=== PATIENT | male | born 1970 | race Caucasian/White ===

== ENCOUNTER 2020-01-07 10:29 | Inpatient (IN) ==
--- NOTE | 2020-01-07 10:40 | Emergency Department Note ---
Impression & Plan Non-ST elevation myocardial infarction (NSTEMI), Chest pain, Unstable angina pectoris ED Provider Note NAME: CHAKA MOORE AGE: 49 SEX: M : 1970 ARRIVES VIA: Ambulance INFORMANT: Patient ED PROVIDER(S): Noah Maza DO CHIEF COMPLAINT: Chest pain HPI: Patient is a 49-year-old male who presents the ER for midsternal chest pressure/heaviness. He notes this comes and goes throughout the day with exertion mainly when he is working in the [employer]. He does admit some mild shortness of breath with it and right jaw pain. He is also had some left lower quadrant abdominal pain in combination with this for the past week and a half. He denies any dizziness, lightheadedness. No nausea vomiting or diarrhea. Nothing changes with eating or drinking. He does admit to a history of smoking. He notes his father in his mid 40s of an MA. Symptoms do go away with rest. He currently has no pain at this time. ROS: See above HPI for pertinent positives & negatives. A total of 10 systems reviewed and were otherwise negative. PAST MEDICAL HISTORY:See Below PAST SURGICAL HISTORY:See Below FAMILY HISTORY:See Below SOCIAL HISTORY:See Below HOME MEDICATIONS:See Below ALLERGIES:See Below VITALS:See Below PHYSICAL EXAMINATION: GENERAL: Sitting up in bed, alert, well appearing, well nourished, no distress, non-toxic EYE EXAM: normal conjunctiva. OROPHARYNX: no exudate, no erythema, lips, buccal mucosa, and tongue normal and mucous membranes are moist NECK: supple, no nuchal rigidity, no adenopathy, non-tender LUNGS: Clear to auscultation. Normal chest wall mechanics HEART: no murmurs, S1 normal and S2 normal ABDOMEN: abdomen soft, non-tender, normo-active bowel sounds, no masses, no rebound or guarding. BACK: Back is symmetrical on inspection and there is no deformity, no midline tenderness, no CVA tenderness. SKIN: no rashes and no bruising UPPER EXTREMITIES: upper extremities are grossly normal. LOWER EXTREMITIES: No pitting edema. Calves are equal bilateral NEURO EXAM: Normal sensorium, cranial nerves II-XII grossly intact, normal speech, no gross weakness of arms, no gross weakness of legs. MEDICAL DECISION MAKING: Patient is a 49-year-old male who presents the ER for chest pain which has been off and on for the past 2 weeks while working. He describes as midsternal goes up to the right neck. He does have some pain in his left belly for the past 1.5 weeks. Does have a seizure disorder. He takes Dilantin and Tegretol for seizures. IV was established blood work was obtained shows mild leukopenia. INR was unremarkable. BMP with LFTs bilirubin magnesium was negative. Troponin was detectable at 0.065. Lipase was normal. COVID negative. Chest x-ray was unremarkable. CT abdomen pelvis was unremarkable. Patient had received aspirin prior to arrival. He was pain-free. Chest pain started back up and resolved after 5 minutes. I had ordered heparin for him and nitro at this time. Patient d/w for possible admission. Patient denies any coughing up blood, vomiting blood, pooping blood, urinating blood or previous brain bleeds. Tres stable throughout the main of the time in the ER. There is no change on the repeat EKG. Triage Nursing notes reviewed. Prior medical records reviewed Vital Signs: reviewed and remarkable for no significant abnormalities Differential diagnosis: Differential diagnoses includes but is not limited to acute coronary syndrome, myocardial infarction, pericarditis, pulmonary embolus, aortic dissection, pneumonia, pneumothorax, musculoskeletal, shingles, esophageal. ER treatment provided: See below Diagnostics interpreted by me: ECG: Sinus rhythm rate 67 Normal axis No PVCs Probable slightly prolonged QTC at 480 T wave inversion in the high lateral leads No significant change from 10/31/2017 EKG:#2 Sinus rhythm rate of 58 Normal axis No PVCs DWI in the high lateral leads Normal QTC Cardiac Monitoring: An order was placed for continuous cardiac monitoring. The monitor shows a rate of sinus with 71 rhythm. Laboratory studies: As stated above and show below. Imaging studies: CT abdomen pelvis shows no acute pathology Portable AP upright 1 view of the chest was unremarkable. Consultation(s): Discussed with hospitalist for admission ED COURSE: Procedures: none Critical Care: I have personally spent 32 minutes of critical care time in the direct management of this patient. This includes bedside care, interpretation of diagnostic studies, and testing, discussion with consultants, patient, and family members, and other required patient management activities. This 32 minutes is in excess of all separately billable procedures. 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 Beliefs That Will Affect Care: None Current Living Situation: Other Other Information That Helps Us Care for You: No Feels Safe at Home: Yes Smoking Status: Former smoker Hx Alcohol Use: No Hx Substance Use: Yes substance use type: former substance user and marijuana Allergies Allergies Allergy/AdvReac Type Severity Reaction Status Date / Time No Known Allergies Allergy Unverified 01/07/20 12:24 Home Meds Home Medications Medication Instructions Recorded Confirmed atorvastatin 40 mg PO PM 01/07/20 01/07/20 carbamazepine [Tegretol] 600 mg PO BID 01/07/20 01/07/20 phenytoin sodium extended 300 mg PO BID 01/07/20 01/07/20 Results & Data (ED) Vital Signs Vital Signs - 24 hr 01/07/20 10:33 01/07/20 10:38 01/07/20 11:00 Temperature 36.7 C Temperature Source Oral Pulse Rate 66 68 65 Pulse Rhythm Regular Pulse Strength Normal Respiratory Rate 16 18 16 Respiratory Effort / Characteristics Non-Labored Respiratory Depth Normal Respiratory Pattern Regular Blood Pressure 166/87 H 166/87 H 145/90 H Blood Pressure Mean 114 113 105 Blood Pressure Position Lying Pulse Oximetry 98 Oxygen Delivery Method Room Air Sepsis Recent Fever Within 48 Hours No Sepsis Action Taken by Nursing No Action Required 01/07/20 11:31 01/07/20 11:43 01/07/20 12:25 Temperature Temperature Source Pulse Rate 64 61 63 Pulse Rhythm Pulse Strength Respiratory Rate 16 13 14 Respiratory Effort / Characteristics Respiratory Depth Respiratory Pattern Blood Pressure 138/78 130/73 Blood Pressure Mean 81 79 Blood Pressure Position Pulse Oximetry Oxygen Delivery Method Sepsis Recent Fever Within 48 Hours Sepsis Action Taken by Nursing 01/07/20 12:26 01/07/20 12:30 01/07/20 12:31 Temperature Temperature Source Pulse Rate 59 L 61 62 Pulse Rhythm Pulse Strength Respiratory Rate 16 12 12 Respiratory Effort / Characteristics Respiratory Depth Respiratory Pattern Blood Pressure 139/77 Blood Pressure Mean 93 Blood Pressure Position Pulse Oximetry Oxygen Delivery Method Sepsis Recent Fever Within 48 Hours Sepsis Action Taken by Nursing 01/07/20 13:00 01/07/20 13:08 Temperature Temperature Source Pulse Rate 61 59 L Pulse Rhythm Pulse Strength Respiratory Rate 16 13 Respiratory Effort / Characteristics Respiratory Depth Respiratory Pattern Blood Pressure 130/83 166/112 H Blood Pressure Mean 96 155 Blood Pressure Position Pulse Oximetry Oxygen Delivery Method Sepsis Recent Fever Within 48 Hours Sepsis Action Taken by Nursing Laboratory Data Result diagrams: 01/07/20 11:00 01/07/20 11:00 Lab Results 01/07/20 01/07/20 01/07/20 Range/Units 11:00 11:00 11:00 WBC 4.79 L (4.8-10.8) K/uL RBC 4.31 L (4.7-6.1) M/uL Hgb 13.5 L (14.0-18.0) g/dL Hct 39.2 L (42-52) % MCV 91.0 (80-100) fL MCH 31.3 (25-34) pg MCHC 34.4 (32-36) g/dL RDW Std Deviation 44.3 (36.4-46.3) fL RDW Coeff of Telly 13.3 (11.5-14.5) % Plt Count 145 (130-400) K/uL MPV 9.9 (7.4-10.4) fL Immature Gran % (Auto) 0.2 % Neut % (Auto) 55.3 % Lymph % (Auto) 31.3 % [place] % (Auto) 10.9 % Eos % (Auto) 1.9 % Baso % (Auto) 0.4 % Immature Gran # (Auto) 0.01 (0.00-0.02) K/uL Neut # (Auto) 2.65 (1.4-6.5) K/uL Lymph # (Auto) 1.50 (1.2-3.4) K/uL [place] # (Auto) 0.52 (0.11-0.59) K/uL Eos # (Auto) 0.09 (0-0.5) K/uL Baso # (Auto) 0.02 (0-0.2) K/uL PT Cancelled INR Cancelled APTT Cancelled PTT Ratio Cancelled Sodium 142 (136-145) mmol/L Potassium 4.5 (3.5-5.1) mmol/L Chloride 109 H (98-107) mmol/L Carbon Dioxide 30 (21-32) mmol/L Anion Gap 3.0 (3-11) BUN 12 (7-18) mg/dl Creatinine 0.73 (0.6-1.4) mg/dl Est Cr Clr Drug Dosing 142.3 ml/min Est GFR ( Amer) 125.4 Est GFR (Non-Af Amer) 108.2 BUN/Creatinine Ratio 16.8 (10-20) Glucose 85 (70-99) mg/dl Calcium 8.3 L (8.5-10.1) mg/dl Magnesium (1.8-2.4) mg/dl Total Bilirubin 0.3 (0.2-1) mg/dl AST 27 (15-37) U/L ALT 45 (12-78) U/L Alkaline Phosphatase 75 (45-117) U/L Troponin I 0.065 H* (0-0.045) ng/ml Total Protein 7.3 (6.4-8.2) gm/dl Albumin 3.5 (3.4-5.0) gm/dl Globulin 3.8 (2.5-4.0) gm/dl Albumin/Globulin Ratio 0.9 (0.9-2) Lipase 61 L (73-393) U/L 01/07/20 01/07/20 Range/Units 11:00 11:30 WBC (4.8-10.8) K/uL RBC (4.7-6.1) M/uL Hgb (14.0-18.0) g/dL Hct (42-52) % MCV (80-100) fL MCH (25-34) pg MCHC (32-36) g/dL RDW Std Deviation (36.4-46.3) fL RDW Coeff of Telly (11.5-14.5) % Plt Count (130-400) K/uL MPV (7.4-10.4) fL Immature Gran % (Auto) % Neut % (Auto) % Lymph % (Auto) % [place] % (Auto) % Eos % (Auto) % Baso % (Auto) % Immature Gran # (Auto) (0.00-0.02) K/uL Neut # (Auto) (1.4-6.5) K/uL Lymph # (Auto) (1.2-3.4) K/uL [place] # (Auto) (0.11-0.59) K/uL Eos # (Auto) (0-0.5) K/uL Baso # (Auto) (0-0.2) K/uL PT 10.6 INR 1.0 APTT 26.2 PTT Ratio 0.9 Sodium (136-145) mmol/L Potassium (3.5-5.1) mmol/L Chloride (98-107) mmol/L Carbon Dioxide (21-32) mmol/L Anion Gap (3-11) BUN (7-18) mg/dl Creatinine (0.6-1.4) mg/dl Est Cr Clr Drug Dosing ml/min Est GFR ( Amer) Est GFR (Non-Af Amer) BUN/Creatinine Ratio (10-20) Glucose (70-99) mg/dl Calcium (8.5-10.1) mg/dl Magnesium 2.1 (1.8-2.4) mg/dl Total Bilirubin (0.2-1) mg/dl AST (15-37) U/L ALT (12-78) U/L Alkaline Phosphatase (45-117) U/L Troponin I (0-0.045) ng/ml Total Protein (6.4-8.2) gm/dl Albumin (3.4-5.0) gm/dl Globulin (2.5-4.0) gm/dl Albumin/Globulin Ratio (0.9-2) Lipase (73-393) U/L Administered Medications Heparin Sodium/Dextrose (Heparin Sodium/Dextrose) 25,000 units in 500 mls @ 20 mls/hr IV .Q24H [facility]; Protocol Stop: 02/06/20 13:14 Last Admin: 01/07/20 13:22 Dose: 1,000 units/hr, 20 mls/hr Documented by: [id number] Cosigned by: [id number] Discontinued Medications Calcium Gluconate (Calcium Gluconate 10%) 1,000 mg IV NOW STA Stop: 01/07/20 12:38 Last Admin: 01/07/20 13:11 Dose: Not Given Documented by: [id number] Heparin Sodium (Porcine) (Heparin Iv Bolus) 4,000 units IV NOW STA Stop: 01/07/20 13:26 Last Admin: 01/07/20 13:28 Dose: 4,000 units Documented by: [id number] Cosigned by: [id number] Heparin Sodium (Porcine) (Heparin Iv Bolus) Confirm Administered Dose 10,000 units .ROUTE .STK-MED ONE Stop: 01/07/20 13:27 Last Admin: 01/07/20 13:28 Dose: Not Given Documented by: [id number] Heparin Sodium/Dextrose () 1 ea N/A NOW STA; Protocol Stop: 01/07/20 13:14 Last Admin: 01/07/20 13:24 Dose: 1 ea Documented by: [id number] Sodium Chloride (Nss 1000ml) 1,000 mls @ 999 mls/hr IV .Q1H1M DONOVAN Stop: 01/07/20 11:45 Last Infusion: 01/07/20 12:55 Dose: 0 mls/hr Documented by: [id number] Admin: 01/07/20 11:22 Dose: 999 mls/hr Documented by: [id number] Magnesium Sulfate/Dextrose (Magnesium Sulfate / D5w) 1 gm in 100 mls @ 100 ml s/hr IV NOW STA Stop: 01/07/20 13:36 Last Admin: 01/07/20 13:12 Dose: Not Given Documented by: [id number] Ioversol (Optiray 320 100ml) 95 ml IV ONCE PRN PRN Reason: Interaction Checking Stop: 01/11/20 11:55 Last Admin: 01/07/20 11:56 Dose: 95 ml Documented by: [id number] Discharge Plan Visit Data *Final* Discharge Date/Time: 01/07/20 14:14 Chief Complaint: Chest Pain ED Provider: Noah Maza Discharge Problem: Non-ST elevation myocardial infarction (NSTEMI), Chest pain, Unstable angina pectoris Patient Disposition: Admitted As Inpatient Discharge Instructions Interventions: ED Discharge Assessment Last Done: 01/07/20 14:14 Discharge Problem: Chest pain Qualifiers: Chest pain type: unspecified Qualified Code(s): R07.9 - Chest pain, unspecified
[2020-01-07] MEDS ORDERED: SODIUM CHLORIDE 0.9% 1000ML 1,000 ML IV SCH (10:45)
--- NOTE | 2020-01-07 11:00 | XRay Report ---
SINGLE VIEW CHEST CLINICAL HISTORY: Atypical chest pain. FINDINGS: An AP, portable, upright chest radiograph is obtained. No prior studies are available for c omparison at the time of dictation. The examination is degraded by portable technique and patient rot ation. The heart is mildly enlarged. The pulmonary vasculature is noncongested. The lungs and pleural spaces are clear. No pneumothorax is seen. The bony thorax is grossly intact. IMPRESSION: No active disease in the chest. ACT 112: Negative or not required by law. Electronically signed by: Chandler Longoria M.D. 01/07/2020 10:58 AM
[2020-01-07 11:09] LABS: Basophils # (auto) 0.02 K/uL (0-0.2); Basophils % (auto) 0.4 %; Eosinophils # (auto) 0.09 K/uL (0-0.5); Eosinophils % (auto) 1.9 %; Hematocrit (blood only) 39.2 % (42-52); Hemoglobin 13.5 g/dL (14.0-18.0); Immature Granulocytes # (auto) 0.01 K/uL (0.00-0.02); Immature Granulocytes % (auto) 0.2 %; Lymphocytes % (auto) 31.3 %; Mean Corpuscular Hemoglobin 31.3 pg (25-34); Mean Corpuscular Hgb Conc 34.4 g/dL (32-36); Mean Platelet Volume 9.9 fL (7.4-10.4); Monocytes # (auto) 0.52 K/uL (0.11-0.59); Monocytes % (auto) 10.9 %; Neutrophils # (auto) 2.65 K/uL (1.4-6.5); Neutrophils % (auto) 55.3 %; Platelet Count 145 K/uL (130-400); RDW Coefficient of Variation 13.3 % (11.5-14.5); RDW Standard Deviation 44.3 fL (36.4-46.3); Red Blood Count 4.31 M/uL (4.7-6.1); White Blood Count 4.79 K/uL (4.8-10.8)
[2020-01-07 11:27] LABS: Albumin Level 3.5 gm/dl (3.4-5.0); BUN Creatinine Ratio 16.8 (10-20); Calcium 8.3 mg/dl (8.5-10.1); Creatinine Clr Calc Pharmacy 142.3 ml/min; Est GFR (African American) 125.4; Est GFR (Non-African American) 108.2; Potassium 4.5 mmol/L (3.5-5.1)
[2020-01-07 11:36] LABS: Albumin Globulin Ratio 0.9 (0.9-2); Bilirubin,Total 0.3 mg/dl (0.2-1); Globulin 3.8 gm/dl (2.5-4.0); Total Protein 7.3 gm/dl (6.4-8.2); Troponin I 0.065 ng/ml (0-0.045)
[2020-01-07 11:52] LABS: Partial Thromboplastin Ratio 0.9; Partial Thromboplastin Time 26.2 Seconds (21.0-31.0); Prothrombin Time 10.6 Seconds (9.0-12.0)
[2020-01-07] MEDS ORDERED: IOVERSOL 100ml IV PRN (11:56)
--- NOTE | 2020-01-07 12:10 | CT Scan Report ---
ABDOMEN AND PELVIS CT WITH IV CONTRAST CT DOSE: 1066.41 mGycm HISTORY: Acute left lower quadrant abdominal pain llq abd pain TECHNIQUE: Multiaxial CT images of the abdomen and pelvis were performed following the IV administrat ion of 95 cc of Optiray 320, A dose lowering technique was utilized adhering to the principles of AL DEEPTHI. COMPARISON STUDY: Chest radiograph of same day FINDINGS: Trace pleural effusions noted in conjunction with a trace pericardial effusion. Calcified granuloma o f the inferior segment lingula. 4 mm solid nodule of the posterior basal segment left lower lobe. Mil d dependent subsegmental bibasilar atelectasis. No pneumatosis or pneumoperitoneum. Imaged inferior c ardiac chambers are unremarkable. Spleen, pancreas, gallbladder and adrenal glands are unremarkable. Linear coarse calcifications of the superior right hepatic lobe. Liver is otherwise unremarkable. Pat ency of the hepatic and portal veins. No biliary ductal dilation. Nonspecific mildly enlarged peripor dirk lymph nodes measure up to 1.2 cm in short axis. Mild nonspecific bilateral perinephric stranding. Kidneys are otherwise unremarkable. Urinary bladder and prostate are also within normal limits. Moderate to extensive mixed plaque of the abdominal aort a without aneurysm. No bowel obstruction or bowel wall thickening. Mild fecal retention. Terminal ile um and appendix are unremarkable. Tiny fat filled periumbilical hernia. Nonspecific trace free fluid within the dependent pelvis. Bones appear intact. IMPRESSION: 1. No bowel obstruction or bowel wall thickening. Normal appendix. 2. Nonspecific trace dependent free fluid in the pelvis. 3. Trace pericardial and pleural effusions. 4. Additional findings as above. ACT 112: Negative or not required by law. The above report was generated using voice recognition software. It may contain grammatical, syntax o r spelling errors. Electronically signed by: Angelito Samayoa M.D. 01/07/2020 12:09 PM
[2020-01-07] MEDS ORDERED: MAGNESIUM SULFATE / D5W 1 GM/100 ML BAG IV STA (12:37)
[2020-01-07] MEDS ORDERED: CALCIUM GLUCONATE 10% 10 ML VIAL IV STA (12:37)
[2020-01-07] MEDS ORDERED: Heparin IV Low Dose WITH Bolus STA (13:13)
[2020-01-07] MEDS ORDERED: NITROGLYCERIN SL 0.4 MG/TAB TAB SL PRN ×2 (13:13→15:26)
[2020-01-07] MEDS: HEPARIN SODIUM/DEXTROSE 25,000 UNITS/500 ML BAG IV SCH (13:22)
[2020-01-07] MEDS ORDERED: Heparin BOLUS **ED Use Only IV STA (13:25)
[2020-01-07] MEDS ORDERED: CALCIUM GLUCONATE 10% 1,000 MG in SODIUM CHLORIDE 0.9% 50 ML IV STA (13:25)
[2020-01-07] MEDS ORDERED: HEPARIN SOD (PORCINE) 1000 UNIT/ML 10 ML VIAL ONE (13:26)
--- NOTE | 2020-01-07 14:16 | History & Physical Report ---
Date of Service January 07, 2020 Assessment & Plan (1) Chest pain: Pt is 49 y/o M with PMH dyslipidemia, seizure disorder presented to ER from [facility] for intermittent anterior CP with radiation to left flank and right side of neck that occurs with exertion of lifting and carrying boxes and is associated with SOB and relieved after approx 10-20 minutes with rest. Denies any palpitations, diaphoresis, nausea, vomiting. Received 324mg ASA prior ER arrival today In ER pt afebrile, P: 68, R: 18, BP: 166/87, 98% on RA. No leukocytosis. Initial troponin: 0.065. EKG sinus rhythm, rate 67, t wave inversion laterally CXR: No active disease in the chest. CT ABD/PELVIS:1. No bowel obstruction or bowel wall thickening. Normal appendix. 2. Nonspecific trace dependent free fluid in the pelvis. 3. Trace pericardial and pleural effusions. 4. Additional findings as above. CHEST PAIN R/O ACS. Risk factors: hyperlipidemia, FH, prior tobacco use; Symptoms consistent with Angina, DDX: musculoskeletal etiology In ER did have episode of anterior CP at rest that resolved spontaneously prior to any nitro In ER Heparin Drip started Repeat EKG in am Will trend troponin Echo trace pericardial effusion noted on CT abd/pelvis, will further evaluate with echo also Lipid panel in am, will resume atorvastatin Aspirin Nitro prn CP and repeat EKG for CP NPO midnight Will obtain Covid 19 screen in case of procedure Cardiology consult, Dr Daniels aware (2) Seizure disorder: H/O Seizure disorder since age 9 Reported Seizure last night, pt missed yesterday's morning medications Obtain tegretol, phenytoin level Continue Tegretol, phenytyoin Seizure precautions Ativan prn seizure activity If would have any recurrent seizure, will plan to consult neurology (3) Dyslipidemia: Reported dyslipidemia. Self stopped atorvastatin 6 months ago Obtain lipid panel (4) Pulmonary nodule: 4 mm solid nodule of the posterior basal segment left lower lobe noted on CT abd/pelvis Suggest future monitoring DVT Prophylaxis On Heparin Drip Pt follows with at [facility] for routine care Pt was seen and care coordinated with Dr Robin. See addendum History of Present Illness Chief Complaint: CP Primary Care Provider: [facility] Pt is 49 y/o M with PMH dyslipidemia, seizure disorder presented to ER from [facility] with c/o CP. Pt reports intermittent anterior CP with radiation to left flank and right side of neck that occurs with exertion of lifting and carrying boxes and is associated with SOB and relieved after approx 10-20 minutes with rest. Denies any palpitations, diaphoresis, nausea, vomiting. He had CP today and did receive 324mg ASA prior to transfer to ER. Denies any known cardiac history. He has h/o dyslipidemia and pt states he chose to stop taking atorvastatin 6 months ago. He reports h/o frequent seizures that occur almost daily. Pt states seizures occur during sleep and have been occuring since age 9. 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 Pt states he does not remember episodes. Pt report past 2 weeks had been seizure free however last night had reported seizure. He did miss his morning medicine yesterday. After seizure states has posterior MARTIN when he awakens in the morning. He states has followed with neurology in the past and had several scans of head and EEG without definitive underlying cause for seizures. Denies fever/chills, diaphoresis, N/V/D/C, dizziness, syncope, vision changes, orthopnea, palpitations, cough, sore throat, choking, otalgia, rhinorrhea, abdominal pain, paresthesias, weakness, extremity weakness, extremity edema, rashes, urinary symptoms. Former smoker, quit 02/2019 FH: father fatal [place] in his mid 40's While in ER today pt reports episode of anterior CP that was sharp and lasted a few minutes and resolved prior to any treatment. Pt states this was the first time this occurred at rest. 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 Beliefs That Will Affect Care: None Current Living Situation: Other Other Information That Helps Us Care for You: No Feels Safe at Home: Yes Smoking Status: Former smoker Hx Alcohol Use: No Hx Substance Use: Yes substance use type: former substance user and marijuana Review of Systems Review of Systems: All systems reviewed & are unremarkable except as noted in HPI & below Physical Exam Physical Exam: General: no distress, WDWN Head: normocephalic, atraumatic Eyes: PERRL, EOM's intact, conjunctiva non-injected, anicteric ENT: normal inspection external ears, nose, mucous membranes moist Neck: supple, trachea midline, non-tender, ROM intact Lungs: clear, no respiratory distress, no wheezing/rhonchi/rales CV: RRR, no murmur, no pretibial edema Chest wall: +tenderness to palpation left and right anterior chest wall greatest over pectoralis region, +tenderness right anterior chest with sitting up Abd: normal BS, soft, non-tender Ext: no cyanosis, no calf tenderness Neuro: A&O x 3, no focal deficits noted, normal affect Skin: warm, dry Results & Data Results & Data ([facility]) Vital Signs (Past 12 Hours) Vital Signs Temp Pulse Resp BP Pulse Ox 01/07/20 13:48 59 L 16 01/07/20 13:29 60 16 154/91 H 01/07/20 13:08 59 L 13 166/112 H 01/07/20 13:00 61 16 130/83 01/07/20 12:31 62 12 01/07/20 12:30 61 12 139/77 01/07/20 12:26 59 L 16 01/07/20 12:25 63 14 130/73 01/07/20 11:43 61 13 01/07/20 11:31 64 16 138/78 01/07/20 11:00 65 16 145/90 H 01/07/20 10:38 36.7 C 68 18 166/87 H 98 01/07/20 10:33 66 16 166/87 H Laboratory Results Short CBC 01/07/20 Range/Units 11:00 WBC 4.79 L (4.8-10.8) K/uL Hgb 13.5 L (14.0-18.0) g/dL Hct 39.2 L (42-52) % Plt Count 145 (130-400) K/uL BMP 01/07/20 11:00 Sodium 142 Potassium 4.5 Chloride 109 H Carbon Dioxide 30 BUN 12 Creatinine 0.73 Glucose 85 Calcium 8.3 L Cardiac Enzymes 01/07/20 Range/Units 11:00 Troponin I 0.065 H* (0-0.045) ng/ml Liver Function 01/07/20 Range/Units 11:00 Total Bilirubin 0.3 (0.2-1) mg/dl AST 27 (15-37) U/L ALT 45 (12-78) U/L Alkaline Phosphatase 75 (45-117) U/L Albumin 3.5 (3.4-5.0) gm/dl Diagnostic Findings CXR: IMPRESSION: No active disease in the chest. CT ABD/PELVIS: IMPRESSION: 1. No bowel obstruction or bowel wall thickening. Normal appendix. 2. Nonspecific trace dependent free fluid in the pelvis. 3. Trace pericardial and pleural effusions. 4. Additional findings as above. Supervising Physician Co-Signing Physician Notes Patient is a 49-year-old male with history of seizure disorder, dyslipidemia and other medical problems presents with history of intermittent retrosternal chest pain radiating to left flank, neck which worsens with exertion and is associated with dyspnea. His troponin is mildly elevated at 0.065. Chest x-ray showed no acute disease. CT abdomen showed trace pericardial and pleural effusions. EKG showed T wave abnormalities in lateral leads. He was started on IV heparin while in ED. He received full dose aspirin prior to getting to ED. He admits to having a seizure episode yesterday night. He reports that he missed his antiseizure medications yesterday morning. Please review HPI for complete details of presentation. On examination patient is well-built and nourished, no apparent distress, normocephalic atraumatic, lungs are clear to auscultation, chest--tender on palpation on left side, normal breath sounds, S1- S2, no murmur, no pedal edema, abdomen soft nontender, bowel sounds are present, grossly no focal neurological deficits. Patient is admitted from evaluation of chest pain rule out ACS. Continue aspirin, IV heparin. Check resting echo, trend cardiac enzymes. Also check lipid panel. Cardiology consulted. Keep him n.p.o. for possible procedure tomorrow. Continue antiseizure medications for seizure disorder. If seizure recurs, will obtain EEG and neurology evaluation. Will obtain Tegretol, phenytoin levels. Ativan PRN for seizures. Noted incidental finding of pulmonary nodule of left lower lobe. Will need to repeat imaging as outpatient. I personally reviewed the record. Patient is interviewed and examined at bedside. Patient's care is coordinated with Wilda Barboza PA-C. Please refer to the documentation above for details of patient's presentation and for discussion of other issues. (1) Chest pain Chest pain type: unspecified Qualified Code(s): R07.9 - Chest pain, unspecified
[2020-01-07] MEDS ORDERED: LORazepam 1 MG/2 ML VIAL IV PRN (15:26)
[2020-01-07] MEDS ORDERED: ACETAMINOPHEN 325 MG TAB PO PRN (15:26)
--- NOTE | 2020-01-07 16:18 | Cardiology Consultation ---
Date of Consultation January 07, 2020 Assessment & Plan (1) Chest pain: (2) Dyslipidemia: (3) History of tobacco abuse: (4) Family history of premature coronary artery disease: (5) Hypertension: His description of the chest discomfort is atypical for unstable angina but EKG is abnormal. I am not overtly concerned about the first set of troponins. He is now symptom-free at rest and started on heparin. We will plan on trending troponin overnight and should they remain unremarkable we will proceed with stress echocardiogram in the a.m. Should the troponins begin to elevate then we may need to proceed directly to cardiac catheterization. The above plan was discussed with the patient at great length and he states he understands, he agrees with the above plan. History of Present Illness Reason for Consultation: Chest pain Requesting Physician: Dr. Robin Attending Physician: Ford Robin MD History of Present Illness It was my pleasure to see Mr. Victoria in consultation today January 07, 2020. He is a 49-year-old gentleman who presents to [facility] emergency department on 01/07/2020 from [facility] group home with complaints of chest pain. He states approximately 1 week ago he developed chest pain while carrying boxes. He describes a sharp/dull sensation across his left precordium. He states initially was associated with shortness of breath and possibly some diaphoresis. The discomfort lasted several moments and then resolved on its own. He then had further episodes again at work but this a.m. he had episode while at rest the states lasted for approximately 2 minutes. The episode this morning was more severe in nature and he describes it as a concomitant bolt of lightening sensation across his left side. Upon arrival to the emergency department, EKG was concerning for lateral ischemia and troponin was minimally elevated above reference range. He was started on a heparin drip and states is not having further chest discomfort since admission. He does have a positive family history of premature coronary disease in a first- degree relative, his mother suffered a fatal myocardial infarction at age 45. Allergies Allergy/AdvReac Type Severity Reaction Status Date / Time No Known Allergies Allergy Unverified 01/07/20 12:24 Home Medications Home Medications Medication Instructions Recorded Confirmed Type atorvastatin 40 mg PO PM 01/07/20 01/07/20 History carbamazepine [Tegretol] 600 mg PO BID 01/07/20 01/07/20 History phenytoin sodium extended 300 mg PO BID 01/07/20 01/07/20 History Patient History Medical History Dyslipidemia Seizure disorder Family History Father Coronary heart disease Seizure disorder Social History Heat Treat Operator Required: No Beliefs That Will Affect Care: None Current Living Situation: Other Other Information That Helps Us Care for You: No Feels Safe at Home: Yes Smoking Status: Former smoker Hx Alcohol Use: No Hx Substance Use: Yes substance use type: former substance user and marijuana Review of Systems Review of Systems: All systems reviewed & are unremarkable except as noted in HPI & below Physical Exam Physical Exam: Patient seen and examined with Yane De Souza PA-C. Agree with findings and assessment as above. Results & Data ([facility]) Vital Signs (Past 12 Hours) Vital Signs Temp Pulse Pulse Resp BP BP Pulse Ox 01/07/20 15:12 36.8 C 60 20 162/84 H 01/07/20 13:48 59 L 16 01/07/20 13:29 60 16 154/91 H 01/07/20 13:08 59 L 13 166/112 H 01/07/20 13:00 61 16 130/83 01/07/20 12:31 62 12 01/07/20 12:30 61 12 139/77 01/07/20 12:26 59 L 16 01/07/20 12:25 63 14 130/73 01/07/20 11:43 61 13 01/07/20 11:31 64 16 138/78 01/07/20 11:00 65 16 145/90 H 01/07/20 10:38 36.7 C 68 18 166/87 H 98 01/07/20 10:33 66 16 166/87 H (1) Chest pain Chest pain type: unspecified Qualified Code(s): R07.9 - Chest pain, unspecified
--- NOTE | 2020-01-07 17:11 | Electrocardiogram Report ---
Test Reason : Blood Pressure : / mmHG Vent. Rate : 067 BPM Atrial Rate : 067 BPM P-R Int : 166 ms QRS Dur : 090 ms QT Int : 454 ms P-R-T Axes : 040 045 096 degrees QTc Int : 479 ms Normal sinus rhythm T wave abnormality, consider lateral ischemia Prolonged QT Abnormal ECG No previous ECGs available Confirmed by Nigel Nogueira ([id number]) on 01/07/2020 5:10:37 PM Referred By: Confirmed By:Boogie Nogueira
--- NOTE | 2020-01-07 17:14 | Electrocardiogram Report ---
Test Reason : Blood Pressure : / mmHG Vent. Rate : 058 BPM Atrial Rate : 058 BPM P-R Int : 170 ms QRS Dur : 088 ms QT Int : 480 ms P-R-T Axes : 049 065 096 degrees QTc Int : 471 ms Sinus bradycardia Otherwise normal ECG When compared with ECG of 07-JAN-2020 10:37, (unconfirmed) No significant change was found Confirmed by Nigel Nogueira ([id number]) on 01/07/2020 5:13:59 PM Referred By: [facility] Confirmed By:Boogie Nogueira
[2020-01-07 18:02] LABS: Carbamazepine Tegretol 7.4 mcg/ml (4-12); Phenytoin (Dilantin) 12.7 mcg/ml (10-20)
[2020-01-07] MEDS: ATORVASTATIN 40 MG TAB PO SCH (20:13)
[2020-01-07] MEDS: carBAMazepine 200 MG TABLET PO SCH (20:13)
[2020-01-07] MEDS: PHENYTOIN SODIUM ER 100 MG CAP PO SCH (20:13)
[2020-01-07 21:02] LABS: Partial Thromboplastin Ratio 1.1; Partial Thromboplastin Time 31.9 Seconds (21.0-31.0)
[2020-01-07] MEDS ORDERED: HEPARIN IV BOLUS 4,500 UNITS in SYRINGE 0 ML IV STA (21:54)
[2020-01-08 04:07] LABS: Partial Thromboplastin Ratio 1.6; Partial Thromboplastin Time 44.8 Seconds (21.0-31.0)
[2020-01-08 04:15] LABS: Hematocrit (blood only) 38.6 % (42-52); Hemoglobin 13.5 g/dL (14.0-18.0); Mean Corpuscular Hemoglobin 31.8 pg (25-34); Mean Corpuscular Volume 90.8 fL (80-100); Mean Platelet Volume 9.9 fL (7.4-10.4); Platelet Count 126 K/uL (130-400); RDW Coefficient of Variation 13.2 % (11.5-14.5); RDW Standard Deviation 43.8 fL (36.4-46.3); Red Blood Count 4.25 M/uL (4.7-6.1); White Blood Count 5.19 K/uL (4.8-10.8)
[2020-01-08 04:16] LABS: BUN Creatinine Ratio 16.7 (10-20); Calcium 8.7 mg/dl (8.5-10.1); Est GFR (Non-African American) 105.3; Potassium 4.1 mmol/L (3.5-5.1)
[2020-01-08] MEDS ORDERED: HEPARIN IV BOLUS 3,000 UNITS in SYRINGE 0 ML IV STA (04:25)
[2020-01-08 04:27] LABS: Thyroid Stimulating Hormone 2.94 uIu/ml (0.300-4.500)
[2020-01-08 06:00] LABS: Estimated Average Glucose 97 mg/dl
[2020-01-08] MEDS: carBAMazepine 200 MG TABLET PO SCH ×2 (08:09→21:07)
[2020-01-08] MEDS: PHENYTOIN SODIUM ER 100 MG CAP PO SCH ×2 (08:09→21:08)
[2020-01-08] MEDS: ASPIRIN 81 MG ECTAB PO SCH (08:09)
[2020-01-08] MEDS ORDERED: ATROPINE SULFATE 0.1 MG/ML 10ML SYR IV ONE (08:41)
[2020-01-08] MEDS ORDERED: METOPROLOL TARTRATE 1 MG/ML VIAL IV ONE (08:42)
[2020-01-08] MEDS ORDERED: DOBUTamine HCL 12.5 MG/ML 20 ML VIAL IV ONE (08:42)
--- NOTE | 2020-01-08 10:07 | Cardiology Progress Note ---
Date of Service January 08, 2020 Assessment & Plan (1) Chest pain: (2) Dyslipidemia: (3) History of tobacco abuse: (4) Family history of premature coronary artery disease: (5) Hypertension: Normal coronary arteries. Noncardiac chest pain. No further cardiac testing or intervention is necessary at this time. (6) HOCM (hypertrophic obstructive cardiomyopathy): Difficult to discern from severe concentric LVH but septal thickness of 2.4 cm along with a resting LVOT gradient of 25 mmHg. Peak gradient with stress of 64 mmHg. Cardiac catheterization had a gradient of 32 mmHg Will be placed on metoprolol succinate for arrhythmia suppression along with decreasing the gradient. Unfortunately he is rather bradycardic at baseline. The pathophysiology, consequences and treatment options for the above were discussed with the patient at great lengths. He states that he understands. Ultimately, will require cardiac MRI for definitive diagnosis. Can be completed as an outpatient. Will likely discharge in the a.m. Subjective Patient seen and examined, chart reviewed. States that he felt well overnight with no further episodes of chest discomfort. Denies shortness of breath, palpitations, lightheadedness, dizziness or syncope. Telemetry reviewed sinus rhythm without any arrhythmias or significant ectopy. Review of Systems Review of Systems: All systems reviewed & are unremarkable except as noted in HPI & below Physical Exam Physical Exam: General: Awake, alert and oriented x 3. No acute distress. HEENT: Normocephalic, atraumatic. Pupils equal, round and reactive to light and accommodation. Extraocular muscles are intact. Anicteric sclera. Moist mucous membranes. Neck: No JVD. No bruit. Cardiovascular: Regular. Positive S-4. Normal S-1 and S-2. No S-3. 3/6 mid to late systolic ejection murmur, greatest at the right sternal border, second intercostal space with radiation to the bilateral carotids. No rubs. Pulmonary: Clear to auscultation bilaterally. No rales, rhonchi, or wheezing. Abdomen: Bowel sounds x 4, soft. No rebound, guarding or tenderness. No organomegaly. Extremities: No clubbing, cyanosis or edema. +2 pedal pulses bilaterally. Skin: Warm and dry. Results & Data Vital Signs (Past 12 Hours) Vital Signs Temp Pulse Resp BP Pulse Ox 01/08/20 07:51 36.4 C L 57 L 19 133/79 98 01/08/20 03:14 36.4 C L 57 L 18 119/74 99 01/08/20 01:02 36.5 C 58 L 16 128/79 98 (1) Chest pain Chest pain type: unspecified Qualified Code(s): R07.9 - Chest pain, unspecified
[2020-01-08] MEDS: HEPARIN SODIUM/DEXTROSE 25,000 UNITS/500 ML BAG IV SCH ×2 (10:13→11:07)
[2020-01-08 10:36] LABS: Partial Thromboplastin Ratio 1.6; Partial Thromboplastin Time 43.4 Seconds (21.0-31.0)
[2020-01-08] MEDS ORDERED: HEPARIN IV BOLUS 3,000 UNITS in SYRINGE 0 ML IV ONE (11:00)
--- NOTE | 2020-01-08 15:34 | Pre Anesthesia Assessment ---
Date of Service January 08, 2020 Pre Sedation Assessment Vital Signs Temp Pulse Pulse Resp BP Pulse Ox 01/08/20 11:49 36.5 C 56 L 58 L 19 123/77 95 01/08/20 07:51 36.4 C L 57 L 19 133/79 98 01/08/20 03:14 36.4 C L 57 L 18 119/74 99 01/08/20 01:02 36.5 C 58 L 16 128/79 98 01/07/20 19:47 36.2 C L 60 16 134/79 98 Cardiovascular + regular rate Respiratory + respiratory effort normal Pre-Sedation Airway Assessment Smoking Status: Former smoker Hx Sleep Apnea: No Hx Difficult Intubation: No Short, Thick Neck: No Thyromental Distance: > or= 3.5 Finger Breadths Oral Cavity: + WNL Mallampati Class: II ASA: ASA2 NPO Status Date of Last Intake of Fluids: 01/07/20 Time of Last Intake of Fluids: 21:00 Date of Last Intake of Solid Food: 01/07/20 Time of Last Intake of Solid Foods: 21:00 Procedure Planning Contraindications for Sedation: none Current Medications Reviewed: Yes Notes The planned sedation has been discussed with the patient. Informed Consent was obtained. I have identified the patient, determined the appropriateness of sedation and have assessed the patient immediately prior to the procedure. All medicine(s) and interventions are by my order.
[2020-01-08] MEDS ORDERED: HEPARIN (PORCINE) 1000 UNIT/ML 10 ML (CATH LAB USE ONLY) ONE (15:38)
[2020-01-08] MEDS ORDERED: fentaNYL citrate 100 MCG/2 ML VIAL ONE (15:38)
[2020-01-08] MEDS ORDERED: NiCARDipine HCL INJ 2.5 MG/ML 10 ML AMP ONE (15:38)
[2020-01-08] MEDS ORDERED: MIDAZOLAM HCL 1 MG/ML 2ML VIAL ONE (15:38)
[2020-01-08] MEDS ORDERED: NITROGLYCERIN/D5W 100MCG/ML 20ML SYR ONE (15:39)
--- NOTE | 2020-01-08 16:27 | Hospitalist Progress Note ---
Date of Service January 08, 2020 Assessment & Plan (1) Chest pain: Present on admission from [facility] with chest pain on exertion Troponin on admission 0.065 then trending down to 0.049 EKG showed T wave inversion received ASA 324mg prior to arrival in the ER Was starting on heparin drip on admission Cardiology on board Dobutamine stress echo was abnormal S/P cardiac cath done today showed normal coronary arteries. case discussed with cardiology No further cardiac testing or intervention is necessary at this time. Starting on a low dose metoprolol 12.5mg Continue statin and baby aspirin heparin drip discontinued Will continue monitor in tele OK from cardiology standpoint to discharge tomorrow (2) HOCM (hypertrophic obstructive cardiomyopathy): Cardiac catheterization had a gradient of 32 mmHg Starting on low dose metoprolol succinate for arrhythmia suppression along with decreasing the gradient, but he is bradycardic at baseline. Consider outpatient Cardiac MRI for definitive diagnosis (3) Seizure disorder: H/O Seizure disorder since age 9 No seizure activity while in the hospital last night Continue Tegretol, phenytyoin Seizure precautions Ativan prn seizure activity (4) Dyslipidemia: Self stopped atorvastatin 6 months ago Continue Statin (5) Pulmonary nodule: 4 mm solid nodule of the posterior basal segment left lower lobe noted on CT abd/pelvis Will need outpatient CT chest to monitor DVT Prophylaxis On Heparin Drip discontinued Disposition Will discharge tomorrow Admission and Anticipated Discharge Date Admission Date: January 07, 2020 Subjective Pt was seen and examined Lying in bed with no distress with 2 guards at bedside Pt said that he feels ok now He had an abnormal dobutamine stress echocardiogram this morning He said that he did not have any seizure last night Currently denies any chest pain, palpitation, dizziness and SOB Physical Exam Physical Exam: General- No acute distress Head- atraumatic Eyes- PERRL, EOMI, ENT- oropharynx clear Neck- supple, no JVD Lungs- clear to auscultation Heart- regular rhythm; no murmur Abdomen- normal bowel sounds, soft, nontender Extremities- no calf tenderness Neuro- alert, oriented x 3; PERRL, EOMI; no facial palsy; no dysarthria Skin- warm & dry Results & Data Results & Data ([facility]) Vital Signs (Past 12 Hours) Vital Signs Temp Pulse Pulse Resp BP Pulse Ox 01/08/20 11:49 36.5 C 56 L 58 L 19 123/77 95 06/19/20 07:51 36.4 C L 57 L 19 133/79 98 (1) Chest pain Chest pain type: unspecified Qualified Code(s): R07.9 - Chest pain, unspecified
--- NOTE | 2020-01-08 16:36 | Post Anesthesia Assessment ---
Date of Service January 08, 2020 Post Sedation Assessment Vital Signs Temp Pulse Pulse Resp BP Pulse Ox 01/08/20 16:30 36.5 C 62 19 134/65 95 01/08/20 11:49 36.5 C 56 L 58 L 19 123/77 95 01/08/20 07:51 36.4 C L 57 L 19 133/79 98 01/08/20 03:14 36.4 C L 57 L 18 119/74 99 01/08/20 01:02 36.5 C 58 L 16 128/79 98 01/07/20 19:47 36.2 C L 60 16 134/79 98 Recovery Score Activity: Moves 4 extremities Respiration: Deep Breath/Cough Circulation: +/-20% PreAnes Value Consciousness: Fully Awake Oxygen Saturation: > 92% On Room Air Post Anesthesia Score: 10 Discharge Sedation Level of Care: Fast Track Phase II Post Sedation Plan On clinical assessment, the patient appears to have tolerated the sedation without complications. Patient is recovering as anticipated. Patient will continue to be monitored by nursing and may be discharged when sedation discharge criteria are met per below protocol. Upon Completions of procedure up to 15 minutes continue every 5 minute vital signs and the P.A.R. score; then discharge to a Phase I or Fast Track to Phase II per the following guidelines: * Discharge Patient to appropriate Phase II area if PAR is 8 or greater or return to pre- procedure baseline. The post - procedure orders will be as directed. * If PAR score is less than 8 or not return to pre-procedure baseline then patient will follow Phase I monitoring till PAR is reached for Phase II. The Phase I may be done in procedure room or may call to secure a Phase I area. * If naloxone or flumazenil are used for reversal, hold in Phase I for co ntinued monitoring from when last reversal dose was given for a minimum of 60 minutes or longer pending the nurse and/or physician discretion of patient condition before discharge to Phase II. Please call the Sedation Physician to re-evaluate and complete post-note for discharge to Phase II area. Do NOT discharge from procedure sedation or Phase 1 until post- sedation evaluation note is complete by procedure /sedation MD Sedation Discharge Instructions to be given to the patient at discharge to home.
--- NOTE | 2020-01-08 16:45 | Cardiac Catheterization ---
[facility] Data: Completion Supervisor Cardiac Status Clinical evaluation leading to the procedure CAD Presenation: Positive Stress Test Diagnostic Physicians Name: Nigel Nogueira MD Closure Device Recommendations: Medical Therapy and/or Counseling Cardiac Cath Procedure Full Procedure Date January 08, 2020 Pre-Procedure Diagnosis Pre-Procedure Diagnosis: Positive Stress Test AUC Score AUC Score: 8 Post-Procedure Diagnosis Post-Procedure Diagnosis: Normal Coronary Arteries Procedure(s) Performed Procedure(s) Performed: Coronary Angiography and Left Heart Cath Enrollment Representative Nigel Nogueira MD Estimated Blood Loss Estimated Blood Loss: 10 Medication(s) Medication(s): Fentanyl, Heparin, Lidocaine 1%, Nicardipine, Nitroglycerin and Versed Summary of Findings Procedures performed: left heart catheterization, selective coronary angiography Staff outboard motor inspector: Nigel Nogueira MD Indication: Patient is a 49-year-old gentleman with evidence of hypertrophic cardiomyopathy on echocardiography. He also presented with chest pain and abnormal stress test. Procedure in detail: Patient was informed of the risks benefits alternatives to the intended procedure. He understood which proceed. He was taken to the cardiac catheterization suite in a fasting state. Conscious sedation was administered per protocol the patient was monitored electrocardiographically throughout today's procedure. The right radial area is prepped and draped in usual sterile fashion. This area was anesthetized using subcutaneous menstruation lidocaine solution. The right radial artery simply access using Seldinger technique and a 6 Urdu arterial sheath was placed at the site over guidewire. The sheath was used facilitate passage of the cardiac catheters for selective coronary angiography and left heart catheterization. Images were obtained in multiple orthogonal views and pressure measurements were taken prior to removal of the catheters and sheath. Hemostasis was achieved at the access site using manual pressure. Patient tolerated procedure well. There were no immediate complications. Equipment used: 5 Urdu tiger 4 Dwarf pigtail catheter Coronary angiography: Left main was very short but did bifurcate into left anterior descending left circumflex artery. No disease in this vessel Left anterior descending: Left anterior descending was a very large transapical vessel. Hip reduced 3 large diagonal branches and several additional diminutive diagonal branches. There were some luminal irregularities throughout the vessel. There was some very mild stenosis just distal to the 1st diagonal branch estimated at 20 percent. There was some tapering of the proximal portion of D2 and D3. There were no obstructive lesions in this vessel. Left circumflex: Left circumflex was a large dominant vessel. It produced a very large high 1st OM vessel, a large 2nd OM vessel and to additional diminutive OM vessels prior to giving off a left-sided PDA. There were some luminal irregularities in all vessels. There is approximately 50 percent stenosis distal to the 2nd diagonal branch in the ongoing circumflex. No obstructive lesions. Right coronary artery: Right coronary artery was a small non dominant vessel. He had approximately 30 40 percent stenosis in its midportion. Impression: Left dominant coronary system without obstructive coronary disease Evidence of outflow tract obstruction with a gradient of 33 millimeters of mercury at rest Hemodynamics Rest Ao:: 105/69 millimeters of mercury Final Ao: 127/71 millimeters of mercury LV: 141/4 millimeters of mercury Positive [place] response to PVC suggestive of outflow tract obstruction Recommendations Recommendations: Medical Therapy and/or Counseling Radiation Exposure (mGy) Eight hundred ninety-nine Contrast (mls) Forty Procedural Complication(s) None Disposition PCU I attest to the content of the Intraoperative Record and any orders documented therein. Any exceptions are noted below. PG Care Time/CCT Total # of Minutes Spent Total Time Spent with Patient: Total time spent is greater than 50% in coordination of care (as documented) at patient's floor/unit and/or counseling patient:
[2020-01-08] MEDS: METOPROLOL SUCC 25MG EXT REL TAB PO SCH (17:28)
--- NOTE | 2020-01-08 19:19 | Electrocardiogram Report ---
Test Reason : Blood Pressure : / mmHG Vent. Rate : 058 BPM Atrial Rate : 058 BPM P-R Int : 174 ms QRS Dur : 096 ms QT Int : 498 ms P-R-T Axes : 057 065 097 degrees QTc Int : [address] elevation, consider early repolarization, pericarditis, or injury Prolonged QT Abnormal ECG When compared with ECG of 07-JAN-2020 13:11, No significant change was found Confirmed by Nigel Nogueira ([id number]) on 01/08/2020 7:18:55 PM Referred By: [facility] Confirmed By:Boogie Nogueira
[2020-01-08] MEDS: ATORVASTATIN 40 MG TAB PO SCH (21:07)
[2020-01-09] MEDS: carBAMazepine 200 MG TABLET PO SCH (08:48)
[2020-01-09] MEDS: ASPIRIN 81 MG ECTAB PO SCH (08:48)
[2020-01-09] MEDS: METOPROLOL SUCC 25MG EXT REL TAB PO SCH (08:48)
[2020-01-09] MEDS: PHENYTOIN SODIUM ER 100 MG CAP PO SCH (08:48)
--- NOTE | 2020-01-09 10:26 | Cardiology Progress Note ---
Date of Service January 09, 2020 Assessment & Plan (1) Chest pain: (2) Dyslipidemia: (3) History of tobacco abuse: (4) Family history of premature coronary artery disease: (5) Hypertension: (6) HOCM (hypertrophic obstructive cardiomyopathy): The patient can be discharged today. He is tolerating metoprolol at a low dose of 12.5 mg twice daily which he should continue post discharge. He had a normal cardiac catheterization in regard to coronary artery disease. His hypertrophic cardiomyopathy is most likely on the basis of undertreated hypertension so he should remain on the metoprolol. Follow-up can be done through the correction system. Subjective Patient without complaints today. All questions were answered. Review of Systems Review of Systems: All systems reviewed & are unremarkable except as noted in HPI & below Nothing additional to add Physical Exam Physical Exam: General: no acute distress and stated age Head: normocephalic, no masses, lesions, tenderness or abnormalities Eyes: conjunctiva are pink and non-injected, sclera clear Neck: supple, no adenopathy, no bruits, normal jugular venous pulse, no hepatojugular reflux Chest: normal shape and normal respiratory effort Lungs: clear to auscultation and percussion Cardiac Exam: - regular rate & rhythm, no murmurs gallops or rubs - normal S1, normal S2 Pulses: 2(+) throughout Abdomen: abdomen soft, non-tender, no abnormal masses and no hepatosplenomegaly Musculoskeletal: no gait disturbance, no joint inflammation, no deforming arthritis Extremities: no edema and no cyanosis Neuro: grossly normal exam Results & Data Vital Signs (Past 12 Hours) Vital Signs Temp Pulse Pulse Resp BP Pulse Ox 01/09/20 08:12 36.5 C 54 L 18 118/73 98 01/09/20 08:00 54 L 01/09/20 04:15 36.8 C 54 L 20 106/66 97 01/08/20 23:30 36.6 C 54 L 16 120/75 97 Laboratory Results Laboratory Results - last 24 hr 01/08/20 10:17 APTT 43.4 H PTT Ratio 1.6 Medications Administered Current Inpatient Medications Acetaminophen (Tylenol) 650 mg PO Q4H PRN PRN Reason: Pain or Fever Stop: 02/06/20 15:25 Aspirin (Ecotrin Ectab) 81 mg PO DAILY DONOVAN Stop: 02/07/20 08:59 Last Admin: 01/09/20 08:48 Dose: 81 mg Documented by: Atorvastatin Calcium (Lipitor) 40 mg PO PM [facility] Stop: 02/06/20 20:59 Last Admin: 01/08/20 21:07 Dose: 40 mg Documented by: Carbamazepine (Tegretol) 600 mg PO BID [facility] Stop: 02/06/20 20:59 Last Admin: 01/09/20 08:48 Dose: 600 mg Documented by: Lorazepam (Ativan) 1 mg in 2 mls @ 0.5 mls/min IV Q4H PRN PRN Reason: seizure Stop: 02/06/20 15:25 Metoprolol Succinate (Toprol Xl) 12.5 mg PO BID17 [facility] Stop: 02/07/20 16:59 Last Admin: 01/09/20 08:48 Dose: 12.5 mg Documented by: Nitroglycerin (Nitrostat) 0.4 mg SL UD PRN PRN Reason: Chest Pain Stop: 02/06/20 15:25 Phenytoin Sodium (Dilantin Er) 300 mg PO BID [facility] Stop: 02/06/20 20:59 Last Admin: 01/09/20 08:48 Dose: 300 mg Documented by: (1) Chest pain Chest pain type: unspecified Qualified Code(s): R07.9 - Chest pain, unspecified
--- NOTE | 2020-01-09 14:24 | Hospitalist Progress Note ---
Date of Service January 09, 2020 Assessment & Plan (1) Chest pain: Present on admission from [facility] with chest pain on exertion Troponin on admission 0.065 then trending down to 0.049 EKG showed T wave inversion received ASA 324mg prior to arrival in the ER Was starting on heparin drip on admission Cardiology on board No arrhythmia noted on tele monitor Dobutamine stress echo was abnormal S/P cardiac cath done on 01/08 showed normal coronary arteries. case discussed with cardiology No further cardiac testing or intervention is necessary at this time. Starting on a low dose metoprolol 12.5mg, will continue on discharge since tolerated Continue statin and baby aspirin heparin drip discontinued OK from cardiology standpoint to discharge today (2) HOCM (hypertrophic obstructive cardiomyopathy): Cardiac catheterization had a gradient of 32 mmHg Starting on low dose metoprolol succinate for arrhythmia suppression along with decreasing the gradient, but he is bradycardic at baseline. Consider outpatient Cardiac MRI for definitive diagnosis (3) Seizure disorder: H/O Seizure disorder since age 9 No seizure activity while in the hospital last night Continue Tegretol, phenytyoin Seizure precautions Ativan prn seizure activity (4) Dyslipidemia: Self stopped atorvastatin 6 months ago Continue Statin (5) Pulmonary nodule: 4 mm solid nodule of the posterior basal segment left lower lobe noted on CT abd/pelvis Will need outpatient CT chest in 6 months to monitor DVT Prophylaxis On Heparin Drip discontinued Disposition Will discharge today Admission and Anticipated Discharge Date Admission Date: January 07, 2020 Subjective Pt was seen and examined Lying in bed with no distress with 2 guards at bedside Pt said that he feels fine No seizure activity noted during the hospital course Denies any chest pain, palpitation, dizziness and SOB Physical Exam Physical Exam: General- No acute distress Head- atraumatic Eyes- PERRL, EOMI, ENT- oropharynx clear Neck- supple, no JVD Lungs- clear to auscultation Heart- regular rhythm Abdomen- normal bowel sounds, soft, nontender Extremities- no calf tenderness, no hematoma in the right radial/wrist area Neuro- alert, oriented x 3; PERRL, EOMI; no facial palsy; no dysarthria Skin- warm & dry Results & Data Results & Data ([facility]) Vital Signs (Past 12 Hours) Vital Signs Temp Pulse Pulse Resp BP Pulse Ox 01/09/20 11:58 36.7 C 57 L 18 137/81 97 01/09/20 08:12 36.5 C 54 L 18 118/73 98 01/09/20 08:00 54 L 01/09/20 04:15 36.8 C 54 L 20 106/66 97 (1) Chest pain Chest pain type: unspecified Qualified Code(s): R07.9 - Chest pain, unspecified
--- NOTE | 2020-01-09 14:40 | Discharge Summary ---
Date of Service January 09, 2020 Admission HPI Per Admitting Provider Pt is 49 y/o M with PMH dyslipidemia, seizure disorder presented to ER from [facility] with c/o CP. Pt reports intermittent anterior CP with radiation to left flank and right side of neck that occurs with exertion of lifting and carrying boxes and is associated with SOB and relieved after approx 10-20 minutes with rest. Denies any palpitations, diaphoresis, nausea, vomiting. He had CP today and did receive 324mg ASA prior to transfer to ER. Denies any known cardiac history. He has h/o dyslipidemia and pt states he chose to stop taking atorvastatin 6 months ago. He reports h/o frequent seizures that occur almost daily. Pt states seizures occur during sleep and have been occuring since age 9. 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 Pt states he does not remember episodes. Pt report past 2 weeks had been seizure free however last night had reported seizure. He did miss his morning medicine yesterday. After seizure states has posterior MARTIN when he awakens in the morning. He states has followed with neurology in the past and had several scans of head and EEG without definitive underlying cause for seizures. Denies fever/chills, diaphoresis, N/V/D/C, dizziness, syncope, vision changes, orthopnea, palpitations, cough, sore throat, choking, otalgia, rhinorrhea, abdominal pain, paresthesias, weakness, extremity weakness, extremity edema, rashes, urinary symptoms. Former smoker, quit 02/2019 FH: father fatal [place] in his mid 40's While in ER today pt reports episode of anterior CP that was sharp and lasted a few minutes and resolved prior to any treatment. Pt states this was the first time this occurred at rest. Admission Exam Per Admitting Provider General: no distress, WDWN Head: normocephalic, atraumatic Eyes: PERRL, EOM's intact, conjunctiva non-injected, anicteric ENT: normal inspection external ears, nose, mucous membranes moist Neck: supple, trachea midline, non-tender, ROM intact Lungs: clear, no respiratory distress, no wheezing/rhonchi/rales CV: RRR, no murmur, no pretibial edema Chest wall: +tenderness to palpation left and right anterior chest wall greatest over pectoralis region, +tenderness right anterior chest with sitting up Abd: normal BS, soft, non-tender Ext: no cyanosis, no calf tenderness Neuro: A&O x 3, no focal deficits noted, normal affect Skin: warm, dry Principal Diagnosis Chest pain: HOCM (hypertrophic obstructive cardiomyopathy): Dyslipidemia: Pulmonary nodule: Seizure: Discharge Exam General- No acute distress Head- atraumatic Eyes- PERRL, EOMI, ENT- oropharynx clear Neck- supple, no JVD Lungs- clear to auscultation Heart- regular rhythm Abdomen- normal bowel sounds, soft, nontender Extremities- no calf tenderness, no hematoma in the right radial/wrist area Neuro- alert, oriented x 3; PERRL, EOMI; no facial palsy; no dysarthria Skin- warm & dry Discharge Data Allergies Allergy/AdvReac Type Severity Reaction Status Date / Time No Known Allergies Allergy Unverified 01/07/20 12:24 Consultations 01/07/20 12:44 ED Decision to Admit Stat 01/07/20 15:26 Consult Cardiology Routine 01/08/20 10:11 Consult Cardiac Catheterization Routine Procedures Performed Operation Date: 01/08/20 14:00 Actual Procedures p Cath, Left with Cors and Vent - Eddie Nogueira MD s Cineradiography w/Routine Exam - Eddie Mendoza MD Ordered Studies 01/07/20 10:39 CT abd pelvis IV con only Stat 01/08/20 11:02 CL Cath Imgs for PACS use only Routine 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 Cardiac Status Clinical evaluation leading to the procedure CAD Presenation: Positive Stress Test Diagnostic Physicians Name: Nigel Nogueira MD Closure Device Recommendations: Medical Therapy and/or Counseling Cardiac Cath Procedure Full Procedure Date January 08, 2020 Pre-Procedure Diagnosis Pre-Procedure Diagnosis: Positive Stress Test AUC Score AUC Score: 8 Post-Procedure Diagnosis Post-Procedure Diagnosis: Normal Coronary Arteries Procedure(s) Performed Procedure(s) Performed: Coronary Angiography and Left Heart Cath Senior Consulting Manager Nigel Nogueira MD Estimated Blood Loss Estimated Blood Loss: 10 Medication(s) Medication(s): Fentanyl, Heparin, Lidocaine 1%, Nicardipine, Nitroglycerin and Versed Summary of Findings Procedures performed: left heart catheterization, selective coronary angiography Staff roofing foreman: Nigel Nogueira MD Indication: Patient is a 49-year-old gentleman with evidence of hypertrophic cardiomyopathy on echocardiography. He also presented with chest pain and abnormal stress test. Procedure in detail: Patient was informed of the risks benefits alternatives to the intended procedure. He understood which proceed. He was taken to the cardiac catheterization suite in a fasting state. Conscious sedation was administered per protocol the patient was monitored electrocardiographically throughout today's procedure. The right radial area is prepped and draped in usual sterile fashion. This area was anesthetized using subcutaneous menstruation lidocaine solution. The right radial artery simply access using Seldinger technique and a 6 [place] arterial sheath was placed at the site over guidewire. The sheath was used facilitate passage of the cardiac catheters for selective coronary angiography and left heart catheterization. Images were obtained in multiple orthogonal views and pressure measurements were taken prior to removal of the catheters and sheath. Hemostasis was achieved at the access site using manual pressure. Patient tolerated procedure well. There were no immediate complications. Equipment used: 5 [place] tiger 4 [place] pigtail catheter Coronary angiography: Left main was very short but did bifurcate into left anterior descending left circumflex artery. No disease in this vessel Left anterior descending: Left anterior descending was a very large transapical vessel. Hip reduced 3 large diagonal branches and several additional diminutive diagonal branches. There were some luminal irregularities throughout the vessel. There was some very mild stenosis just distal to the 1st diagonal branch estimated at 20 percent. There was some tapering of the proximal portion of D2 and D3. There were no obstructive lesions in this vessel. Left circumflex: Left circumflex was a large dominant vessel. It produced a very large high 1st OM vessel, a large 2nd OM vessel and to additional diminutive OM vessels prior to giving off a left-sided PDA. There were some luminal irregularities in all vessels. There is approximately 50 percent stenosis distal to the 2nd diagonal branch in the ongoing circumflex. No obstructive lesions. Right coronary artery: Right coronary artery was a small non dominant vessel. He had approximately 30 40 percent stenosis in its midportion. Impression: Left dominant coronary system without obstructive coronary disease Evidence of outflow tract obstruction with a gradient of 33 millimeters of mercury at rest Hemodynamics Rest Ao:: 105/69 millimeters of mercury Final Ao: 127/71 millimeters of mercury LV: 141/4 millimeters of mercury Positive [place] response to PVC suggestive of outflow tract obstruction Recommendations Recommendations: Medical Therapy and/or Counseling Radiation Exposure (mGy) Eight hundred ninety-nine Contrast (mls) Forty Procedural Complication(s) None Disposition PCU I attest to the content of the Intraoperative Record and any orders documented therein. Any exceptions are noted below. PG Care Time/CCT Total # of Minutes Spent Total Time Spent with Patient: Total time spent is greater than 50% in coordination of care (as documented) at patient's floor/unit and/or counseling patient: SINGLE VIEW CHEST CLINICAL HISTORY: Atypical chest pain. FINDINGS: An AP, portable, upright chest radiograph is obtained. No prior studies are available for comparison at the time of dictation. The examination is degraded by portable technique and patient rotation. The heart is mildly enlarged. The pulmonary vasculature is noncongested. The lungs and pleural spaces are clear. No pneumothorax is seen. The bony thorax is grossly intact. IMPRESSION: No active disease in the chest. ACT 112: Negative or not required by law. Electronically signed by: Chandler Longoria M.D. 01/07/2020 10:58 AM Dictated: 01/07/20 1058 Transcribed: 01/07/[address] WITH IV CONTRAST CT DOSE: 1066.41 mGycm HISTORY: Acute left lower quadrant abdominal pain llq abd pain TECHNIQUE: Multiaxial CT images of the abdomen and pelvis were performed follow ing the IV administration of 95 cc of Optiray 320, A dose lowering technique was utilized adhering to the principles of ALARA. COMPARISON STUDY: Chest radiograph of same day FINDINGS: Trace pleural effusions noted in conjunction with a trace pericardial effusion. Calcified granuloma of the inferior segment lingula. 4 mm solid nodule of the posterior basal segment left lower lobe. Mild dependent subsegmental bibasilar atelectasis. No pneumatosis or pneumoperitoneum. Imaged inferior cardiac chambers are unremarkable. Spleen, pancreas, gallbladder and adrenal glands are unremarkable. Linear coarse calcifications of the superior right hepatic lobe. Liver is otherwise unremarkable. Patency of the hepatic and portal veins. No biliary ductal dilation. Nonspecific mildly enlarged periportal lymph nodes measure up to 1.2 cm in short axis. Mild nonspecific bilateral perinephric stranding. Kidneys are otherwise unremarkable. Urinary bladder and prostate are also within normal limits. Moderate to extensive mixed plaque of the abdominal aorta without aneurysm. No bowel obstruction or bowel wall thickening. Mild fecal retention. Terminal ileum and appendix are unremarkable. Tiny fat filled periumbilical hernia. Nonspecific trace free fluid within the dependent pelvis. Bones appear intact. IMPRESSION: 1. No bowel obstruction or bowel wall thickening. Normal appendix. 2. Nonspecific trace dependent free fluid in the pelvis. 3. Trace pericardial and pleural effusions. 4. Additional findings as above. ACT 112: Negative or not required by law. The above report was generated using voice recognition software. It may contain grammatical, syntax or spelling errors. Electronically signed by: Angelito Samayoa M.D. 01/07/2020 12:09 PM Dictated: 01/07/20 1203 Transcribed: 01/07/20 1203 Hospital Course (1) Chest pain: Present on admission from [facility] with chest pain on exertion Troponin on admission 0.065 then trending down to 0.049 EKG showed T wave inversion received ASA 324mg prior to arrival in the ER Was starting on heparin drip on admission Cardiology on board No arrhythmia noted on tele monitor Dobutamine stress echo was abnormal (Mild inducible hypokinesis of the inferior wall with stress ) S/P cardiac cath done on 01/07 showed normal coronary arteries. case discussed with cardiology No further cardiac testing or intervention is necessary at this time. Starting on a low dose metoprolol 12.5mg, will continue on discharge since tolerated Continue statin and baby aspirin heparin drip discontinued OK from cardiology standpoint to discharge today (2) HOCM (hypertrophic obstructive cardiomyopathy): Cardiac catheterization had a gradient of 32 mmHg Starting on low dose metoprolol succinate for arrhythmia suppression along with decreasing the gradient, but he is bradycardic at baseline. Consider outpatient Cardiac MRI for definitive diagnosis (3) Seizure disorder: H/O Seizure disorder since age 9 No seizure activity while in the hospital last night Continue Tegretol, phenytyoin Seizure precautions Ativan prn seizure activity (4) Dyslipidemia: Self stopped atorvastatin 6 months ago Continue Statin (5) Pulmonary nodule: 4 mm solid nodule of the posterior basal segment left lower lobe noted on CT abd/pelvis Will need outpatient CT chest in 6 months to monitor DVT Prophylaxis On Heparin Drip discontinued Disposition Will discharge today Case discussed with Almaz at [facility] (Medical ) Total Time Total Time Spent Total Time Spent (In Minutes): 45 minutes Total Time Includes: Examination of the Patient, Discharge Planning, Medication Reconciliation, Communication With Other Providers and Other Discharge Plan Discharge Items Patient Disposition: [facility] Reason For Visit: CP Discharge Diagnosis: Chest pain: HOCM (hypertrophic obstructive cardiomyopathy): Dyslipidemia: Pulmonary nodule: Activity: Resume your previous activity Non-emergency contact: Primary Care Provider and Senior Consulting Manager Call non-emergency contact if: you have any medication questions Follow-up/Referrals: Robert LUNDY [Primary Care Provider] - Diet: Heart Healthy Addtl Attending Provider Instructions: Follow up with your primary care provider at [facility] Follow up with cardiology for the hypertrophic cardiomyopathy Continue monitor your blood pressure You will need outpatient CT chest to monitor the lung nodule Continue seizure precaution Pending Studies at Discharge: No Stand-Alone Forms: [employer], Smoking Cessation Skilled Items Patient informed of condition?: Yes Discharge Level of Care: Other Communicable Disease: No Discharge Prognosis: Stable Lines: None Urinary Catheter: No Medications and DC Order Prescriptions: New metoprolol succinate 25 mg Tablet Extended Release 24 Hr 12.5 mg PO [id number] Qty: 30 RF: 0 Continued atorvastatin 40 mg Tablet 40 mg PO PM RF: 0 phenytoin sodium extended 100 mg Capsule 300 mg PO BID RF: 0 carbamazepine [Tegretol] 200 mg Tablet 600 mg PO BID RF: 0 Discharge Orders: Discharge Order (Routine); Ordered 01/09/20 Ordered By: Dilcia Richards Admission Data Admit Date/Time: 01/07/20 13:15 Attending Provider: Dilcia Richards Admit Provider: Ford Robin Primary Care Provider: Robert LUNDY Other Providers: Ford Robin ; Jez Daniels ; Eddie Nogueira
== END 2020-01-09 16:02 | DRG 287 ==
LOC: ED 10:29 → 2S 13:15 → SUATTDRO 13:15 → 2S 14:14

== ENCOUNTER 2022-04-29 11:53 | Observation (INO) ==
--- NOTE | 2022-04-29 12:21 | Emergency Department Note ---
Impression & Plan Chest pain, Elevated troponin, History of coronary artery disease ED Provider Note NAME: KATHYA MOORE AGE: 51 SEX: M : 1970 ARRIVES VIA: Ambulance INFORMANT: Patient, ED PROVIDER(S): Sly Gipson MD Chief Complaint: HPI: Patient presents due to concern for chest pain. 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 The patient does have a known history of prior CAD patient has not had to have a prior stent or bypass. Patient states that he last was seen here approximate 2 years prior. The patient is taking aspirin has known history of seizure disorder. 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 The patient states he had centralized sharp pain that was nonradiating. No nausea vomiting or diaphoresis. The patient did receive full dose aspirin and his chest pain seemed to recede over the next 20 minutes. The patient's denies any calf pain or leg swelling. He is compliant with his medications. The patient denies any trauma. Patient denies any leg swelling calf pain or history of DVT or PE. ROS: See HPI for pertinent positives and negatives. A total of 10 systems were reviewed and otherwise negative. Past medical history: See below Surgical history: See below Social history: See below Physical Exam: GENERAL: NAD, wearing a mask, non-toxic. Wearing glasses. Wearing skilled nursing garb. EYE EXAM: Normal conjunctiva. PERRL, no anisocoria and EOM's grossly intact w/o pain. NECK: Supple, no nuchal rigidity, no adenopathy, non-tender. No signs of meningismus. FROM of the neck with good chin to chest and neck extension. No stridor. LUNGS: Clear to auscultation. Normal chest wall mechanics. HEART: NSR, no MRG. ABDOMEN: Abdomen soft, non-tender, normo-active bowel sounds, no masses, no rebound or guarding. BACK: No CVA TTP. SKIN: No rashes and no bruising. UPPER EXTREMITIES: Upper extremities are grossly normal. LOWER EXTREMITIES: Grossly normal, no edema. Negative Homans' sign bilaterally NEURO EXAM: A&O x3, cranial nerves II-XII grossly intact, normal speech, moves all 4 extremities. Differential diagnoses: Cardiac ischemia, aortic dissection, pulmonary embolism, pneumothorax, pneumonia, pericarditis, myocarditis, esophageal rupture, GERD, cholecystitis, pancreatitis, musculoskeletal, as well as other pathologies. Course: Patient was seen and evaluated the bedside. Full history physical exam was performed. EKG interpreted by me Normal sinus rhythm, rate of 61, normal intervals, normal axis. No ST elevations. T wave version in the high lateral leads. No significant change for comparison January 08, 2020. Imaging Studies: See Below Cardiac monitoring: An order was placed for continuous cardiac monitoring. The monitor shows a rate of 65 with sinus rhythm. MDM: Patient presents due to concern for chest pain in the setting of a history of CAD. Blood work is obtained along with an EKG troponin and chest x-ray. The patient has a normal white count H&H and platelet count. Kidney function is unremarkable. LFTs grossly unremarkable. The patient does have an elevated troponin at 36. COVID-negative. The patient's chest x-ray does not show any acute findings. I did speak with the on-call hospitalist Dr. Wagner and the patient was admitted to the medicine service. The patient has no active chest pain at this time and no EKG changes do not believe he requires heparin at this time. Past Med/Surg History Medical History Coronary artery disease, non-occlusive Dyslipidemia History of tobacco abuse HOCM (hypertrophic obstructive cardiomyopathy) Hypertension Pulmonary nodule Seizure disorder Surgical History No pertinent past surgical history Family History Father Coronary heart disease Seizure disorder Social History Smoking Status: Former smoker Tobacco Type: Cigarettes Hx Alcohol Use: No Hx Substance Use: No Adjunct Faculty Required: No Beliefs That Will Affect Care: None Current Living Situation: Other Feels Safe at Home: Yes Assistive Devices: None Allergies Allergies Allergy/AdvReac Type Severity Reaction Status Date / Time No Known Allergies Allergy Verified 04/29/22 16:07 Home Meds Home Medications Medication Instructions Recorded Confirmed atorvastatin 40 mg tablet 40 mg PO PM 01/07/20 04/29/22 carbamazepine 200 mg tablet 600 mg PO BID 01/07/20 04/29/22 (Tegretol) acetaminophen 325 mg tablet 325 mg PO TID PRN Pain 04/29/22 04/29/22 (Tylenol) albuterol sulfate 90 mcg/actuation 2 puff inhalation QID PRN 04/29/22 04/29/22 aerosol inhaler Shortness Of Breath aspirin 81 mg chewable tablet 81 mg PO DAILY 04/29/22 04/29/22 capsaicin 0.075 % topical cream 1 applic topical QID PRN Pain 04/29/22 04/29/22 lidocaine 5 % topical cream 1 applic topical QID PRN Pain 04/29/22 04/29/22 naproxen 500 mg tablet 500 mg PO BID PRN Pain 04/29/22 04/29/22 penicillin V potassium 500 mg 500 mg PO TID 04/29/22 04/29/22 tablet phenytoin 50 mg chewable tablet 50 mg PO BID 04/29/22 04/29/22 Results & Data (ED) Vital Signs Vital Signs - 24 hr 04/29/22 12:03 04/29/22 12:07 04/29/22 13:02 Temperature 36.7 C Temperature Source Oral Pulse Rate 61 Pulse Rate [Apical] 62 Respiratory Rate 18 18 Respiratory Effort / Characteristics Non-Labored Spontaneous Non-Labored Spontaneous Respiratory Depth Normal Normal Blood Pressure 116/68 Blood Pressure [Left Arm] 120/67 Blood Pressure Mean 84 Blood Pressure Mean [Left Arm] 84 Pulse Oximetry 96 96 96 Oxygen Delivery Method Room Air Room Air Room Air Sepsis Recent Fever Within 48 Hours No Sepsis New/Unexplained Change in Mental Status No Sepsis Action Taken by Nursing No Action Required 04/29/22 14:21 Temperature Temperature Source Pulse Rate Pulse Rate [Apical] 62 Respiratory Rate 16 Respiratory Effort / Characteristics Non-Labored Spontaneous Respiratory Depth Normal Blood Pressure Blood Pressure [Left Arm] 112/69 Blood Pressure Mean Blood Pressure Mean [Left Arm] 83 Pulse Oximetry 96 Oxygen Delivery Method Room Air Sepsis Recent Fever Within 48 Hours Sepsis New/Unexplained Change in Mental Status Sepsis Action Taken by Assisted Medications Current Medication List: was personally reviewed by me Laboratory Data Attestation: I reviewed the patient's lab results. Result diagrams: 04/29/22 12:15 04/29/22 12:15 Lab Results 04/29/22 04/29/22 04/29/22 Range/Units 12:15 12:15 12:58 WBC 6.40 (4.8-10.8) K/ul RBC 4.62 L (4.63-6.08) M/uL Hgb 14.7 (14.0-18.0) g/dl Hct 40.9 (40.1-51.0) % MCV 88.5 (80.0-100.0) fL MCH 31.8 (25.0-34.0) pg MCHC 35.9 (32.0-36.0) g/dL RDW Std Deviation 40.0 (36.4-46.3) fL RDW Coeff of Telly 12.4 (11.5-14.5) % Plt Count 195 (130-400) K/uL MPV 9.7 (9.4-12.4) fL Immature Gran % (Auto) 0.3 % Neut % (Auto) 63.8 % Lymph % (Auto) 26.7 % [place] % (Auto) 8.0 % Eos % (Auto) 0.6 % Baso % (Auto) 0.6 % Neut # (Auto) 4.08 (1.4-6.5) K/uL Lymph # (Auto) 1.71 (1.2-3.4) K/uL [place] # (Auto) 0.51 (0.24-0.82) K/uL Eos # (Auto) 0.04 (0-0.50) K/uL Baso # (Auto) 0.04 (0-0.2) K/uL Immature Gran # (Auto) 0.02 (0.00-0.02) K/uL Sodium 139 (136-145) mmol/L Potassium 4.5 (3.5-5.1) mmol/L Chloride 104 (98-107) mmol/L Carbon Dioxide 28 (21-32) mmol/L Anion Gap 7 (3-11) BUN 13 (6-23) mg/dl Creatinine 0.90 (0.6-1.4) mg/dl Est Cr Clr Drug Dosing 114.5 ml/min Est GFR ( Amer) 113.4 ml/min Est GFR (Non-Af Amer) 97.9 ml/min BUN/Creatinine Ratio 14.4 (10-20) Glucose 89 (70-99(Fasting)) mg/dl Calcium 9.5 (8.5-10.1) mg/dl Total Bilirubin 0.4 (0.2-1.0) mg/dl AST 28 (13-39) U/L ALT 39 (7-52) U/L Alkaline Phosphatase 65 (34-104) U/L Troponin I High Sens 36.6 H (0-20) pg/ml Total Protein 7.6 (6.0-8.3) gm/dl Albumin 4.2 (3.4-5.0) gm/dl Globulin 3.4 (2.5-4.0) gm/dl Albumin/Globulin Ratio 1.2 (0.9-2) Lipase 13 (11-82) U/L SARS-CoV-2, RNA, NAAT NEGATIVE (NEGATIVE) Administered Medications Discontinued Medications Acetaminophen (Acetaminophen 325 Mg Tab) 650 mg PO NOW STA Stop: 04/29/22 15:57 Last Admin: 04/29/22 16:09 Dose: 650 mg Documented By: OTILIO Penicillin V Potassium (Penicillin V Potassium 500 Mg Tab) 500 mg PO NOW STA Stop: 04/29/22 15:57 Last Admin: 04/29/22 16:09 Dose: 500 mg Documented By: OTILIO Imaging Data Radiologist's Impression: Chest X-Ray 04/29/22 12:21 XR chest 1V portable HISTORY: 51 years-old Male Chest Pain acute atypical chest pain COMPARISON: Chest radiograph 01/07/2020 TECHNIQUE: AP view of the chest FINDINGS: The cardiac silhouette is mildly enlarged. No pneumothorax, pleural effusion, airspace consolidation or overt pulmonary edema. Bones of the chest appear grossly intact. IMPRESSION: No acute process. ACT 112: Negative or not required by law. The above report was generated using voice recognition software. It may contain grammatical, syntax or spelling errors. Electronically signed by: Reilly Samayoa M.D. 04/29/2022 1:19 PM Discharge Plan Visit Data Chief Complaint: Cardiac Assessment ED Provider: Sly Gipson Discharge Problem: Chest pain, Elevated troponin, History of coronary artery disease Patient Disposition: Admitted As Inpatient Forms Stand Alone Forms: [facility] Prescriptions Prescriptions: No Action atorvastatin 40 mg Tablet 40 mg PO PM carbamazepine [Tegretol] 200 mg Tablet 600 mg PO BID acetaminophen [Tylenol] 325 mg Tablet 325 mg PO TID PRN (Reason: Pain) Rx Instructions: PER PT "TAKES WITH ANTIBIOTIC" lidocaine 5 % Cream 1 applic TOPICAL QID PRN (Reason: Pain) Rx Instructions: MIX WITH ZOSTRIX-HP, THEN APPLY penicillin V potassium 500 mg Tablet 500 mg PO TID Rx Instructions: STARTED 04/20/22, STOPS 04/30/22. capsaicin [Zostrix-HP] 0.075 % Cream 1 applic TOPICAL QID PRN (Reason: Pain) Rx Instructions: MIX WITH LIDOCAINE THEN APPLY. phenytoin 50 mg Tablet,Chewable 50 mg PO BID aspirin 81 mg Tablet,Chewable 81 mg PO DAILY albuterol sulfate 90 mcg/actuation Hfa Aerosol Inhaler 2 puff INHALATION QID PRN (Reason: Shortness Of Breath) naproxen 500 mg Tablet 500 mg PO BID PRN (Reason: Pain) Rx Instructions: PENDING COMMISSARY PURCHASE PER MED LIST Referrals Referrals: Robert LUNDY [Primary Care Provider] -
[2022-04-29 12:30] LABS: Basophils # (auto) 0.04 K/uL (0-0.2); Basophils % (auto) 0.6 %; Eosinophils # (auto) 0.04 K/uL (0-0.50); Eosinophils % (auto) 0.6 %; Hematocrit (blood only) 40.9 % (40.1-51.0); Hemoglobin 14.7 g/dl (14.0-18.0); Immature Granulocytes # (auto) 0.02 K/uL (0.00-0.02); Immature Granulocytes % (auto) 0.3 %; Lymphocytes # (auto) 1.71 K/uL (1.2-3.4); Lymphocytes % (auto) 26.7 %; Mean Corpuscular Hemoglobin 31.8 pg (25.0-34.0); Mean Corpuscular Hgb Conc 35.9 g/dL (32.0-36.0); Mean Corpuscular Volume 88.5 fL (80.0-100.0); Mean Platelet Volume 9.7 fL (9.4-12.4); Monocytes # (auto) 0.51 K/uL (0.24-0.82); Neutrophils # (auto) 4.08 K/uL (1.4-6.5); Neutrophils % (auto) 63.8 %; Platelet Count 195 K/uL (130-400); RDW Coefficient of Variation 12.4 % (11.5-14.5); Red Blood Count 4.62 M/uL (4.63-6.08)
[2022-04-29 13:09] LABS: Albumin Globulin Ratio 1.2 (0.9-2); Albumin Level 4.2 gm/dl (3.4-5.0); BUN Creatinine Ratio 14.4 (10-20); Bilirubin,Total 0.4 mg/dl (0.2-1.0); Calcium 9.5 mg/dl (8.5-10.1); Creatinine Clr Calc Pharmacy 114.5 ml/min; Est GFR (African American) 113.4 ml/min; Est GFR (Non-African American) 97.9 ml/min; Globulin 3.4 gm/dl (2.5-4.0); Potassium 4.5 mmol/L (3.5-5.1); Total Protein 7.6 gm/dl (6.0-8.3); Troponin I High Sensitivity 36.6 pg/ml (0-20)
--- NOTE | 2022-04-29 13:20 | XRay Report ---
XR chest 1V portable HISTORY: 51 years-old Male Chest Pain acute atypical chest pain COMPARISON: Chest radiograph 01/07/2020 TECHNIQUE: AP view of the chest FINDINGS: The cardiac silhouette is mildly enlarged. No pneumothorax, pleural effusion, airspace consolidation or overt pulmonary edema. Bones of the chest appear grossly intact. IMPRESSION: No acute process. ACT 112: Negative or not required by law. The above report was generated using voice recognition software. It may contain grammatical, syntax o r spelling errors. Electronically signed by: Reilly Samayoa M.D. 04/29/2022 1:19 PM
--- NOTE | 2022-04-29 15:37 | History & Physical Report ---
Date of Service April 29, 2022 Assessment & Plan (1) Chest pain: Plan: Patient is a 51-year-old male with a past medical history of tobacco abuse, coronary artery disease who presented with substernal chest pain. It resolved with the aspirin. Concerning for acute coronary syndrome though there is no ST elevation in EKG Admit to telemetry Continue aspirin, statin Check fasting lipid profile Trend troponins Consult cardiology. ER physician have contacted with the cardiology who recommended no heparin drip. Treat based on symptoms and troponin Personally send the [place] text to environmental field office manager to inform about the consult (2) Coronary artery disease, non-occlusive: Plan: History of coronary artery disease Continue aspirin, statin (3) Hypertension: Plan: Blood pressure runs in normal ranges on no blood pressure medication. Continue to monitor (4) History of tobacco abuse: Plan: Patient has a stopped smoking few years ago after his first chest pain (5) Seizure disorder: Plan: Continue phenytoin and carbamazepine (6) Dyslipidemia: Plan: Continue statin Check fasting lipid profile History of Present Illness Chief Complaint: Chest pain Primary Care Provider: KAMRON Jones Patient is a 51-year-old male with a past medical history of coronary artery disease, dyslipidemia, seizure disorder, history of tobacco abuse who is brought to the hospital from correction facility where he stays there for 14 years for chief complaint of chest pain. It was located in the lower substernal area, 10/10 in severity, sharp with no alleviating or aggravating factor. 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 This lasted about 20 minutes without severity. EMS was called and patient was given 4 chewable aspirin with improvement of symptoms. Currently he does not have any chest pain. He also complained of some heavy breathing at the time of pain but denies any shortness of breath, lightheadedness or dizziness, diaphoresis, palpitation, nausea, vomiting, abdominal pain. Patient claims that few years ago, he had a cardiac catheterization but did not require stent. He stopped smoking since the event. He has been a heavy smoker prior to that. He denies any drinking or using any street drugs now. He has a history of seizure disorder and he is being treated with antiseizure medication. Allergies Allergy/AdvReac Type Severity Reaction Status Date / Time No Known Allergies Allergy Unverified 10/01/20 11:02 Home Medications Medication Instructions Recorded Confirmed Type atorvastatin 40 mg tablet 40 mg PO PM 01/07/20 04/29/22 History carbamazepine 200 mg tablet 600 mg PO BID 01/07/20 04/29/22 History (Tegretol) phenytoin sodium extended 100 mg 50 mg PO BID 01/07/20 04/29/22 History capsule Past Med/Surg History Medical History (Updated 04/21/20 @ 11:55 by Ghanshyam Cat PA-C) Dyslipidemia Seizure disorder Family History Father Coronary heart disease Seizure disorder Social History Smoking Status: Former smoker Tobacco Type: Cigarettes Hx Alcohol Use: No Hx Substance Use: No Computer Operations Analyst Required: No Beliefs That Will Affect Care: None Current Living Situation: Other Feels Safe at Home: Yes Assistive Devices: None Review of Systems Review of Systems: Review of system as above, otherwise negative Physical Exam Constitutional: WD/WN, vitals as above ENMT: external ear and nose normal, oropharynx normal Neck: trachea midline, no thyromegaly Respiratory: normal respiratory effort, lungs clear to auscultation Cardiovascular: RRR, no murmur, no edema Gastrointestinal (Abdomen): normal bowel sounds, soft, nontender, no hepatosplenomegaly Musculoskeletal: no cyanosis or clubbing, extremities motor strength 5/5 Skin: Skin covered with a tattoos Neurologic: patellar DTR's 2+ bilat, sensation intact and PERRL, EOMI, accommodation nl, no face palsy, no dysarthria Cranial nerves intact Results & Data Results & Data ([facility]) Vital Signs (Past 12 Hours) Vital Signs Temp Pulse Pulse Resp BP BP Pulse Ox 04/29/22 14:21 62 16 112/69 96 04/29/22 13:02 62 18 120/67 96 04/29/22 12:07 96 04/29/22 12:03 36.7 C 61 18 116/68 96 O2 Del Method 04/29/22 14:21 Room Air 04/29/22 13:02 Room Air 04/29/22 12:07 Room Air 04/29/22 12:03 Room Air Laboratory Results Laboratory Results WBC 6.40 K/ul (4.8-10.8) 04/29/22 12:15 RBC 4.62 M/uL (4.63-6.08) L 04/29/22 12:15 Hgb 14.7 g/dl (14.0-18.0) 04/29/22 12:15 Hct 40.9 % (40.1-51.0) 04/29/22 12:15 MCV 88.5 fL (80.0-100.0) 04/29/22 12:15 MCH 31.8 pg (25.0-34.0) 04/29/22 12:15 MCHC 35.9 g/dL (32.0-36.0) 04/29/22 12:15 RDW Std Deviation 40.0 fL (36.4-46.3) 04/29/22 12:15 RDW Coeff of Telly 12.4 % (11.5-14.5) 04/29/22 12:15 Plt Count 195 K/uL (130-400) 04/29/22 12:15 MPV 9.7 fL (9.4-12.4) 04/29/22 12:15 Immature Gran % (Auto) 0.3 % 04/29/22 12:15 Neut % (Auto) 63.8 % 04/29/22 12:15 Lymph % (Auto) 26.7 % 04/29/22 12:15 [place] % (Auto) 8.0 % 04/29/22 12:15 Eos % (Auto) 0.6 % 04/29/22 12:15 Baso % (Auto) 0.6 % 04/29/22 12:15 Neut # (Auto) 4.08 K/uL (1.4-6.5) 04/29/22 12:15 Lymph # (Auto) 1.71 K/uL (1.2-3.4) 04/29/22 12:15 [place] # (Auto) 0.51 K/uL (0.24-0.82) 04/29/22 12:15 Eos # (Auto) 0.04 K/uL (0-0.50) 04/29/22 12:15 Baso # (Auto) 0.04 K/uL (0-0.2) 04/29/22 12:15 Immature Gran # (Auto) 0.02 K/uL (0.00-0.02) 04/29/22 12:15 Sodium 139 mmol/L (136-145) 04/29/22 12:15 Potassium 4.5 mmol/L (3.5-5.1) 04/29/22 12:15 Chloride 104 mmol/L (98-107) 04/29/22 12:15 Carbon Dioxide 28 mmol/L (21-32) 04/29/22 12:15 Anion Gap 7 (3-11) 04/29/22 12:15 BUN 13 mg/dl (6-23) 04/29/22 12:15 Creatinine 0.90 mg/dl (0.6-1.4) 04/29/22 12:15 Est Cr Clr Drug Dosing 114.5 ml/min 04/29/22 12:15 Est GFR ( Amer) 113.4 ml/min 04/29/22 12:15 Est GFR (Non-Af Amer) 97.9 ml/min 04/29/22 12:15 BUN/Creatinine Ratio 14.4 (10-20) 04/29/22 12:15 Glucose 89 mg/dl (70-99(Fasting)) 04/29/22 12:15 Calcium 9.5 mg/dl (8.5-10.1) 04/29/22 12:15 Total Bilirubin 0.4 mg/dl (0.2-1.0) 04/29/22 12:15 AST 28 U/L (13-39) 04/29/22 12:15 ALT 39 U/L (7-52) 04/29/22 12:15 Alkaline Phosphatase 65 U/L (34-104) 04/29/22 12:15 Troponin I High Sens 36.6 pg/ml (0-20) H 04/29/22 12:15 Total Protein 7.6 gm/dl (6.0-8.3) 04/29/22 12:15 Albumin 4.2 gm/dl (3.4-5.0) 04/29/22 12:15 Globulin 3.4 gm/dl (2.5-4.0) 04/29/22 12:15 Albumin/Globulin Ratio 1.2 (0.9-2) 04/29/22 12:15 Lipase 13 U/L (11-82) 04/29/22 12:15 SARS-CoV-2, RNA, NAAT NEGATIVE (NEGATIVE) 04/29/22 12:58 Impressions Chest X-Ray 04/29/22 12:21 XR chest 1V portable HISTORY: 51 years-old Male Chest Pain acute atypical chest pain COMPARISON: Chest radiograph 01/07/2020 TECHNIQUE: AP view of the chest FINDINGS: The cardiac silhouette is mildly enlarged. No pneumothorax, pleural effusion, airspace consolidation or overt pulmonary edema. Bones of the chest appear grossly intact. IMPRESSION: No acute process. ACT 112: Negative or not required by law. The above report was generated using voice recognition software. It may contain grammatical, syntax or spelling errors. Electronically signed by: Reilly Samayoa M.D. 04/29/2022 1:19 PM Code Status & VTE Plan Code Status Full code (1) Chest pain Chest pain type: unspecified Qualified Code(s): R07.9 - Chest pain, unspecified
[2022-04-29] MEDS ORDERED: PENICILLIN V POTASSIUM 500 MG TAB PO STA (15:56)
[2022-04-29] MEDS ORDERED: ACETAMINOPHEN 325 MG TAB PO STA (15:56)
[2022-04-29] MEDS ORDERED: POLYETHYLENE (MIRALAX) 17 GM PACK PO PRN (19:10)
[2022-04-29] MEDS ORDERED: ONDANSETRON INJ 2 MG/ML 2 ML VIAL IV PRN (19:10)
[2022-04-29] MEDS ORDERED: MAGNESIUM HYDROXIDE SUSP 30 ML UDC PO PRN (19:10)
[2022-04-29] MEDS ORDERED: ACETAMINOPHEN 325 MG TAB PO PRN (19:10)
[2022-04-29] MEDS ORDERED: ENOXAPARIN INJ 40 MG/0.4 ML SYR SQ SCH (19:45)
[2022-04-29] MEDS: carBAMazepine 200 MG TABLET PO SCH (20:44)
[2022-04-29] MEDS ORDERED: ATORVASTATIN 40 MG TAB PO SCH (21:00)
[2022-04-30] MEDS ORDERED: VERAPAMIL HCL 120 MG TABCR PO SCH
[2022-04-30] MEDS ORDERED: D5W AND NSS 1,000 ML IV SCH (01:00)
[2022-04-30] MEDS: PHENYTOIN 50 MG CHEW PO SCH ×2 (01:34→09:59)
[2022-04-30] MEDS: PENICILLIN V POTASSIUM 500 MG TAB PO SCH ×3 (01:34→15:13)
[2022-04-30] MEDS: PHENYTOIN SODIUM ER 100 MG CAP PO SCH ×2 (01:35→09:58)
[2022-04-30] MEDS: METOPROLOL TARTRATE 25 MG TAB PO SCH ×2 (01:35→11:34)
--- NOTE | 2022-04-30 05:56 | Electrocardiogram Report ---
Test Reason : Blood Pressure : / mmHG Vent. Rate : 061 BPM Atrial Rate : 061 BPM P-R Int : 172 ms QRS Dur : 094 ms QT Int : 444 ms P-R-T Axes : 038 014 098 degrees QTc Int : 446 ms Poor data quality, interpretation may be adversely affected Normal sinus rhythm T wave abnormality, consider lateral ischemia Abnormal ECG When compared with ECG of 08-JAN-2020 07:05, No significant change was found Confirmed by James Reilly ([id number]) on 04/30/2022 5:56:09 AM Referred By: [facility] Confirmed By:James Reilly
[2022-04-30 07:39] LABS: Hematocrit (blood only) 38.4 % (40.1-51.0); Hemoglobin 13.4 g/dl (14.0-18.0); Mean Corpuscular Hemoglobin 31.7 pg (25.0-34.0); Mean Corpuscular Hgb Conc 34.9 g/dL (32.0-36.0); Mean Corpuscular Volume 90.8 fL (80.0-100.0); Mean Platelet Volume 9.8 fL (9.4-12.4); Platelet Count 142 K/uL (130-400); RDW Coefficient of Variation 12.2 % (11.5-14.5); RDW Standard Deviation 40.5 fL (36.4-46.3); Red Blood Count 4.23 M/uL (4.63-6.08); White Blood Count 4.56 K/ul (4.8-10.8)
[2022-04-30 07:56] LABS: Partial Thromboplastin Ratio 0.9; Partial Thromboplastin Time 25.9 Seconds (21.0-31.0)
[2022-04-30 08:01] LABS: Albumin Globulin Ratio 1.4 (0.9-2); Albumin Level 3.8 gm/dl (3.4-5.0); BUN Creatinine Ratio 15.2 (10-20); Bilirubin,Total 0.4 mg/dl (0.2-1.0); Calcium 8.8 mg/dl (8.5-10.1); Chol HDL Ratio 5.3 (0-5); Creatinine Clr Calc Pharmacy 130.4 ml/min; Est GFR (African American) 119.7 ml/min; Est GFR (Non-African American) 103.2 ml/min; Globulin 2.8 gm/dl (2.5-4.0); Potassium 4.4 mmol/L (3.5-5.1); Total Protein 6.6 gm/dl (6.0-8.3)
[2022-04-30] MEDS ORDERED: ASPIRIN 81 MG ECTAB PO SCH (09:00)
--- NOTE | 2022-04-30 09:24 | Cardiology Consultation ---
Date of Consultation April 30, 2022 Assessment & Plan (1) Chest pain: (2) Elevated troponin: Mr. Carreon is a 51-year-old incarcerated male with a history of Hypertension, Dyslipidemia, Non-Obstructive CAD, Hypertrophic Obstructive Cardiomyopathy, and a Seizure Disorder who was admitted to [facility] on 04/29/2022 after presenting with Chest Pain. Patient describes the chest pain as a sharp, nonradiating chest pain that came on while he was slicing up vegetables at approximately 8:00 a.m. 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 Symptoms came on relatively quickly and lasted approximately 20 minutes in total. He took a full-strength aspirin shortly after the discomfort came on -- and the chest pain gradually dissipated over the ensuing 20 minutes. Patient admitted that the chest pain was worse with breathing or with direct palpation. He did not have any radiation of the chest pain nor did he have any associated symptoms. He specifically denies any associated nausea, vomiting, diaphoresis, or dyspnea. He has not had any recurrence of this discomfort since it initially resolved. His Chest Pain has atypical features in that it was reproducible with breathing and direct palpation, was not exertional, didn't radiate, and it was without any associated symptoms. Additionally his Troponin I levels have not trended in one direction or the other and are likely elevated due to his HOCM and elevated blood pressures at times. Patient offers no complaints at the present time. Overall he is feeling well and back to baseline. Patient does not describe any angina pectoris, has not had any overt evidence of heart failure, nor has he had any symptoms suggestive of dysrhythmia. Thus far, his EKG shows a normal sinus rhythm at 61 bpm with T-wave inversions in leads I and aVL. No change when compared to 01/08/2020 tracing. His high sensitivity Troponin I levels are 38.2, 42.2, 39.4, and 36.6 pg/mL. On cardiac monitoring he is in a sinus bradycardia in the low 50's as he has been throughout his hospitalization. CBC with diff shows a mild anemia with a hemoglobin of 13.4 g/dL and a hematocrit of 38.4% with normal indices. Recommend the following: -- Stress Echocardiogram to evaluate for myocardial ischemia, and re-evaluate his hypertrophic cardiomyopathy. -- Continue Metoprolol Tartrate 25 mg b.i.d. - his baseline bradycardia prevents titration of this dosage. -- Continue Aspirin 81 mg daily. -- Add Verapamil 40 mg p.o. every 8 hours -- convert to Verapamil ER 120 mg daily at the time of discharge for the treatment of both his HOCM and Hypertension. (3) Hypertension: Blood pressure has been elevated at times. -- Add Verapamil 40 mg p.o. every 8 hours -- convert to Verapamil ER 120 mg daily at the time of discharge for the treatment of both his HOCM and Hypertension. -- Continue Metoprolol Tartrate 25 mg b.i.d.. (4) Dyslipidemia: He is dyslipidemic with a low HDL. Lipid panel shows total cholesterol 133 mg/dL with an LDL of 79 mg/dL and an HDL of 25 mg/dL. Total Cholesterol:HDL ratio is 5.3. -- Increase Atorvastatin to 80 mg daily. (5) Coronary artery disease, non-occlusive: CARDIAC CATHETERIZATION 01/08/2020: -- LMCA -- Very short vessel, bifurcated into LAD and LCx. -- LAD -- Mild luminal irregularities throughout, 20% midvessel stenosis. -- D1, D2, D3 -- Large branches, no significant disease. -- LCx -- Large, dominant vessel, 50% midvessel stenosis. -- OM1, OM2, L PDA -- Luminal irregularities only. -- RCA -- 30%-40% Midvessel stenosis. -- LVOT peak gradient measured at 33 mmHg. Recommend the following: -- Increase Atorvastatin to 80 mg daily. -- Continue Metoprolol Tartrate 25 mg b.i.d. - his baseline bradycardia prevents titration of this dosage. -- Continue Aspirin 81 mg daily. -- Add Verapamil 40 mg p.o. every 8 hours -- convert to Verapamil ER 120 mg daily at the time of discharge for the treatment of both his HOCM and Hypertension. History of Present Illness Reason for Consultation: -- Chest Pain. -- Elevated high sensitivity Troponin I. -- HOCM. Requesting Physician: Dilcia Richards MD Attending Physician: Louis Lorenzo MD History of Present Illness Mr. Carreon is a 51-year-old incarcerated male with a history of Hypertension, Dyslipidemia, Non-Obstructive CAD, Hypertrophic Obstructive Cardiomyopathy, and a Seizure Disorder who was admitted to [facility] on 04/29/2022 after presenting with Chest Pain. Patient describes the chest pain as a sharp, nonradiating chest pain that came on while he was slicing up vegetables at approximately 8:00 a.m. 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 Symptoms came on relatively quickly and lasted approximately 20 minutes in total. He took a full-strength aspirin shortly after the discomfort came on -- and the chest pain gradually d issipated over the ensuing 20 minutes. Patient admitted that the chest pain was worse with breathing or with direct palpation. He did not have any radiation of the chest pain nor did he have any associated symptoms. He specifically denies any associated nausea, vomiting, diaphoresis, or dyspnea. He has not had any recurrence of this discomfort since it initially resolved. Patient offers no complaints at the present time. Overall he is feeling well and back to baseline. He denies any exertional chest pain, heaviness, tightness, pressure, or discomfort. He denies any exertional neck, jaw, back, or arm pain. He denies any shortness of breath, unusual dyspnea on exertion, orthopnea, or PND. He has not had any palpitations, syncope, or near syncope. Thus far, his EKG shows a normal sinus rhythm at 61 bpm with T-wave inversions in leads I and aVL. No change when compared to 01/08/2020 tracing. His high sensitivity Troponin I levels are 38.2, 42.2, 39.4, and 36.6 pg/mL. On cardiac monitoring he is in a sinus bradycardia in the low 50's as he has been throughout his hospitalization. CBC with diff shows a mild anemia with a hemoglobin of 13.4 g/dL and a hematocrit of 38.4% with normal indices. Lipid panel shows total cholesterol 133 mg/dL with an LDL of 79 mg/dL and an HDL of 25 mg/dL. Total Cholesterol:HDL ratio is 5.3. HISTORICAL BACKGROUND: Patient present to the [facility] ER on 01/07/2020 from [facility] with complaints of chest pain. Approximately 1 week before presentation he developed chest pain while carrying boxes. He described it as a sharp/dull sensation across his left precordium. It was initially associated with shortness of breath and possibly some diaphoresis. The discomfort lasted several minutes and then resolved spontaneously. He then had further episodes again while at work -- but on the morning of presentation -- he had an episode while at a state of rest that lasted for approximately 2 minutes. This episode was more severe in nature and he described it as a concomitant "bolt of lightning" sensation across his left side. Upon arrival to the emergency department -- EKG was concerning for lateral ischemia and troponin I was minimally elevated. He was admitted to [facility] and started on a heparin drip and did not having any further chest discomfort thereafter. He under went the following evaluation: ECHOCARDIOGRAM 01/08/2020: -- Normal LV size with severe concentric LVH and asymmetric basal septal hypertrophy measuring 2.4 cm. -- Systolic anterior motion of the mitral apparatus. -- Resting LVOT gradient 25 mmHg -- Consistent with HOCM. -- LVEF 65% to 70%. -- Mild mitral regurgitation. -- Grade 2 LV diastolic dysfunction. -- Moderate left atrial enlargement. DOBUTAMINE STRESS ECHOCARDIOGRAM 01/08/2020: -- Abnormal, inferior hypokinesis induced during dobutamine infusion. -- Peak LVOT gradient 64 mmHg. -- No inducible arrhythmias. -- Normal heart rate and blood pressure response to dobutamine infusion. CARDIAC CATHETERIZATION 01/08/2020: -- LMCA -- Very short vessel, bifurcated into LAD and LCx. -- LAD -- Mild luminal irregularities throughout, 20% midvessel stenosis. -- D1, D2, D3 -- Large branches, no significant disease. -- LCx -- Large, dominant vessel, 50% midvessel stenosis. -- OM1, OM2, L PDA -- Luminal irregularities only. -- RCA -- 30%-40% Midvessel stenosis. -- LVOT peak gradient measured at [address] Pb Daniels followed/managed this patient while he was hospitalized, and Dr. Nogueira was involved only to perform a Cardiac Catheterization on this patient. Allergies Allergy/AdvReac Type Severity Reaction Status Date / Time No Known Allergies Allergy Verified 04/29/22 16:07 Home Medications Medication Instructions Recorded Confirmed Type atorvastatin 40 mg tablet 40 mg PO PM 01/07/20 04/29/22 History carbamazepine 200 mg tablet 600 mg PO BID 01/07/20 04/29/22 History (Tegretol) acetaminophen 325 mg tablet 325 mg PO TID PRN Pain 04/29/22 04/29/22 History (Tylenol) albuterol sulfate 90 mcg/actuation 2 puff inhalation QID PRN 04/29/22 04/29/22 History aerosol inhaler Shortness Of Breath aspirin 81 mg chewable tablet 81 mg PO DAILY 04/29/22 04/29/22 History capsaicin 0.075 % topical cream 1 applic topical QID PRN Pain 04/29/22 04/29/22 History lidocaine 5 % topical cream 1 applic topical QID PRN Pain 04/29/22 04/29/22 History naproxen 500 mg tablet 500 mg PO BID PRN Pain 04/29/22 04/29/22 History penicillin V potassium 500 mg 500 mg PO TID 04/29/22 04/29/22 History tablet phenytoin 50 mg chewable tablet 50 mg PO BID 04/29/22 04/29/22 History phenytoin sodium extended 100 mg 100 mg PO BID 04/29/22 04/29/22 History capsule metoprolol tartrate 25 mg tablet 25 mg PO BID 04/30/22 04/30/22 History Patient History Medical History (Updated 04/30/22 @ 10:07 by Ghanshyam Cat PA-C) Coronary artery disease, non-occlusive Dyslipidemia History of tobacco abuse HOCM (hypertrophic obstructive cardiomyopathy) Hypertension Pulmonary nodule Seizure disorder Surgical History No pertinent past surgical history Family History Father Coronary heart disease Seizure disorder Social History Smoking Status: Former smoker Tobacco Type: Cigarettes Hx Alcohol Use: No Hx Substance Use: No 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 Physical Exam Physical Exam: General: Patient is in no acute distress. HEENT: Head is atraumatic, normocephalic. EOMs intact. Sclerae anicteric. Facies symmetric. No perioral cyanosis. Neck: No JVD. Carotid upstrokes +2 bilaterally without bruits. JVP is not elevated. Chest and Lungs: Clear to auscultation throughout all lung warren, no wheezes, rales, or rhonchi. CVS: S1 and S2 are regular at 52 bpm with a grade 3/6 systolic murmur audible at both the right and left sternal borders. No obvious diastolic murmurs. No gallops or rubs. PMI is nondisplaced. No lifts, heaves, or thrills. No abdo deborah aortic or renal bruits. Abdominal Exam: Bowel sounds present. No masses, organomegaly, or tenderness. Extremities: No clubbing, cyanosis, or edema. Intact radial pulses bilaterally. Neurologic Exam: Patient is awake, alert, and oriented. Pleasant and cooperative. Answers questions appropriately. Speech is clear. Gait pattern was not assessed. Results & Data ([facility]) Vital Signs (Past 12 Hours) Vital Signs Temp Pulse Pulse Resp BP Pulse Ox O2 Del Method 04/30/22 06:53 36.6 C 55 L 16 134/79 97 Room Air 04/30/22 04:41 36.5 C 62 18 171/72 H 97 Room Air 04/30/22 02:34 63 04/29/22 23:48 36.4 C L 64 18 108/67 96 Room Air Laboratory Results Laboratory Results - last 24 hr 04/29/22 04/29/22 04/29/22 12:15 12:15 12:58 WBC 6.40 RBC 4.62 L Hgb 14.7 Hct 40.9 MCV 88.5 MCH 31.8 MCHC 35.9 RDW Std Deviation 40.0 RDW Coeff of Telly 12.4 Plt Count 195 MPV 9.7 Immature Gran % (Auto) 0.3 Neut % (Auto) 63.8 Lymph % (Auto) 26.7 [place] % (Auto) 8.0 Eos % (Auto) 0.6 Baso % (Auto) 0.6 Neut # (Auto) 4.08 Lymph # (Auto) 1.71 [place] # (Auto) 0.51 Eos # (Auto) 0.04 Baso # (Auto) 0.04 Immature Gran # (Auto) 0.02 APTT PTT Ratio Sodium 139 Potassium 4.5 Chloride 104 Carbon Dioxide 28 Anion Gap 7 BUN 13 Creatinine 0.90 Est Cr Clr Drug Dosing 114.5 Est GFR ( Amer) 113.4 Est GFR (Non-Af Amer) 97.9 BUN/Creatinine Ratio 14.4 Glucose 89 Calcium 9.5 Magnesium Total Bilirubin 0.4 AST 28 ALT 39 Alkaline Phosphatase 65 Troponin I High Sens 36.6 H Total Protein 7.6 Albumin 4.2 Globulin 3.4 Albumin/Globulin Ratio 1.2 Triglycerides Cholesterol LDL Cholesterol, Calc VLDL Cholesterol, Calc HDL Cholesterol Cholesterol/HDL Ratio Lipase 13 Nasal Screen MRSA (PCR) SARS-CoV-2, RNA, NAAT NEGATIVE 04/29/22 04/30/22 04/30/22 19:43 01:08 01:55 WBC RBC Hgb Hct MCV MCH MCHC RDW Std Deviation RDW Coeff of Telly Plt Count MPV Immature Gran % (Auto) Neut % (Auto) Lymph % (Auto) [place] % (Auto) Eos % (Auto) Baso % (Auto) Neut # (Auto) Lymph # (Auto) [place] # (Auto) Eos # (Auto) Baso # (Auto) Immature Gran # (Auto) APTT PTT Ratio Sodium Potassium Chloride Carbon Dioxide Anion Gap BUN Creatinine Est Cr Clr Drug Dosing Est GFR ( Amer) Est GFR (Non-Af Amer) BUN/Creatinine Ratio Glucose Calcium Magnesium Total Bilirubin AST ALT Alkaline Phosphatase Troponin I High Sens 39.4 H 42.2 H Total Protein Albumin Globulin Albumin/Globulin Ratio Triglycerides Cholesterol LDL Cholesterol, Calc VLDL Cholesterol, Calc HDL Cholesterol Cholesterol/HDL Ratio Lipase Nasal Screen MRSA (PCR) Negative SARS-CoV-2, RNA, NAAT 04/30/22 04/30/22 04/30/22 07:16 07:16 07:16 WBC 4.56 L RBC 4.23 L Hgb 13.4 L Hct 38.4 L MCV 90.8 MCH 31.7 MCHC 34.9 RDW Std Deviation 40.5 RDW Coeff of Telly 12.2 Plt Count 142 MPV 9.8 Immature Gran % (Auto) Neut % (Auto) Lymph % (Auto) [place] % (Auto) Eos % (Auto) Baso % (Auto) Neut # (Auto) Lymph # (Auto) [place] # (Auto) Eos # (Auto) Baso # (Auto) Immature Gran # (Auto) APTT 25.9 PTT Ratio 0.9 Sodium 140 Potassium 4.4 Chloride 108 H Carbon Dioxide 30 Anion Gap 2 L BUN 12 Creatinine 0.79 Est Cr Clr Drug Dosing 130.4 Est GFR ( Amer) 119.7 Est GFR (Non-Af Amer) 103.2 BUN/Creatinine Ratio 15.2 Glucose 100 H Calcium 8.8 Magnesium 2.0 Total Bilirubin 0.4 AST 23 ALT 32 Alkaline Phosphatase 59 Troponin I High Sens Total Protein 6.6 Albumin 3.8 Globulin 2.8 Albumin/Globulin Ratio 1.4 Triglycerides 147 Cholesterol 133 LDL Cholesterol, Calc 79 VLDL Cholesterol, Calc 29 HDL Cholesterol 25 Cholesterol/HDL Ratio 5.3 H Lipase Nasal Screen MRSA (PCR) SARS-CoV-2, RNA, NAAT 04/30/22 07:16 WBC RBC Hgb Hct MCV MCH MCHC RDW Std Deviation RDW Coeff of Telly Plt Count MPV Immature Gran % (Auto) Neut % (Auto) Lymph % (Auto) [place] % (Auto) Eos % (Auto) Baso % (Auto) Neut # (Auto) Lymph # (Auto) [place] # (Auto) Eos # (Auto) Baso # (Auto) Immature Gran # (Auto) APTT PTT Ratio Sodium Potassium Chloride Carbon Dioxide Anion Gap BUN Creatinine Est Cr Clr Drug Dosing Est GFR ( Amer) Est GFR (Non-Af Amer) BUN/Creatinine Ratio Glucose Calcium Magnesium Total Bilirubin AST ALT Alkaline Phosphatase Troponin I High Sens 38.2 H Total Protein Albumin Globulin Albumin/Globulin Ratio Triglycerides Cholesterol LDL Cholesterol, Calc VLDL Cholesterol, Calc HDL Cholesterol Cholesterol/HDL Ratio Lipase Nasal Screen MRSA (PCR) SARS-CoV-2, RNA, NAAT Diagnostic Findings CXR 04/29/22: The cardiac silhouette is mildly enlarged. No pneumothorax, pleural effusion, airspace consolidation or overt pulmonary edema. Bones of the chest appear grossly intact. IMPRESSION: -- No acute process. Medications Administered Medications atorvastatin 40 mg tablet 40 mg PO PM 01/07/20 [History Confirmed 04/29/22] carbamazepine 200 mg tablet (Tegretol) 600 mg PO BID 01/07/20 [History Confirmed 04/29/22] acetaminophen 325 mg tablet (Tylenol) 325 mg PO TID PRN Pain 04/29/22 [History Confirmed 04/29/22] albuterol sulfate 90 mcg/actuation aerosol inhaler 2 puff inhalation QID PRN Shortness Of Breath 04/29/22 [History Confirmed 04/29/22] aspirin 81 mg chewable tablet 81 mg PO DAILY 04/29/22 [History Confirmed 04/29/22] capsaicin 0.075 % topical cream 1 applic topical QID PRN Pain 04/29/22 [History Confirmed 04/29/22] lidocaine 5 % topical cream 1 applic topical QID PRN Pain 04/29/22 [History Confirmed 04/29/22] naproxen 500 mg tablet 500 mg PO BID PRN Pain 04/29/22 [History Confirmed 04/29/22] penicillin V potassium 500 mg tablet 500 mg PO TID 04/29/22 [History Confirmed 04/29/22] phenytoin 50 mg chewable tablet 50 mg PO BID 04/29/22 [History Confirmed 04/29/22] phenytoin sodium extended 100 mg capsule 100 mg PO BID 04/29/22 [History Confirmed 04/29/22] metoprolol tartrate 25 mg tablet 25 mg PO BID 04/30/22 [History Confirmed 04/30/22] Home Medications Acetaminophen (Acetaminophen 325 Mg Tab) 650 mg PO Q4H PRN PRN Reason: pain/fever Stop: 05/29/22 19:09 Aspirin (Aspirin 81 Mg Ectab) 81 mg PO QAM DONOVAN Stop: 05/30/22 08:59 Atorvastatin Calcium (Atorvastatin 40 Mg Tab) 40 mg PO PM DONOVAN Stop: 05/29/22 20:59 Last Admin: 04/29/22 20:44 Dose: 40 mg Carbamazepine (Carbamazepine 200 Mg Tablet) 600 mg PO BID DONOVAN Stop: 05/29/22 20:59 Last Admin: 04/29/22 20:44 Dose: 600 mg Enoxaparin Sodium (Enoxaparin Inj 40 Mg/0.4 Ml Syr) 40 mg SQ HS DONOVAN Stop: 05/29/22 19:44 Last Admin: 04/29/22 20:44 Dose: 40 mg Dextrose/Sodium Chloride (D5w And Nss) 1,000 mls @ 60 mls/hr IV .[id number] DONOVAN Stop: 05/30/22 00:59 Last Admin: 04/30/22 01:34 Dose: 60 mls/hr Magnesium Hydroxide (Magnesium Hydroxide Susp 30 Ml Udc) 30 ml PO Q6H PRN PRN Reason: Constipation Stop: 05/29/22 19:09 Metoprolol Tartrate (Metoprolol Tartrate 25 Mg Tab) 25 mg PO BID DONOVAN Stop: 05/30/22 00:59 Last Admin: 04/30/22 01:35 Dose: 25 mg Ondansetron HCl (Ondansetron Inj 2 Mg/Ml 2 Ml Vial) 4 mg IV Q6H PRN PRN Reason: Nausea Stop: 05/29/22 19:09 Penicillin V Potassium (Penicillin V Potassium 500 Mg Tab) 500 mg PO TID [facility] Stop: 04/30/22 23:59 Last Admin: 04/30/22 01:34 Dose: 500 mg Phenytoin (Phenytoin 50 Mg Chew) 50 mg PO BID DONOVAN Stop: 05/29/22 20:59 Last Admin: 04/30/22 01:34 Dose: 50 mg Phenytoin Sodium (Phenytoin Sodium Er 100 Mg Cap) 300 mg PO BID [facility] Stop: 05/30/22 00:59 Last Admin: 04/30/22 01:35 Dose: 300 mg Polyethylene Glycol (Polyethylene (Miralax) 17 Gm Pack) 17 gm PO DAILY PRN PRN Reason: Constipation Stop: 05/29/22 19:09 PG Care Time/CCT Total # of Minutes Spent Total Time Spent with Patient: Total time spent is greater than 50% in coordination of care (as documented) at patient's floor/unit and/or counseling patient:25 [place] [address] Inpt Consult Level 5 Patient Type Established History Detailed Exam Detailed Medical Decision Making Moderate Complexity Diagnoses Chest pain R07.9 Elevated troponin R77.8 Hypertension I10 Dyslipidemia E78.5 Coronary artery disease, non-occlusive I25.10 Time Spent (min) 58
[2022-04-30] MEDS: carBAMazepine 200 MG TABLET PO SCH (09:59)
--- NOTE | 2022-04-30 11:44 | XCELERA ---
[id number]
[2022-04-30] MEDS ORDERED: ATROPINE SULFATE 0.1 MG/ML 10ML SYR IV ONE (12:35)
[2022-04-30] MEDS ORDERED: DOBUTamine HCL 12.5 MG/ML 20 ML VIAL IV ONE (12:35)
[2022-04-30] MEDS ORDERED: METOPROLOL TARTRATE 1 MG/ML VIAL IV ONE ×2 (12:36→12:56)
[2022-04-30] MEDS ORDERED: VERAPAMIL HCL 40 MG TAB PO SCH (14:00)
--- NOTE | 2022-04-30 15:12 | XCELERA ---
[id number]
--- NOTE | 2022-04-30 16:19 | Discharge Summary ---
Date of Service April 30, 2022 Admission HPI Per Admitting Provider Patient is a 51-year-old male with a past medical history of coronary artery disease, dyslipidemia, seizure disorder, history of tobacco abuse who is brought to the hospital from correction facility where he stays there for 14 years for chief complaint of chest pain. It was located in the lower substernal area, 04/30 in severity, sharp with no alleviating or aggravating factor. 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 This lasted about 20 minutes without severity. EMS was called and patient was given 4 chewable aspirin with improvement of symptoms. Currently he does not have any chest pain. He also complained of some heavy breathing at the time of pain but denies any shortness of breath, lightheadedness or dizziness, diaphoresis, palpitation, nausea, vomiting, abdominal pain. Patient claims that few years ago, he had a cardiac catheterization but did not require stent. He stopped smoking since the event. He has been a heavy smoker prior to that. He denies any drinking or using any street drugs now. He has a history of seizure disorder and he is being treated with antiseizure medication. Principal Diagnosis Chest pain Discharge Data Allergies Allergy/AdvReac Type Severity Reaction Status Date / Time No Known Allergies Allergy Verified 04/29/22 16:07 Consultations 04/29/22 13:40 ED Decision to Admit Stat 04/29/22 19:10 Consult Cardiology Routine Ordered Studies Laboratory Results WBC 4.56 K/ul (4.8-10.8) L 04/30/22 07:16 RBC 4.23 M/uL (4.63-6.08) L 04/30/22 07:16 Hgb 13.4 g/dl (14.0-18.0) L 04/30/22 07:16 Hct 38.4 % (40.1-51.0) L 04/30/22 07:16 MCV 90.8 fL (80.0-100.0) 04/30/22 07:16 MCH 31.7 pg (25.0-34.0) 04/30/22 07:16 MCHC 34.9 g/dL (32.0-36.0) 04/30/22 07:16 RDW Std Deviation 40.5 fL (36.4-46.3) 04/30/22 07:16 RDW Coeff of Telly 12.2 % (11.5-14.5) 04/30/22 07:16 Plt Count 142 K/uL (130-400) 04/30/22 07:16 MPV 9.8 fL (9.4-12.4) 04/30/22 07:16 Immature Gran % (Auto) 0.3 % 04/29/22 12:15 Neut % (Auto) 63.8 % 04/29/22 12:15 Lymph % (Auto) 26.7 % 04/29/22 12:15 [place] % (Auto) 8.0 % 04/29/22 12:15 Eos % (Auto) 0.6 % 04/29/22 12:15 Baso % (Auto) 0.6 % 04/29/22 12:15 Neut # (Auto) 4.08 K/uL (1.4-6.5) 04/29/22 12:15 Lymph # (Auto) 1.71 K/uL (1.2-3.4) 04/29/22 12:15 [place] # (Auto) 0.51 K/uL (0.24-0.82) 04/29/22 12:15 Eos # (Auto) 0.04 K/uL (0-0.50) 04/29/22 12:15 Baso # (Auto) 0.04 K/uL (0-0.2) 04/29/22 12:15 Immature Gran # (Auto) 0.02 K/uL (0.00-0.02) 04/29/22 12:15 APTT 25.9 Seconds (21.0-31.0) 04/30/22 07:16 PTT Ratio 0.9 04/30/22 07:16 Sodium 140 mmol/L (136-145) 04/30/22 07:16 Potassium 4.4 mmol/L (3.5-5.1) 04/30/22 07:16 Chloride 108 mmol/L (98-107) H 04/30/22 07:16 Carbon Dioxide 30 mmol/L (21-32) 04/30/22 07:16 Anion Gap 2 (3-11) L 04/30/22 07:16 BUN 12 mg/dl (6-23) 04/30/22 07:16 Creatinine 0.79 mg/dl (0.6-1.4) 04/30/22 07:16 Est Cr Clr Drug Dosing 130.4 ml/min 04/30/22 07:16 Est GFR ( Amer) 119.7 ml/min 04/30/22 07:16 Est GFR (Non-Af Amer) 103.2 ml/min 04/30/22 07:16 BUN/Creatinine Ratio 15.2 (10-20) 04/30/22 07:16 Glucose 100 mg/dl (70-99(Fasting)) H 04/30/22 07:16 Calcium 8.8 mg/dl (8.5-10.1) 04/30/22 07:16 Magnesium 2.0 mg/dl (1.7-2.4) 04/30/22 07:16 Total Bilirubin 0.4 mg/dl (0.2-1.0) 04/30/22 07:16 AST 23 U/L (13-39) 04/30/22 07:16 ALT 32 U/L (7-52) 04/30/22 07:16 Alkaline Phosphatase 59 U/L (34-104) 04/30/22 07:16 Troponin I High Sens 38.2 pg/ml (0-20) H 04/30/22 07:16 Total Protein 6.6 gm/dl (6.0-8.3) 04/30/22 07:16 Albumin 3.8 gm/dl (3.4-5.0) 04/30/22 07:16 Globulin 2.8 gm/dl (2.5-4.0) 04/30/22 07:16 Albumin/Globulin Ratio 1.4 (0.9-2) 04/30/22 07:16 Triglycerides 147 mg/dl (0-150) 04/30/22 07:16 Cholesterol 133 mg/dl (0-200) 04/30/22 07:16 LDL Cholesterol, Calc 79 mg/dl 04/30/22 07:16 VLDL Cholesterol, Calc 29 mg/dl (0-30) 04/30/22 07:16 HDL Cholesterol 25 mg/dl 04/30/22 07:16 Cholesterol/HDL Ratio 5.3 (0-5) H 04/30/22 07:16 Lipase 13 U/L (11-82) 04/29/22 12:15 Nasal Screen MRSA (PCR) Negative (Negative) 04/30/22 01:55 SARS-CoV-2, RNA, NAAT NEGATIVE (NEGATIVE) 04/29/22 12:58 Impressions Chest X-Ray 04/29/22 12:21 XR chest 1V portable HISTORY: 51 years-old Male Chest Pain acute atypical chest pain COMPARISON: Chest radiograph 01/07/2020 TECHNIQUE: AP view of the chest FINDINGS: The cardiac silhouette is mildly enlarged. No pneumothorax, pleural effusion, airspace consolidation or overt pulmonary edema. Bones of the chest appear grossly intact. IMPRESSION: No acute process. ACT 112: Negative or not required by law. The above report was generated using voice recognition software. It may contain grammatical, syntax or spelling errors. Electronically signed by: Reilly Samayoa M.D. 04/29/2022 1:19 PM Hospital Course (1) Chest pain: Patient is a 51-year-old male with a past medical history of tobacco abuse, coronary artery disease who presented with substernal chest pain. It resolved with the aspirin. Concerning for acute coronary syndrome though there is no ST elevation in EKG cardio on board s/p dobutamine stress echo showed no ischemia Continue aspirin, statin case discussed with cardiology that recommended to increase statin to 80mg and veramil added and continue metoprolol Ok from cardio to discharge Called and spoke with staff at [facility] to update about management and discharge instruction (2) Coronary artery disease, non-occlusive: History of coronary artery disease Continue aspirin, statin (3) Hypertension: Blood pressure runs in normal ranges on no blood pressure medication. Continue to monitor (4) History of tobacco abuse: Patient has a stopped smoking few years ago after his first chest pain (5) Seizure disorder: Continue phenytoin and carbamazepine (6) Dyslipidemia: Continue statin Check fasting lipid profile Total Time Total Time Spent Total Time Spent (In Minutes): 35 minutes Discharge Plan Discharge Items Patient Disposition: [facility] Reason For Visit: ACUTE CORONARY SYNDROME Discharge Diagnosis: Chest pain Activity: Resume your previous activity Non-emergency contact: Primary Care Provider and Distribution System Operator Call non-emergency contact if: you have any medication questions Follow-up/Referrals: Robert LUNDY [Primary Care Provider] - Diet: Heart Healthy Addtl Attending Provider Instructions: Follow up with your primary care provider at [facility] Routine Follow up with your cardiology Continue monitor your blood pressure Seek medical attention if your symptoms reoccur Cardiology recommendations: Atorvastatin increased to 80 mg daily. Verapamil ER 120mg daily added for the treatment of both his HOCM and Hypertension. Continue Metoprolol Tartrate 25 mg twice a day Continue Aspirin 81 mg daily. Pending Studies at Discharge: No Stand-Alone Forms: My [facility] Skilled Items Patient informed of condition?: Yes Discharge Level of Care: Other Communicable Disease: No Discharge Prognosis: Stable Lines: None Urinary Catheter: No Medications and DC Order Prescriptions: New verapamil 120 mg capsule,ext rel. pellets 24 hr 120 mg PO DAILY Qty: 30 0RF Continued carbamazepine [Tegretol] 200 mg Tablet 600 mg PO BID acetaminophen [Tylenol] 325 mg Tablet 325 mg PO TID PRN (Reason: Pain) Rx Instructions: PER PT "TAKES WITH ANTIBIOTIC" lidocaine 5 % Cream 1 applic TOPICAL QID PRN (Reason: Pain) Rx Instructions: MIX WITH ZOSTRIX-HP, THEN APPLY penicillin V potassium 500 mg Tablet 500 mg PO TID Rx Instructions: STARTED 04/20/22, STOPS 04/30/22. capsaicin 0.075 % Cream 1 applic TOPICAL QID PRN (Reason: Pain) Rx Instructions: MIX WITH LIDOCAINE THEN APPLY. phenytoin 50 mg Tablet,Chewable 50 mg PO BID aspirin 81 mg Tablet,Chewable 81 mg PO DAILY albuterol sulfate 90 mcg/actuation Hfa Aerosol Inhaler 2 puff INHALATION QID PRN (Reason: Shortness Of Breath) naproxen 500 mg Tablet 500 mg PO BID PRN (Reason: Pain) Rx Instructions: PENDING COMMISSARY PURCHASE PER MED LIST phenytoin sodium extended 100 mg Capsule 100 mg PO BID metoprolol tartrate 25 mg Tablet 25 mg PO BID Changed atorvastatin 40 mg Tablet 80 mg PO PM 30 Days Qty: 60 0RF Discharge Orders: Discharge Order (Routine); Ordered 04/30/22 Ordered By: Dilcia Richards Admission Data Admit Date/Time: 04/29/22 15:25 Attending Provider: Dilcia Richards Admit Provider: Eunice Wagner Primary Care Provider: Robert LUNDY Other Providers: Eunice Wagner ; Ghanshyam Cat ; Paul Nicole ; Louis Lorenzo ; Polo Johnson ; Amado Hurst ; Chidi Simental Jr ; James Reilly ; Cindy Barr ; Noemy Haynes ; Eddie Mendoza ; Nigel Nogueira ; Zachary Larios ; Jen Stinson ; Isabel Winkler ; Shashank Saeed ; Marcus Syed ; Merlin Bejarano ; Polo Nunez V. Other Interventions: Discharge Summary Assessment (RN) Last Done: 04/30/22 18:03
[2022-04-30] MEDS ORDERED: VERAPAMIL HCL 120 MG TABCR PO ONE (16:39)
[2022-04-30] MEDS ORDERED: ATORVASTATIN 40 MG TAB PO SCH (21:00)
--- NOTE | 2022-05-07 14:07 | Coding Query ---
CHEST PAIN To promote full compliance with coding requirements relating to patient care physician participation is requested in all cases of portrait studio photographer uncertainty. Please assist us with the question(s) below: Pt admiitted with chest pain, resolved with aspirin. Concern for acute coronary syndrome. Thanks for your help! Darin Hernandez, [facility]CS Please list a more specific chest pain diagnosis or cause of chest pain if known by placing an X within the parenthesis (x): (x ) Atypical Chest Pain ( ) Chest Wall Pain ( ) Midsternal Chest Pain ( ) Musculoskeletal Chest Pain ( ) Pleuritic Chest Pain ( ) Substernal Chest Pain ( ) Costochondral Chest Pain ( ) Other (please Specify) ( ) Unable to Determine MTDD
== END 2022-04-30 18:51 | DRG 313 ==
LOC: ED 11:53 → EDINP 15:25 → SUATTDRO 15:25 → INTOOBSV 15:25 → 2W 20:23

== ENCOUNTER 2023-10-08 16:56 | Inpatient (IN) ==
--- NOTE | 2023-10-08 17:22 | Emergency Department Note ---
History of Present Illness General Chief complaint: Chest Pain Stated complaint: CHEST PAIN Time Seen by Provider: 10/08/23 17:08 History of Present Illness This is a 53-year-old male that presents to the emergency department via EMS accompanied by corrections officers with complaints of "chest pain". Patient has a history of epilepsy, sleep apnea, nonobstructive coronary artery disease, hypertrophic obstructive cardiomyopathy, HCV, hyperlipidemia, glaucoma, hypertension, COPD per review of medical record from the [facility]. Patient notes he missed his morning dose of blood pressure medication today. Then he notes that around 1:30 PM he began with some central chest pain that was described as more of a pressure that then worsened when he attempted to change the sheets on his bed as well as pillows. There was mild exertion with this. Pain lasted about 1.5-2 hours. He also noted associated sweatiness/diaphoresis. He then was administered his blood pressure medication and felt better per patent. He notes complete resolution of chest pain at this time. No fevers. No recent illness. No vomiting. No abdominal pain. No back pain. Reportedly received aspirin in route by ems. Per review of the EMR patient was seen by cardiology on 08/05/2023. On 04/30/2022 patient underwent echocardiogram. This revealed left ventricular systolic function normal. No regional wall motion abnormalities noted. Severe concentric left ventricular hypertrophy. Echo findings are consistent with hypertrophic cardiomyopathy. Ejection fraction 65 to 70%. There is mild to moderate mitral regurgitation. Compared to the study of 01/07/2020, no significant change per cardiology. Home Medications Medication Instructions Recorded Confirmed Type carbamazepine 200 mg tablet 600 mg PO BID 01/07/20 10/08/23 History (Tegretol) acetaminophen 325 mg tablet 325 mg PO TID PRN Pain 04/29/22 10/08/23 History (Tylenol) albuterol sulfate 90 mcg/actuation 2 puff inhalation QID PRN 04/29/22 10/08/23 History aerosol inhaler Shortness Of Breath aspirin 81 mg chewable tablet 81 mg PO DAILY 04/29/22 10/08/23 History capsaicin 0.075 % topical cream 1 applic topical QID PRN Pain 04/29/22 10/08/23 History lidocaine 5 % topical cream 1 applic topical QID PRN Pain 04/29/22 10/08/23 History phenytoin sodium extended 100 mg 300 mg PO BID 04/29/22 10/08/23 History capsule rosuvastatin 10 mg tablet 20 mg PO DAILY 08/05/23 10/08/23 History verapamil 360 mg 24 hr 360 mg PO DAILY #90 caps 08/05/23 10/08/23 Rx capsule,extended release divalproex 500 mg tablet,delayed 650 mg PO BID 10/08/23 10/08/23 History release (Depakote) metoprolol succinate 100 mg 100 mg PO DAILY 10/08/23 10/08/23 History tablet,extended release 24 hr Allergies Allergy/AdvReac Type Severity Reaction Status Date / Time No Known Allergies Allergy Verified 08/05/23 11:28 Past Med/Surg History Medical History Coronary artery disease, non-occlusive HOCM (hypertrophic obstructive cardiomyopathy) Hypertension History of tobacco abuse Pulmonary nodule Dyslipidemia Seizure disorder Surgical History No pertinent past surgical history Family History Father Coronary heart disease Seizure disorder Social History Smoking Status: Former smoker Tobacco Type: Cigarettes Hx Alcohol Use: No Hx Substance Use: No Housing Grant Analyst Required: No Beliefs That Will Affect Care: None Current Living Situation: Other Current Living Situation Comment: residential Feels Safe at Home: Yes Assistive Devices: None Review of Systems A total of 10 systems reviewed and were otherwise negative Physical Exam Vital Signs Vital Signs - 24 hr 10/08/23 17:02 10/08/23 17:08 10/08/23 17:30 Temperature 37.1 C Temperature Source Oral Pulse Rate 91 H 90 85 Respiratory Rate 20 15 Respiratory Effort / Characteristics Non-Labored Spontaneous Respiratory Depth Normal Blood Pressure 106/74 116/70 Blood Pressure Mean 84 85 Pulse Oximetry 97 95 Oxygen Delivery Method Room Air Room Air Sepsis Recent Fever Within 48 Hours No Sepsis New/Unexplained Change in Mental Status No Sepsis Action Taken by Nursing No Action Required 10/08/23 18:00 Temperature Temperature Source Pulse Rate 79 Respiratory Rate 16 Respiratory Effort / Characteristics Respiratory Depth Blood Pressure 132/70 Blood Pressure Mean 90 Pulse Oximetry 96 Oxygen Delivery Method Room Air Sepsis Recent Fever Within 48 Hours Sepsis New/Unexplained Change in Mental Status Sepsis Action Taken by Nursing VITAL SIGNS - Vital signs and nursing notes were reviewed. Stable and afebrile. GENERAL -53-year-old male appearing his stated age who is in no acute distress. Communicates well with provider and answers questions appropriately. SKIN - Without rashes. No meningeal or petechial rash. HEAD - NC/AT. EYES - Sclera anicteric. EARS - No deformities of external structures noted on gross examination bilaterally. NOSE - Midline and without cyanosis. No epistaxis or purulent drainage noted. MOUTH/OROPHARYNX - Without perioral cyanosis. NECK - Neck with FROM. No nuchal rigidity. LUNGS - Chest wall symmetric without accessory muscle use, intercostals retractions, or central cyanosis. Normal vesicular breath sounds CTA B/L. No wheezes, rales, or rhonchi appreciated. CARDIAC - RRR ABDOMEN - Abdominal contour normal without pulsations or visible masses. BS normoactive all four quadrants. No tenderness, palpable masses, hepatosplenomegaly, or ascites noted. EXTREMITIES - No clubbing or peripheral cyanosis. No pretibial edema present. +5/5 strength noted in UE/LE bilaterally. NEUROLOGIC - Cranial nerves grossly intact PSYCH -alert, oriented and pleasant on exam Course Administered Medications Heparin Sodium/Dextrose (Heparin Sodium/Dextrose) 25,000 units in 500 mls @ 20 mls/hr IV .Q24H [facility]; Protocol Stop: 11/07/23 18:44 Last Admin: 10/08/23 19:04 Dose: 1,000 units/hr, 20 mls/hr Documented By: PRINCE Co-signed By: RUIZ Magnesium Sulfate/Dextrose (Magnesium Sulfate / D5w) 1 gm in 100 mls @ 50 mls/hr IV Q2H DONOVAN Stop: 10/08/23 23:29 Last Admin: 10/08/23 20:54 Dose: 50 mls/hr Documented By: PRINCE Discontinued Medications Carbamazepine (Carbamazepine 200 Mg Tablet) 600 mg PO NOW ONE Stop: 10/08/23 19:16 Last Admin: 10/08/23 20:24 Dose: 600 mg Documented By: PRINCE Divalproex Sodium (Divalproex Delay Release 500 Mg Tab) 500 mg PO NOW ONE Stop: 10/08/23 19:02 Last Admin: 10/08/23 19:55 Dose: 500 mg Documented By: [facility] Divalproex Sodium (Divalproex Delay Release 125 Mg Tabec) 125 mg PO NOW ONE Stop: 10/08/23 19:16 Last Admin: 10/08/23 19:55 Dose: 125 mg Documented By: [facility] Heparin Sodium/Dextrose (Heparin Iv Adult Wt-Based Low-Dose *No* Initial Bolus Protocol) 1 each IV ONE STA; Protocol Stop: 10/08/23 18:30 Last Admin: 10/08/23 19:09 Dose: Not Given Documented By: [facility] Phenytoin Sodium (Phenytoin Sodium Er 100 Mg Cap) 300 mg PO NOW STA Stop: 10/08/23 19:02 Last Admin: 10/08/23 19:55 Dose: 300 mg Documented By: [facility] Critical Care Time I have personally spent about 35 minutes of critical care time in the direct management of this patient. This includes bedside care, interpretation of diagnostic studies, and testing, discussion with consultants, patient, and other required patient management activities. This 35 minutes is in excess of all separately billable procedures. Medical Decision Making Laboratory Data 10/08/23 17:11 10/08/23 17:11 Lab Results 10/08/23 10/08/23 Range/Units 17:11 18:20 WBC 7.19 (4.8-10.8) K/ul RBC 4.51 L (4.70-6.10) M/uL Hgb 14.1 (14.0-18.0) g/dl Hct 40.1 L (42.0-52.0) % MCV 88.9 (80.0-100.0) fL MCH 31.3 (25.0-34.0) pg MCHC 35.2 (32.0-36.0) g/dL RDW Std Deviation 41.7 (36.4-46.3) fL RDW Coeff of Telly 12.7 (11.5-14.5) % Plt Count 171 (130-400) K/uL MPV 10.2 (9.4-12.4) fL Immature Gran % (Auto) 0.3 % Neut % (Auto) 72.0 % Lymph % (Auto) 17.2 % [place] % (Auto) 9.2 % Eos % (Auto) 0.7 % Baso % (Auto) 0.6 % Neut # (Auto) 5.18 (1.40-6.50) K/uL Lymph # (Auto) 1.24 (1.20-3.40) K/uL [place] # (Auto) 0.66 H (0.11-0.59) K/uL Eos # (Auto) 0.05 (0.00-0.50) K/uL Baso # (Auto) 0.04 (0.00-0.20) K/uL Immature Gran # (Auto) 0.02 (0.01-0.20) K/uL PT 10.8 (9.0-12.0) Seconds INR 1.0 (0.9-1.1) APTT 24 (21-31) Seconds PTT Ratio 0.9 D-Dimer 190 (0-500) ug/L FEU Sodium 141 (136-145) mmol/L Potassium 4.3 (3.5-5.1) mmol/L Chloride 107 (98-107) mmol/L Carbon Dioxide 28 (21-32) mmol/L Anion Gap 6 (3-11) BUN 15 (6-23) mg/dl Creatinine 0.97 (0.6-1.4) mg/dl Est Cr Clr Drug Dosing 106.9 ml/min Est GFR ( Amer) 102.2 ml/min Est GFR (Non-Af Amer) 88.1 ml/min BUN/Creatinine Ratio 15.5 (10-20) Glucose 106 H (70-99(Fasting)) mg/dl Calcium 8.9 (8.6-10.3) mg/dl Magnesium 1.8 (1.7-2.4) mg/dl Total Bilirubin 0.3 (0.2-1.0) mg/dl AST 17 (13-39) U/L ALT 20 (7-52) U/L Alkaline Phosphatase 43 (34-104) U/L Troponin I High Sens 147.6 H* (0-20) pg/ml B-Natriuretic Peptide 588 H (0-100) pg/ml Total Protein 7.2 (6.0-8.3) gm/dl Albumin 4.3 (3.4-5.0) gm/dl Globulin 2.9 (2.5-4.0) gm/dl Albumin/Globulin Ratio 1.5 (0.9-2) Lipase 16 (11-82) U/L TSH 2.563 (0.300-4.500) uIu/ml Urine Color Yellow Urine Appearance Clear (Clear) Urine pH 7.0 (4.5-7.5) Ur Specific [place] 1.016 (1.000-1.030) Urine Protein Negative (Negative) Urine Glucose (UA) Negative (Negative) Urine Ketones Negative (Negative) Urine Blood Negative (Negative) Urine Nitrite Negative (Negative) Urine Bilirubin Negative (Negative) Urine Urobilinogen Negative (Negative) Ur Leukocyte Esterase Negative (Negative) Imaging Data Radiologist's Impression: Chest X-Ray 10/08/23 17:17 SINGLE VIEW CHEST CLINICAL HISTORY: Atypical chest pain. FINDINGS: An AP, portable, upright chest radiograph is compared to study dated 04/29/2022. The heart is enlarged. There is pulmonary vascular congestion. Bilateral opacities likely represent interstitial edema. No large pleural effusion or pneumothorax is seen. The skeletal structures are osteopenic. The bony thorax is grossly intact. IMPRESSION: 1. Cardiomegaly with evidence of congestive failure. 2. Bilateral opacities likely represent pulmonary edema. Correlate clinically. Radiographic follow-up to resolution is recommended. ACT 112: Negative or not required by law. Electronically signed by: Chandler Longoria M.D. 10/08/2023 5:42 PM MDM Narrative Patient was seen and evaluated as above in room A04b. Review was performed of triage nursing notes and vital signs. I did review pertinent previous visits and patient history. After obtaining a thorough history and physical examination the above work up was performed. Patient presents to us today for evaluation of chest pain that occurred prior to arrival while he was changing the sheets on his bed. He notes pain began just before that but was exacerbated when he attempted to change the sheets on his bed. Patient does have a cardiac history and follows with cardiology. The patient denies any pain at the present time and feels well. Options of care were discussed with the patient. IV access was established. Labs were drawn. EKG was performed on arrival with a timestamp of 1705 HRS and revealed normal sinus rhythm at a rate of 89 bpm. QTc 479. QRS 94. There is no ST elevation. This EKG was compared to prehospital EKG performed today at [address] depressions were noted on this rhythm tracing particularly in V5 and V6. There is no leukocytosis or concerning anemia. Coags normal. No emergent metabolic disturbance. Troponin returned at 147. Lipase normal. TSH reveals euthyroid state. Chest x-ray revealed cardiomegaly without evidence of congestive failure. Bilateral opacities likely represent pulmonary edema. Patient does not appear fluid overloaded on exam. I did discuss findings today with the on-call inbound sales consultant, Dr. Reilly at 6:05 PM. He recommended avoiding any nitrates/Nitropaste. We also agreed if he does not appear to be fluid overloaded then can off diuretics at the present time. He noted he was not against heparinization as long as there was no contraindication. I reviewed this with the patient and reviewed benefit versus risk of IV heparin. No contraindications identified at this time. Patient denies any history of GI bleeding. He denies any recent trauma or injury. He denies any blood in the stool. No black tarry stools. After discussing thoroughly with the patient, we will proceed with the IV heparin. It is felt that the benefit outweighs risk. Patient in agreement. Heparin IV low-dose without bolus ordered. We will proceed with admission at this time. Case discussed with the hospitalist service. Please refer to further documentation regarding his stay. Case was discussed with the attending physician. GCS: 15 In the evaluation and treatment of this patient, the following differential diagnoses were considered: GA, ASC, Dysrhythmia, Angina, Mediastinitis, GERD, Esophagitis, PE, Pneumonia, Bronchitis, Costochondritis, Rib Fracture, Zoster. Impression & Plan Chest pain, HOCM (hypertrophic obstructive cardiomyopathy), Elevated troponin, History of coronary artery disease Discharge Plan Visit Data Chief Complaint: Chest Pain Stated Complaint: CHEST PAIN ED Provider: Sly Gipson ED Midlevel Provider: Vincent Lee Discharge Problem: Chest pain, HOCM (hypertrophic obstructive cardiomyopathy), Elevated troponin, History of coronary artery disease Patient Disposition: Admitted As Inpatient Condition: Good Discharge Instructions Interventions: ED Discharge Assessment Last Done: 10/08/23 19:48
[2023-10-08 17:34] LABS: Basophils # (auto) 0.04 K/uL (0.00-0.20); Basophils % (auto) 0.6 %; Eosinophils # (auto) 0.05 K/uL (0.00-0.50); Eosinophils % (auto) 0.7 %; Hematocrit (blood only) 40.1 % (42.0-52.0); Hemoglobin 14.1 g/dl (14.0-18.0); Immature Granulocytes # (auto) 0.02 K/uL (0.01-0.20); Immature Granulocytes % (auto) 0.3 %; Lymphocytes # (auto) 1.24 K/uL (1.20-3.40); Lymphocytes % (auto) 17.2 %; Mean Corpuscular Hemoglobin 31.3 pg (25.0-34.0); Mean Corpuscular Hgb Conc 35.2 g/dL (32.0-36.0); Mean Corpuscular Volume 88.9 fL (80.0-100.0); Mean Platelet Volume 10.2 fL (9.4-12.4); Monocytes # (auto) 0.66 K/uL (0.11-0.59); Monocytes % (auto) 9.2 %; Neutrophils # (auto) 5.18 K/uL (1.40-6.50); Platelet Count 171 K/uL (130-400); RDW Coefficient of Variation 12.7 % (11.5-14.5); RDW Standard Deviation 41.7 fL (36.4-46.3); Red Blood Count 4.51 M/uL (4.70-6.10); White Blood Count 7.19 K/ul (4.8-10.8)
--- NOTE | 2023-10-08 17:43 | XRay Report ---
SINGLE VIEW CHEST CLINICAL HISTORY: Atypical chest pain. FINDINGS: An AP, portable, upright chest radiograph is compared to study dated 04/29/2022. The heart i s enlarged. There is pulmonary vascular congestion. Bilateral opacities likely represent interstitial edema. No large pleural effusion or pneumothorax is seen. The skeletal structures are osteopenic. Th e bony thorax is grossly intact. IMPRESSION: 1. Cardiomegaly with evidence of congestive failure. 2. Bilateral opacities likely represent pulmonary edema. Correlate clinically. Radiographic follow-up to resolution is recommended. ACT 112: Negative or not required by law. Electronically signed by: Chandler Longoria M.D. 10/08/2023 5:42 PM
[2023-10-08 17:49] LABS: Albumin Globulin Ratio 1.5 (0.9-2); Albumin Level 4.3 gm/dl (3.4-5.0); BUN Creatinine Ratio 15.5 (10-20); Bilirubin,Total 0.3 mg/dl (0.2-1.0); Calcium 8.9 mg/dl (8.6-10.3); Creatinine Clr Calc Pharmacy 106.9 ml/min; Est GFR (African American) 102.2 ml/min; Est GFR (Non-African American) 88.1 ml/min; Globulin 2.9 gm/dl (2.5-4.0); Magnesium 1.8 mg/dl (1.7-2.4); Potassium 4.3 mmol/L (3.5-5.1); Total Protein 7.2 gm/dl (6.0-8.3)
[2023-10-08 17:58] LABS: Troponin I High Sensitivity 147.6 pg/ml (0-20)
[2023-10-08 17:59] LABS: Partial Thromboplastin Ratio 0.9; Partial Thromboplastin Time 24 Seconds (21-31); Prothrombin Time 10.8 Seconds (9.0-12.0)
[2023-10-08 18:05] LABS: Thyroid Stimulating Hormone 2.563 uIu/ml (0.300-4.500)
--- NOTE | 2023-10-08 18:26 | History & Physical Report ---
Date of Service October 08, 2023 Assessment & Plan (1) Chest pain: Plan: -Admit to med/tele on pulse oximetry -Currently stable and asymptomatic since arrival to the ED -Presented to the ED after experiencing approximately 2 hours of substernal chest pressure without radiation and diaphoresis while relaxing in his cell -ECG's from the [facility] (located in the patient's physical chart), show ST segment depression in the anterolateral leads -ST segment depressions have subsequently resolved on repeat ECG in the ED -Initial high sen trop elevated at 147 -Received 324 PO Aspirin in route by EMS -At this time his symptoms sound consistent with possible cardiac etiology, especially with his hx of previous NSTEMI in the past -While he has been hemodynamically stable and stable on RA, we will obtain D- dimer on admission, if positive will obtain CTA of the chest with PE protocol -Will monitor 2 hour repeat high sen trop and continue to trend q6h overnight -Cardiology consult placed, appreciate their assistance >Would avoid use of Nitroglycerin or other nitrates to prevent exacerbation of his HOCM >Would also not treat his pulmonary edema with diuretics overnight if he remains asymptomatic and stable as to avoid dehydration which could exacerbate his HOCM as well -Will obtain TTE tomorrow -Heparin drip for DVT PPX -AM CBC, BMP, mag, PT/INR (2) HOCM (hypertrophic obstructive cardiomyopathy): Plan: -Per Cardiology, would avoid diuresis overnight if he remains stable on RA and is asymptomatic -Would also avoid use of Nitrates if he has further episodes of chest pain -Both could possibly exacerbate his HOCM (3) Coronary artery disease, non-occlusive: Plan: -Continue heparin drip -Continue metoprolol, aspirin, statin, and Verapemil (4) Hypertension: Plan: -Currently stable -Continue Verapamil and metoprolol (5) Seizure disorder: Plan: -Continue Dilantin, Carbamazepine, and Depakote (6) Dyslipidemia: Plan: -Continue statin Plan The patient was discussed with Dr. Espino at the time of the admission History of Present Illness Chief Complaint: Chest pain Primary Care Provider: KAMRON Jones Rafael is a 53 year old male inmate of [employer] [facility] with a PMH of Hypertension, Dyslipidemia, Non-Obstructive CAD, Hypertrophic Obstructive Cardiomyopathy, Seizure Disorder, COPD, and Atherosclerosis of the Aorta who presented to the [facility] ED on 10/08/23 via EMS for an episode of chest pain which experienced earlier today. He was given 324 mg Aspirin by EMS in route. Per the ED staff, the patient had missed his am antihypertensives. After having the episode of chest pain the patient was given his am antihypertensives and his chest pain resolved. He remained stable in the ED. Labs were significant for an initial high sen trop of 147. Chest xray was read as "1. Cardiomegaly with evidence of congestive failure. 2. Bilateral opacities likely represent pulmonary edema. Correlate clinically. Radiographic follow-up to resolution is recommended.". The ED staff spoke with Cardiology, because the his episode of chest pain earlier today, possible ECG changes reported at [facility], and his elevated trop they recommended starting a heparin drip. They recommended avoiding Nitroglycerin and other Nitrites with his Hx of HOCM. Prior to admission the patient was order a low dose, weight based heparin drip wo bolus as he is currently pain free. At the time of the exam the patient was sitting in bed in no acute distress. He confirms that above history. He states that his chest pain started while at rest around 1330 this afternoon. He experienced substernal chest pressure with diaphoresis. He states he tried to walk around his cell and change his sheets to see if activity would help the pain but it persisted for approximately 2 hours. Since arrival to the ED he has been chest discomfort free. He denies having similar symptoms recently while doing his normal activates. Denies recent fever, SOB, cough, abd pain, nausea, vomiting, diarrhea, dysuria, hematuria, melena, LE selling, and recent trauma. He states that he is due for his evening antiepileptics. His last seizure was approximately 2 weeks ago after missing doses of his medications. Please refer to Dr. Sanders' attestation for any changes to the treatment plan Allergies Allergy/AdvReac Type Severity Reaction Status Date / Time No Known Allergies Allergy Verified 08/05/23 11:28 Home Medications Medication Instructions Recorded Confirmed Type carbamazepine 200 mg tablet 600 mg PO BID 01/07/20 10/08/23 History (Tegretol) acetaminophen 325 mg tablet 325 mg PO TID PRN Pain 04/29/22 10/08/23 History (Tylenol) albuterol sulfate 90 mcg/actuation 2 puff inhalation QID PRN 04/29/22 10/08/23 History aerosol inhaler Shortness Of Breath aspirin 81 mg chewable tablet 81 mg PO DAILY 04/29/22 10/08/23 History capsaicin 0.075 % topical cream 1 applic topical QID PRN Pain 04/29/22 10/08/23 History lidocaine 5 % topical cream 1 applic topical QID PRN Pain 04/29/22 10/08/23 History phenytoin sodium extended 100 mg 300 mg PO BID 04/29/22 10/08/23 History capsule rosuvastatin 10 mg tablet 20 mg PO DAILY 08/05/23 10/08/23 History verapamil 360 mg 24 hr 360 mg PO DAILY #90 caps 08/05/23 10/08/23 Rx capsule,extended release divalproex 500 mg tablet,delayed 650 mg PO BID 10/08/23 10/08/23 History release (Depakote) metoprolol succinate 100 mg 100 mg PO DAILY 10/08/23 10/08/23 History tablet,extended release 24 hr Past Med/Surg History Medical History Coronary artery disease, non-occlusive HOCM (hypertrophic obstructive cardiomyopathy) Hypertension History of tobacco abuse Pulmonary nodule Dyslipidemia Seizure disorder Surgical History No pertinent past surgical history Family History Father Coronary heart disease Seizure disorder Social History Smoking Status: Former smoker Tobacco Type: Cigarettes Hx Alcohol Use: No Hx Substance Use: No Production Weigher Required: No Beliefs That Will Affect Care: None Current Living Situation: Other Current Living Situation Comment: long-term Feels Safe at Home: Yes Assistive Devices: None Physical Exam Physical Exam: Physical Exam: General: In no acute distress, stated age, well-nourished, good hygiene HEENT: Normocephalic, atraumatic, no scleral icterus, pupils around round, symmetrical, and reactive to light, moist mucus membranes, trachea midline, no thyromegaly Chest/Pulm: No respiratory distress, symmetrical chest expansion, clear breath sounds throughout Cardiac: RRR, 4/6 systolic murmur noted Abdomen: Negative for ascites and bruising, normoactive bowel sounds, soft, non-tender to palpation throughout Musculoskeletal: Symmetrical and without signs of acute trauma, upper and lower extremities with full ROM, no atrophy, spasticity, or flaccidity Extremities: Radial, dorsalis pedis, and posterior tibial pulses are intact and symmetrical, no edema noted in the BL LE's Skin: Warm, dry, no rashes , lesions, or scars noted Neuro: Alert and oriented to person, place, month, year, and president, no focal defects, no tremors noted Psych: No acute distress, calm and cooperative during the exam Results & Data Results & Data Vital Signs (Past 12 Hours) Vital Signs Temp Pulse Resp BP Pulse Ox O2 Del Method 10/08/23 17:30 85 15 116/70 95 Room Air 10/08/23 17:08 90 10/08/23 17:02 37.1 C 91 H 20 106/74 97 Room Air Laboratory Results Abnormal lab results 10/08/23 Range/Units 17:11 RBC 4.51 L (4.70-6.10) M/uL Hct 40.1 L (42.0-52.0) % Garvin # (Auto) 0.66 H (0.11-0.59) K/uL Glucose 106 H (70-99(Fasting)) mg/dl Troponin I High Sens 147.6 H* (0-20) pg/ml B-Natriuretic Peptide 588 H (0-100) pg/ml Diagnostic Findings Chest X-Ray 10/08/23 17:17 SINGLE VIEW CHEST CLINICAL HISTORY: Atypical chest pain. FINDINGS: An AP, portable, upright chest radiograph is compared to study dated 04/29/2022. The heart is enlarged. There is pulmonary vascular congestion. Bilateral opacities likely represent interstitial edema. No large pleural effusion or pneumothorax is seen. The skeletal structures are osteopenic. The bony thorax is grossly intact. IMPRESSION: 1. Cardiomegaly with evidence of congestive failure. 2. Bilateral opacities likely represent pulmonary edema. Correlate clinically. Radiographic follow-up to resolution is recommended. ACT 112: Negative or not required by law. Electronically signed by: Chandler Longoria M.D. 10/08/2023 5:42 PM ECG Additional Comments: Normal sinus rhythm Nonspecific ST abnormality Abnormal ECG When compared with ECG of 29-APR-2022 12:09, No significant change was found Code Status & VTE Plan Code Status Full code VTE Prophylaxis Plan VTE Prophylaxis will be ordered: Yes Supervising Physician Co-Signing Physician Notes I have personally seen, evaluated and examined the patient. I have also personally discussed the management of the patient with the resident physician/ANN and I agree with the exam findings documented in the history and physical examination and the documented assessment and plan unless otherwise stated below. His reports neck pain is spider Brief Exam: General pleasant 53-year-old male accompanied by guards at the time of my exam he interacts appropriately pleasantly reported x 3. HEENT: Normocephalic/atraumatic. Heart: Regular rate rhythm no murmur or ectopy or rub no reproducible anterior chest wall pain. Lungs: Clear bilaterally. Abdomen: Protuberant soft and nontender with positive bowel sounds. Extremities intact no clubbing cyanosis or edema. Skin: The patient has a very significant amount of his skin percentage covered with tattoos of the upper extremities back and chest. 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 Assessment/plan: As described above. Will add a D-dimer. With CTA if positive if not we will continue the heparin drip and repeat troponins. Please refer to orders for further planning. PG Care Time/CCT Total # of Minutes Spent Total Time Spent with Patient: Total time spent is greater than 50% in coordination of care (as documented) at patient's floor/unit and/or counseling patient: Coding [place] [address] INT INP/OBS CARE 3/75MIN Patient Type Established Medical Decision Making High Complexity Diagnoses Chest pain R07.9 HOCM (hypertrophic obstructive cardiomyopathy) I42.1 Coronary artery disease, non-occlusive I25.10 Primary hypertension I10 Hypertension type: primary hypertension Seizure disorder G40.909 Dyslipidemia E78.5 (4) Hypertension Hypertension type: primary hypertension Qualified Code(s): I10 - Essential (primary) hypertension
[2023-10-08 19:01] LABS: Appearance Urine Clear (Clear); Bilirubin Urine Negative (Negative); Blood Urine Negative (Negative); Color Urine Yellow; Glucose Urine UA Negative (Negative); Ketones Urine Negative (Negative); Leukocyte Esterase Urine Negative (Negative); Nitrite Urine Negative (Negative); Protein Urine Negative (Negative); Specific Gravity Urine 1.016 (1.000-1.030); Urobilinogen Urine Negative (Negative)
[2023-10-08] MEDS: HEPARIN SODIUM/DEXTROSE 25,000 UNITS/500 ML BAG IV SCH (19:04)
[2023-10-08] MEDS: Heparin IV Adult Wt-Based Low-Dose *NO* INITIAL Bolus Protocol IV STA (19:09)
[2023-10-08 19:54] LABS: D Dimer 190 ug/L FEU (0-500)
[2023-10-08] MEDS: DIVALPROEX DELAY RELEASE 125 MG TABEC PO ONE (19:55)
[2023-10-08] MEDS: PHENYTOIN SODIUM ER 100 MG CAP PO STA (19:55)
[2023-10-08] MEDS: DIVALPROEX DELAY RELEASE 500 MG TAB PO ONE (19:55)
[2023-10-08] MEDS: carBAMazepine 200 MG TABLET PO ONE (20:24)
[2023-10-08] MEDS: MAGNESIUM SULFATE / D5W 1 GM/100 ML BAG IV SCH (20:54)
[2023-10-09 02:06] LABS: Basophils # (auto) 0.04 K/uL (0.00-0.20); Basophils % (auto) 0.6 %; Eosinophils % (auto) 1.5 %; Hematocrit (blood only) 37.8 % (42.0-52.0); Hemoglobin 13.4 g/dl (14.0-18.0); Immature Granulocytes # (auto) 0.02 K/uL (0.01-0.20); Immature Granulocytes % (auto) 0.3 %; Lymphocytes # (auto) 2.59 K/uL (1.20-3.40); Lymphocytes % (auto) 39.2 %; Mean Corpuscular Hemoglobin 31.8 pg (25.0-34.0); Mean Corpuscular Hgb Conc 35.4 g/dL (32.0-36.0); Mean Corpuscular Volume 89.6 fL (80.0-100.0); Mean Platelet Volume 10.8 fL (9.4-12.4); Monocytes # (auto) 0.74 K/uL (0.11-0.59); Monocytes % (auto) 11.2 %; Neutrophils # (auto) 3.11 K/uL (1.40-6.50); Neutrophils % (auto) 47.2 %; Platelet Count 166 K/uL (130-400); RDW Coefficient of Variation 13.1 % (11.5-14.5); RDW Standard Deviation 42.6 fL (36.4-46.3); Red Blood Count 4.22 M/uL (4.70-6.10)
[2023-10-09 02:10] LABS: Albumin Globulin Ratio 1.5 (0.9-2); Albumin Level 4.1 gm/dl (3.4-5.0); BUN Creatinine Ratio 15.2 (10-20); Bilirubin,Total 0.2 mg/dl (0.2-1.0); Calcium 8.7 mg/dl (8.6-10.3); Creatinine Clr Calc Pharmacy 112.7 ml/min; Est GFR (African American) 108.9 ml/min; Globulin 2.7 gm/dl (2.5-4.0); Magnesium 2.5 mg/dl (1.7-2.4); Potassium 4.3 mmol/L (3.5-5.1); Total Protein 6.8 gm/dl (6.0-8.3)
[2023-10-09 02:15] LABS: ANTI-Xa, UFH(UnfractionatedHep 0.13 IU/ml (0.3-0.7)
[2023-10-09 02:18] LABS: Prothrombin Time 10.8 Seconds (9.0-12.0)
[2023-10-09] MEDS: HEPARIN SOD (PORCINE) 1000 UNIT/ML IV ONE ×2 (02:51→02:57)
[2023-10-09] MEDS: carBAMazepine 200 MG TABLET PO SCH (06:23)
[2023-10-09] MEDS: PHENYTOIN SODIUM ER 100 MG CAP PO SCH (06:23)
[2023-10-09] MEDS: DIVALPROEX DELAY RELEASE 125 MG TABEC PO SCH (06:24)
[2023-10-09 08:57] LABS: Troponin I High Sensitivity 740.9 pg/ml (0-20)
--- NOTE | 2023-10-09 09:05 | Cardiology Consultation ---
Date of Consultation October 09, 2023 Assessment & Plan (1) Chest pain: (2) Elevated troponin: (3) HOCM (hypertrophic obstructive cardiomyopathy): (4) Coronary artery disease, non-occlusive: (5) Hypertension: (6) Dyslipidemia: Plan Mr. Carreon is a 53-year-old male with a history of Hypertension, Dyslipidemia, Non-Obstructive CAD, Hypertrophic Obstructive Cardiomyopathy, Seizure Disorder, COPD, and Atherosclerosis of the Aorta who was admitted yesterday with Chest/Mid-epigastric Pressure and an Elevated HS Troponin I Level -- this could represent demand ischemia secondary to Hypertension and Tachycardia in the presence of his HOCM, however he does have impressive downsloping ST depression in his lateral leads (this was the EKG performed at [facility]) -- so he may have had progression of his Mid LCx disease. He was in his usual state of health yesterday afternoon until approximately 1:30 p.m. when he developed Chest Pain/Pressure (he points to his mid epigastrium when asked about the location of his pain) with associated "hot sweating." His chest/mid epigastric pain did not radiate nor did he have any associated nausea, vomiting, cold sweats, or shortness of breath. It worsened when he attempted to change the sheets on his bed as well as his pillows. These symptoms lasted in total for 1 to 2 hours. He had not received his blood pressure medications until about 1 hour later, then he just lied around and his Chest/Mid-epigastric Pressure gradually resolved within 20 to 30 minutes of getting his BP medications. He has remained symptom free after getting his BP medications on board, he has felt fine since his symptoms resolved and he has not had any recurrence of these symptoms. Patient offers no complaints at the present time. He does not have any symptoms suggestive of CHF, despite the appearance of his chest x-ray and his elevated BNP. His Chest/Midepigastric Pressure does have some atypical features but his Troponin I is trending upward and his EKG from [facility] strongly suggests lateral ischemia. He has not had any symptoms suggestive of stroke or mini stroke. He he does not experience claudication with his day-to-day activities. [facility] where he was tachycardic and hypertensive. His EKG done at [facility] showed sinus tachycardia at [address] depression in the lateral leads. They wanted to keep him in the infirmary and he wanted to go back to his cell, he was angry with the healthcare provider at [facility] because she "could not make up her mind what to do with me." He was subsequently referred to [facility] ER. His work-up in the ER shows his initial high sensitivity Troponin I was elevated at 147.6 pg/mL then trended up to 530.8 pg/mL and is now 740.9 pg/mL. His BNP is elevated at 588 pg/mL. Electrolytes are normal, BUN 14 mg/dL, and his creatinine is normal at 0.92. EKG 10/08/23 shows NSR at 89 bpm with non-specific ST abnormalities. Telemetry shows NSR to sinus bradycardia. CXR 10/08/23: Cardiomegaly with pulmonary edema. Echocardiogram is pending -- and will be quite helpful looking for wall motion abnormalities. Recommend the followin. With his troponin I levels trending upward, consider Cardiac Catheterization. 2. Continue Aspirin 81 mg daily. 3. Continue Verapamil 360 mg daily. 4. Increase Metoprolol Succinate ER to 150 mg daily. 5. Continue Rosuvastatin 20 mg daily, increase this dose if any progression of his CAD. 6. If he develops symptoms of heart failure, would give a single of IV Lasix and monitor his response. 7. Heparin drip is currently running. We will continue to follow along while hospitalized and after he is discharged from the hospital. History of Present Illness Reason for Consultation: -- Chest/Mid Epigastric Pressure/Pain. -- Elevated high sensitivity Troponin I levels. -- HOCM. Requesting Physician: Yoan Elmore MD Attending Physician: Akil Nogueira MD History of Present Illness Mr. Carreon is a 53-year-old male with a history of Hypertension, Dyslipidemia, Non-Obstructive CAD, Hypertrophic Obstructive Cardiomyopathy, Seizure Disorder, COPD, and Atherosclerosis of the Aorta who was in his usual state of health yesterday afternoon until approximately 1:30 p.m. when he developed Chest Pain/Pressure (he points to his mid epigastrium when asked about the location of his pain) with associated "hot sweating." His chest/mid epigastric pain did not radiate nor did he have any associated nausea, vomiting, cold sweats, or shortness of breath. It worsened when he attempted to change the sheets on his bed as well as his pillows. These symptoms lasted in total for 1 to 2 hours. He had not received his blood pressure medications until about 1 hour later, then he just lied around and his Chest/Mid-epigastric Pressure gradually resolved within 20 to 30 minutes of getting his BP medications. He has remained symptom free after getting his BP medications on board, he has felt fine since his symptoms resolved and he has not had any recurrence of these symptoms. Patient offers no complaints at the present time. He denies any exertional neck, jaw, back, or arm pain. He denies any shortness of breath at rest, orthopnea, or PND. He has not had any palpitations, syncope, or near- syncope. He also specifically denies any post exertional lightheadedness. He has not had any symptoms suggestive of stroke or mini stroke. He he does not experience claudication with his day-to-day activities. Patient was evaluated at the [facility] at [facility] where he was tachycardic and hypertensive. His EKG done at [facility] showed sinus tachycardia at [address] depression in the lateral leads. [facility] and he wanted to go back to his cell, he was angry with the healthcare provider at [facility] because she "could not make up her mind what to do with me." He was subsequently referred to [facility] ER. Patient is compliant with his medications. He has not had any adverse side effects. HISTORICAL BACKGROUND: Patient present to the [facility] ER on 01/07/2020 from [facility] with complaints of chest pain. Approximately 1 week before presentation he developed chest pain while carrying boxes. He described it as a sharp/dull sensation across his left precordium. It was initially associated with shortness of breath and possibly some diaphoresis. The discomfort lasted several minutes and then resolved spontaneously. He then had further episodes again while at work -- but on the morning of presentation -- he had an episode while at a state of rest that lasted for approximately 2 minutes. This episode was more severe in nature and he described it as a concomitant "bolt of lightning" sensation across his left side. Upon arrival to the emergency department -- EKG was concerning for lateral ischemia and troponin I was minimally elevated. He was admitted to [facility] and started on a heparin drip and did not having any further chest discomfort thereafter. He under went the following evaluation: ECHOCARDIOGRAM 01/08/2020: -- Normal LV size with severe concentric LVH and asymmetric basal septal hypertrophy measuring 2.4 cm. -- Systolic anterior motion of the mitral apparatus. -- Resting LVOT gradient 25 mmHg -- Consistent with HOCM. -- LVEF 65% to 70%. -- Mild mitral regurgitation. -- Grade 2 LV diastolic dysfunction. -- Moderate left atrial enlargement. DOBUTAMINE STRESS ECHOCARDIOGRAM 01/08/2020: -- Abnormal, inferior hypokinesis induced during dobutamine infusion. -- Peak LVOT gradient 64 mmHg. -- No inducible arrhythmias. -- Normal heart rate and blood pressure response to dobutamine infusion. CARDIAC CATHETERIZATION 01/08/2020: -- LMCA -- Very short vessel, bifurcated into LAD and LCx. -- LAD -- Mild luminal irregularities throughout, 20% midvessel stenosis. -- D1, D2, D3 -- Large branches, no significant disease. -- LCx -- Large, dominant vessel, 50% midvessel stenosis. -- OM1, OM2, L PDA -- Luminal irregularities only. -- RCA -- 30%-40% Midvessel stenosis. -- LVOT peak gradient measured at 33 mmHg. Patient was hospitalized in April 2022 complaining of lower substernal chest pain that was described as sharp without alleviating or aggravating factors. 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 The discomfort was present for a total of about 20 minutes. EMS was activated and he was given 4 chewable Aspirin with improvement in his symptoms. His high sensitivity troponin I levels were 36.6 pg/mL, 39.4 pg/mL, 42.2 pg/mL, and 38.2 pg/mL. Echocardiogram 04/30/2022 showed normal LV systolic function, LVEF 65% to 70% with normal wall motion, severe concentric LVH consistent with hypertrophic cardiomyopathy, and [id number] mitral regurgitation. He subsequently underwent a DSE 04/30/22 which showed no evidence of myocardial ischemia at 76% MPHR and he had a hypertensive response to Dobutamine infusion. Dr. Pb Daniels followed/managed this patient while he was hospitalized, and Dr. Nogueira was involved only to perform a Cardiac Catheterization on this patient. Allergies Allergy/AdvReac Type Severity Reaction Status Date / Time No Known Allergies Allergy Verified 08/05/23 11:28 Home Medications Medication Instructions Recorded Confirmed Type carbamazepine 200 mg tablet 600 mg PO BID 01/07/20 10/08/23 History (Tegretol) acetaminophen 325 mg tablet 325 mg PO TID PRN Pain 04/29/22 10/08/23 History (Tylenol) albuterol sulfate 90 mcg/actuation 2 puff inhalation QID PRN 04/29/22 10/08/23 History aerosol inhaler Shortness Of Breath aspirin 81 mg chewable tablet 81 mg PO DAILY 04/29/22 10/08/23 History capsaicin 0.075 % topical cream 1 applic topical QID PRN Pain 04/29/22 10/08/23 History lidocaine 5 % topical cream 1 applic topical QID PRN Pain 04/29/22 10/08/23 History phenytoin sodium extended 100 mg 300 mg PO BID 04/29/22 10/08/23 History capsule rosuvastatin 10 mg tablet 20 mg PO DAILY 08/05/23 10/08/23 History verapamil 360 mg 24 hr 360 mg PO DAILY #90 caps 08/05/23 10/08/23 Rx capsule,extended release divalproex 500 mg tablet,delayed 650 mg PO BID 10/08/23 10/08/23 History release (Depakote) metoprolol succinate 100 mg 100 mg PO DAILY 10/08/23 10/08/23 History tablet,extended release 24 hr Patient History Medical History Coronary artery disease, non-occlusive HOCM (hypertrophic obstructive cardiomyopathy) Hypertension History of tobacco abuse Pulmonary nodule Dyslipidemia Seizure disorder Surgical History No pertinent past surgical history Family History Father Coronary heart disease Seizure disorder Social History Smoking Status: Former smoker Tobacco Type: Cigarettes Hx Alcohol Use: No Hx Substance Use: No Dormitory Keeper Required: No Beliefs That Will Affect Care: None Current Living Situation: Other Current Living Situation Comment: retirement Feels Safe at Home: Yes Assistive Devices: None Review of Systems Review of Systems: 10 point ROS completed and is negative w ith the exception of what is mentioned in the HPI. Physical Exam Physical Exam: Blood pressure 129/83 lying supine. General: Patient is in no acute distress. HEENT: Head is atraumatic, normocephalic. EOM's intact. Sclerae anicteric. Facies symmetric. No perioral cyanosis. Neck: No JVD. JVP is not elevated. Carotid upstrokes +2 bilaterally without bruits. Chest and Lungs: Clear to auscultation throughout all lung warren, no wheezes, rales, or rhonchi. CVS: S1 and S2 are regular at 58 bpm with a grade 2/6 systolic murmur audible at both the right and left sternal borders. No obvious diastolic murmurs. No gallops or rubs. PMI is nondisplaced. No lifts, heaves, or thrills. No abdominal aortic or renal bruits. Abdominal Exam: Bowel sounds present. No masses, organomegaly, or tenderness. Extremities: No clubbing, cyanosis, or edema. Intact radial pulses bilaterally. Neurologic Exam: Patient is awake, alert, and oriented. Pleasant and cooperative. Answers questions appropriately. Speech is clear. Results & Data Vital Signs (Past 12 Hours) Vital Signs Pulse Pulse Resp BP BP Pulse Ox O2 Del Method 10/09/23 07:11 62 10/09/23 06:45 61 17 135/90 94 Room Air 10/09/23 06:32 95 Room Air 10/09/23 05:30 64 20 95 Room Air 10/09/23 05:00 101/64 10/09/23 05:00 61 18 95 Room Air 10/09/23 05:00 65 16 101/64 94 Room Air 10/09/23 05:00 65 16 94 Room Air 10/09/23 05:00 59 L 16 101/64 93 Room Air 10/09/23 04:30 63 21 94 Room Air 10/09/23 04:01 137/100 10/09/23 04:01 65 18 91 Room Air 10/09/23 04:00 65 17 92 Room Air 10/09/23 03:30 63 20 91 Room Air 10/09/23 03:00 63 17 94 Room Air 10/09/23 03:00 120/76 10/09/23 02:30 139/78 10/09/23 02:30 68 14 93 Room Air 10/09/23 02:01 133/98 10/09/23 02:01 67 17 10/09/23 02:00 62 21 92 Room Air 10/09/23 01:30 61 18 94 Room Air 10/09/23 01:30 138/96 10/09/23 01:00 62 22 94 Room Air 10/09/23 01:00 145/92 H 10/09/23 00:30 67 21 93 Room Air 10/09/23 00:30 125/82 10/09/23 00:00 125/86 10/09/23 00:00 64 18 96 Room Air 10/08/23 23:30 135/85 10/08/23 23:30 65 17 96 Room Air 10/08/23 23:00 119/86 10/08/23 23:00 68 16 96 Room Air 10/08/23 22:56 67 10/08/23 22:30 66 19 123/78 96 Room Air 10/08/23 22:00 67 16 132/84 96 Room Air 10/08/23 21:30 68 18 123/79 96 Room Air Laboratory Results Laboratory Results - last 24 hr 10/08/23 10/08/23 10/08/23 17:11 18:20 19:52 WBC 7.19 RBC 4.51 L Hgb 14.1 Hct 40.1 L MCV 88.9 MCH 31.3 MCHC 35.2 RDW Std Deviation 41.7 RDW Coeff of Telly 12.7 Plt Count 171 MPV 10.2 Immature Gran % (Auto) 0.3 Neut % (Auto) 72.0 Lymph % (Auto) 17.2 [place] % (Auto) 9.2 Eos % (Auto) 0.7 Baso % (Auto) 0.6 Neut # (Auto) 5.18 Lymph # (Auto) 1.24 [place] # (Auto) 0.66 H Eos # (Auto) 0.05 Baso # (Auto) 0.04 Immature Gran # (Auto) 0.02 PT 10.8 INR 1.0 APTT 24 PTT Ratio 0.9 D-Dimer 190 Heparin Anti-Xa, Unfract Sodium 141 Potassium 4.3 Chloride 107 Carbon Dioxide 28 Anion Gap 6 BUN 15 Creatinine 0.97 Est Cr Clr Drug Dosing 106.9 Est GFR ( Amer) 102.2 Est GFR (Non-Af Amer) 88.1 BUN/Creatinine Ratio 15.5 Glucose 106 H Calcium 8.9 Magnesium 1.8 Total Bilirubin 0.3 AST 17 ALT 20 Alkaline Phosphatase 43 Troponin I High Sens 147.6 H* 530.8 H* D B-Natriuretic Peptide 588 H Total Protein 7.2 Albumin 4.3 Globulin 2.9 Albumin/Globulin Ratio 1.5 Lipase 16 TSH 2.563 Urine Color Yellow Urine Appearance Clear Urine pH 7.0 Ur Specific [place] 1.016 Urine Protein Negative Urine Glucose (UA) Negative Urine Ketones Negative Urine Blood Negative Urine Nitrite Negative Urine Bilirubin Negative Urine Urobilinogen Negative Ur Leukocyte Esterase Negative 10/09/23 10/09/23 01:39 08:56 WBC 6.60 RBC 4.22 L Hgb 13.4 L Hct 37.8 L MCV 89.6 MCH 31.8 MCHC 35.4 RDW Std Deviation 42.6 RDW Coeff of Telly 13.1 Plt Count 166 MPV 10.8 Immature Gran % (Auto) 0.3 Neut % (Auto) 47.2 Lymph % (Auto) 39.2 [place] % (Auto) 11.2 Eos % (Auto) 1.5 Baso % (Auto) 0.6 Neut # (Auto) 3.11 Lymph # (Auto) 2.59 [place] # (Auto) 0.74 H Eos # (Auto) 0.10 Baso # (Auto) 0.04 Immature Gran # (Auto) 0.02 PT 10.8 INR 1.0 APTT PTT Ratio D-Dimer Heparin Anti-Xa, Unfract 0.13 L 0.18 L Sodium 139 Potassium 4.3 Chloride 104 Carbon Dioxide 28 Anion Gap 7 BUN 14 Creatinine 0.92 Est Cr Clr Drug Dosing 112.7 Est GFR ( Amer) 108.9 Est GFR (Non-Af Amer) 94.0 BUN/Creatinine Ratio 15.2 Glucose 129 H Calcium 8.7 Magnesium 2.5 H Total Bilirubin 0.2 AST 22 ALT 20 Alkaline Phosphatase 40 Troponin I High Sens 740.9 H* D B-Natriuretic Peptide Total Protein 6.8 Albumin 4.1 Globulin 2.7 Albumin/Globulin Ratio 1.5 Lipase TSH Urine Color Urine Appearance Urine pH Ur Specific [place] Urine Protein Urine Glucose (UA) Urine Ketones Urine Blood Urine Nitrite Urine Bilirubin Urine Urobilinogen Ur Leukocyte Esterase Diagnostic Findings CXR 10/08/23: 1. Cardiomegaly with evidence of congestive failure. 2. Bilateral opacities likely represent pulmonary edema. Correlate clinically. Radiographic follow-up to resolution is recommended. Medications Administered Medication List Aspirin (Aspirin 81 Mg Chew) 81 mg PO DAILY PENDING SALE TO [facility] Stop: 11/08/23 08:59 Last Admin: 10/09/23 09:19 Dose: 81 mg Documented By: CHETAN Carbamazepine (Carbamazepine 200 Mg Tablet) 600 mg PO Q12H PENDING SALE TO [facility] Stop: 11/08/23 06:29 Last Admin: 10/09/23 06:23 Dose: 600 mg Documented By: JHOANA Divalproex Sodium (Divalproex Delay Release 125 Mg Tabec) 625 mg PO Q12H PENDING SALE TO [facility] Stop: 11/08/23 06:29 Last Admin: 10/09/23 06:24 Dose: 625 mg Documented By: JHOANA Heparin Sodium/Dextrose (Heparin Sodium/Dextrose) 25,000 units in 500 mls @ 23 mls/hr IV .[id number] PENDING SALE TO [facility]; Protocol Stop: 11/07/23 18:44 Last Titration: 10/09/23 02:59 Dose: 1,150 units/hr, 23 mls/hr Documented By: JHOANA Co-signed By: AISLINN Admin: 10/08/23 19:04 Dose: 1,000 units/hr, 20 mls/hr Documented By: PRINCE Co-signed By: RUIZ Phenytoin Sodium (Phenytoin Sodium Er 100 Mg Cap) 300 mg PO Q12H PENDING SALE TO [facility] Stop: 11/08/23 06:29 Last Admin: 10/09/23 06:23 Dose: 300 mg Documented By: JHOANA Rosuvastatin Calcium (Rosuvastatin Calcium 20 Mg Tab) 20 mg PO DAILY PENDING SALE TO [facility] Stop: 11/08/23 08:59 Last Admin: 10/09/23 09:21 Dose: 20 mg Documented By: CHETAN Discontinued Medications Carbamazepine (Carbamazepine 200 Mg Tablet) 600 mg PO NOW ONE Stop: 10/08/23 19:16 Last Admin: 10/08/23 20:24 Dose: 600 mg Documented By: PRINCE Divalproex Sodium (Divalproex Delay Release 500 Mg Tab) 500 mg PO NOW ONE Stop: 10/08/23 19:02 Last Admin: 10/08/23 19:55 Dose: 500 mg Documented By: PRINCE Divalproex Sodium (Divalproex Delay Release 125 Mg Tabec) 125 mg PO NOW ONE Stop: 10/08/23 19:16 Last Admin: 10/08/23 19:55 Dose: 125 mg Documented By: PRINCE Heparin Sodium (Porcine) (Heparin Sod (Porcine) 1000 Unit/Ml) 0 units IV NOW ONE; Protocol Stop: 10/09/23 02:45 Last Admin: 10/09/23 02:51 Dose: Not Given Documented By: JHOANA Heparin Sodium (Porcine) (Heparin Sod (Porcine) 1000 Unit/Ml) 3,000 units IV NOW ONE Stop: 10/09/23 02:52 Last Admin: 10/09/23 02:57 Dose: 3,000 units Documented By: JHOANA Co-signed By: AISLINN Heparin Sodium/Dextrose (Heparin Iv Adult Wt-Based Low-Dose *No* Initial Bolus Protocol) 1 each IV ONE STA; Protocol Stop: 10/08/23 18:30 Last Admin: 10/08/23 19:09 Dose: Not Given Documented By: PRINCE Magnesium Sulfate/Dextrose (Magnesium Sulfate / D5w) 1 gm in 100 mls @ 50 mls/hr IV Q2H [facility] Stop: 10/08/23 23:29 Last Infusion: 10/09/23 01:43 Dose: Infused Documented By: Admin: 10/08/23 23:29 Dose: 50 mls/hr Documented By: Infusion: 10/08/23 23:18 Dose: Infused Documented By: Admin: 10/08/23 20:54 Dose: 50 mls/hr Documented By: PRINCE Phenytoin Sodium (Phenytoin Sodium Er 100 Mg Cap) 300 mg PO NOW STA Stop: 10/08/23 19:02 Last Admin: 10/08/23 19:55 Dose: 300 mg Documented By: PRINCE PG Care Time/CCT Total # of Minutes Spent Total Time Spent with Patient: Total time spent is greater than 50% in coordination of care (as documented) at patient's floor/unit and/or counseling patient:40 [place] [address] ER DEPT VISIT HIGH LVL 5 Patient Type Established History Detailed Exam Detailed Medical Decision Making Moderate Complexity Diagnoses Chest pain, unspecified type R07.9 Chest pain type: unspecified Elevated troponin R77.8 HOCM (hypertrophic obstructive cardiomyopathy) I42.1 Coronary artery disease, non-occlusive I25.10 Primary hypertension I10 Hypertension type: primary hypertension Dyslipidemia E78.5 Time Spent (min) 58 (1) Chest pain Chest pain type: unspecified Qualified Code(s): R07.9 - Chest pain, unspecified (5) Hypertension Hypertension type: primary hypertension Qualified Code(s): I10 - Essential (primary) hypertension
[2023-10-09] MEDS: ASPIRIN 81 MG CHEW PO SCH (09:19)
[2023-10-09] MEDS: ROSUVASTATIN CALCIUM 20 MG TAB PO SCH (09:21)
[2023-10-09 09:31] LABS: ANTI-Xa, UFH(UnfractionatedHep 0.18 IU/ml (0.3-0.7)
[2023-10-09] MEDS: METOPROLOL SUCC 50MG EXT REL TAB PO SCH (09:43)
[2023-10-09] MEDS: VERAPAMIL HCL 180 MG TABCR PO SCH (09:43)
[2023-10-09] MEDS: HEPARIN SOD (PORCINE) 1000 UNIT/ML ONE (09:52)
--- NOTE | 2023-10-09 10:15 | Hospitalist Progress Note ---
Date of Service October 09, 2023 Assessment & Plan (1) Non-ST elevation myocardial infarction (NSTEMI): Plan: Chest pain and rising troponin consistent with NSTEMI Continue IV heparin Continue ASA Appreciate cardiology consult - pending decision regarding cardiac cathet erization - per admitting provider discussion with cardiology avoiding nitroglycerin and diuresis at this time TTE (2) Chest pain: Plan: Suspected secondary to NSTEMI as above (3) HOCM (hypertrophic obstructive cardiomyopathy): Plan: Per Cardiology, would avoid diuresis overnight if he remains stable on RA and is asymptomatic Would also avoid use of Nitrates if he has further episodes of chest pain Both could possibly exacerbate his HOCM (4) Coronary artery disease, non-occlusive: Plan: Continue heparin drip Continue metoprolol, aspirin, statin, and Verapamil (5) Hypertension: Plan: Currently stable Continue Verapamil and metoprolol (6) Seizure disorder: Plan: Continue Dilantin, Carbamazepine, and Depakote (7) Dyslipidemia: Plan: Continue statin Plan VTE Prophylaxis - IV heparin Diet - NPO pending cardiology decision regarding catheterization Disposition - continue on med/tele Admission and Anticipated Discharge Date Admission Date: October 08, 2023 Subjective No further chest pain since admission. Pain lasted for hours yesterday. Awaiting cardiology decision regarding cardiac catheterization. Review of Systems Review of Systems: All systems reviewed & are unremarkable except as noted in HPI & below Physical Exam Constitutional: WD/WN, vitals as above Respiratory: normal respiratory effort, lungs clear to auscultation Cardiovascular: Rate/Rhythm: regular rate and regular rhythm Heart Sounds: + murmur (systolic, loudest at apex) Extremities: + pedal edema Gastrointestinal (Abdomen): normal bowel sounds, soft, nontender, no hepatosplenomegaly Skin: no rashes, warm and dry Neurologic: moves all extremities and awake; not confused Psychiatric: A+Ox3, euthymic affect Results & Data Results & Data Vital Signs (Past 12 Hours) Vital Signs Pulse Pulse Resp BP BP Pulse Ox O2 Del Method 10/09/23 09:24 58 L 18 129/83 98 Room Air 10/09/23 07:11 62 10/09/23 06:45 61 17 135/90 94 Room Air 10/09/23 06:32 95 Room Air 10/09/23 05:30 64 20 95 Room Air 10/09/23 05:00 101/64 10/09/23 05:00 61 18 95 Room Air 10/09/23 05:00 65 16 101/64 94 Room Air 10/09/23 05:00 65 16 94 Room Air 10/09/23 05:00 59 L 16 101/64 93 Room Air 10/09/23 04:30 63 21 94 Room Air 10/09/23 04:01 137/100 10/09/23 04:01 65 18 91 Room Air 10/09/23 04:00 65 17 92 Room Air 10/09/23 03:30 63 20 91 Room Air 10/09/23 03:00 63 17 94 Room Air 10/09/23 03:00 120/76 10/09/23 02:30 139/78 10/09/23 02:30 68 14 93 Room Air 10/09/23 02:01 133/98 10/09/23 02:01 67 17 10/09/23 02:00 62 21 92 Room Air 10/09/23 01:30 61 18 94 Room Air 10/09/23 01:30 138/96 10/09/23 01:00 62 22 94 Room Air 10/09/23 01:00 145/92 H 10/09/23 00:30 67 21 93 Room Air 10/09/23 00:30 125/82 10/09/23 00:00 125/86 10/09/23 00:00 64 18 96 Room Air 10/08/23 23:30 135/85 10/08/23 23:30 65 17 96 Room Air 10/08/23 23:00 119/86 10/08/23 23:00 68 16 96 Room Air 10/08/23 22:56 67 10/08/23 22:30 66 19 123/78 96 Room Air PG Care Time/CCT Total # of Minutes Spent Total Time Spent with Patient: Total time spent is greater than 50% in coordination of care (as documented) at patient's floor/unit and/or counseling patient: Coding Level of Care Code 54938 SUB INP/OBS CARE 2/35MIN Diagnoses Non-ST elevation myocardial infarction (NSTEMI) I21.4 Chest pain, unspecified type R07.9 Chest pain type: unspecified HOCM (hypertrophic obstructive cardiomyopathy) I42.1 Coronary artery disease, non-occlusive I25.10 Primary hypertension I10 Hypertension type: primary hypertension Seizure disorder G40.909 Dyslipidemia E78.5 (2) Chest pain Chest pain type: unspecified Qualified Code(s): R07.9 - Chest pain, unspecified (5) Hypertension Hypertension type: primary hypertension Qualified Code(s): I10 - Essential (primary) hypertension
--- NOTE | 2023-10-09 13:35 | XCELERA ---
[id number]
--- NOTE | 2023-10-09 15:54 | Electrocardiogram Report ---
Test Reason : Blood Pressure : / mmHG Vent. Rate : 089 BPM Atrial Rate : 089 BPM P-R Int : 174 ms QRS Dur : 094 ms QT Int : 394 ms P-R-T Axes : 078 068 092 degrees QTc Int : 479 ms Normal sinus rhythm Nonspecific ST abnormality Abnormal ECG When compared with ECG of 29-APR-2022 12:09, No significant change was found Confirmed by Nigel Nogueira ([id number]) on 10/09/2023 3:54:31 PM Referred By: REFERRED SELF Confirmed By:Boogie Nogueira
[2023-10-09 15:59] LABS: ANTI-Xa, UFH(UnfractionatedHep 0.39 IU/ml (0.3-0.7)
[2023-10-09 22:18] LABS: ANTI-Xa, UFH(UnfractionatedHep 0.28 IU/ml (0.3-0.7)
[2023-10-10] MEDS ORDERED: Nursing to Pharmacy Communication ONE (02:22)
[2023-10-10 05:59] LABS: Albumin Globulin Ratio 1.3 (0.9-2); Albumin Level 3.9 gm/dl (3.4-5.0); BUN Creatinine Ratio 17.6 (10-20); Basophils # (auto) 0.03 K/uL (0.00-0.20); Basophils % (auto) 0.6 %; Bilirubin,Total 0.3 mg/dl (0.2-1.0); Eosinophils # (auto) 0.09 K/uL (0.00-0.50); Eosinophils % (auto) 1.8 %; Est GFR (African American) 114.5 ml/min; Est GFR (Non-African American) 98.8 ml/min; Hematocrit (blood only) 40.5 % (42.0-52.0); Immature Granulocytes # (auto) 0.01 K/uL (0.01-0.20); Immature Granulocytes % (auto) 0.2 %; Lymphocytes # (auto) 2.07 K/uL (1.20-3.40); Lymphocytes % (auto) 41.2 %; Mean Corpuscular Hemoglobin 31.3 pg (25.0-34.0); Mean Corpuscular Hgb Conc 34.6 g/dL (32.0-36.0); Mean Corpuscular Volume 90.6 fL (80.0-100.0); Mean Platelet Volume 10.5 fL (9.4-12.4); Monocytes # (auto) 0.48 K/uL (0.11-0.59); Monocytes % (auto) 9.6 %; Neutrophils # (auto) 2.34 K/uL (1.40-6.50); Neutrophils % (auto) 46.6 %; Platelet Count 147 K/uL (130-400); Potassium 4.5 mmol/L (3.5-5.1); RDW Coefficient of Variation 12.8 % (11.5-14.5); RDW Standard Deviation 42.5 fL (36.4-46.3); Red Blood Count 4.47 M/uL (4.70-6.10); Total Protein 6.9 gm/dl (6.0-8.3); White Blood Count 5.02 K/ul (4.8-10.8)
[2023-10-10 06:09] LABS: ANTI-Xa, UFH(UnfractionatedHep 0.33 IU/ml (0.3-0.7); Prothrombin Time 11.2 Seconds (9.0-12.0)
--- NOTE | 2023-10-10 12:59 | Pre Anesthesia Assessment ---
Date of Service October 10, 2023 Pre Sedation Assessment Vital Signs Temp Pulse Pulse Pulse Resp BP BP 10/10/23 12:48 59 L 18 10/10/23 11:29 36.4 C L 56 L 16 120/81 10/10/23 09:34 58 L 10/10/23 08:05 36.5 C 59 L 16 104/71 10/10/23 07:44 10/10/23 05:00 10/10/23 04:03 36.3 C L 57 L 20 143/87 H 10/09/23 23:54 58 L 10/09/23 23:00 36.7 C 58 L 16 111/76 10/09/23 21:12 59 L 10/09/23 17:41 60 10/09/23 13:23 58 L 18 103/59 L Pulse Ox Pulse Ox O2 Del Method O2 Del Method 10/10/23 12:48 99 Room Air 10/10/23 11:29 97 Room Air 10/10/23 09:34 10/10/23 08:05 98 Room Air 10/10/23 07:44 Room Air 10/10/23 05:00 98 Room Air 10/10/23 04:03 98 Room Air 10/09/23 23:54 10/09/23 23:00 97 Room Air 10/09/23 21:12 10/09/23 17:41 10/09/23 13:23 98 Room Air Cardiovascular + regular rate and + regular rhythm Respiratory + respiratory effort normal Pre-Sedation Airway Assessment Smoking Status: Never smoker Hx Sleep Apnea: No Hx Difficult Intubation: No Short, Thick Neck: Yes Thyromental Distance: > or= 3.5 Finger Breadths Oral Cavity: + Loose Teeth Mallampati Class: III ASA: ASA3 Procedure Planning Contraindications for Sedation: none Current Medications Reviewed: Yes Notes The planned sedation has been discussed with the patient. Informed Consent was obtained. I have identified the patient, determined the appropriateness of sedation and have assessed the patient immediately prior to the procedure. All medicine(s) and interventions are by my order.
--- NOTE | 2023-10-10 13:37 | Cardiac Catheterization ---
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 Cardiac Status Clinical evaluation leading to the procedure CAD Presenation: Non STEMI Diagnostic Physicians Name: Nigel Nogueira MD Closure Device Recommendations: Medical Therapy and/or Counseling Cardiac Cath Procedure Full Procedure Date October 10, 2023 Pre-Procedure Diagnosis Pre-Procedure Diagnosis: Non STEMI AUC Score AUC Score: 8 Post-Procedure Diagnosis Post-Procedure Diagnosis: Moderate CAD Procedure(s) Performed Procedure(s) Performed: Coronary Angiography and Left Heart Cath Terrazzo Worker Helper Nigel Nogueira MD Cast Shell Grinder(s) none Estimated Blood Loss Estimated Blood Loss: 10cc Medication(s) Medication(s): Fentanyl, Heparin, Lidocaine 1%, Nicardipine, Nitroglycerin and Versed Summary of Findings Procedure performed: Left heart catheterization, selective coronary angiography Staff arch cushion skiving machine operator: Nigel Nogueira MD Indication: The patient is a 53-year-old gentleman with a history of hypertrophic cardiomyopathy who presented with an episode of extended chest pain, high blood pressure and elevated cardiac biomarkers. Based on his history of mild coronary disease and his elevated biomarkers he was advised to consider coronary angiography. Procedure in detail: The patient was informed of the risks benefits and alternatives to the intended procedure, he understood such and wished to proceed. He was taken to the cardiac catheterization suite in a fasting state. Conscious sedation was administered per protocol and the patient was monitored electrocardiographically throughout today's procedure. The right wrist area was prepped and draped in usual sterile fashion. This area was anesthetized using subcutaneous administration of a lidocaine solution. The right radial artery was then accessed using Seldinger technique, and a arterial sheath was placed at this site over a guidewire. The sheath was used to facilitate passage of the cardiac catheter for coronary angiography and left heart catheterization. Coronary angiogram was then obtained in multiple orthogonal views prior to removal of the catheter. At the conclusion of the procedure the sheath was removed and hemostasis was achieved at the access site using manual pressure. The patient tolerated procedure well, there were no immediate complications. Equipment used: 5 [place] Bre[place] 4 Findings: Coronary angiography Left main: Left main was very short and there was nearly dual ostial physiology. No ostial disease. Left anterior descending colon left anterior descending was a large transapical vessel. It provided several diagonal branches. Only luminal irregularities in this vessel without obstructive coronary disease Left circumflex: Left circumflex was a large dominant vessel. It produced several large obtuse marginal branches. The ongoing AV groove vessel after OM 2 had a discrete 50 to 60% stenosis. Right coronary artery: The right coronary is a nondominant vessel without evidence of obstructive disease On pullback from the left ventricle there was a significant gradient across the aortic valve after PVC estimated at 50 mm of mercury. Impression: Left dominant coronary system Nonobstructive disease involving the distal left circumflex Evidence of dynamic outflow tract obstruction, maximum 50-60 mmHg Hemodynamics Rest Ao:: 106/74 mmHg Final Ao: 134/76 mmHg LV: 177/6 mmHg Left ventricular end-diastolic pressure 14 mmHg Recommendations Recommendations: Medical Therapy and/or Counseling Specimens Specimens: None Radiation Exposure (mGy) 999 Contrast (mls) 40 Procedural Complication(s) None Disposition PCU I attest to the content of the Intraoperative Record and any orders documented therein. Any exceptions are noted below. [facility] Card Cath Procedure Codes Cardiac Catheterization Procedure 1: Cardiovascular Cath Procedures: 39538 Coronaries and LHC (+/-LV) Moderate Sedation Procedure 1: Sedation/Anesthesia: 13422 Mod Sedation by the same physician;Init15 Min Child Age 5 & Up Procedure 2: Sedation/Anesthesia: 08857 Mod Sedation by the same physician; Ea [id number] Minutes PG Care Time/CCT Total # of Minutes Spent Total Time Spent with Patient: Total time spent is greater than 50% in coordination of care (as documented) at patient's floor/unit and/or counseling patient:
--- NOTE | 2023-10-10 13:37 | Post Anesthesia Assessment ---
Date of Service October 10, 2023 Post Sedation Assessment Vital Signs Temp Pulse Pulse Resp BP BP Pulse Ox 10/10/23 12:48 59 L 18 99 10/10/23 11:29 36.4 C L 56 L 16 120/81 97 10/10/23 09:34 58 L 10/10/23 08:05 36.5 C 59 L 16 104/71 98 10/10/23 07:44 10/10/23 05:00 10/10/23 04:03 36.3 C L 57 L 20 143/87 H 98 10/09/23 23:54 58 L 10/09/23 23:00 36.7 C 58 L 16 111/76 97 10/09/23 21:12 59 L 10/09/23 17:41 60 Pulse Ox O2 Del Method O2 Del Method 10/10/23 12:48 Room Air 10/10/23 11:29 Room Air 10/10/23 09:34 10/10/23 08:05 Room Air 10/10/23 07:44 Room Air 10/10/23 05:00 98 Room Air 10/10/23 04:03 Room Air 10/09/23 23:54 10/09/23 23:00 Room Air 10/09/23 21:12 10/09/23 17:41 Recovery Score Activity: Moves 4 extremities Respiration: Deep Breath/Cough Circulation: +/-20% PreAnes Value Consciousness: Fully Awake Oxygen Saturation: > 92% On Room Air Discharge Sedation Level of Care: Fast Track Phase II Post Sedation Plan On clinical assessment, the patient appears to have tolerated the sedation without complications. Patient is recovering as anticipated. Patient will continue to be monitored by nursing and may be discharged when sedation discharge criteria are met per below protocol. Upon Completions of procedure up to 15 minutes continue every 5 minute vital signs and the P.A.R. score; then discharge to a Phase I or Fast Track to Phase II per the following guidelines: * Discharge Patient to appropriate Phase II area if PAR is 8 or greater or return to pre- procedure baseline. The post - procedure orders will be as directed. * If PAR score is less than 8 or not return to pre-procedure baseline then patient will follow Phase I monitoring till PAR is reached for Phase II. The Phase I may be done in procedure room or may call to secure a Phase I area. * If naloxone or flumazenil are used for reversal, hold in Phase I for continued monitoring from when last reversal dose was given for a minimum of 60 minutes or longer pending the nurse and/or physician discretion of patient condition before discharge to Phase II. Please call the Sedation Physician to re-evaluate and complete post-note for discharge to Phase II area. Do NOT discharge from procedure sedation or Phase 1 until post- sedation evaluation note is complete by procedure /sedation MD Sedation Discharge Instructions to be given to the patient at discharge to home.
[2023-10-10] MEDS: fentaNYL citrate PF 100 MCG/2 ML VIAL ONE (13:39)
[2023-10-10] MEDS: niCARdipine HCL INJ 2.5 MG/ML 10 ML AMP ONE (13:39)
[2023-10-10] MEDS: HEPARIN (PORCINE) 1000 UNIT/ML 10 ML (CATH LAB USE ONLY) ONE (13:39)
[2023-10-10] MEDS: MIDAZOLAM HCL 1 MG/ML 2ML VIAL ONE (13:39)
[2023-10-10] MEDS: NITROGLYCERIN/D5W 100MCG/ML 20ML SYR ONE (13:40)
[2023-10-10] MEDS: OPTIRAY 350 ONE (13:40)
[2023-10-10] MEDS: VERAPAMIL HCL 180 MG TABCR PO STA (16:17)
[2023-10-10] MEDS: METOPROLOL SUCC 50MG EXT REL TAB PO STA (16:17)
--- NOTE | 2023-10-10 19:34 | Discharge Summary ---
Date of Service October 10, 2023 Admission HPI Per Admitting Provider Rafael is a 53 year old male inmate of [facility] with a PMH of Hypertension, Dyslipidemia, Non-Obstructive CAD, Hypertrophic Obstructive Cardiomyopathy, Seizure Disorder, COPD, and Atherosclerosis of the Aorta who presented to the [facility] ED on 10/08/23 via EMS for an episode of chest pain which experienced earlier today. He was given 324 mg Aspirin by EMS in route. Per the ED staff, the patient had missed his am antihypertensives. After having the episode of chest pain the patient was given his am antihypertensives and his chest pain resolved. He remained stable in the ED. Labs were significant for an initial high sen trop of 147. Chest xray was read as "1. Cardiomegaly with evidence of congestive failure. 2. Bilateral opacities likely represent pulmonary edema. Correlate clinically. Radiographic follow-up to resolution is recommended.". The ED staff spoke with Cardiology, because the his episode of chest pain earlier today, possible ECG changes reported at [facility], and his elevated trop they recommended starting a heparin drip. They recommended avoiding Nitroglycerin and other Nitrites with his Hx of HOCM. Prior to admission the patient was order a low dose, weight based heparin drip wo bolus as he is currently pain free. At the time of the exam the patient was sitting in bed in no acute distress. He confirms that above history. He states that his chest pain started while at rest around 1330 this afternoon. He experienced substernal chest pressure with diaphoresis. He states he tried to walk around his cell and change his sheets to see if activity would help the pain but it persisted for approximately 2 hours. Since arrival to the ED he has been chest discomfort free. He denies having similar symptoms recently while doing his normal activates. Denies recent fever, SOB, cough, abd pain, nausea, vomiting, diarrhea, dysuria, hematuria, melena, LE selling, and recent trauma. He states that he is due for his evening antiepileptics. His last seizure was approximately 2 weeks ago after missing doses of his medications. Please refer to Dr. Sanders' attestation for any changes to the treatment plan Discharge Data Allergies Allergy/AdvReac Type Severity Reaction Status Date / Time No Known Allergies Allergy Verified 08/05/23 11:28 Consultations 10/08/23 18:25 ED Decision to Admit Stat 10/08/23 19:37 Consult Cardiology Routine Procedures Performed Operation Date: 10/10/23 12:30 Actual Procedures p Cath, Left with Cors and Vent - Nigel Nogueira MD s Cineradiography w/Routine Exam - Nigel Nogueira MD Ordered Studies 10/10/23 08:34 CL Cath Imgs for PACS use only Routine Hospital Course (1) Non-ST elevation myocardial infarction (NSTEMI): Chest pain and rising troponin consistent with NSTEMI Continue IV heparin Continue ASA Appreciate cardiology consult - pending decision regarding cardiac catheterization - per admitting provider discussion with cardiology avoiding nitroglycerin and diuresis at this time TTE (2) Chest pain: Suspected secondary to NSTEMI as above (3) HOCM (hypertrophic obstructive cardiomyopathy): Per Cardiology, would avoid diuresis overnight if he remains stable on RA and is asymptomatic Would also avoid use of Nitrates if he has further episodes of chest pain Both could possibly exacerbate his HOCM (4) Coronary artery disease, non-occlusive: Continue heparin drip Continue metoprolol, aspirin, statin, and Verapamil (5) Hypertension: Currently stable Continue Verapamil and metoprolol (6) Seizure disorder: Continue Dilantin, Carbamazepine, and Depakote (7) Dyslipidemia: Continue statin Plan VTE Prophylaxis - IV heparin Diet - NPO pending cardiology decision regarding catheterization Disposition - continue on med/tele Discharge Plan Discharge Items [facility] Reason For Visit: CHEST PAIN, ELEVATED TROP Discharge Diagnosis: Type 2 NSTEMI - possibly secondary to missing medication Condition on Discharge: Good Activity: Per Instructions section Non-emergency contact: Primary Care Provider Call non-emergency contact if: you have any medication questions and your symptoms worsen Follow-up/Referrals: Robert LUNDY [Primary Care Provider] - Diet: Heart Healthy and Low Sodium (2gm) Addtl Attending Provider Instructions: You were admitted to [facility] from October 07 - 2023 due to chest pain. Initially this was concerning for acute coronary syndrome however subsequent cardiac catheterization was similar to 2019. You had no further episodes of chest pain during admission and the initial chest pain episode a ppeared to improve after taking your usual medication. Given no ongoing chest pain no further workup required at this time. No changes to medications were made. You also diagnosed with mild acute congestive heart failure. No diuresis was recommended due to your hypertrophic cardiomyopathy however if you start becoming short of breath on exertion consider low-dose of furosemide. Please follow post catheterization instructions as below. Addtl Travel Physical Therapist Provider Instructions: ACTIVITY RECOMMENDATIONS: Excess manipulation of the wrist should be avoided for the next 24-48 hours. * No lifting over 2 pounds (approximately a 1/2 gallon of milk) with the utilized arm for 24 hours. * No strenuous activity such as bowling or tennis for 3 days. No work for 7 days * Keep the site of the procedure covered with a bandage for 24 hours. *You may shower the day after the procedure. Do not take a tub bath or submerge the puncture site in water for the next 3 days. *Do not operate any motorized equipment for 3 days. SPECIAL CARE INSTRUCTIONS: The site may be slightly bruised and sore following your procedure. Should any of the following occur, contact the Dr. who performed your procedure. 1. Redness/inflammation, swelling, chills, or fever, or colored drainage at procedure site within 3-7 days after your procedure. 2. Coldness, discoloration, ongoing numbness, severe pain, or swelling. Expect mild tingling of hand and tenderness at the puncture site for up to three days. If this persists beyond three days, or other symptoms develop, notify the Dr. who performed your procedure. BLEEDING: If the procedure site on your wrist begins to bleed, do not panic 1. Place 1 or 2 fingers firmly just slightly above the insertion site to stop the bleeding. You may be able to feel your pulse as you hold pressure. 2. Lift your finger after 5 minutes to see if the bleeding has stopped. 3. Once the bleeding has stopped, gently wipe the wrist area clean with a bandage. * If the bleeding from your wrist does not stop after 10 minutes, or if there is a large amount of bleeding or spurting, call 911 (do not drive yourself to the hospital). SKIN IRRITATION: * You may experience some redness and/or swelling in the area where radiation was administered. If any skin irritation occurs, please contact your family physician. FOLLOW UP VISIT: Keep any scheduled doctor appointments. Pending Studies at Discharge: No Stand-Alone Forms: [facility] Skilled Items Patient informed of condition?: Yes Discharge Level of Care: Other Communicable Disease: No Discharge Prognosis: Stable Lines: None Urinary Catheter: No Medications and DC Order Prescriptions: Continued rosuvastatin 10 mg tablet 20 mg PO DAILY verapamil 360 mg capsule,ext rel. pellets 24 hr 360 mg PO DAILY Qty: 90 3RF carbamazepine [Tegretol] 200 mg Tablet 600 mg PO BID acetaminophen [Tylenol] 325 mg Tablet 325 mg PO TID PRN (Reason: Pain) Rx Instructions: PER PT "TAKES WITH ANTIBIOTIC" lidocaine 5 % Cream 1 applic TOPICAL QID PRN (Reason: Pain) Rx Instructions: MIX WITH ZOSTRIX-HP, THEN APPLY capsaicin 0.075 % Cream 1 applic TOPICAL QID PRN (Reason: Pain) Rx Instructions: MIX WITH LIDOCAINE THEN APPLY. aspirin 81 mg Tablet,Chewable 81 mg PO DAILY albuterol sulfate 90 mcg/actuation Hfa Aerosol Inhaler 2 puff INHALATION QID PRN (Reason: Shortness Of Breath) phenytoin sodium extended 100 mg Capsule 300 mg PO BID metoprolol succinate 100 mg Tablet Extended Release 24 Hr 100 mg PO DAILY divalproex [Depakote] 500 mg Tablet,Delayed Release (Dr/Ec) 650 mg PO BID Discharge Orders: Discharge Order (Routine); Ordered 10/10/23 Ordered By: Yoan Elmore Admission Data Admit Date/Time: 10/08/23 18:28 Attending Provider: Yoan Elmore Admit Provider: Rafita Sanders Primary Care Provider: Robert LUNDY Other Providers: Rafita Sanders; James Reilly Other Interventions: Discharge Summary Assessment (RN) Last Done: 10/10/23 19:15 Coding Diagnoses Non-ST elevation myocardial infarction (NSTEMI) I21.4 Chest pain, unspecified type R07.9 Chest pain type: unspecified HOCM (hypertrophic obstructive cardiomyopathy) I42.1 Coronary artery disease, non-occlusive I25.10 Primary hypertension I10 Hypertension type: primary hypertension Seizure disorder G40.909 Dyslipidemia E78.5
--- NOTE | 2023-10-10 20:33 | Cardiology Progress Note ---
Date of Service October 10, 2023 Assessment & Plan (1) Chest pain: (2) Elevated troponin: (3) HOCM (hypertrophic obstructive cardiomyopathy): (4) Coronary artery disease, non-occlusive: (5) Hypertension: (6) Dyslipidemia: Plan Cardiac catheterization today did not reveal any acute coronary syndrome. He continues to have progression of coronary disease at a discrete point in the distal left circumflex. This did not appear to be obstructive in nature and he does not describe symptoms of exertional angina. As such, no intervention was performed. It is very likely that his elevated biomarkers are related to his significant hypertension in the setting of obstructive cardiomyopathy. At this point would seem reasonable to consider discharge on his current dose of verapamil and the increased dose of metoprolol succinate. LV filling pressures were at the high end of normal. He does not appear to require aggressive diuresis. Admission and Anticipated Discharge Date Admission Date: October 08, 2023 Subjective The patient did not report any recurrence of his chest discomfort today. No dizziness or lightheadedness. No breathing difficulty. Not really ambulatory. Review of Systems Review of Systems: Per HPI Physical Exam Physical Exam: General: Patient is in no acute distress. HEENT: Head is atraumatic, normocephalic. EOM's intact. Sclerae anicteric. Facies symmetric. No perioral cyanosis. Neck: No JVD. JVP is not elevated. Carotid upstrokes +2 bilaterally without bruits. Chest and Lungs: Clear to auscultation throughout all lung warren, no wheezes, rales, or rhonchi. CVS: S1 and S2 are regular at 58 bpm with a grade 2/6 systolic murmur audible at both the right and left sternal borders. No obvious diastolic murmurs. No gallops or rubs. PMI is nondisplaced. No lifts, heaves, or thrills. No abdominal aortic or renal bruits. Extremities: No clubbing, cyanosis, or edema. Intact radial pulses bilaterally. Neurologic Exam: Patient is awake, alert, and oriented. Pleasant and cooperative. Answers questions appropriately. Speech is clear. Results & Data Vital Signs (Past 12 Hours) Vital Signs Temp Pulse Pulse Resp BP BP Pulse Ox 10/10/23 19:15 36.8 C 61 18 111/73 96 10/10/23 19:15 36.4 C L 61 18 130/87 121/88 98 03/21/24 17:52 61 18 130/87 98 10/10/23 16:52 71 18 148/89 H 97 10/10/23 15:52 57 L 18 127/85 98 10/10/23 14:52 36.4 C L 55 L 18 143/86 H 98 10/10/23 14:30 36.8 C 56 L 18 121/88 97 10/10/23 14:15 36.8 C 58 L 18 139/81 97 10/10/23 14:00 36.8 C 57 L 18 136/82 98 10/10/23 13:45 36.8 C 61 18 93/75 L 98 10/10/23 12:48 59 L 18 99 10/10/23 11:29 36.4 C L 56 L 16 120/81 97 10/10/23 09:34 58 L O2 Del Method 10/10/23 19:15 Room Air 10/10/23 19:15 10/10/23 17:52 Room Air 10/10/23 16:52 Room Air 10/10/23 15:52 Room Air 10/10/23 14:52 Room Air 10/10/23 14:30 Room Air 10/10/23 14:15 Room Air 10/10/23 14:00 Room Air 10/10/23 13:45 Room Air 10/10/23 12:48 Room Air 10/10/23 11:29 Room Air 10/10/23 09:34 Laboratory Results Abnormal Lab Results 10/09/23 10/10/23 21:28 05:22 WBC 5.02 RBC 4.47 L Hgb 14.0 Hct 40.5 L MCV 90.6 MCH 31.3 MCHC 34.6 RDW Std Deviation 42.5 RDW Coeff of Telly 12.8 Plt Count 147 MPV 10.5 Immature Gran % (Auto) 0.2 Neut % (Auto) 46.6 Lymph % (Auto) 41.2 [place] % (Auto) 9.6 Eos % (Auto) 1.8 Baso % (Auto) 0.6 Neut # (Auto) 2.34 Lymph # (Auto) 2.07 [place] # (Auto) 0.48 Eos # (Auto) 0.09 Baso # (Auto) 0.03 Immature Gran # (Auto) 0.01 PT 11.2 INR 1.0 Heparin Anti-Xa, Unfract 0.28 L 0.33 Sodium 138 Potassium 4.5 Chloride 104 Carbon Dioxide 30 Anion Gap 4 BUN 15 Creatinine 0.85 Est Cr Clr Drug Dosing 122.0 Est GFR ( Amer) 114.5 Est GFR (Non-Af Amer) 98.8 BUN/Creatinine Ratio 17.6 Glucose 97 Calcium 9.0 Magnesium 2.0 Total Bilirubin 0.3 AST 16 ALT 18 Alkaline Phosphatase 39 Total Protein 6.9 Albumin 3.9 Globulin 3.0 Albumin/Globulin Ratio 1.3 PG Care Time/CCT Total # of Minutes Spent Total Time Spent with Patient: Total time spent is greater than 50% in coordination of care (as documented) at patient's floor/unit and/or counseling patient: Coding Level of Care Code 88106 SUB INP/OBS CARE 2/35MIN Diagnoses Chest pain, unspecified type R07.9 Chest pain type: unspecified Elevated troponin R77.8 HOCM (hypertrophic obstructive cardiomyopathy) I42.1 Coronary artery disease, non-occlusive I25.10 Primary hypertension I10 Hypertension type: primary hypertension Dyslipidemia E78.5 (1) Chest pain Chest pain type: unspecified Qualified Code(s): R07.9 - Chest pain, unspecified (5) Hypertension Hypertension type: primary hypertension Qualified Code(s): I10 - Essential (primary) hypertension
== END 2023-10-10 20:00 | DRG 281 ==
LOC: ED 16:56 → EDINP 18:28 → SUATTDRO 18:28 → 2N 10-09 18:38 → 2S 10-10 15:08

== ENCOUNTER 2023-11-27 20:37 | Observation (INO) ==
[2023-11-27 21:39] LABS: Albumin Globulin Ratio 1.4 (0.9-2); Albumin Level 4.1 gm/dl (3.4-5.0); BUN Creatinine Ratio 20.5 (10-20); Bilirubin,Total 0.3 mg/dl (0.2-1.0); Creatinine Clr Calc Pharmacy 133.4 ml/min; Est GFR (African American) 118.6 ml/min; Est GFR (Non-African American) 102.3 ml/min; Globulin 2.9 gm/dl (2.5-4.0); Potassium 4.3 mmol/L (3.5-5.1)
--- NOTE | 2023-11-27 22:00 | Emergency Department Note ---
Impression & Plan Dyspnea, HOCM (hypertrophic obstructive cardiomyopathy), CAD (coronary artery disease), COPD (chronic obstructive pulmonary disease), Elevated troponin, Elevated brain natriuretic peptide (BNP) level ED Provider Note ED Provider Note NAME: PRAVEEN MOORE AGE:53 SEX: Male : 1970 ARRIVES VIA: EMS INFORMANT: Patient ED PROVIDER(s): Yelena Infante DO CHIEF COMPLAINT: Shortness of breath HPI: This is a 53-year-old male presents emergency department due to concern for shortness of breath. Patient states he noticed he was more short of breath when he tried to lay flat in order to sleep. He states he ended up having to sit upright in order to try and sleep. He woke up short of breath because he had drifted back into a supine position. He denies any recent fevers, chills, or URI symptoms. No change in cough. Patient states he does have a history of heart problems and is a former smoker. Patient states he did have a heart attack a couple months ago. He states he underwent a cardiac catheterization but no stents were placed. He denies ever being told he had congestive heart failure. He states he also noticed some increased leg swelling today. He states that is not usual for him. He states he has not had a normal appetite over the last several days and felt increasingly fatigued and weak today. PAST MEDICAL HISTORY:See Below PAST SURGICAL HISTORY:See Below FAMILY HISTORY:See Below SOCIAL HISTORY:See Below HOME MEDICATIONS:See Below ALLERGIES:See Below VITALS:See Below PHYSICAL EXAMINATION: GENERAL: alert, well appearing, well nourished, no distress, non-toxic EYE EXAM: normal conjunctiva, PERRL and EOM's grossly intact OROPHARYNX: no exudate, no erythema, lips, buccal mucosa, and tongue normal and mucous membranes are moist NECK: supple, no nuchal rigidity, no adenopathy, non-tender LUNGS: Clear but decreased to auscultation. Normal chest wall mechanics, no w/r/r, slightly increased work of breathing and mild tachypnea HEART: no murmurs, S1 normal and S2 normal ABDOMEN: abdomen soft, non-tender, normo-active bowel sounds, no masses, no rebound or guarding. BACK: Back is symmetrical on inspection and there is no deformity, no midline tenderness, no CVA tenderness. SKIN: no rashes, petechiae, orbruising UPPER EXTREMITIES: upper extremities are grossly normal. FROM, nml pulses b/l. LOWER EXTREMITIES: 1+ b/l pitting edema. FROM, nml pulses b/l. NEURO EXAM: Normal sensorium, cranial nerves II-XII grossly intact, normal speech, no facial droop,nogross weakness of arms, no gross weakness of legs. Gross sensation intact. No ataxia. Vital Signs: reviewed and remarkable Differential Diagnosis: pneumonia, bronchitis, COPD/Asthma exacerbation, pneumothorax, pulmonary embolism, congestive heart failure, acute coronary syndrome, as well as others were considered MEDICAL DECISION MAKING: This is a 53 yo male who present with orthopnea, WILEY, and LE edema. Patient with know hx of CAD and COPD per his report. VS stable, no hypoxia, however he did have increased wob even during discussion at bedside along with b/l LE edema. Labs drawn and sent, IV established, EKG and CXR performed and interpreted at bedside, and patient placed on telemetry. Troponin and BNP were added after my exam and were elevated. Patient complex cardiac hx including HOCM. I suspect given symptoms and exam findings patient has evolving CHF although his last echo was reassuring. Will defer use of diuretics to hospitalist team/cardiology given hx of HOCM as patient is stable at this time. Patient updated on results and verbalized understanding and was in agreement with the plan. Case discussed with the hospitalist team for additional evaluation and mgmt. Consultation(s): 23:02: DIscussed with Dr. Velazquez, [place] hospitalist team, for additional evaluation and mgmt. ER Treatment Provided: See below Diagnostics Interpreted By Me: -ECG: Normal sinus at 69, normal axis, normal intervals, no acute ST/T wave changes -Cardiac Monitoring: An order was placed for continuous cardiac monitoring. The monitor shows a rate of 66 with normal sinus rhythm. -Laboratory studies: As stated above and show below. -Imaging studies: X-ray Chest: A single view study of the chest was reviewed and was negative for cardiomegaly, focal infiltrate, effusion, pulmonary edema, or wide mediastinum. Triage Nursing Note Reviewed Prior/Outside Records Reviewed -cardiac catheterization from October 10, 2023 as well as cardiology progress note during that visit Past Med/Surg History Medical History (Updated 11/29/23 @ 12:00 by Yelena Infante DO) Mitral regurgitation Coronary artery disease, non-occlusive HOCM (hypertrophic obstructive cardiomyopathy) Hypertension History of tobacco abuse Pulmonary nodule Dyslipidemia Seizure disorder Surgical History No pertinent past surgical history Family History Father Coronary heart disease Seizure disorder Social History (Updated 11/28/23 @ 22:14 by James Reilly MD) Smoking Status: Former smoker Tobacco Type: Cigarettes Second Hand Exposure: No; Do You Dip or Chew Tobacco: No; Hx Alcohol Use: No Hx Substance Use: Yes (former) Preferred Language: Swazi Communication Ability: Effective Freelance Designer Required: No Beliefs That Will Affect Care: None Current Living Situation: Other Current Living Situation Comment: inmate at [facility] Feels Safe at Home: Yes Assistive Devices: Glasses Allergies Allergies Allergy/AdvReac Type Severity Reaction Status Date / Time No Known Allergies Allergy Verified 08/05/23 11:28 Home Meds Home Medications Medication Instructions Recorded Confirmed carbamazepine 200 mg tablet 600 mg PO BID 01/07/20 11/28/23 (Tegretol) albuterol sulfate 90 mcg/actuation 2 puff inhalation QID PRN 04/29/22 11/28/23 aerosol inhaler Shortness Of Breath aspirin 81 mg chewable tablet 81 mg PO DAILY 04/29/22 11/28/23 phenytoin sodium extended 100 mg 300 mg PO BID 04/29/22 11/28/23 capsule rosuvastatin 10 mg tablet 20 mg PO HS 08/05/23 11/28/23 divalproex 500 mg tablet,delayed 625 mg PO BID 10/08/23 11/28/23 release (Depakote) metoprolol succinate 100 mg 100 mg PO DAILY 10/08/23 11/28/23 tablet,extended release 24 hr Previous Rx's Medication Instructions Recorded verapamil 360 mg 24 hr 360 mg PO DAILY #90 caps 08/05/23 capsule,extended release Results & Data (ED) Vital Signs Vital Signs - 24 hr 11/27/23 20:45 11/27/23 20:52 11/27/23 20:54 Temperature 36.7 C Temperature Source Oral Pulse Rate 72 68 Pulse Rate from SpO2 Sensor 68 Pulse Rhythm Regular Pulse Strength Normal Respiratory Rate 20 25 H Respiratory Effort / Characteristics Non-Labored Respiratory Depth Normal Respiratory Pattern Regular Blood Pressure 127/83 Blood Pressure Mean 97 Blood Pressure Position Sitting Pulse Oximetry 95 95 93 Oxygen Delivery Method Room Air Room Air Sepsis Recent Fever Within 48 Hours No Sepsis New/Unexplained Change in Mental Status No Sepsis Action Taken by Nursing No Action Required 11/27/23 21:00 11/27/23 21:10 11/27/23 21:13 Temperature Temperature Source Pulse Rate 69 65 68 Pulse Rate from SpO2 Sensor 68 66 Pulse Rhythm Pulse Strength Respiratory Rate 24 16 Respiratory Effort / Characteristics Respiratory Depth Respiratory Pattern Blood Pressure Blood Pressure Mean Blood Pressure Position Pulse Oximetry 94 95 Oxygen Delivery Method Sepsis Recent Fever Within 48 Hours Sepsis New/Unexplained Change in Mental Status Sepsis Action Taken by Nursing 11/27/23 21:20 11/27/23 21:30 11/27/23 21:40 Temperature Temperature Source Pulse Rate 65 63 63 Pulse Rate from SpO2 Sensor 65 63 64 Pulse Rhythm Pulse Strength Respiratory Rate 20 19 20 Respiratory Effort / Characteristics Respiratory Depth Respiratory Pattern Blood Pressure Blood Pressure Mean Blood Pressure Position Pulse Oximetry 94 94 95 Oxygen Delivery Method Sepsis Recent Fever Within 48 Hours Sepsis New/Unexplained Change in Mental Status Sepsis Action Taken by Nursing 11/27/23 21:50 11/27/23 22:00 11/27/23 22:10 Temperature Temperature Source Pulse Rate 68 63 66 Pulse Rate from SpO2 Sensor 68 63 67 Pulse Rhythm Pulse Strength Respiratory Rate 22 16 24 Respiratory Effort / Characteristics Respiratory Depth Respiratory Pattern Blood Pressure Blood Pressure Mean Blood Pressure Position Pulse Oximetry 97 96 96 Oxygen Delivery Method Sepsis Recent Fever Within 48 Hours Sepsis New/Unexplained Change in Mental Status Sepsis Action Taken by Nursing 11/27/23 22:20 Temperature Temperature Source Pulse Rate 64 Pulse Rate from SpO2 Sensor 64 Pulse Rhythm Pulse Strength Respiratory Rate 19 Respiratory Effort / Characteristics Respiratory Depth Respiratory Pattern Blood Pressure 102/71 Blood Pressure Mean 81 Blood Pressure Position Pulse Oximetry 97 Oxygen Delivery Method Room Air Sepsis Recent Fever Within 48 Hours Sepsis New/Unexplained Change in Mental Status Sepsis Action Taken by Nursing Laboratory Data 11/28/23 02:21 11/29/23 07:27 Lab Results 11/27/23 Range/Units 20:53 WBC 5.82 (4.8-10.8) K/ul RBC 4.07 L (4.70-6.10) M/uL Hgb 12.9 L (14.0-18.0) g/dl Hct 37.2 L (42.0-52.0) % MCV 91.4 (80.0-100.0) fL MCH 31.7 (25.0-34.0) pg MCHC 34.7 (32.0-36.0) g/dL RDW Std Deviation 41.5 (36.4-46.3) fL RDW Coeff of Etlly 12.4 (11.5-14.5) % Plt Count 182 (130-400) K/uL MPV 10.5 (9.4-12.4) fL Immature Gran % (Auto) 0.3 % Neut % (Auto) 47.3 % Lymph % (Auto) 38.5 % Hubbard % (Auto) 11.3 % Eos % (Auto) 1.9 % Baso % (Auto) 0.7 % Neut # (Auto) 2.75 (1.40-6.50) K/uL Lymph # (Auto) 2.24 (1.20-3.40) K/uL Hubbard # (Auto) 0.66 H (0.11-0.59) K/uL Eos # (Auto) 0.11 (0.00-0.50) K/uL Baso # (Auto) 0.04 (0.00-0.20) K/uL Immature Gran # (Auto) 0.02 (0.01-0.20) K/uL Sodium 143 (136-145) mmol/L Potassium 4.3 (3.5-5.1) mmol/L Chloride 109 H (98-107) mmol/L Carbon Dioxide 26 (21-32) mmol/L Anion Gap 8 (3-11) BUN 16 (6-23) mg/dl Creatinine 0.78 (0.6-1.4) mg/dl Est Cr Clr Drug Dosing 133.4 ml/min Est GFR ( Amer) 118.6 ml/min Est GFR (Non-Af Amer) 102.3 ml/min BUN/Creatinine Ratio 20.5 H (10-20) Glucose 100 H (70-99(Fasting)) mg/dl Calcium 9.0 (8.6-10.3) mg/dl Total Bilirubin 0.3 (0.2-1.0) mg/dl AST 14 (13-39) U/L ALT 16 (7-52) U/L Alkaline Phosphatase 40 (34-104) U/L Troponin I High Sens 55.2 H* (0-20) pg/ml B-Natriuretic Peptide 573 H (0-100) pg/ml Total Protein 7.0 (6.0-8.3) gm/dl Albumin 4.1 (3.4-5.0) gm/dl Globulin 2.9 (2.5-4.0) gm/dl Albumin/Globulin Ratio 1.4 (0.9-2) Administered Medications Aspirin (Aspirin 81 Mg Chew) 81 mg PO DAILY DONOVAN Stop: 12/28/23 08:59 Last Admin: 11/29/23 08:47 Dose: 81 mg Documented By: Admin: 11/28/23 08:46 Dose: 81 mg Documented By: HELADIO Carbamazepine (Carbamazepine 200 Mg Tablet) 600 mg PO BID DONOVAN Stop: 12/28/23 08:59 Last Admin: 11/29/23 09:48 Dose: 600 mg Documented By: Admin: 11/28/23 21:26 Dose: 600 mg Documented By: Admin: 11/28/23 08:48 Dose: 600 mg Documented By: HELADIO Divalproex Sodium (Divalproex Delay Release 125 Mg Tabec) 625 mg PO BID [facility] Stop: 12/28/23 08:59 Last Admin: 11/29/23 08:45 Dose: 625 mg Documented By: Admin: 11/28/23 21:27 Dose: 625 mg Documented By: Admin: 11/28/23 08:48 Dose: 625 mg Documented By: HELADIO Heparin Sodium (Porcine) (Heparin Sod 5,000 Unit/0.5 Ml Vial) 5,000 units SQ Q12 DONOVAN Stop: 12/28/23 08:59 Last Admin: 11/29/23 08:46 Dose: 5,000 units Documented By: Admin: 11/28/23 21:25 Dose: 5,000 units Documented By: Admin: 11/28/23 08:48 Dose: 5,000 units Documented By: HELADIO Metoprolol Succinate (Metoprolol Succ 50mg Ext Rel Tab) 200 mg PO DAILY DONOVAN Stop: 12/29/23 08:59 Last Admin: 11/29/23 08:45 Dose: 200 mg Documented By: JACKIE Phenytoin Sodium (Phenytoin Sodium Er 100 Mg Cap) 300 mg PO BID DONOVAN Stop: 12/28/23 08:59 Last Admin: 11/29/23 08:46 Dose: 300 mg Documented By: Admin: 11/28/23 21:46 Dose: 300 mg Documented By: Admin: 11/28/23 08:49 Dose: 300 mg Documented By: HELADIO Rosuvastatin Calcium (Rosuvastatin Calcium 20 Mg Tab) 20 mg PO DAILY DONOVAN Stop: 12/28/23 08:59 Last Admin: 11/29/23 08:46 Dose: 20 mg Documented By: Admin: 11/28/23 08:49 Dose: 20 mg Documented By: HELADIO Discontinued Medications Carbamazepine (Carbamazepine 200 Mg Tablet) 600 mg PO NOW ONE Stop: 11/28/23 01:09 Last Admin: 11/28/23 01:16 Dose: Not Given Documented By: SUMAN Furosemide (Furosemide Inj 20 Mg/2 Ml Vial) 10 mg IV ONE ONE Stop: 11/28/23 02:02 Last Admin: 11/28/23 02:38 Dose: 10 mg Documented By: SHAI Furosemide (Furosemide 20 Mg Tab) 20 mg PO NOW ONE Stop: 11/28/23 19:41 Last Admin: 11/28/23 21:25 Dose: 20 mg Documented By: TK Metoprolol Succinate (Metoprolol Succ 50mg Ext Rel Tab) 100 mg PO DAILY DONOVAN Stop: 12/28/23 08:59 Last Admin: 11/28/23 08:48 Dose: 100 mg Documented By: HELADIO Phenytoin Sodium (Phenytoin Sodium Er 100 Mg Cap) 300 mg PO NOW STA Stop: 11/28/23 01:09 Last Admin: 11/28/23 01:16 Dose: Not Given Documented By: SUMAN Verapamil HCl (Verapamil Hcl 180 Mg Tabcr) 360 mg PO DAILY DONOVAN Stop: 12/28/23 08:59 Last Admin: 11/28/23 08:49 Dose: 360 mg Documented By: HELADIO Discharge Plan Visit Data Chief Complaint: Shortness of Breath/Dyspnea Stated Complaint: SOB ED Provider: Yelena Infante Discharge Problem: Dyspnea, HOCM (hypertrophic obstructive cardiomyopathy), CAD (coronary artery disease), COPD (chronic obstructive pulmonary disease), Elevated troponin, Elevated brain natriuretic peptide (BNP) level Patient Disposition: Admitted As Inpatient Discharge Instructions Interventions: ED Discharge Assessment Last Done: 11/28/23 16:25
[2023-11-27 22:06] LABS: Basophils # (auto) 0.04 K/uL (0.00-0.20); Basophils % (auto) 0.7 %; Eosinophils # (auto) 0.11 K/uL (0.00-0.50); Eosinophils % (auto) 1.9 %; Hematocrit (blood only) 37.2 % (42.0-52.0); Hemoglobin 12.9 g/dl (14.0-18.0); Immature Granulocytes # (auto) 0.02 K/uL (0.01-0.20); Immature Granulocytes % (auto) 0.3 %; Lymphocytes # (auto) 2.24 K/uL (1.20-3.40); Lymphocytes % (auto) 38.5 %; Mean Corpuscular Hemoglobin 31.7 pg (25.0-34.0); Mean Corpuscular Hgb Conc 34.7 g/dL (32.0-36.0); Mean Corpuscular Volume 91.4 fL (80.0-100.0); Mean Platelet Volume 10.5 fL (9.4-12.4); Monocytes # (auto) 0.66 K/uL (0.11-0.59); Monocytes % (auto) 11.3 %; Neutrophils # (auto) 2.75 K/uL (1.40-6.50); Neutrophils % (auto) 47.3 %; Platelet Count 182 K/uL (130-400); RDW Coefficient of Variation 12.4 % (11.5-14.5); RDW Standard Deviation 41.5 fL (36.4-46.3); Red Blood Count 4.07 M/uL (4.70-6.10); White Blood Count 5.82 K/ul (4.8-10.8)
[2023-11-27 22:32] LABS: Troponin I High Sensitivity 55.2 pg/ml (0-20)
--- NOTE | 2023-11-27 23:27 | History & Physical Report ---
"Date of Service November 27, 2023 Assessment & Plan (1) COPD (chronic obstructive pulmonary disease): (2) CAD (coronary artery disease): (3) Dyspnea: (4) HOCM (hypertrophic obstructive cardiomyopathy): (5) Coronary artery disease, non-occlusive: (6) Hypertension: (7) Seizure disorder: (8) CHF (congestive heart failure): Plan Shortness of Breath | CHF | Hypertrophic Obstructive Cardiomyopathy -Dyspnea without exertion since approximately 12pm on 11/26, symptoms improved with supplemental oxygen however no documented hypoxia -Last echocardiogram was in 09/2023 which showed moderate asymmetric LVH and findings consistent with left ventricular outflow obstruction, EF was 65-70% -Considering new symptoms, will order new echocardiogram for the morning -BNP on arrival was 573, patient notes mild lower extremity swelling today -Ordered 1x dose of 10mg IV Lasix, will defer further Lasix at this time without evaluation by cardiology -Monitor on telemetry -Continue home metoprolol, verapamil. Per chart review, during recent admission his Metoprolol was increased to 150mg however on the discharge order this was not reflected. I have continued the Metoprolol at 100mg for now but considering the addition of Lasix, but would recommend clarifying correct dose at time of discharge. Note: patient did not come with copy of updated medication list, may need to contact [facility] for most up-to-date list of medications. -Hgb slightly low at 12.9, otherwise blood work within normal limits. Repeat CBC and BMP in a.m. Elevated Troponin -Troponin of 55.2 on arrival, suspect this is secondary to demand ischemia but will trend to peak -EKG without acute ST changes -Patient denies any chest pain Hyperlipidemia | CAD -Continue daily rosuvastatin -Continue daily aspirin Seizure Disorder -Continue Phenytoin, Depakote, Carbamazepine -Per patient, he received his evening dose of these medications prior to arrival at the ED Admit to med/tele Diet: Heart healthy, low sodium VTE Prophylaxis: Heparin Code Status: Full Code History of Present Illness Primary Care Provider: [facility] Rafael Carreon is a 53 year-old male with a past medical history of COPD, CAD, HOCM, HTN who presented to the hospital due to shortness of breath. He is a resident of [facility]. 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 States that the shortness of breath has been ongoing since that time, although he endorses significant improvement of his symptoms when he was given an oxygen mask in the ambulance and then nasal cannula oxygen in the ED. He notes that over the past few days he has felt a bit more fatigued and has had a slightly decreased appetite (has given several of his meal trays away in the past few day s) but denies abdominal pain/nausea/vomiting. He denies chest pain, fever, body aches or chills and denies any changes to his bowel or bladder habits. He does endorse some slight swelling of his lower legs this afternoon after taking off his work boots. Mr. Carreon recently had a cardiac catheterization at [facility] due to NSTEMI, but no stents were placed and the catheterization was similar to his previous study in 2019. He was diagnosed with mild acute CHF at that time, and cardiology recommended continuing with medical management and no diuresis was indicated at that time. Patient denies any ongoing symptoms of chest pain or shortness of breath in between his last admission and his current presentation. ED Course: -CBC, CMP, BNP -EKG, chest x-ray Allergies Allergy/AdvReac Type Severity Reaction Status Date / Time No Known Allergies Allergy Verified 08/05/23 11:28 Home Medications Medication Instructions Recorded Confirmed Type carbamazepine 200 mg tablet 600 mg PO BID 01/07/20 10/08/23 History (Tegretol) acetaminophen 325 mg tablet 325 mg PO TID PRN Pain 04/29/22 10/08/23 History (Tylenol) albuterol sulfate 90 mcg/actuation 2 puff inhalation QID PRN 04/29/22 10/08/23 History aerosol inhaler Shortness Of Breath aspirin 81 mg chewable tablet 81 mg PO DAILY 04/29/22 10/08/23 History capsaicin 0.075 % topical cream 1 applic topical QID PRN Pain 04/29/22 10/08/23 History lidocaine 5 % topical cream 1 applic topical QID PRN Pain 04/29/22 10/08/23 History phenytoin sodium extended 100 mg 300 mg PO BID 04/29/22 10/08/23 History capsule rosuvastatin 10 mg tablet 20 mg PO DAILY 08/05/23 10/08/23 History verapamil 360 mg 24 hr 360 mg PO DAILY #90 caps 08/05/23 10/08/23 Rx capsule,extended release divalproex 500 mg tablet,delayed 650 mg PO BID 10/08/23 10/08/23 History release (Depakote) metoprolol succinate 100 mg 100 mg PO DAILY 10/08/23 10/08/23 History tablet,extended release 24 hr Past Med/Surg History Medical History Coronary artery disease, non-occlusive HOCM (hypertrophic obstructive cardiomyopathy) Hypertension History of tobacco abuse Pulmonary nodule Dyslipidemia Seizure disorder Surgical History No pertinent past surgical history Family History Father Coronary heart disease Seizure disorder Social History Smoking Status: Never smoker Tobacco Type: Cigarettes Second Hand Exposure: No; Do You Dip or Chew Tobacco: No; Tobacco Cessation Education Requested by Patient: No Hx Alcohol Use: No Hx Substance Use: Yes (former) Preferred Language: Italian Communication Ability: Effective Traffic Administrator Required: No Beliefs That Will Affect Care: None Current Living Situation: Other Current Living Situation Comment: inmate at [facility] Other Information That Helps Us Care for You: No Feels Safe at Home: Yes Safety Concerns: Feels Safe At This Time Assistive Devices: Glasses Review of Systems Review of Systems: As per HPI Physical Exam Constitutional: WD/WN, vitals as above Eyes: + anicteric sclerae; no conjunctival abn ormality ENMT: Ears: no external ear abnormality Nose: no external nose abnormality Moist mucous membranes Respiratory: normal respiratory effort; does not use accessory muscles Auscultation: + diminished lung sounds Few crackles appreciated at lung bases Cardiovascular: Rate/Rhythm: regular rate and regular rhythm +1 nonpitting edema of bilateral lower e xtremities Gastrointestinal (Abdomen): Inspection/Auscultation: abdomen normal to inspection; abdomen not distended Percussion/Palpation: abdomen soft; abdomen nontender Musculoskeletal: Moves all limbs independently Skin: no rashes, warm and dry Psychiatric: A+Ox3, euthymic affect Results & Data Results & Data Vital Signs (Past 12 Hours) Vital Signs Temp Pulse Resp BP Pulse Ox O2 Del Method O2 Flow Rate 11/27/23 23:00 61 18 137/78 97 Nasal Cannula 2 11/27/23 22:30 65 20 97 11/27/23 22:28 63 21 102/71 97 Room Air 11/27/23 22:20 64 19 102/71 97 Room Air 11/27/23 22:10 66 24 96 11/27/23 22:00 63 16 96 11/27/23 21:50 68 22 97 11/27/23 21:40 63 20 95 11/27/23 21:30 63 19 94 11/27/23 21:20 65 20 94 11/27/23 21:13 68 11/27/23 21:10 65 16 95 11/27/23 21:00 69 24 94 11/27/23 20:54 93 Room Air 11/27/23 20:52 68 25 H 95 11/27/23 20:45 36.7 C 72 20 127/83 95 Room Air Supervising Physician Co-Signing Physician Notes Patient seen and examined, chart reviewed, case discussed with Dr. French and I agree with the assessment and plan as above. In brief, patient is a 53yo male with history of CAD with recent NSTEMI in September 2023 s/p cardiac catheterization, HTN, COPD and HOCM with LVOT noted on echo from 10/09/23 presenting with shortness of breath and orthopnea as well as some bilateral LE edema. Mild elevation of troponin as well as BNP on arrival On exam patient is resting comfortably, NAD NC in place at 2L/min - patient not hypoxic but requesting O2 for comfort Skin - well perfused, no rash HEENT - MMM, Neck supple, No JVD Heart - +S1/S2, regular, 2/6 LEAH across precordium with blowing murmur auscultated in axilla Lungs - mild basilar crackles Abd - soft, NT/ND Ext - trace pitting edema of bilateral LE Labs and images reviewed Assessment/Plan Suspect some degree of volume overload - patient with HOCM -Cautious diuresis - Lasix 10mg IV x 1 dose now - monitor response -Continue home Metoprolol - as above, patient should be on 150mg po daily - need to obtain medication list from alf -Remainder as above Resident Activity Tracking Resident Involvement: Resident Care Provided Care Provided: Adult Hospital Medicine (6) Hypertension Hypertension type: primary hypertension Qualified Code(s): I10 - Essential (primary) hypertension"
[2023-11-28] MEDS: PHENYTOIN SODIUM ER 100 MG CAP PO STA (01:16)
[2023-11-28] MEDS: carBAMazepine 200 MG TABLET PO ONE (01:16)
[2023-11-28] MEDS ORDERED: ACETAMINOPHEN 325 MG TAB PO PRN (02:01)
[2023-11-28] MEDS ORDERED: POLYETHYLENE (MIRALAX) 17 GM PACK PO PRN (02:01)
--- NOTE | 2023-11-28 02:21 | Billing Data ---
Date of Service November 27, 2023 Coding Level of Care Code 75125 INT INP/OBS CARE
[2023-11-28] MEDS: FUROSEMIDE INJ 20 MG/2 ML VIAL IV ONE (02:38)
[2023-11-28 03:09] LABS: BUN Creatinine Ratio 17.7 (10-20); Calcium 8.3 mg/dl (8.6-10.3); Creatinine Clr Calc Pharmacy 131.7 ml/min; Est GFR (Non-African American) 101.8 ml/min; Potassium 4.2 mmol/L (3.5-5.1)
[2023-11-28 03:17] LABS: Basophils # (auto) 0.03 K/uL (0.00-0.20); Basophils % (auto) 0.6 %; Eosinophils # (auto) 0.08 K/uL (0.00-0.50); Eosinophils % (auto) 1.5 %; Hematocrit (blood only) 37.2 % (42.0-52.0); Hemoglobin 12.3 g/dl (14.0-18.0); Immature Granulocytes # (auto) 0.01 K/uL (0.01-0.20); Immature Granulocytes % (auto) 0.2 %; Lymphocytes # (auto) 2.14 K/uL (1.20-3.40); Lymphocytes % (auto) 40.8 %; Mean Corpuscular Hemoglobin 30.8 pg (25.0-34.0); Mean Corpuscular Hgb Conc 33.1 g/dL (32.0-36.0); Mean Platelet Volume 10.2 fL (9.4-12.4); Monocytes # (auto) 0.57 K/uL (0.11-0.59); Monocytes % (auto) 10.9 %; Neutrophils # (auto) 2.42 K/uL (1.40-6.50); Platelet Count 161 K/uL (130-400); RDW Coefficient of Variation 12.7 % (11.5-14.5); RDW Standard Deviation 43.2 fL (36.4-46.3); White Blood Count 5.25 K/ul (4.8-10.8)
[2023-11-28 05:42] LABS: Appearance Urine Clear (Clear); Bilirubin Urine Negative (Negative); Blood Urine Negative (Negative); Color Urine Yellow; Glucose Urine UA Negative (Negative); Ketones Urine Negative (Negative); Leukocyte Esterase Urine Negative (Negative); Nitrite Urine Negative (Negative); Protein Urine Negative (Negative); Specific Gravity Urine 1.015 (1.000-1.030); Urobilinogen Urine Negative (Negative); pH Urine 6.5 (4.5-7.5)
--- NOTE | 2023-11-28 08:03 | XRay Report ---
SINGLE VIEW CHEST CLINICAL HISTORY: Dyspnea FINDINGS: 2 AP, portable, upright chest radiographs are compared to study dated 10/08/2023. The heart is enlarged note atherosclerotic calcification of the thoracic aorta. There is pulmonary vascular con gestion. Atelectasis is noted at the lung bases. No large pleural effusion or pneumothorax is seen. T he bony thorax is grossly intact. IMPRESSION: Cardiomegaly with pulmonary vascular congestion. ACT 112: Negative or not required by law. Electronically signed by: Chandler Longoria M.D. 11/28/2023 8:02 AM
[2023-11-28] MEDS: ASPIRIN 81 MG CHEW PO SCH (08:46)
[2023-11-28] MEDS: carBAMazepine 200 MG TABLET PO SCH (08:48)
[2023-11-28] MEDS: DIVALPROEX DELAY RELEASE 125 MG TABEC PO SCH (08:48)
[2023-11-28] MEDS: HEPARIN SOD 5,000 UNIT/0.5 ML VIAL SQ SCH (08:48)
[2023-11-28] MEDS: METOPROLOL SUCC 50MG EXT REL TAB PO SCH (08:48)
[2023-11-28] MEDS: PHENYTOIN SODIUM ER 100 MG CAP PO SCH (08:49)
[2023-11-28] MEDS: VERAPAMIL HCL 180 MG TABCR PO SCH (08:49)
[2023-11-28] MEDS: ROSUVASTATIN CALCIUM 20 MG TAB PO SCH (08:49)
[2023-11-28] MEDS ORDERED: DIVALPROEX DELAY RELEASE 500 MG TAB PO SCH (09:00)
[2023-11-28 11:55] LABS: Influenza A virus by PCR Negative (Neg); Influenza B virus by PCR Negative (Neg); RSV by PCR Negative (Neg); SARS CoV2 RNA(COVID-19) Ceph NEGATIVE (Negative)
--- NOTE | 2023-11-28 14:59 | Cardiology Consultation ---
Date of Consultation November 28, 2023 Assessment & Plan (1) HOCM (hypertrophic obstructive cardiomyopathy): (2) CAD (coronary artery disease): (3) Hypertension: (4) Chest pain: (5) Elevated troponin: (6) Heart failure with preserved ejection fraction: (7) Mitral regurgitation: Plan ASSESSMENT/PLAN: 1. Hypertrophic cardiomyopathy with obstruction: Appears to be symptomatic and presented with heart failure. We discussed the diagnosis in detail. Already on high-dose verapamil and moderate dose metoprolol succinate. Increase metoprolol succinate to 200 mg daily. Discontinue verapamil in favor of disopyramide 100 mg twice daily, starting tomorrow morning. Discontinue verapamil. After further adjustment to his medical therapy, if he remains symptomatic, would recommend referral to CT surgery capable center to discuss potential myomectomy. Recommend cardiac MRI in the outpatient setting to evaluate percent of fibrosis, to help her stratify. Monitor for ventricular arrhythmia. Unable to exercise due to leg injury. Remain well-hydrated. Recommend evaluation for first-degree relatives. Could consider genetic evaluation in the outpatient setting. 2. Mitral regurgitation: Appears moderate to severe. Will make adjustments to his hypertrophic cardiomyopathy medications and if gradient improves, perhaps less SHARA and less MR. Otherwise, can be further evaluated at a tertiary care center if MR remains significant. Continue to monitor in the outpatient setting. 3. CAD: Nonobstructive. Risk factor modification. Continue aspirin 81 mg daily. Continue high intensity statin therapy. 4. Chest pain: Atypical. Possibly related to hypertrophic or myopathy with obstruction. Adjustments as above. 5. Elevated troponin: High-sensitivity troponin is only minimally elevated. He has chronic elevation. Likely related to hypertrophic cardiomyopathy. 6. Heart failure with preserved EF: It sounds as though he is presented in heart failure and improved with diuretic. He improved after diuresis. Can use gentle/cautious low-dose diuretic therapy to maintain net negative fluid balance for now. 7. Systolic anterior motion of the mitral leaflet: Plan as above. Can reassess in the outpatient setting. If he should require myomectomy, the SHARA may improve but if not, can be addressed at that time. 8. Disposition: Cardiology will continue to follow. Plan of care communicated with Dr. Whittington of the primary hospitalist service. Follow-up with Dr. Nogueira in the outpatient setting. Highly complex medical issues. Thank you for allowing me to participate in the care of your patient. Please call for any other questions or concerns. Sincerely, Lowell Reilly M.D. History of Present Illness Reason for Consultation: [facility] Requesting Physician: Yoan Whittington MD Attending Physician: Yoan Whittington MD History of Present Illness Mr. Carreon is a pleasant 53-year-old gentleman with history significant for hypertrophic cardiomyopathy with obstruction, nonobstructive CAD, hypertension, seizure disorder, dyslipidemia, and COPD. He has been seen by Dr. Nogueira in September 2023 and in the office by Mr. Cat for his cardiology care. He has had the following studies/procedures: 1. Cardiac cath 10/10/2023: LAD luminal irregularities. Dominant circumflex with several large OM branches. The ongoing AV groove vessel (distal circumflex) 50 to 60%. Nondominant RCA. Dynamic outflow tract obstruction maximum 50 to 60 mmHg. 2. Echo 11/28/2023: Normal LV size, wall motion, systolic function. EF 60-65%. Severe asymmetric hypertrophy involving the anteroseptum (3.1 cm) with otherwise moderate LVH. Severe left atrial dilation. Moderate to severe MR. SHARA with severe LVOT obstruction (PG 94). RVSP 29. Very small pericardial effusion without echo evidence of tamponade. He was admitted on 11/28/2023 with shortness of breath according to the history and physical. When discussing with him, he denies shortness of breath but rather states that he had chest pain for 4 hours beginning on 11/27/2023 at appro ximately 12:30 PM. It occurred while sitting. It was present when he arrived at the ER and resolved sometime later spontaneously. He denies dyspnea on exertion but admits that he does not significantly exert himself secondary to a left leg chainsaw accident in the past which left his leg injured. He has had intermittent chest pain over the years and had cardiac catheterization done on 10/10/2023 for such symptoms. Upon further questioning, he admits to orthopnea 3 times in the past 2 months. He has some edema. He denies syncope, near syncope, palpitations, melena, hematochezia, or hematu charu. Review of systems: As above. Review of systems otherwise negative/unremarkable. Family history: Father at 54 with presumed ND. He has siblings but is unsure if they have any cardiac condition. He does not recall any other sudden cardiac at young age. Social history: He quit smoking in 2019. Had smoked up to 2 packs/day. Quit alcohol in 2007 once he was incarcerated. He quit drugs in 2007. He had used IV cocaine. He is not . Has 1 daughter. He is from [place]. Currently resides at [facility]. He was accompanied by 2 [facility] guards. Allergies Allergy/AdvReac Type Severity Reaction Status Date / Time No Known Allergies Allergy Verified 08/05/23 11:28 Home Medications Medication Instructions Recorded Confirmed Type carbamazepine 200 mg tablet 600 mg PO BID 01/07/20 11/28/23 History (Tegretol) albuterol sulfate 90 mcg/actuation 2 puff inhalation QID PRN 04/29/22 11/28/23 History aerosol inhaler Shortness Of Breath aspirin 81 mg chewable tablet 81 mg PO DAILY 04/29/22 11/28/23 History phenytoin sodium extended 100 mg 300 mg PO BID 04/29/22 11/28/23 History capsule rosuvastatin 10 mg tablet 20 mg PO HS 08/05/23 11/28/23 History verapamil 360 mg 24 hr 360 mg PO DAILY #90 caps 08/05/23 11/28/23 Rx capsule,extended release divalproex 500 mg tablet,delayed 625 mg PO BID 10/08/23 11/28/23 History release (Depakote) metoprolol succinate 100 mg 100 mg PO DAILY 10/08/23 11/28/23 History tablet,extended release 24 hr Patient History Medical History (Updated 11/28/23 @ 22:15 by James Reilly MD) Mitral regurgitation Coronary artery disease, non-occlusive HOCM (hypertrophic obstructive cardiomyopathy) Hypertension History of tobacco abuse Pulmonary nodule Dyslipidemia Seizure disorder Surgical History No pertinent past surgical history Family History Father Coronary heart disease Seizure disorder Social History (Updated 11/28/23 @ 22:14 by James Reilly MD) Smoking Status: Former smoker Tobacco Type: Cigarettes Second Hand Exposure: No; Do You Dip or Chew Tobacco: No; Hx Alcohol Use: No Hx Substance Use: Yes (former) Preferred Language: British Communication Ability: Effective Senior Qualitative Researcher Required: No Beliefs That Will Affect Care: None Current Living Situation: Other Current Living Situation Comment: inmate at [facility] Feels Safe at Home: Yes Assistive Devices: Glasses Physical Exam Physical Exam: Gen.: No acute distress. Alert and oriented. HEENT: Anicteric sclera. Neck: No JVD. Cardiac: No ventricular heave. Regular. Normal S1-S2. 2/6 systolic ejection murmur at RUSB. 2/6 holosystolic murmur at apex with radiation to the axilla. Pulmonary: Clear to auscultation bilaterally without wheezes, rales, or rhonchi. Abdomen: Soft, nontender, nondistended, with normoactive bowel sounds. No bruits noted. Extremities: 2+ radial pulses bilaterally. 2+ posterior tibialis pulses bilaterally. 1+ bilateral lower extremity edema. No cyanosis. Results & Data Vital Signs (Past 12 Hours) Vital Signs Pulse Pulse Resp BP BP Pulse Ox O2 Del Method 11/28/23 14:00 97 11/28/23 13:31 93 11/28/23 13:31 137/77 11/28/23 13:31 137/77 11/28/23 13:00 92/60 L 11/28/23 13:00 93 11/28/23 12:30 94 11/28/23 12:30 118/75 11/28/23 12:00 118/78 11/28/23 12:00 97 11/28/23 11:30 113/60 11/28/23 11:30 94 11/28/23 11:00 114/63 11/28/23 11:00 90 11/28/23 10:30 111/71 11/28/23 10:30 53 L 12 96 11/28/23 10:00 60 15 94 11/28/23 09:31 119/85 11/28/23 09:31 74 18 94 11/28/23 09:01 133/87 11/28/23 09:01 62 15 96 11/28/23 08:57 98 Nasal Cannula 11/28/23 08:51 70 18 98 Room Air 11/28/23 08:51 160/89 H 11/28/23 08:30 108/68 11/28/23 08:30 59 L 13 99 Nasal Cannula 11/28/23 08:00 110/64 11/28/23 08:00 60 15 97 11/28/23 07:40 59 L 11/28/23 07:30 116/77 11/28/23 07:30 59 L 13 99 11/28/23 07:00 60 16 98 11/28/23 07:00 124/72 11/28/23 06:00 59 L 14 101/75 93 Room Air 11/28/23 05:00 52 L 14 137/81 95 Room Air 11/28/23 03:00 59 L 15 134/90 97 Room Air O2 Flow Rate 11/28/23 14:00 11/28/23 13:31 11/28/23 13:31 11/28/23 13:31 11/28/23 13:00 11/28/23 13:00 11/28/23 12:30 11/28/23 12:30 11/28/23 12:00 11/28/23 12:00 11/28/23 11:30 11/28/23 11:30 11/28/23 11:00 11/28/23 11:00 11/28/23 10:30 11/28/23 10:30 11/28/23 10:00 11/28/23 09:31 11/28/23 09:31 11/28/23 09:01 11/28/23 09:01 11/28/23 08:57 2 11/28/23 08:51 11/28/23 08:51 11/28/23 08:30 11/28/23 08:30 2 11/28/23 08:00 11/28/23 08:00 11/28/23 07:40 11/28/23 07:30 11/28/23 07:30 11/28/23 07:00 11/28/23 07:00 11/28/23 06:00 11/28/23 05:00 11/28/23 03:00 Intake & Output 11/26/23 11/27/23 11/28/23 11/29/23 06:59 06:59 06:59 06:59 Intake Total 0 / 0 Output Total 525 / 525 Balance -525 / -525 Weight 253 lb 15.56 oz Laboratory Results Laboratory Results - last 24 hr 11/27/23 11/28/23 11/28/23 20:53 02:21 05:08 WBC 5.82 5.25 RBC 4.07 L 4.00 L Hgb 12.9 L 12.3 L Hct 37.2 L 37.2 L MCV 91.4 93.0 MCH 31.7 30.8 MCHC 34.7 33.1 RDW Std Deviation 41.5 43.2 RDW Coeff of Telly 12.4 12.7 Plt Count 182 161 MPV 10.5 10.2 Immature Gran % (Auto) 0.3 0.2 Neut % (Auto) 47.3 46.0 Lymph % (Auto) 38.5 40.8 [place] % (Auto) 11.3 10.9 Eos % (Auto) 1.9 1.5 Baso % (Auto) 0.7 0.6 Neut # (Auto) 2.75 2.42 Lymph # (Auto) 2.24 2.14 [place] # (Auto) 0.66 H 0.57 Eos # (Auto) 0.11 0.08 Baso # (Auto) 0.04 0.03 Immature Gran # (Auto) 0.02 0.01 Sodium 143 142 Potassium 4.3 4.2 Chloride 109 H 108 H Carbon Dioxide 26 29 Anion Gap 8 5 BUN 16 14 Creatinine 0.78 0.79 Est Cr Clr Drug Dosing 133.4 131.7 Est GFR ( Amer) 118.6 118.0 Est GFR (Non-Af Amer) 102.3 101.8 BUN/Creatinine Ratio 20.5 H 17.7 Glucose 100 H 104 H Calcium 9.0 8.3 L Total Bilirubin 0.3 AST 14 ALT 16 Alkaline Phosphatase 40 Troponin I High Sens 55.2 H* 59.7 H* B-Natriuretic Peptide 573 H Total Protein 7.0 Albumin 4.1 Globulin 2.9 Albumin/Globulin Ratio 1.4 Urine Color Yellow Urine Appearance Clear Urine pH 6.5 Ur Specific [place] 1.015 Urine Protein Negative Urine Glucose (UA) Negative Urine Ketones Negative Urine Blood Negative Urine Nitrite Negative Urine Bilirubin Negative Urine Urobilinogen Negative Ur Leukocyte Esterase Negative SARS-CoV-2 (PCR) Influenza Type A (PCR) Influenza Type B (PCR) RSV (RT-PCR) 11/28/23 11/28/23 11/28/23 07:38 11:10 13:55 WBC RBC Hgb Hct MCV MCH MCHC RDW Std Deviation RDW Coeff of Telly Plt Count MPV Immature Gran % (Auto) Neut % (Auto) Lymph % (Auto) [place] % (Auto) Eos % (Auto) Baso % (Auto) Neut # (Auto) Lymph # (Auto) [place] # (Auto) Eos # (Auto) Baso # (Auto) Immature Gran # (Auto) Sodium Potassium Chloride Carbon Dioxide Anion Gap BUN Creatinine Est Cr Clr Drug Dosing Est GFR ( Amer) Est GFR (Non-Af Amer) BUN/Creatinine Ratio Glucose Calcium Total Bilirubin AST ALT Alkaline Phosphatase Troponin I High Sens 53.7 H* 44.8 H B-Natriuretic Peptide Total Protein Albumin Globulin Albumin/Globulin Ratio Urine Color Urine Appearance Urine pH Ur Specific [place] Urine Protein Urine Glucose (UA) Urine Ketones Urine Blood Urine Nitrite Urine Bilirubin Urine Urobilinogen Ur Leukocyte Esterase SARS-CoV-2 (PCR) NEGATIVE Influenza Type A (PCR) Negative Influenza Type B (PCR) Negative RSV (RT-PCR) Negative Diagnostic Findings ECHO 11/28/23: 1. Normal left ventricular size and systolic function. EF 60-65%. No regional wall motion abnormalities. Severe asymmetric hypertrophy involving the anteroseptum (3.1 cm), with otherwise moderate concentric LVH. 2. Severe left atrial dilation. 3. Moderate to severe mitral regurgitation. 4. Systolic anterior motion of the mitral leaflet with severe LVOT obstruction (peak gradient 94 mmHg). 5. Normal estimated right ventricular systolic pressure; RVSP 29 mmHg. 6. Very small pericardial effusion without echocardiographic evidence of tamponade physiology. 7. Compared to prior study on 10/09/2023, LVOT gradient has increased. Mitral regurgitation is now moderate to severe. Labs reviewed and notable for mild anemia, mildly elevated high-sensitivity troponin, normal potassium, normal renal function, normal transaminase levels, elevated BNP. ECG personally reviewed 11/27/2023: Sinus rhythm 69 bpm. Poor R wave progression. Lateral T wave inversion. Cardiac cath 10/10/2023: Dominant circumflex. Distal AV groove circumflex 50 to 60%. Luminal irregularities within the LAD. Gradient of 50 mmHg reported when pulling back from the LV across the aortic valve. LVEDP 14. Chest x-ray 11/27/2023: Pulmonary vascular congestion. Chest x-ray image personally reviewed. Medications Administered Current Inpatient Medications Acetaminophen (Acetaminophen 325 Mg Tab) 650 mg PO Q4H PRN PRN Reason: Pain or Fever Stop: 12/28/23 02:00 Aspirin (Aspirin 81 Mg Chew) 81 mg PO DAILY [facility] Stop: 12/28/23 08:59 Last Admin: 11/28/23 08:46 Dose: 81 mg Carbamazepine (Carbamazepine 200 Mg Tablet) 600 mg PO BID [facility] Stop: 12/28/23 08:59 Last Admin: 11/28/23 08:48 Dose: 600 mg Divalproex Sodium (Divalproex Delay Release 125 Mg Tabec) 625 mg PO BID [facility] Stop: 12/28/23 08:59 Last Admin: 11/28/23 08:48 Dose: 625 mg Heparin Sodium (Porcine) (Heparin Sod 5,000 Unit/0.5 Ml Vial) 5,000 units SQ Q12 [facility] Stop: 12/28/23 08:59 Last Admin: 11/28/23 08:48 Dose: 5,000 units Metoprolol Succinate (Metoprolol Succ 50mg Ext Rel Tab) 100 mg PO DAILY [facility] Stop: 12/28/23 08:59 Last Admin: 11/28/23 08:48 Dose: 100 mg Phenytoin Sodium (Phenytoin Sodium Er 100 Mg Cap) 300 mg PO BID [facility] Stop: 12/28/23 08:59 Last Admin: 11/28/23 08:49 Dose: 300 mg Polyethylene Glycol (Polyethylene (Miralax) 17 Gm Pack) 17 gm PO DAILY PRN PRN Reason: Constipation Stop: 12/28/23 02:00 Rosuvastatin Calcium (Rosuvastatin Calcium 20 Mg Tab) 20 mg PO DAILY [facility] Stop: 12/28/23 08:59 Last Admin: 11/28/23 08:49 Dose: 20 mg Verapamil HCl (Verapamil Hcl 180 Mg Tabcr) 360 mg PO DAILY [facility] Stop: 12/28/23 08:59 Last Admin: 11/28/23 08:49 Dose: 360 mg PG Care Time/CCT Total # of Minutes Spent Total Time Spent with Patient: Total time spent is greater than 50% in coordination of care (as documented) at patient's floor/unit and/or counseling patient: Coding Level of Care Code 37384 INT INP/OBS CARE 3/75MIN Diagnoses HOCM (hypertrophic obstructive cardiomyopathy) I42.1 CAD (coronary artery disease) I25.10 Primary hypertension I10 Hypertension type: primary hypertension Chest pain, unspecified type R07.9 Chest pain type: unspecified Elevated troponin R77.8 Heart failure with preserved ejection fraction I50.30 Mitral regurgitation I34.0 (3) Hypertension Hypertension type: primary hypertension Qualified Code(s): I10 - Essential (p rimary) hypertension (4) Chest pain Chest pain type: unspecified Qualified Code(s): R07.9 - Chest pain, unspecified
--- NOTE | 2023-11-28 15:02 | XCELERA ---
[id number] [id number]
--- NOTE | 2023-11-28 19:41 | Hospitalist Progress Note ---
Date of Service November 28, 2023 Assessment & Plan (1) HOCM (hypertrophic obstructive cardiomyopathy): Plan: echo today showed -- His LVOT obstruction is worse and quite severe with peak gradient of 94mmHG. Cardiology believes and I agree with such that his LVOT obstruction / HOCM is the root cause of his presenting symptoms. He now has decompensated HFpEF as a result of his HOCM. Received IV lasix 10mg x 1 at ER presentation with some improvement in breathing. Still with rales on exam - will give gentle diuresis again with lasix 20mg po x 1 now. Appreciate cardiology consult by Dr Reilly and agree with his recommendations. Dr Reilly is increasing metoprolol succinate from 100mg daily to 200mg daily. Verapamil to be d/c. Disopyramide 100mg BID to be initiated. Patient ultimately will need CT surgery referral for myomectomy. (2) CHF (congestive heart failure): Plan: acute HFpEF - lasix 20mg po x 1 (gentle diuresis given he is pre-load dependent from his HOCM) reassess volume status tomorrow see #1 above for more details (3) COPD (chronic obstructive pulmonary disease): Plan: having dyspnea on exertion but no symptoms to suggest COPD flare or infectious process to be complete I did order COVID/flu/RSV -- returned negative (4) CAD (coronary artery disease): Plan: non-obstructive based on heart cath 09/[address] Akil Nogueira (5) Dyspnea: Plan: as above in #1 (6) Coronary artery disease, non-occlusive: (7) Hypertension: (8) Seizure disorder: (9) Mitral regurgitation: Plan: mod-severe no acute Rx needed specifically for this but beta [place] to be increased and Rx of HOCM will continue see Dr Reilly's cardiology consult note for more info (10) Elevated troponin: Plan: 2nd myocardial demand ischemia in setting of #1, #2 this is not 2nd to ACS Plan I corresponded with Dr Reilly via [place] communication today multiple times Admission and Anticipated Discharge Date Admission Date: November 28, 2023 Subjective saw patient on [facility] after transfer from the ER he reported he got up to go to bathroom and was severely dyspneic at rest he is not dyspneic dyspnea today was similar to what he was experiencing [facility] denies cough denies URI symptoms denies fever normal appetite denies near-syncope, syncope, dizziness, lightheadedness Physical Exam 2 Physical Exam: gen - lying in bed comfortably skin - numerous tattoos neck - no JVD mouth - MMM heart - RRR, s1 s2, 2/6 holosystolic murmur LLSB with radiation to L axillary region; no miroslava or rub lungs - b/l basilar rales - fine; no wheeze; no increased work of breathing abd - soft NT ND BS+; no HSM ext - trace edema b/l, pulses 2+ b/l Results & Data Results & Data Vital Signs (Past 12 Hours) Vital Signs Temp Pulse Pulse Resp BP BP Pulse Ox 11/28/23 17:35 62 11/28/23 17:09 11/28/23 16:45 36.4 C L 68 169/94 H 97 11/28/23 14:00 97 11/28/23 13:31 93 11/28/23 13:31 137/77 11/28/23 13:31 137/77 11/28/23 13:00 92/60 L 11/28/23 13:00 93 11/28/23 12:30 94 11/28/23 12:30 118/75 11/28/23 12:00 118/78 11/28/23 12:00 97 11/28/23 11:30 113/60 11/28/23 11:30 94 11/28/23 11:00 114/63 11/28/23 11:00 90 11/28/23 10:30 111/71 11/28/23 10:30 53 L 12 96 11/28/23 10:00 60 15 94 11/28/23 09:31 119/85 11/28/23 09:31 74 18 94 11/28/23 09:01 133/87 11/28/23 09:01 62 15 96 11/28/23 08:57 98 11/28/23 08:51 70 18 98 11/28/23 08:51 160/89 H 11/28/23 08:30 108/68 11/28/23 08:30 59 L 13 99 11/28/23 08:00 110/64 11/28/23 08:00 60 15 97 O2 Del Method O2 Flow Rate 11/28/23 17:35 11/28/23 17:09 Room Air 11/28/23 16:45 Room Air 11/28/23 14:00 11/28/23 13:31 11/28/23 13:31 11/28/23 13:31 11/28/23 13:00 11/28/23 13:00 11/28/23 12:30 11/28/23 12:30 11/28/23 12:00 11/28/23 12:00 11/28/23 11:30 11/28/23 11:30 11/28/23 11:00 11/28/23 11:00 11/28/23 10:30 11/28/23 10:30 11/28/23 10:00 11/28/23 09:31 11/28/23 09:31 11/28/23 09:01 11/28/23 09:01 11/28/23 08:57 Nasal Cannula 2 11/28/23 08:51 Room Air 11/28/23 08:51 11/28/23 08:30 11/28/23 08:30 Nasal Cannula 2 11/28/23 08:00 11/28/23 08:00 Laboratory Results Laboratory Results - last 48 hr 11/27/23 11/28/23 11/28/23 20:53 02:21 05:08 WBC 5.82 5.25 RBC 4.07 L 4.00 L Hgb 12.9 L 12.3 L Hct 37.2 L 37.2 L MCV 91.4 93.0 MCH 31.7 30.8 MCHC 34.7 33.1 RDW Std Deviation 41.5 43.2 RDW Coeff of Telly 12.4 12.7 Plt Count 182 161 MPV 10.5 10.2 Immature Gran % (Auto) 0.3 0.2 Neut % (Auto) 47.3 46.0 Lymph % (Auto) 38.5 40.8 [place]w % (Auto) 11.3 10.9 Eos % (Auto) 1.9 1.5 Baso % (Auto) 0.7 0.6 Neut # (Auto) 2.75 2.42 Lymph # (Auto) 2.24 2.14 [place]omew # (Auto) 0.66 H 0.57 Eos # (Auto) 0.11 0.08 Baso # (Auto) 0.04 0.03 Immature Gran # (Auto) 0.02 0.01 Sodium 143 142 Potassium 4.3 4.2 Chloride 109 H 108 H Carbon Dioxide 26 29 Anion Gap 8 5 BUN 16 14 Creatinine 0.78 0.79 Est Cr Clr Drug Dosing 133.4 131.7 Est GFR ( Amer) 118.6 118.0 Est GFR (Non-Af Amer) 102.3 101.8 BUN/Creatinine Ratio 20.5 H 17.7 Glucose 100 H 104 H Calcium 9.0 8.3 L Total Bilirubin 0.3 AST 14 ALT 16 Alkaline Phosphatase 40 Troponin I High Sens 55.2 H* 59.7 H* B-Natriuretic Peptide 573 H Total Protein 7.0 Albumin 4.1 Globulin 2.9 Albumin/Globulin Ratio 1.4 Urine Color Yellow Urine Appearance Clear Urine pH 6.5 Ur Specific [place] 1.015 Urine Protein Negative Urine Glucose (UA) Negative Urine Ketones Negative Urine Blood Negative Urine Nitrite Negative Urine Bilirubin Negative Urine Urobilinogen Negative Ur Leukocyte Esterase Negative SARS-CoV-2 (PCR) Influenza Type A (PCR) Influenza Type B (PCR) RSV (RT-PCR) 11/28/23 11/28/23 11/28/23 07:38 11:10 13:55 WBC RBC Hgb Hct MCV MCH MCHC RDW Std Deviation RDW Coeff of Telly Plt Count MPV Immature Gran % (Auto) Neut % (Auto) Lymph % (Auto) [place]w % (Auto) Eos % (Auto) Baso % (Auto) Neut # (Auto) Lymph # (Auto) [place]w # (Auto) Eos # (Auto) Baso # (Auto) Immature Gran # (Auto) Sodium Potassium Chloride Carbon Dioxide Anion Gap BUN Creatinine Est Cr Clr Drug Dosing Est GFR ( Amer) Est GFR (Non-Af Amer) BUN/Creatinine Ratio Glucose Calcium Total Bilirubin AST ALT Alkaline Phosphatase Troponin I High Sens 53.7 H* 44.8 H B-Natriuretic Peptide Total Protein Albumin Globulin Albumin/Globulin Ratio Urine Color Urine Appearance Urine pH Ur Specific [place] Urine Protein Urine Glucose (UA) Urine Ketones Urine Blood Urine Nitrite Urine Bilirubin Urine Urobilinogen Ur Leukocyte Esterase SARS-CoV-2 (PCR) NEGATIVE Influenza Type A (PCR) Negative Influenza Type B (PCR) Negative RSV (RT-PCR) Negative Diagnostic Findings Chest X-Ray 11/27/23 20:49 SINGLE VIEW CHEST CLINICAL HISTORY: Dyspnea FINDINGS: 2 AP, portable, upright chest radiographs are compared to study dated 10/08/2023. The heart is enlarged note atherosclerotic calcification of the thoracic aorta. There is pulmonary vascular congestion. Atelectasis is noted at the lung bases. No large pleural effusion or pneumothorax is seen. The bony thorax is grossly intact. IMPRESSION: Cardiomegaly with pulmonary vascular congestion. ACT 112: Negative or not required by law. Electronically signed by: Chandler Longoria M.D. 11/28/2023 8:02 AM PG Care Time/CCT Total # of Minutes Spent Total Time Spent with Patient: Total time spent is greater than 50% in coordination of care (as documented) at patient's floor/unit and/or counseling patient: Coding Level of Care Code None Diagnoses HOCM (hypertrophic obstructive cardiomyopathy) I42.1 CHF (congestive heart failure) I50.9 COPD (chronic obstructive pulmonary disease) J44.9 CAD (coronary artery disease) I25.10 Dyspnea R06.00 Coronary artery disease, non-occlusive I25.10 Primary hypertension I10 Hypertension type: primary hypertension Seizure disorder G40.909 Mitral regurgitation I34.0 Elevated troponin R77.8 (7) Hypertension Hypertension type: primary hypertension Qualified Code(s): I10 - Essential (primary) hypertension
[2023-11-28] MEDS: FUROSEMIDE 20 MG TAB PO ONE (21:25)
[2023-11-29] MEDS: METOPROLOL SUCC 50MG EXT REL TAB PO SCH (08:45)
[2023-11-29 08:47] LABS: Creatinine Clr Calc Pharmacy 127.2 ml/min; Est GFR (Non-African American) 101.8 ml/min; Potassium 4.2 mmol/L (3.5-5.1)
[2023-11-29] MEDS ORDERED: DISOPYRAMIDE PO SCH (09:00)
--- NOTE | 2023-11-29 15:27 | Cardiology Progress Note ---
Date of Service November 29, 2023 Assessment & Plan (1) HOCM (hypertrophic obstructive cardiomyopathy): (2) CAD (coronary artery disease): (3) Hypertension: (4) Chest pain: (5) Elevated troponin: (6) Heart failure with preserved ejection fraction: (7) Mitral regurgitation: Plan ASSESSMENT/PLAN: 1. Hypertrophic cardiomyopathy with obstruction: Appears to be symptomatic and presented with heart failure. Verapamil was discontinued yesterday and metoprolol succinate increased to 200 mg once daily today. Disopyramide extended release was ordered but not available until next week. Patient feels much better today on current regimen. For now, continue metoprolol succinate 200 mg daily. Repeat echo in the outpatient setting to reevaluate gradient. If no better or if he continues to be symptomatic, would then recommend disopyramide and potential referral to CT surgery capable center if symptoms persist despite medical therapy. Recommend cardiac MRI in the outpatient setting to evaluate percent of fibrosis, to help risk stratify. Monitor for ventricular arrhythmia. Unable to exercise due to leg injury. Remain well- hydrated. Recommend evaluation for first-degree relatives. Could consider genetic evaluation in the outpatient setting. 2. Mitral regurgitation: Appears moderate to severe. With adjustments to his hypertrophic cardiomyopathy medications, gradient may improve and hopefully less SHARA and less MR. Otherwise, can be further evaluated at a tertiary care center if MR remains significant. Continue to monitor in the outpatient setting. 3. CAD: Nonobstructive. Risk factor modification. Continue aspirin 81 mg daily. Continue high intensity statin therapy. 4. Chest pain: Atypical. Possibly related to hypertrophic or myopathy with obstruction. Adjustments as above. 5. Elevated troponin: High-sensitivity troponin is only minimally elevated. He has chronic elevation. Likely related to hypertrophic cardiomyopathy. 6. Heart failure with preserved EF: It sounds as though he is presented in heart failure and improved with diuretic. He does not appear to be significantly hypervolemic now. 7. Systolic anterior motion of the mitral leaflet: Plan as above. Can reassess in the outpatient setting. If he should require myomectomy, the SHARA may improve but if not, can be addressed at that time. 8. Disposition: I will be away from the hospital after 5 PM today. Please contact on-call microsoft dynamics manager architect for questions or concerns. Dr. Nogueira will be rounding tomorrow. Please call him with any questions or concerns. Otherwise, since he seems to feel back to baseline from a cardiac perspective, could be discharged home from cardiology standpoint. Plan of care communicated with Dr. Whittington of the primary hospitalist service. Follow-up with Dr. Nogueira in the outpatient setting. Admission and Anticipated Discharge Date Admission Date: November 28, 2023 Subjective Patient seen earlier this afternoon. He is breathing is much improved. He denied orthopnea. He denies any further chest pain. He denies palpitations, syncope, near syncope, edema, or bleeding. Physical Exam Physical Exam: Gen.: No acute distress. Alert and oriented. HEENT: Anicteric sclera. Neck: No JVD. Cardiac: No ventricular heave. Regular. Normal S1-S2. 1/6 systolic ejection murmur at RUSB. 2/6 holosystolic murmur at apex with radiation to the axilla. Pulmonary: Clear to auscultation bilaterally without wheezes, rales, or rhonchi. Abdomen: Soft, nontender, nondistended, with normoactive bowel sounds. No bruits noted. Extremities: 2+ radial pulses bilaterally. 2+ posterior tibialis pulses bilaterally. Trace to 1+ bilateral lower extremity edema. No cyanosis. Results & Data Vital Signs (Past 12 Hours) Vital Signs Temp Pulse Pulse Resp BP Pulse Ox O2 Del Method 11/29/23 11:50 36.6 C 58 L 18 152/84 H 96 Room Air 11/29/23 08:58 Room Air 11/29/23 07:51 37 C 80 18 131/70 96 Room Air 11/29/23 07:17 55 L 11/29/23 04:00 36.7 C 57 L 16 131/64 94 Room Air Intake & Output 11/27/23 11/28/23 11/29/23 11/30/23 06:59 06:59 06:59 06:59 Intake Total 0 / 0 200 / 200 480 / 480 Output Total 525 / 525 1200 / 1200 800 / 800 Balance -525 / -525 -1000 / -1000 -320 / -320 Weight 253 lb 15.56 oz 237 lb 8 oz Laboratory Results Laboratory Results - last 24 hr 11/29/23 07:27 Sodium 140 Potassium 4.2 Chloride 104 Carbon Dioxide 28 Anion Gap 8 BUN 15 Creatinine 0.79 Est Cr Clr Drug Dosing 127.2 Est GFR ( Amer) 118.0 Est GFR (Non-Af Amer) 101.8 BUN/Creatinine Ratio 19.0 Glucose 94 Calcium 9.0 Magnesium 2.0 Diagnostic Findings Telemetry personally reviewed: Sinus rhythm with sinus bradycardia with heart rates mostly 50s to 60s. No arrhythmia. Labs reviewed and notable for normal potassium, normal renal function, normal magnesium. Medications Administered Current Inpatient Medications Acetaminophen (Acetaminophen 325 Mg Tab) 650 mg PO Q4H PRN PRN Reason: Pain or Fever Stop: 12/28/23 02:00 Aspirin (Aspirin 81 Mg Chew) 81 mg PO DAILY DONOVAN Stop: 12/28/23 08:59 Last Admin: 11/29/23 08:47 Dose: 81 mg Carbamazepine (Carbamazepine 200 Mg Tablet) 600 mg PO BID [facility] Stop: 12/28/23 08:59 Last Admin: 11/29/23 09:48 Dose: 600 mg Disopyramide Phosphate (Disopyramide Phos Extended Rel 100 Mg Capcr) 100 mg PO Q12 [facility] Stop: 12/29/23 08:59 Divalproex Sodium (Divalproex Delay Release 125 Mg Tabec) 625 mg PO BID [facility] Stop: 12/28/23 08:59 Last Admin: 11/29/23 08:45 Dose: 625 mg Heparin Sodium (Porcine) (Heparin Sod 5,000 Unit/0.5 Ml Vial) 5,000 units SQ Q12 [facility] Stop: 12/28/23 08:59 Last Admin: 11/29/23 08:46 Dose: 5,000 units Metoprolol Succinate (Metoprolol Succ 50mg Ext Rel Tab) 200 mg PO DAILY [facility] Stop: 12/29/23 08:59 Last Admin: 11/29/23 08:45 Dose: 200 mg Phenytoin Sodium (Phenytoin Sodium Er 100 Mg Cap) 300 mg PO BID [facility] Stop: 12/28/23 08:59 Last Admin: 11/29/23 08:46 Dose: 300 mg Polyethylene Glycol (Polyethylene (Miralax) 17 Gm Pack) 17 gm PO DAILY PRN PRN Reason: Constipation Stop: 12/28/23 02:00 Rosuvastatin Calcium (Rosuvastatin Calcium 20 Mg Tab) 20 mg PO DAILY [facility] Stop: 12/28/23 08:59 Last Admin: 11/29/23 08:46 Dose: 20 mg PG Care Time/CCT Total # of Minutes Spent Total Time Spent with Patient: Total time spent is greater than 50% in coordination of care (as documented) at patient's floor/unit and/or counseling patient: Coding Level of Care Code 66034 SUB INP/OBS CARE MIN Diagnoses HOCM (hypertrophic obstructive cardiomyopathy) I42.1 CAD (coronary artery disease) I25.10 Primary hypertension I10 Hypertension type: primary hypertension Chest pain, unspecified type R07.9 Chest pain type: unspecified Elevated troponin R77.8 Heart failure with preserved ejection fraction I50.30 Mitral regurgitation I34.0 (3) Hypertension Hypertension type: primary hypertension Qualified Code(s): I10 - Essential (primary) hypertension (4) Chest pain Chest pain type: unspecified Qualified Code(s): R07.9 - Chest pain, unspecified
--- NOTE | 2023-11-29 20:19 | Hospitalist Progress Note ---
Date of Service November 29, 2023 Assessment & Plan (1) HOCM (hypertrophic obstructive cardiomyopathy): Plan: echo today showed -- His LVOT obstruction is worse and quite severe with peak gradient of 94mmHG. Cardiology believes and I agree with such that his LVOT obstruction / HOCM is the root cause of his presenting symptoms. He now has decompensated HFpEF as a result of his HOCM. Received IV lasix 10mg x 1 at ER presentation with some improvement in breathing. Gave lasix 20mg po x 1 last evening - exam improved, dyspnea improved, WILEY improved. Appears compensated today. Appreciate cardiology consult by Dr Reilly and agree with his recommendations. Dr Reilly is increasing metoprolol succinate from 100mg daily to 200mg daily. Verapamil d/c. Disopyramide 100mg BID was to be started but not on formulary at [facility]. Dr Reilly to forego this for now. Patient ultimately will need CT surgery referral for myomectomy. (2) CHF (congestive heart failure): Plan: acute HFpEF - lasix 20mg po x 1 yesterday decompensation improved see #1 above for more details (3) COPD (chronic obstructive pulmonary disease): Plan: having dyspnea on exertion but no symptoms to suggest COPD flare or infectious process to be complete I did order COVID/flu/RSV -- returned negative (4) CAD (coronary artery disease): Plan: non-obstructive based on heart cath 09/[address] Akil Nogueira (5) Dyspnea: Plan: as above in #1 (6) Coronary artery disease, non-occlusive: (7) Hypertension: Plan: much improved s/p increase in meto succ (8) Seizure disorder: Plan: tegretol BID depakote BID dilantin BID no signs/symptoms of any toxicity from any med (9) Mitral regurgitation: Plan: mod-severe no acute Rx needed specifically for this but beta [place] to be increased and Rx of HOCM will continue see Dr Reilly's cardiology consult note for more info (10) Elevated troponin: Plan: 2nd myocardial demand ischemia in setting of #1, #2 this is not 2nd to ACS Plan I corresponded with Dr Reilly via [place] communication again today Can d/c back to [facility] living tomorrow if stable overnight Admission and Anticipated Discharge Date Admission Date: November 28, 2023 Subjective tele overnight - wnl; no dysrhythmia or VT pt feeling well no dyspnea at rest no orthopnea after my visit I had the guards get him up to walk in the room -- by report NO WILEY denies chest pain denies dizziness or lightheadedness no cough eating well Review of Systems 2 Review of Systems: CV - no PND pulm - no wheezing GI - no abd pain or N/V Physical Exam 2 Physical Exam: gen - lying in bed comfortably, NAD, looks well skin - numerous tattoos neck - no JVD mouth - MMM heart - RRR, s1 s2, 2/6 holosystolic murmur LLSB with radiation to L axillary region; no miroslava or rub lungs - b/l basilar rales nearly resolved; no wheeze; no increased work of breathing abd - soft NT ND BS+; no HSM ext - no edema b/l, pulses 2+ b/l Results & Data Results & Data Vital Signs (Past 12 Hours) Vital Signs Temp Pulse Pulse Resp BP Pulse Ox O2 Del Method 11/29/23 20:01 36.7 C 50 L 16 132/77 95 Room Air 11/29/23 15:42 36.8 C 54 L 18 145/84 H 96 Room Air 11/29/23 15:39 56 L 11/29/23 11:50 36.6 C 58 L 18 152/84 H 96 Room Air 11/29/23 08:58 Room Air Laboratory Results Laboratory Results - last 24 hr 11/29/23 07:27 Sodium 140 Potassium 4.2 Chloride 104 Carbon Dioxide 28 Anion Gap 8 BUN 15 Creatinine 0.79 Est Cr Clr Drug Dosing 127.2 Est GFR ( Amer) 118.0 Est GFR (Non-Af Amer) 101.8 BUN/Creatinine Ratio 19.0 Glucose 94 Calcium 9.0 Magnesium 2.0 PG Care Time/CCT Total # of Minutes Spent Total Time Spent with Patient: Total time spent is greater than 50% in coordination of care (as documented) at patient's floor/unit and/or counseling patient: Coding Level of Care Code 18747 SUB INP/OBS CARE 1/25MIN Diagnoses HOCM (hypertrophic obstructive cardiomyopathy) I42.1 CHF (congestive heart failure) I50.9 COPD (chronic obstructive pulmonary disease) J44.9 CAD (coronary artery disease) I25.10 Dyspnea R06.00 Coronary artery disease, non-occlusive I25.10 Primary hypertension I10 Hypertension type: primary hypertension Seizure disorder G40.909 Mitral regurgitation I34.0 Elevated troponin R77.8 (7) Hypertension Hypertension type: primary hypertension Qualified Code(s): I10 - Essential (primary) hypertension
--- NOTE | 2023-11-29 21:52 | Electrocardiogram Report ---
Test Reason : Blood Pressure : / mmHG Vent. Rate : 069 BPM Atrial Rate : 069 BPM P-R Int : 178 ms QRS Dur : 094 ms QT Int : 440 ms P-R-T Axes : 049 040 091 degrees QTc Int : 471 ms Normal sinus rhythm Possible Anterior infarct , age undetermined T wave abnormality, consider lateral ischemia Abnormal ECG When compared with ECG of 08-OCT-2023 17:03, No significant change was found Confirmed by James Reilly ([id number]) on 11/29/2023 9:51:52 PM Referred By: [facility] Confirmed By:James Reilly
[2023-11-30 07:32] LABS: Potassium 4.5 mmol/L (3.5-5.1)
[2023-11-30 07:42] VITALS: RESP 18
[2023-11-30 07:49] LABS: Calcium 9.1 mg/dl (8.6-10.3); Creatinine Clr Calc Pharmacy 133.9 ml/min; Est GFR (African American) 121.2 ml/min; Est GFR (Non-African American) 104.6 ml/min
[2023-11-30 11:31] VITALS: PULSE 52; TEMP 98.1; O2SAT 95
--- NOTE | 2023-11-30 11:50 | Discharge Summary ---
Date of Service date of admission - November 28, 2023 date of discharge - November 30, 2023 Admission HPI Per Admitting Provider Rafael Carreon is a 53 year-old male with a past medical history of COPD, CAD, HOCM, HTN who presented to the hospital due to shortness of breath. He is a resident of [facility]. 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 States that the shortness of breath has been ongoing since that time, although he endorses significant improvement of his symptoms when he was given an oxygen mask in the ambulance and then nasal cannula oxygen in the ED. He notes that over the past few days he has felt a bit more fatigued and has had a slightly decreased appetite (has given several of his meal trays away in the past few days) but denies abdominal pain/nausea/vomiting. He denies chest pain, fever, body aches or chills and denies any changes to his bowel or bladder habits. He does endorse some slight swelling of his lower legs this afternoon after taking off his work boots. Mr. Carreon recently had a cardiac catheterization at [facility] due to NSTEMI, but no stents were placed and the catheterization was similar to his previous study in 2019. He was diagnosed with mild acute CHF at that time, and cardiology recommended continuing with medical management and no diuresis was indicated at that time. Patient denies any ongoing symptoms of chest pain or shortness of breath in between his last admission and his current presentation. ED Course: -CBC, CMP, BNP -EKG, chest x-ray Principal Diagnosis 1. shortness of breath due to pulmonary edema and HOCM (hypertrophic obstructive cardiomyopathy) 2. severe HOCM 3. Mitral regurgitation 4. Elevated troponin 2nd to myocardial demand ischemia from #1 5. COPD 6. CAD - non occlusive based on catheterization 09/2023 7. HTN 8. Seizure disorder 9. acute HFpEF - resolved Discharge Exam gen - lying in bed comfortably, NAD, looks well skin - numerous tattoos neck - no JVD mouth - MMM heart - RRR, s1 s2, 2/6 holosystolic murmur LLSB with radiation to L axillary region; no miroslava or rub lungs - b/l basilar rales resolved; no wheeze; no increased work of breathing abd - soft NT ND BS+; no HSM ext - no edema b/l, pulses 2+ b/l Discharge Data Allergies Allergy/AdvReac Type Severity Reaction Status Date / Time No Known Allergies Allergy Verified 12/09/23 12:31 Consultations [facility] Procedures Performed Echocardiogram - see results below Ordered Studies Chest X-Ray 11/27/23 20:49 SINGLE VIEW CHEST CLINICAL HISTORY: Dyspnea FINDINGS: 2 AP, portable, upright chest radiographs are compared to study dated 10/08/2023. The heart is enlarged note atherosclerotic calcification of the thoracic aorta. There is pulmonary vascular congestion. Atelectasis is noted at the lung bases. No large pleural effusion or pneumothorax is seen. The bony thorax is grossly intact. IMPRESSION: Cardiomegaly with pulmonary vascular congestion. ACT 112: Negative or not required by law. Electronically signed by: Chandler Longoria M.D. 11/28/2023 8:02 AM Hospital Course (1) HOCM (hypertrophic obstructive cardiomyopathy): echo this admission -- His LVOT obstruction has worsed and is quite severe with peak gradient of 94mmHG. Cardiology feels that his LVOT obstruction / HOCM was the root cause of his presenting symptoms. He had decompensated HFpEF as a result of his HOCM. Received IV lasix 10mg x 1 at ER presentation with some improvement in breathing. Gave lasix 20mg po x 1 following admission - exam improved, dyspnea improved, WILEY improved with gentle diuresis. At time of discharge appeared compensated. Cardiology consult was performed by [facility] Lowell Reilly. Dr Reilly increased his metoprolol succinate from 100mg daily to 200mg daily. Verapamil was d/c. Disopyramide 100mg BID was considered but not on formulary at [facility] and therefore was deferred while here and upon discharge. Patient ultimately will need CT surgery referral for myomectomy somewhere down the line. At discharge we prescribed the higher dose of metoprolol succinate, have stopped his verapamil, and have prescribed lasix to be used on PRN basis for weight gain. He will need close f/u with [facility] within 1-2 weeks of hospital discharge. (2) CHF (congestive heart failure): acute HFpEF - 2nd to #1 decompensation improved/resolved with gentle diuresis see #1 above for more details (3) COPD (chronic obstructive pulmonary disease): had dyspnea on exertion but no symptoms to suggest COPD flare or infectious process to be complete COVID/flu/RSV were checked and all returned negative o2 sats were stable upon discharge (4) CAD (coronary artery disease): non-obstructive based on heart cath 09/[address] Akil Nogueira (5) Dyspnea: as above in #1 (6) Coronary artery disease, non-occlusive: cont aspirin, statin, and metoprolol succinate (7) Hypertension: much improved s/p increase in metoprolol succinate (8) Seizure disorder: cont the following -- tegretol BID depakote BID dilantin BID no signs/symptoms of any toxicity from any med while here (9) Mitral regurgitation: mod-severe no acute Rx needed specifically for this but beta [place] was increased during the stay (10) Elevated troponin: 2nd was myocardial demand ischemia in setting of #1, #2 this was not 2nd to ACS peak HS troponin 59 Plan plan of care given to [facility] medical staff director on-call via phone on day of discharge Total Time Total Time Spent Total Time Spent (In Minutes): 45 Discharge Plan Discharge Items [facility] Reason For Visit: SHORTNESS OF BREATH Discharge Diagnosis: 1. shortness of breath due to pulmonary edema and HOCM (hypertrophic obstructive cardiomyopathy) 2. severe HOCM 3. Mitral regurgitation 4. Elevated troponin level due to myocardial demand ischemia from #1 5. COPD 6. CAD - non occlusive based on catheterization 09/2023 7. HTN 8. Seizure disorder 9. acute HFpEF with resulting pulmonary edema/difficulty breathing - pulmonary edema resolved Activity: Per Instructions section Lifting: No more than 10 pounds Exercise Comment: no exercise, weight lifting, or any heavy exertional activities Non-emergency contact: Primary Care Provider and Teacher [employer]am[employer] Call non-emergency contact if: you have any medication questions and your symptoms worsen Follow-up/Referrals: Ghanshyam Cat PA-C [Physician Electronic Controls Repairer Supervisor] - (1-2 weeks in cardiology clinic for recheck of HOCM) Robert LUNDY [Primary Care Provider] - Diet: Heart Healthy Addtl Attending Provider Instructions: 1. follow-up with [facility] in 1-2 weeks (Ghanshyam JUNIOR or Akil Nogueira MD). 2. DAILY WEIGHTS every morning on the same scale if possible. Check weight upon arrival back to the [facility] today. Today's weight will serve as his dry weight. 3. If any weight gain of more than 3 pounds over 1-2 days please START furosemide 20mg daily until his weight is back down to his dry weight. Again, the furosemide will be used PRN only for weight gains per the parameters above. Once back down to dry weight stop the daily furosemide. 4. Take a potassium supplement and magnesium supplement ONLY IF furosemide is given. Thus, these will be PRN as well. 5. INCREASE metoprolol succinate to 200mg once daily, first dose on AM of 12/01/23. 6. DISCONTINUE verapamil. If any worsening shortness of breath, chest pains, feeling dizzy/lightheaded on regular basis, syncope, etc - contact [facility]. Addtl Customer Supply Chain Analyst Provider Instructions: Call 911 and go to the Emergency Room if: * You have tightness or pain in your chest that does not go away with rest or Nitroglycerin * You are very short of breath even with rest Call your doctor if any of the following symptoms or problems start or get worse: * Shortness of breath or difficulty breathing * Wake up at night short of breath * Chest pain * Cough * Swelling of your hands, fee, or legs * More fatigued or tired with your normal activity * Palpitations - sudden fast heart beats WEIGHT * Weigh yourself every morning after using the bathroom. * Use the same scale. * Wear the same amount of clothing. * Write your weight down on your chart. * Call your doctor if you gain more than 3 pounds in 1-2 days. This is usually the first sign of fluid retention from your heart condition. MEDICATIONS * Use this discharge instruction sheet for instructions. * Take your medications at the time your doctor ordered. * Do not skip a dose of your medicines. * If you miss a dose of medicine, take as soon as possible, but DO NOT DOUBLE A DOSE. * Read your medicine information when you get home. * Know all of the side effects of your medicine. * Call your doctor's office if you have any side effects. * Be sure all of your doctors know what medicine and herbs you take (including cold, flu, and herbal medicine). * Pain Medicine: If you do not get relief from your pain, please call your doctor for help. Take the following with you to your follow-up doctor appointments: * Weight Chart * Medication List * List of questions Echocardiogram this admission -- consistent with severe HOCM (Hypertrophic obstructive cardiomyopathy): Pending Studies at Discharge: No Stand-Alone Forms: My [facility] Skilled Items Patient informed of condition?: Yes Discharge Level of Care: Other Communicable Disease: No Discharge Prognosis: Stable Lines: None Urinary Catheter: No Medications and DC Order Prescriptions: New furosemide [Lasix] 20 mg tablet 20 mg PO DAILY PRN (Reason: weight gain of more than 3 pounds in 1-2 days) Qty: 10 0RF magnesium oxide 400 mg magnesium tablet 400 mg PO DAILY PRN (Reason: ONLY take when furosemide is given) Qty: 10 0RF potassium chloride 10 mEq tablet extended release 10 meq PO DAILY PRN (Reason: ONLY TAKE if FUROSEMIDE is given) Qty: 10 0RF Continued rosuvastatin 10 mg tablet 20 mg PO HS carbamazepine [Tegretol] 200 mg Tablet 600 mg PO BID aspirin 81 mg Tablet,Chewable 81 mg PO DAILY albuterol sulfate 90 mcg/actuation Hfa Aerosol Inhaler 2 puff INHALATION QID PRN (Reason: Shortness Of Breath) phenytoin sodium extended 100 mg Capsule 300 mg PO BID divalproex [Depakote] 500 mg Tablet,Delayed Release (Dr/Ec) 625 mg PO BID Changed metoprolol succinate 100 mg Tablet Extended Release 24 Hr 200 mg PO DAILY Qty: 60 0RF Discontinued verapamil 360 mg capsule,ext rel. pellets 24 hr 360 mg PO DAILY Qty: 90 3RF Discharge Orders: Discharge Order (Routine); Ordered 11/30/23 Ordered By: Yoan Whittington Admission Data Admit Date/Time: 11/28/23 00:49 Attending Provider: Yoan Whittington Admit Provider: Viji French Primary Care Provider: Robert LUNDY Other Providers: James Reilly Other Interventions: Discharge Summary Assessment (RN) Last Done: 11/30/23 14:19 Coding Level of Care Code 71379 INP/OBS DISCH >30 MIN Diagnoses HOCM (hypertrophic obstructive cardiomyopathy) I42.1 CHF (congestive heart failure) I50.9 COPD (chronic obstructive pulmonary disease) J44.9 CAD (coronary artery disease) I25.10 Dyspnea R06.00 Coronary artery disease, non-occlusive I25.10 Primary hypertension I10 Hypertension type: primary hypertension Seizure disorder G40.909 Mitral regurgitation I34.0 Elevated troponin R77.8
[2023-11-30 14:21] VITALS: BP 169/94
== END 2023-11-30 15:10 | DRG 314 ==
LOC: ED 20:37 → SUATTDRO 11-28 00:49 → EDINP 11-28 00:49 → INTOOBSV 11-28 00:49 → 2W 11-28 16:25

== ENCOUNTER 2024-04-05 06:21 | Inpatient (IN) ==
[2024-04-05 06:46] LABS: Basophils # (auto) 0.03 K/uL (0.00-0.20); Basophils % (auto) 0.6 %; Eosinophils # (auto) 0.07 K/uL (0.00-0.50); Eosinophils % (auto) 1.4 %; Hematocrit (blood only) 39.7 % (42.0-52.0); Immature Granulocytes # (auto) 0.01 K/uL (0.01-0.20); Immature Granulocytes % (auto) 0.2 %; Lymphocytes # (auto) 1.64 K/uL (1.20-3.40); Lymphocytes % (auto) 32.7 %; Mean Corpuscular Hemoglobin 31.5 pg (25.0-34.0); Mean Corpuscular Hgb Conc 35.3 g/dL (32.0-36.0); Mean Corpuscular Volume 89.4 fL (80.0-100.0); Mean Platelet Volume 9.9 fL (9.4-12.4); Monocytes # (auto) 0.66 K/uL (0.11-0.59); Monocytes % (auto) 13.2 %; Neutrophils % (auto) 51.9 %; Platelet Count 160 K/uL (130-400); RDW Coefficient of Variation 12.4 % (11.5-14.5); RDW Standard Deviation 40.5 fL (36.4-46.3); Red Blood Count 4.44 M/uL (4.70-6.10); White Blood Count 5.01 K/ul (4.8-10.8)
[2024-04-05] MEDS: METOPROLOL TARTRATE 1 MG/ML VIAL IV STA ×3 (06:48→10:42)
[2024-04-05 07:05] LABS: Albumin Globulin Ratio 1.4 (0.9-2); Albumin Level 4.1 gm/dl (3.4-5.0); BUN Creatinine Ratio 19.8 (10-20); Bilirubin,Total 0.3 mg/dl (0.2-1.0); Calcium 8.9 mg/dl (8.6-10.3); Creatinine Clr Calc Pharmacy 120.7 ml/min; Est GFR (African American) 116.8 ml/min; Est GFR (Non-African American) 100.8 ml/min; Globulin 2.9 gm/dl (2.5-4.0); Magnesium 1.9 mg/dl (1.7-2.4); Potassium 4.1 mmol/L (3.5-5.1)
[2024-04-05 07:12] LABS: Partial Thromboplastin Ratio 0.9; Partial Thromboplastin Time 24 Seconds (21-31); Prothrombin Time 10.7 Seconds (9.0-12.0)
[2024-04-05 07:20] LABS: Thyroid Stimulating Hormone 3.74 uIu/ml (0.300-4.500)
--- NOTE | 2024-04-05 08:35 | XRay Report ---
XR chest 1V portable CLINICAL HISTORY: Dysrhythmia TECHNIQUE: Single frontal radiograph of the chest was obtained. Comparison: None available at the time of this dictation. FINDINGS: No lines and tubes are seen. The cardiomediastinal silhouette is normal. The lungs are clear. No evid ence of pleural effusion or pneumothorax. IMPRESSION: No acute chest disease. ACT 112: Negative or not required by law. Electronically signed by: Rhett Robins M.D. 04/05/2024 8:34 AM
[2024-04-05] MEDS: MAGNESIUM OXIDE 400 MG TAB PO STA (09:20)
[2024-04-05] MEDS: POTASSIUM CHLORIDE 10 MEQ TABCR PO STA (09:20)
[2024-04-05] MEDS: DIVALPROEX DELAY RELEASE 500 MG TAB PO ONE (09:21)
[2024-04-05] MEDS: DIVALPROEX DELAY RELEASE 125 MG TABEC PO STA (09:21)
[2024-04-05] MEDS: FUROSEMIDE 20 MG TAB PO STA (09:21)
[2024-04-05] MEDS: METOPROLOL SUCC 50MG EXT REL TAB PO STA (09:21)
[2024-04-05] MEDS: PHENYTOIN SODIUM ER 100 MG CAP PO STA (09:22)
[2024-04-05] MEDS: ROSUVASTATIN CALCIUM 20 MG TAB PO STA (09:22)
[2024-04-05] MEDS: carBAMazepine 200 MG TABLET PO ONE (09:28)
[2024-04-05] MEDS ORDERED: METOPROLOL TARTRATE 1 MG/ML VIAL IV PRN (09:52)
--- NOTE | 2024-04-05 09:55 | History & Physical Report ---
Date of Service April 05, 2024 Assessment & Plan (1) Atrial fibrillation with RVR: Plan #Afib with RVR, newly diagnosed #Nonobstructive CAD pending cardiac surgery -BB PRN HR>120 -cardiology consult -tele/stepdown admission -trend trops -stat EKG/trops for new/changing cp -echo #Seizure d/o, uncontrolled -neurology consult -continue home meds -prn ativan for breakthrough IVF Cardiac diet Lovenox for DVT ppx History of Present Illness Chief Complaint: SOB, CP Primary Care Provider: KAMRON Jones 53M pmh nonobstructive CAD, seizure d/o, hx cocaine abuse who presents to the ED with SOB and CP. Found to be in RVR to 147, given metoprolol 10mg which controlled his HR and largely his symptoms. Also restarted on metoprolol 200mg PO which is his home dose. On my evaluation patient's only complaint is some cp which is much improved from presentation. States that he had two "heart attacks" reportedly at [facility] but records unavailable. States he follows with cardio at [place] who recommended cardiac surgery in [employer], but has not been scheduled. He is not clear as to what his diagnosis for cardiac surgery is. Cocaine history for 40 years, stopped 16 years ago. Also long history of seizure d/o on multiple medications. States in the last 2 weeks he has had two seizures, which is increased in frequency for him, but not by much. States that he had his last one before those two approximately 1.5 months ago which is good for him. Unclear etiology of seizure w/o but has had them since he was in his teens. Home Medications Medication Instructions Recorded Confirmed Type albuterol sulfate 90 mcg/actuation 2 puff inhalation QID PRN SOB 04/05/24 04/05/24 History aerosol inhaler (Proventil HFA) aspirin 81 mg tablet,delayed 81 mg PO DAILY 04/05/24 04/05/24 History release calcium polycarbophil 625 mg 625 mg PO DAILY 04/05/24 04/05/24 History tablet (Fiber-Lax) carbamazepine 200 mg tablet 600 mg PO BID 04/05/24 04/05/24 History ciclesonide 80 mcg/actuation 1 puff inhalation BID 04/05/24 04/05/24 History aerosol inhaler (Alvesco) disopyramide phosphate 100 mg 100 mg PO BID 04/05/24 04/05/24 History capsule,extended release (Norpace CR) divalproex 125 mg tablet,delayed 125 mg PO BID 04/05/24 04/05/24 History release divalproex 500 mg tablet,delayed 500 mg PO BID 04/05/24 04/05/24 History release furosemide 20 mg tablet 20 mg PO BID 04/05/24 04/05/24 History magnesium oxide 400 mg PO UD 04/05/24 04/05/24 History metoprolol succinate 200 mg 200 mg PO DAILY 04/05/24 04/05/24 History tablet,extended release 24 hr (Toprol XL) naproxen 500 mg tablet 500 mg PO BID PRN Pain 04/05/24 04/05/24 History phenytoin sodium extended 100 mg 300 mg PO BID 04/05/24 04/05/24 History capsule (Dilantin Extended) potassium chloride 10 mEq 10 meq PO DAILY 04/05/24 04/05/24 History tablet,extended release rosuvastatin 20 mg tablet 20 mg PO HS 04/05/24 04/05/24 History Past Med/Surg History Problem List (Updated 04/05/24 @ 10:03 by Mervin Benitez MD) Atrial fibrillation with RVR Social History (Updated 04/05/24 @ 10:01 by Mervin Benitez MD) Smoking Status: Former smoker Hx Substance Use: Yes Feels Safe at Home: Yes Review of Systems Constitutional: no fever, no body aches and no weakness Respiratory: no cough, no dyspnea and no wheezing Cardiovascular: + chest pain; no dyspnea, no palpitation s and no edema Physical Exam Constitutional: WD/WN, vitals as above Respiratory: normal respiratory effort, lungs clear to auscultation Cardiovascular: Rate/Rhythm: regular rate and + tachycardic Heart Sounds: normal S1 and normal S2 Results & Data Results & Data Vital Signs (Past 12 Hours) Vital Signs Temp Pulse Pulse Resp BP BP Pulse Ox 04/05/24 09:33 105 H 18 128/87 98 04/05/24 07:49 106 H 107/83 04/05/24 07:43 102 H 18 102/80 95 04/05/24 06:48 116 H 110/77 04/05/24 06:33 147 H 04/05/24 06:14 04/05/24 06:14 36.6 C 130 H 16 110/64 96 O2 Del Method 04/05/24 09:33 Room Air 04/05/24 07:49 04/05/24 07:43 Room Air 04/05/24 06:48 04/05/24 06:33 04/05/24 06:14 Room Air 04/05/24 06:14 Room Air Laboratory Results Abnormal lab results 04/05/24 Range/Units 06:32 RBC 4.44 L (4.70-6.10) M/uL Hct 39.7 L (42.0-52.0) % [place] # (Auto) 0.66 H (0.11-0.59) K/uL Chloride 108 H (98-107) mmol/L Glucose 106 H (70-99(Fasting)) mg/dl Diagnostic Findings Chest X-Ray 04/05/24 06:35 XR chest 1V portable CLINICAL HISTORY: Dysrhythmia TECHNIQUE: Single frontal radiograph of the chest was obtained. Comparison: None available at the time of this dictation. FINDINGS: No lines and tubes are seen. The cardiomediastinal silhouette is normal. The lungs are clear. No evidence of pleural effusion or pneumothorax. IMPRESSION: No acute chest disease. ACT 112: Negative or not required by law. Electronically signed by: Rhett Robins M.D. 04/05/2024 8:34 AM Code Status & VTE Plan VTE Prophylaxis Plan VTE Prophylaxis will be ordered: Yes
[2024-04-05 10:45] LABS: Troponin I High Sensitivity 64.4 pg/ml (0-20)
[2024-04-05] MEDS: DISOPYRAMIDE PHOSPHATE 100 MG PO STA (10:45)
--- NOTE | 2024-04-05 10:50 | Emergency Department Note ---
Impression & Plan Atrial fibrillation with RVR, Non-ST elevation myocardial infarction (NSTEMI) ED Provider Note CHIEF COMPLAINT: Chest pain HISTORY OF PRESENT ILLNESS: This 53 yo female patient with PMH of hypercholesterolemia, CAD s/p stents, cardiomyopathy, seizure, presents presents to the emergency department with c/o chest pressure. Patient states it began around 9:00 last night. He was having difficulty sleeping due to a fluttering sensation to the left side of his chest. He states another inmate commented on a bruise on the left side of his chest. He denies any recent trauma, fever, cough. He does admit to some exertional shortness of breath. He states he is slated to have "heart surgery" sometime in the future, but this is not arranged. REVIEW OF SYSTEMS: A review of systems was performed with positives and pertinent negatives listed in the history of present illness. 10 systems were reviewed and are otherwise negative. ALLERGIES: see below MEDICATIONS: see below PMH: see below SOCIAL HISTORY: see below DDx: New onset atrial fibrillation, acute coronary syndrome, congestive heart failure, viral etiology, pneumonia, pleural effusion, PE among others. PHYSICAL EXAM: Vital signs reviewed. General: Well-appearing 53-year-old male, in no significant distress. HEENT: No scleral icterus, PERRLA, neck supple. Atraumatic. Cardiovascular: Rapid and irregular, no extra sounds. Pulmonary: Clear to auscultation bilaterally, normal work of breathing. Abdomen: Soft, obese, nontender, nondistended, positive bowel sounds. Musculoskeletal: Atraumatic, no peripheral edema. Nontender to palpation over the anterior chest wall. Minimal peripheral edema. Neurologic: Patient awake alert and oriented x 3, speech is clear Skin: Warm, dry, small 2 cm ecchymotic circular area noted to the left breast laterally, no other evidence of trauma. No open lesions or rash. EMERGENCY DEPARTMENT COURSE/MDM: This patient was evaluated and appeared to be in no significant distress. IV access was obtained and laboratory work was drawn. Patient's EKG reveals no significant ST change. He is in atrial fibrillation with rapid ventricular response. Patient was placed on the front counter clerk and medicated with IV metoprolol 5 mg x 2 with better rate control. Laboratory work reveals an elevated HS troponin at 64.4. Chest x-ray reveals mild congestion, no focal lung consolidation or failure. Pt was given metoprolol 5 mg IV x 3. He was also given his daily medications including metoprolol succinate 200 mg, lasix 20 mg po and his seizure medications. The atrial fib was under much better rate control and pt remained stable. Case was d/w the hospitalist service for admission and further management. MONITORING: An order for cardiac monitoring was placed and the patient is noted to be in atrial fibrillation 116 beats per minute. RADIOLOGY: Chest x-ray to my interpretation reveals no focal lung consolidation, positive mild congestive change. EKG: To my interpretation reveals atrial fibrillation with rapid ventricular response at 120 bpm. QTc is 469. No PVC, no PAC. No significant ST change. DISPOSITION: Admission I have personally spent greater than 35 minutes of critical care time in the direct management of this patient. This includes bedside care, interpretation of diagnostic studies, and testing, discussion with consultants, patient, and family members, and other required patient management activities. This 35 minutes is in excess of all separately billable procedures. Past Med/Surg History Problem List (Updated 04/10/24 @ 07:20 by Yary Miles MD) Seizure disorder, grand mal Atrial fibrillation with RVR (Acute) Acquired left ventricular outflow tract obstruction Elevated brain natriuretic peptide (BNP) level (Acute) Elevated troponin (Acute) Mitral regurgitation Heart failure with preserved ejection fraction CHF (congestive heart failure) COPD (chronic obstructive pulmonary disease) (Acute) CAD (coronary artery disease) (Acute) Dyspnea (Acute) HOCM (hypertrophic obstructive cardiomyopathy) (Acute) Coronary artery disease, non-occlusive Hypertension Chest pain (Acute) Elevated troponin (Acute) History of coronary artery disease (Acute) Family history of premature coronary artery disease Seizure disorder Dyslipidemia Non-ST elevation myocardial infarction (NSTEMI) (Acute) Chest pain (Acute) Unstable angina pectoris (Acute) Medical History History of tobacco abuse Pulmonary nodule Surgical History No pertinent past surgical history Family History Father Coronary heart disease Seizure disorder Social History Smoking Status: Former smoker Tobacco Type: Cigarettes Second Hand Exposure: No; Do You Dip or Chew Tobacco: No; Hx Alcohol Use: Yes Hx Substance Use: Yes Last Used Substance Other:: quit in 2019 Preferred Language: [place]i Communication Ability: Effective Clinical Associate Required: No Beliefs That Will Affect Care: None Current Living Situation: Other Current Living Situation Comment: [facility] Feels Safe at Home: Yes Assistive Devices: Glasses Allergies Allergies Allergy/AdvReac Type Severity Reaction Status Date / Time No Known Allergies Allergy Verified 04/06/24 07:50 Home Meds Home Medications Medication Instructions Recorded Confirmed albuterol sulfate 90 mcg/actuation 2 puff inhalation QID PRN SOB 04/05/24 04/05/24 aerosol inhaler (Proventil HFA) aspirin 81 mg tablet,delayed 81 mg PO DAILY 04/05/24 04/05/24 release calcium polycarbophil 625 mg 625 mg PO DAILY 04/05/24 04/05/24 tablet (Fiber-Lax) carbamazepine 200 mg tablet 600 mg PO BID 04/05/24 04/05/24 ciclesonide 80 mcg/actuation 1 puff inhalation BID 04/05/24 04/05/24 aerosol inhaler (Alvesco) divalproex 125 mg tablet,delayed 125 mg PO BID 04/05/24 04/05/24 release divalproex 500 mg tablet,delayed 500 mg PO BID 04/05/24 04/05/24 release magnesium oxide 400 mg PO UD 04/05/24 04/05/24 metoprolol succinate 200 mg 200 mg PO DAILY 04/05/24 04/05/24 tablet,extended release 24 hr (Toprol XL) phenytoin sodium extended 100 mg 300 mg PO BID 04/05/24 04/05/24 capsule (Dilantin Extended) potassium chloride 10 mEq 10 meq PO DAILY 04/05/24 04/05/24 tablet,extended release rosuvastatin 20 mg tablet 20 mg PO HS 04/05/24 04/05/24 Previous Rx's Medication Instructions Recorded furosemide 20 mg tablet (Lasix) 20 mg PO DAILY PRN weight gain of 11/30/23 more than 3 pounds in 1-2 days #10 tabs magnesium oxide 400 mg PO DAILY PRN ONLY take when 11/30/23 furosemide is given #10 tabs potassium chloride 10 mEq 10 meq PO DAILY PRN ONLY TAKE if 11/30/23 tablet,extended release FUROSEMIDE is given #10 tabs apixaban 5 mg tablet (Eliquis) 5 mg PO BID #60 tabs 04/08/24 furosemide 20 mg tablet 20 mg PO DAILY #0 tabs 04/08/24 verapamil 180 mg tablet,extended 360 mg (2 x 180 mg) PO QAM #30 tabs 04/08/24 release Results & Data (ED) Vital Signs Vital Signs - 24 hr 04/05/24 06:14 04/05/24 06:14 04/05/24 06:14 Temperature 36.6 C Temperature Source Oral Pulse Rate 130 H Pulse Rate [Apical] Respiratory Rate 16 Respiratory Effort / Characteristics Non-Labored Non-Labored Respiratory Depth Normal Normal Blood Pressure 110/64 Blood Pressure [Left Arm] Blood Pressure Mean 79 Blood Pressure Mean [Left Arm] Blood Pressure Position [Left Arm] Pulse Oximetry 96 Oxygen Delivery Method Room Air Room Air Sepsis Recent Fever Within 48 Hours No Sepsis New/Unexplained Change in Mental Status No Sepsis Action Taken by Nursing No Action Required 04/05/24 06:33 04/05/24 06:48 04/05/24 07:43 Temperature Temperature Source Pulse Rate 147 H 116 H Pulse Rate [Apical] 102 H Respiratory Rate 18 Respiratory Effort / Characteristics Respiratory Depth Blood Pressure 110/77 Blood Pressure [Left Arm] 102/80 Blood Pressure Mean Blood Pressure Mean [Left Arm] 87 Blood Pressure Position [Left Arm] Pulse Oximetry 95 Oxygen Delivery Method Room Air Sepsis Recent Fever Within 48 Hours Sepsis New/Unexplained Change in Mental Status Sepsis Action Taken by Nursing 04/05/24 07:49 04/05/24 09:33 Temperature Temperature Source Pulse Rate 106 H Pulse Rate [Apical] 105 H Respiratory Rate 18 Respiratory Effort / Characteristics Non-Labored Spontaneous Respiratory Depth Normal Blood Pressure 107/83 Blood Pressure [Left Arm] 128/87 Blood Pressure Mean Blood Pressure Mean [Left Arm] 100 Blood Pressure Position [Left Arm] Sitting Pulse Oximetry 98 Oxygen Delivery Method Room Air Sepsis Recent Fever Within 48 Hours Sepsis New/Unexplained Change in Mental Status Sepsis Action Taken by Half-Way Medications Current Medication List: was personally reviewed by me Laboratory Data Attestation: I reviewed the patient's lab results. 04/08/24 06:17 04/08/24 06:17 Lab Results 04/05/24 04/05/24 Range/Units 06:32 09:06 WBC 5.01 (4.8-10.8) K/ul RBC 4.44 L (4.70-6.10) M/uL Hgb 14.0 (14.0-18.0) g/dl Hct 39.7 L (42.0-52.0) % MCV 89.4 (80.0-100.0) fL MCH 31.5 (25.0-34.0) pg MCHC 35.3 (32.0-36.0) g/dL RDW Std Deviation 40.5 (36.4-46.3) fL RDW Coeff of Telly 12.4 (11.5-14.5) % Plt Count 160 (130-400) K/uL MPV 9.9 (9.4-12.4) fL Immature Gran % (Auto) 0.2 % Neut % (Auto) 51.9 % Lymph % (Auto) 32.7 % [place] % (Auto) 13.2 % Eos % (Auto) 1.4 % Baso % (Auto) 0.6 % Neut # (Auto) 2.60 (1.40-6.50) K/uL Lymph # (Auto) 1.64 (1.20-3.40) K/uL [place] # (Auto) 0.66 H (0.11-0.59) K/uL Eos # (Auto) 0.07 (0.00-0.50) K/uL Baso # (Auto) 0.03 (0.00-0.20) K/uL Immature Gran # (Auto) 0.01 (0.01-0.20) K/uL PT 10.7 (9.0-12.0) Seconds INR 1.0 (0.9-1.1) APTT 24 (21-31) Seconds PTT Ratio 0.9 Sodium 143 (136-145) mmol/L Potassium 4.1 (3.5-5.1) mmol/L Chloride 108 H (98-107) mmol/L Carbon Dioxide 27 (21-32) mmol/L Anion Gap 8 (3-11) BUN 16 (6-23) mg/dl Creatinine 0.81 (0.6-1.4) mg/dl Est Cr Clr Drug Dosing 120.7 ml/min Est GFR ( Amer) 116.8 ml/min Est GFR (Non-Af Amer) 100.8 ml/min BUN/Creatinine Ratio 19.8 (10-20) Glucose 106 H (70-99(Fasting)) mg/dl Calcium 8.9 (8.6-10.3) mg/dl Magnesium 1.9 (1.7-2.4) mg/dl Total Bilirubin 0.3 (0.2-1.0) mg/dl AST 15 (13-39) U/L ALT 15 (7-52) U/L Alkaline Phosphatase 42 (34-104) U/L Troponin I High Sens 64.4 H* (0-20) pg/ml Total Protein 7.0 (6.0-8.3) gm/dl Albumin 4.1 (3.4-5.0) gm/dl Globulin 2.9 (2.5-4.0) gm/dl Albumin/Globulin Ratio 1.4 (0.9-2) TSH 3.740 (0.300-4.500) uIu/ml SARS-CoV-2, RNA, NAAT NEGATIVE (NEGATIVE) Administered Medications Discontinued Medications Aspirin (Aspirin 81 Mg Ectab) 81 mg PO DAILY DONOVAN Stop: 05/06/24 08:59 Last Admin: 04/07/24 09:19 Dose: 81 mg Documented By: Admin: 04/06/24 08:54 Dose: 81 mg Documented By: CUONG Calcium Polycarbophil (Calcium Polycarbophil 625mg Tab) 625 mg PO DAILY DONOVAN Stop: 05/06/24 08:59 Last Admin: 04/08/24 09:26 Dose: 625 mg Documented By: Admin: 04/07/24 09:19 Dose: 625 mg Documented By: Admin: 04/06/24 08:53 Dose: 625 mg Documented By: CUONG Carbamazepine (Carbamazepine 200 Mg Tablet) 600 mg PO NOW ONE Stop: 04/05/24 08:20 Last Admin: 04/05/24 09:28 Dose: 600 mg Documented By: JACKIE Carbamazepine (Carbamazepine 200 Mg Tablet) 600 mg PO BID DONOVAN Stop: 05/05/24 20:59 Last Admin: 04/08/24 09:26 Dose: 600 mg Documented By: Admin: 04/07/24 20:35 Dose: 600 mg Documented By: Admin: 04/07/24 09:19 Dose: 600 mg Documented By: Admin: 04/06/24 21:37 Dose: 600 mg Documented By: Admin: 04/06/24 08:54 Dose: 600 mg Documented By: Admin: 04/05/24 20:25 Dose: 600 mg Documented By: KAREL Disopyramide Phosphate (Disopyramide Phosphate 100 Mg Cap) 100 mg PO NOW STA Stop: 04/05/24 08:20 Last Admin: 04/05/24 10:45 Dose: 100 mg Documented By: JACKIE Disopyramide Phosphate (Disopyramide Phos Extended Rel 100 Mg Capcr) 100 mg PO BID DONOVAN Stop: 05/05/24 20:59 Last Admin: 04/06/24 12:04 Dose: Not Given Documented By: Admin: 04/05/24 23:20 Dose: 100 mg Documented By: KAREL Divalproex Sodium (Divalproex Delay Release 125 Mg Tabec) 125 mg PO NOW STA Stop: 04/05/24 08:20 Last Admin: 04/05/24 09:21 Dose: 125 mg Documented By: JACKIE Divalproex Sodium (Divalproex Delay Release 500 Mg Tab) 500 mg PO NOW ONE Stop: 04/05/24 08:20 Last Admin: 04/05/24 09:21 Dose: 500 mg Documented By: JACKIE Divalproex Sodium (Divalproex Delay Release 125 Mg Tabec) 125 mg PO BID DONOVAN Stop: 05/05/24 20:59 Last Admin: 04/08/24 09:26 Dose: 125 mg Documented By: Admin: 04/07/24 20:36 Dose: 125 mg Documented By: Admin: 04/07/24 09:19 Dose: 125 mg Documented By: Admin: 04/06/24 21:39 Dose: 125 mg Documented By: Admin: 04/06/24 08:53 Dose: 125 mg Documented By: Admin: 04/05/24 20:25 Dose: 125 mg Documented By: KAREL Divalproex Sodium (Divalproex Delay Release 500 Mg Tab) 500 mg PO BID DONOVAN Stop: 05/05/24 20:59 Last Admin: 04/08/24 09:26 Dose: 500 mg Documented By: Admin: 04/07/24 20:33 Dose: 500 mg Documented By: Admin: 04/07/24 09:19 Dose: 500 mg Documented By: Admin: 04/06/24 21:39 Dose: 500 mg Documented By: Admin: 04/06/24 08:54 Dose: 500 mg Documented By: Admin: 04/05/24 20:25 Dose: 500 mg Documented By: KAREL Divalproex Sodium (Divalproex Extended Release 500 Mg Tab) 1,000 mg PO NOW ONE Stop: 04/05/24 18:25 Last Admin: 04/05/24 19:28 Dose: 1,000 mg Documented By: KAREL Enoxaparin Sodium (Enoxaparin Inj 40 Mg/0.4 Ml Syr) 40 mg SQ DAILY DONOVAN Stop: 05/05/24 13:59 Last Admin: 04/05/24 20:13 Dose: Not Given Documented By: KAREL Enoxaparin Sodium (Enoxaparin Inj 40 Mg/0.4 Ml Syr) 40 mg SQ HS DONOVAN Stop: 05/05/24 23:14 Last Admin: 04/05/24 23:20 Dose: 40 mg Documented By: KAREL Fluticasone Furoate (Fluticasone Furoate 100mcg 14 Puffs/Inhaler) 1 puffs INH DAILY DONOVAN Stop: 05/06/24 08:59 Last Admin: 04/08/24 09:27 Dose: 1 puffs Documented By: Admin: 04/07/24 09:20 Dose: 1 puffs Documented By: Admin: 04/06/24 08:55 Dose: 1 puffs Documented By: CUONG Furosemide (Furosemide 20 Mg Tab) 20 mg PO NOW STA Stop: 04/05/24 08:20 Last Admin: 04/05/24 09:21 Dose: 20 mg Documented By: JACKIE Furosemide (Furosemide 20 Mg Tab) 20 mg PO BID DONOVAN Stop: 05/05/24 20:59 Last Admin: 04/05/24 20:25 Dose: 20 mg Documented By: KAREL Furosemide (Furosemide 20 Mg Tab) 20 mg PO ONE ONE Stop: 04/06/24 18:34 Last Admin: 04/06/24 18:38 Dose: 20 mg Documented By: CUONG Furosemide (Furosemide 20 Mg Tab) 20 mg PO QAM DONOVAN Stop: 05/07/24 08:44 Last Admin: 04/07/24 09:21 Dose: 20 mg Documented By: Admin: 04/07/24 09:19 Dose: 20 mg Documented By: CUONG Heparin Sodium/Dextrose (Heparin Iv Adult Wt-Based Standard *No* Initial Bolus Protocol) 1 each IV Q15M DONOVAN; Protocol Stop: 04/06/24 09:07 Last Admin: 04/06/24 11:48 Dose: Not Given Documented By: Admin: 04/06/24 11:48 Dose: Not Given Documented By: Admin: 04/06/24 11:21 Dose: 1 each Documented By: Admin: 04/06/24 09:35 Dose: 1 each Documented By: CUONG Sodium Chloride (Nss) 1,000 mls @ 125 mls/hr IV .Q8H DONOVAN Stop: 05/05/24 13:23 Last Admin: 04/06/24 15:55 Dose: Not Given Documented By: Infusion: 04/06/24 15:55 Dose: Infused Documented By: Admin: 04/06/24 09:06 Dose: 125 mls/hr Documented By: Infusion: 04/06/24 08:16 Dose: Infused Documented By: Admin: 04/06/24 00:16 Dose: 125 mls/hr Documented By: Infusion: 04/06/24 00:07 Dose: Infused Documented By: Admin: 04/05/24 14:57 Dose: 125 mls/hr Documented By: DOUG Heparin Sodium/Dextrose (Heparin Sodium/Dextrose) 25,000 units in 500 mls @ 29 mls/hr IV .[id number] DONOVAN; Protocol Stop: 04/08/24 19:00 Last Admin: 04/08/24 13:50 Dose: 1,450 units/hr, 29 mls/hr Documented By: JU Co-signed By: OO Titration: 04/08/24 13:47 Dose: Infused Documented By: JU Co-signed By: OO Titration: 04/08/24 07:09 Dose: 1,450 units/hr, 29 mls/hr Documented By: JU Co-signed By: AKD Admin: 04/07/24 20:32 Dose: 1,450 units/hr, 29 mls/hr Documented By: CHU Co-signed By: DLH Titration: 04/07/24 19:38 Dose: Infused Documented By: CHU Co-signed By: DLH Titration: 04/07/24 19:20 Dose: 1,450 units/hr, 29 mls/hr Documented By: CUONG Co-signed By: CHU Titration: 04/07/24 07:04 Dose: 1,450 units/hr, 29 mls/hr Documented By: RUIZ Co-signed By: CUONG Admin: 04/07/24 02:23 Dose: 1,450 units/hr, 29 mls/hr Documented By: RUIZ Co-signed By: NATALI Titration: 04/07/24 02:23 Dose: Infused Documented By: RUIZ Co-signed By: NATALI Titration: 04/06/24 19:26 Dose: 1,450 units/hr, 29 mls/hr Documented By: RUIZ Co-signed By: CUONG Admin: 04/06/24 09:30 Dose: 1,450 units/hr, 29 mls/hr Documented By: CUONG Co-signed By: YOLY Lorazepam (Lorazepam 2 Mg/1 Ml Vial) 4 mg IV Q1H PRN PRN Reason: seizure Stop: 05/05/24 13:21 Last Admin: 04/05/24 17:56 Dose: 4 mg Documented By: DOUG Lorazepam (Lorazepam 2 Mg/1 Ml Vial) 2 mg IV NOW STA Stop: 04/05/24 17:52 Last Admin: 04/05/24 18:13 Dose: Not Given Documented By: DOUG Magnesium Oxide (Magnesium Oxide 400 Mg Tab) 400 mg PO NOW STA Stop: 04/05/24 08:20 Last Admin: 04/05/24 09:20 Dose: 400 mg Documented By: JACKIE Magnesium Oxide (Magnesium Oxide 400 Mg Tab) 400 mg PO DAILY DONOVAN Stop: 05/06/24 08:59 Last Admin: 04/08/24 09:29 Dose: 400 mg Documented By: Admin: 04/07/24 10:00 Dose: 400 mg Documented By: Admin: 04/06/24 08:54 Dose: 400 mg Documented By: CUONG Metoprolol Succinate (Metoprolol Succ 50mg Ext Rel Tab) 200 mg PO NOW STA Stop: 04/05/24 08:20 Last Admin: 04/05/24 09:21 Dose: 200 mg Documented By: JACKIE Metoprolol Succinate (Metoprolol Succ 50mg Ext Rel Tab) 200 mg PO DAILY DONOVAN Stop: 05/06/24 08:59 Last Admin: 04/08/24 09:26 Dose: 200 mg Documented By: Admin: 04/07/24 09:19 Dose: 200 mg Documented By: Admin: 04/06/24 08:54 Dose: 200 mg Documented By: CUONG Metoprolol Tartrate (Metoprolol Tartrate 1 Mg/Ml Vial) 5 mg IV NOW STA Stop: 04/05/24 06:36 Last Admin: 04/05/24 06:48 Dose: 5 mg Documented By: SLOAN Metoprolol Tartrate (Metoprolol Tartrate 1 Mg/Ml Vial) 5 mg IV NOW STA Stop: 04/05/24 07:24 Last Admin: 04/05/24 07:49 Dose: 5 mg Documented By: JACKIE Metoprolol Tartrate (Metoprolol Tartrate 1 Mg/Ml Vial) 5 mg IV NOW STA Stop: 04/05/24 07:30 Last Admin: 04/05/24 10:42 Dose: Not Given Documented By: JACKIE Phenytoin Sodium (Phenytoin Sodium Er 100 Mg Cap) 100 mg PO NOW STA Stop: 04/05/24 08:20 Last Admin: 04/05/24 09:22 Dose: 100 mg Documented By: JACKIE Phenytoin Sodium (Phenytoin Sodium Er 100 Mg Cap) 300 mg PO BID DONOVAN Stop: 05/05/24 20:59 Last Admin: 04/08/24 09:26 Dose: 300 mg Documented By: Admin: 04/07/24 20:34 Dose: 300 mg Documented By: Admin: 04/07/24 09:19 Dose: 300 mg Documented By: Admin: 04/06/24 21:38 Dose: 300 mg Documented By: Admin: 04/06/24 08:54 Dose: 300 mg Documented By: Admin: 04/05/24 20:25 Dose: 300 mg Documented By: KAREL Potassium Chloride (Potassium Chloride 10 Meq Tabcr) 10 meq PO NOW STA Stop: 04/05/24 08:20 Last Admin: 04/05/24 09:20 Dose: 10 meq Documented By: JACKIE Potassium Chloride (Potassium Chloride 10 Meq Tabcr) 10 meq PO DAILY DONOVAN Stop: 05/06/24 08:59 Last Admin: 04/08/24 09:29 Dose: 10 meq Documented By: Admin: 04/07/24 09:18 Dose: 10 meq Documented By: Admin: 04/06/24 08:54 Dose: 10 meq Documented By: CUONG Rosuvastatin Calcium (Rosuvastatin Calcium 20 Mg Tab) 20 mg PO NOW STA Stop: 04/05/24 08:20 Last Admin: 04/05/24 09:22 Dose: 20 mg Documented By: JACKIE Rosuvastatin Calcium (Rosuvastatin Calcium 20 Mg Tab) 20 mg PO HS [facility] Stop: 05/06/24 20:59 Last Admin: 04/07/24 20:34 Dose: 20 mg Documented By: Admin: 04/06/24 21:38 Dose: 20 mg Documented By: RUIZ Verapamil HCl (Verapamil Hcl 180 Mg Tabcr) 180 mg PO QAM [facility] Stop: 05/06/24 12:44 Last Admin: 04/07/24 09:20 Dose: 180 mg Documented By: Admin: 04/06/24 13:52 Dose: 180 mg Documented By: CUONG Verapamil HCl (Verapamil Hcl 180 Mg Tabcr) 180 mg PO NOW ONE Stop: 04/07/24 09:28 Last Admin: 04/07/24 10:00 Dose: 180 mg Documented By: CUONG Verapamil HCl (Verapamil Hcl 180 Mg Tabcr) 360 mg PO [place] Stop: 05/08/24 08:59 Last Admin: 04/08/24 09:25 Dose: 360 mg Documented By: JU Imaging Data Radiologist's Impression: Chest X-Ray 04/05/24 06:35 XR chest 1V portable CLINICAL HISTORY: Dysrhythmia TECHNIQUE: Single frontal radiograph of the chest was obtained. Comparison: None available at the time of this dictation. FINDINGS: No lines and tubes are seen. The cardiomediastinal silhouette is normal. The lungs are clear. No evidence of pleural effusion or pneumothorax. IMPRESSION: No acute chest disease. ACT 112: Negative or not required by law. Electronically signed by: Rhett Robins M.D. 04/05/2024 8:34 AM Discharge Plan Visit Data Chief Complaint: Shortness of Breath/Dyspnea Stated Complaint: SOB, Tachycardia ED Provider: Yary Miles Discharge Problem: Atrial fibrillation with RVR, Non-ST elevation myocardial infarction (NSTEMI) Patient Disposition: Admitted As Inpatient Condition: Good Discharge Instructions Interventions: ED Discharge Assessment Last Done: 04/05/24 23:33
--- NOTE | 2024-04-05 11:45 | XCELERA ---
[id number] [id number]
[2024-04-05] MEDS ORDERED: NAPROXEN 250 MG TAB PO PRN (13:24)
[2024-04-05] MEDS ORDERED: NITROGLYCERIN SL 0.4 MG/TAB TAB SL PRN (13:24)
[2024-04-05] MEDS ORDERED: ALBUTEROL HFA 8 GM INHALER INH PRN (13:24)
[2024-04-05] MEDS ORDERED: ONDANSETRON INJ 2 MG/ML 2 ML VIAL IV PRN (13:24)
[2024-04-05] MEDS ORDERED: POLYETHYLENE (MIRALAX) 17 GM PACK PO PRN (13:24)
[2024-04-05] MEDS ORDERED: ACETAMINOPHEN 325 MG TAB PO PRN (13:24)
[2024-04-05] MEDS: SODIUM CHLORIDE 0.9% 1,000 ML IV SCH (14:57)
--- NOTE | 2024-04-05 16:30 | Neurology Consultation ---
Date of Consultation April 05, 2024 Assessment & Plan (1) Seizure disorder, grand mal: reportedly has been stable on the current regimen , with 4 months without any seizures which has been a great improvement Plan Continue current regimen Phenytoin sodium 300 mg twice daily at 1 point, Depakote 500 mg twice daily. Carbamazepine 600 mg twice daily. Check levels Telehealth Consultation Telehealth Information Telehealth Information: I performed this visit using a real-time telehealth connection between my location and the patients location ([facility]). After connecting through interactive tele-video, patient was identified by name and date of and/or wristband check.Patient (or authorized healthcare traffic representative) was informed that this was a telemedicine visit and it was being conducted confidentially over secure lines. My office door was closed and no one else was present in the room with me.Patient (or authorized healthcare traffic representative) provided consent to proceed with the visit, expressed an understanding of privacy and security of the telemedicine visit, and gave permission to have a hospital traffic representative in the room in order to assist with the visit and to conduct portions of the visit, as needed. I informed the patient (or authorized healthcare traffic representative) that I reviewed their record and presented the opportunity for them to ask any questions regarding the visit today. The patient agreed to participate. History of Present Illness Reason for Consultation: seizure disorder Attending Physician: Mervin Benitez MD History of Present Illness Rafael Johnson is a 53-year-old male patient with PMH of cocaine abuse history of seizure disorder, also Hx of [place], who presented to the ED with shortness of breath and chest pain was found to be in A-fib with RVR at a rate of 147, given metoprolol. Echocardiogram done today showing EF of 60-65%, severe concentric LVH, mildly dilated atrium. The patient was apparently on phenytoin sodium 300 mg twice daily at 1 point, Depakote 500 mg twice daily. Carbamazepine 600 mg twice daily. The patient tells me that he is on this combination for the past several months, he went for 4 months without having any seizure after Depakote is added. He was having frequent breakthrough seizures before this when he was only on the Tegretol and the phenytoin. He admits to being stressed out lately because of his cardiac condition that was recently diagnosed. He has been present for 16 years and has not used any drugs. Allergies Allergy/AdvReac Type Severity Reaction Status Date / Time No Known Allergies Allergy Unverified 04/05/24 13:26 Home Medications Medication Instructions Recorded Confirmed Type albuterol sulfate 90 mcg/actuation 2 puff inhalation QID PRN SOB 04/05/24 04/05/24 History aerosol inhaler (Proventil HFA) aspirin 81 mg tablet,delayed 81 mg PO DAILY 04/05/24 04/05/24 History release calcium polycarbophil 625 mg 625 mg PO DAILY 04/05/24 04/05/24 History tablet (Fiber-Lax) carbamazepine 200 mg tablet 600 mg PO BID 04/05/24 04/05/24 History ciclesonide 80 mcg/actuation 1 puff inhalation BID 04/05/24 04/05/24 History aerosol inhaler (Alvesco) disopyramide phosphate 100 mg 100 mg PO BID 04/05/24 04/05/24 History capsule,extended release (Norpace CR) divalproex 125 mg tablet,delayed 125 mg PO BID 04/05/24 04/05/24 History release divalproex 500 mg tablet,delayed 500 mg PO BID 04/05/24 04/05/24 History release furosemide 20 mg tablet 20 mg PO BID 04/05/24 04/05/24 History magnesium oxide 400 mg PO UD 04/05/24 04/05/24 History metoprolol succinate 200 mg 200 mg PO DAILY 04/05/24 04/05/24 History tablet,extended release 24 hr (Toprol XL) naproxen 500 mg tablet 500 mg PO BID PRN Pain 04/05/24 04/05/24 History phenytoin sodium extended 100 mg 300 mg PO BID 04/05/24 04/05/24 History capsule (Dilantin Extended) potassium chloride 10 mEq 10 meq PO DAILY 04/05/24 04/05/24 History tablet,extended release rosuvastatin 20 mg tablet 20 mg PO HS 04/05/24 04/05/24 History Patient History Social History Smoking Status: Former smoker Hx Substance Use: Yes Feels Safe at Home: Yes Review of Systems Constitutional: Patient denies weight loss, fever, chills, and night sweats Eyes: Patient denies change in vision, tearing, pain, and redness ENT: Patient denies pain, bleeding, rhinorrhea, and dysphagia Cardiovascular: + denies chest pain, +palpitation, +dyspnea at rest, and dyspnea with exertion Respiratory:+ve shortness of breath, cough, wheezing, and productive cough GI: Patient denies reflux, pain, constipation, and diarrhea Skin: Patient denies rash, dryness, and itching Allergies/Immune System: Patient denies rhinorrhea, seasonal allergies, reaction to current MEDS, and joint swelling Endocrine: Patient denies weight loss, weight gain, temperature intolerance, and excessive thirst Neurological: All negative unless mentioned in the HPI Physical Exam General Constitutional: Appearance normally developed Head and face: normocephalic and atraumatic Eyes: no ptosis, no anisocoria, and no dysconjugate gaze Respiratory: normal effort Cardiovascular: regular rhythm and regular rate Abdomen: non distended Skin: no rashes, lesions, or ulcers noted Psychiatric: normal judgement and insight, normal mood, and normal affect NEUROLOGIC EXAMINATION: Mental Status:alert, oriented to time, place, person, normal recent memory, normal remote memory, normal attention span, normal concentration, normal language and normal fund of knowledge Cranial Nerves: CN 2 - no visual defect on confrontation and pupils round, equal, reactive to light CN 3, 4, 6 - extra-ocular movements intact and no nystagmus CN 5 - facial sensation intact CN 7 - no facial asymmetry CN 8 - intact hearing CN 9, 10 - palate symmetric, normal gag CN 11 - good shoulder shrug CN 12 - tongue midline MOTOR: Strength was at least antigravity throughout, Pronator drift was absent and There were no abnormal movements SENSATION: intact and symmetric to pinprick, light touch, vibration and joint position GAIT:deferred COORDINATION: no ataxia with finger to nose testing and heel to hopper testing REFLEXES: cannot assess over telemedicine Results & Data Vital Signs (Past 12 Hours) Vital Signs Temp Pulse Pulse Resp BP BP Pulse Ox 04/05/24 15:26 104 H 04/05/24 13:36 72 18 110/81 96 04/05/24 13:24 04/05/24 13:21 105 H 22 95 04/05/24 11:30 96 H 17 122/89 97 04/05/24 10:42 100 H 120/69 04/05/24 10:36 88 17 120/69 95 04/05/24 10:35 82 04/05/24 09:33 105 H 18 128/87 98 04/05/24 07:49 106 H 107/83 04/05/24 07:43 102 H 18 102/80 95 04/05/24 06:48 116 H 110/77 04/05/24 06:33 147 H 04/05/24 06:14 04/05/24 06:14 36.6 C 130 H 16 110/64 96 Pulse Ox O2 Del Method O2 Del Method 04/05/24 15:26 04/05/24 13:36 Room Air 04/05/24 13:24 93 Room Air 04/05/24 13:21 04/05/24 11:30 04/05/24 10:42 04/05/24 10:36 04/05/24 10:35 04/05/24 09:33 Room Air 04/05/24 07:49 04/05/24 07:43 Room Air 04/05/24 06:48 04/05/24 06:33 04/05/24 06:14 Room Air 04/05/24 06:14 Room Air Laboratory Results Abnormal lab results 04/05/24 04/05/24 04/05/24 Range/Units 06:32 11:00 14:26 RBC 4.44 L (4.70-6.10) M/uL Hct 39.7 L (42.0-52.0) % [place] # (Auto) 0.66 H (0.11-0.59) K/uL Chloride 108 H (98-107) mmol/L Glucose 106 H (70-99(Fasting)) mg/dl Troponin I High Sens 64.4 H* 93.6 H* D 86.4 H* (0-20) pg/ml Laboratory Results - last 24 hr 04/05/24 04/05/24 04/05/24 06:32 09:06 11:00 WBC 5.01 RBC 4.44 L Hgb 14.0 Hct 39.7 L MCV 89.4 MCH 31.5 MCHC 35.3 RDW Std Deviation 40.5 RDW Coeff of Telly 12.4 Plt Count 160 MPV 9.9 Immature Gran % (Auto) 0.2 Neut % (Auto) 51.9 Lymph % (Auto) 32.7 [place] % (Auto) 13.2 Eos % (Auto) 1.4 Baso % (Auto) 0.6 Neut # (Auto) 2.60 Lymph # (Auto) 1.64 [place] # (Auto) 0.66 H Eos # (Auto) 0.07 Baso # (Auto) 0.03 Immature Gran # (Auto) 0.01 PT 10.7 INR 1.0 APTT 24 PTT Ratio 0.9 Sodium 143 Potassium 4.1 Chloride 108 H Carbon Dioxide 27 Anion Gap 8 BUN 16 Creatinine 0.81 Est Cr Clr Drug Dosing 120.7 Est GFR ( Amer) 116.8 Est GFR (Non-Af Amer) 100.8 BUN/Creatinine Ratio 19.8 Glucose 106 H Calcium 8.9 Magnesium 1.9 Total Bilirubin 0.3 AST 15 ALT 15 Alkaline Phosphatase 42 Troponin I High Sens 64.4 H* 93.6 H* D Total Protein 7.0 Albumin 4.1 Globulin 2.9 Albumin/Globulin Ratio 1.4 TSH 3.740 SARS-CoV-2, RNA, NAAT NEGATIVE 04/05/24 14:26 WBC RBC Hgb Hct MCV MCH MCHC RDW Std Deviation RDW Coeff of Telly Plt Count MPV Immature Gran % (Auto) Neut % (Auto) Lymph % (Auto) [place] % (Auto) Eos % (Auto) Baso % (Auto) Neut # (Auto) Lymph # (Auto) [place] # (Auto) Eos # (Auto) Baso # (Auto) Immature Gran # (Auto) PT INR APTT PTT Ratio Sodium Potassium Chloride Carbon Dioxide Anion Gap BUN Creatinine Est Cr Clr Drug Dosing Est GFR ( Amer) Est GFR (Non-Af Amer) BUN/Creatinine Ratio Glucose Calcium Magnesium Total Bilirubin AST ALT Alkaline Phosphatase Troponin I High Sens 86.4 H* Total Protein Albumin Globulin Albumin/Globulin Ratio TSH SARS-CoV-2, RNA, NAAT Diagnostic Findings Chest X-Ray 04/05/24 06:35 XR chest 1V portable CLINICAL HISTORY: Dysrhythmia TECHNIQUE: Single frontal radiograph of the chest was obtained. Comparison: None available at the time of this dictation. FINDINGS: No lines and tubes are seen. The cardiomediastinal silhouette is normal. The lungs are clear. No evidence of pleural effusion or pneumothorax. IMPRESSION: No acute chest disease. ACT 112: Negative or not required by law. Electronically signed by: Rhett Robins M.D. 04/05/2024 8:34 AM Medications Administered Home Medications Medication Instructions Recorded Confirmed Last Taken albuterol sulfate 90 mcg/actuation 2 puff inhalation QID PRN SOB 04/05/24 04/05/24 Unknown aerosol inhaler (Proventil HFA) aspirin 81 mg tablet,delayed 81 mg PO DAILY 04/05/24 04/05/24 Unknown release calcium polycarbophil 625 mg 625 mg PO DAILY 04/05/24 04/05/24 Unknown tablet (Fiber-Lax) carbamazepine 200 mg tablet 600 mg PO BID 04/05/24 04/05/24 Unknown ciclesonide 80 mcg/actuation 1 puff inhalation BID 04/05/24 04/05/24 Unknown aerosol inhaler (Alvesco) disopyramide phosphate 100 mg 100 mg PO BID 04/05/24 04/05/24 Unknown capsule,extended release (Norpace CR) divalproex 125 mg tablet,delayed 125 mg PO BID 04/05/24 04/05/24 Unknown release divalproex 500 mg tablet,delayed 500 mg PO BID 04/05/24 04/05/24 Unknown release furosemide 20 mg tablet 20 mg PO BID 04/05/24 04/05/24 Unknown magnesium oxide 400 mg PO UD 04/05/24 04/05/24 Unknown metoprolol succinate 200 mg 200 mg PO DAILY 04/05/24 04/05/24 Unknown tablet,extended release 24 hr (Toprol XL) naproxen 500 mg tablet 500 mg PO BID PRN Pain 04/05/24 04/05/24 Unknown phenytoin sodium extended 100 mg 300 mg PO BID 04/05/24 04/05/24 Unknown capsule (Dilantin Extended) potassium chloride 10 mEq 10 meq PO DAILY 04/05/24 04/05/24 Unknown tablet,extended release rosuvastatin 20 mg tablet 20 mg PO HS 04/05/24 04/05/24 Unknown Active Medications Generic Name Dose Route Start Last Admin Trade Name Freq PRN Reason Stop Dose Admin Sodium Chloride 1,000 mls @ 125 mls/hr 04/05/24 13:24 04/05/24 14:57 Nss IV 05/05/24 13:23 125 mls/hr .Q8H DONOVAN Administration
[2024-04-05] MEDS: LORazepam 2 MG/1 ML VIAL IV PRN (17:56)
[2024-04-05] MEDS: LORazepam 2 MG/1 ML VIAL IV STA (18:13)
[2024-04-05] MEDS: DIVALPROEX EXTENDED RELEASE 500 MG TAB PO ONE (19:28)
[2024-04-05] MEDS ORDERED: Nursing to Pharmacy Communication SCH (19:30)
[2024-04-05] MEDS: ENOXAPARIN INJ 40 MG/0.4 ML SYR SQ SCH ×2 (20:13→23:20)
[2024-04-05] MEDS: DIVALPROEX DELAY RELEASE 500 MG TAB PO SCH (20:25)
[2024-04-05] MEDS: carBAMazepine 200 MG TABLET PO SCH (20:25)
[2024-04-05] MEDS: DIVALPROEX DELAY RELEASE 125 MG TABEC PO SCH (20:25)
[2024-04-05] MEDS: PHENYTOIN SODIUM ER 100 MG CAP PO SCH (20:25)
[2024-04-05] MEDS: FUROSEMIDE 20 MG TAB PO SCH (20:25)
[2024-04-05] MEDS: DISOPYRAMIDE PO SCH (23:20)
[2024-04-06 06:03] LABS: Hemoglobin 14.3 g/dl (14.0-18.0); Mean Corpuscular Hemoglobin 31.2 pg (25.0-34.0); Mean Corpuscular Hgb Conc 34.9 g/dL (32.0-36.0); Mean Corpuscular Volume 89.3 fL (80.0-100.0); Mean Platelet Volume 9.3 fL (9.4-12.4); Platelet Count 183 K/uL (130-400); RDW Coefficient of Variation 12.4 % (11.5-14.5); RDW Standard Deviation 40.4 fL (36.4-46.3); Red Blood Count 4.59 M/uL (4.70-6.10); White Blood Count 5.75 K/ul (4.8-10.8)
[2024-04-06 06:21] LABS: Albumin Globulin Ratio 1.4 (0.9-2); Albumin Level 3.7 gm/dl (3.4-5.0); BUN Creatinine Ratio 17.5 (10-20); Bilirubin,Total 0.3 mg/dl (0.2-1.0); Calcium 8.6 mg/dl (8.6-10.3); Creatinine Clr Calc Pharmacy 122.2 ml/min; Est GFR (African American) 117.4 ml/min; Est GFR (Non-African American) 101.3 ml/min; Globulin 2.6 gm/dl (2.5-4.0); Potassium 4.4 mmol/L (3.5-5.1); Total Protein 6.3 gm/dl (6.0-8.3)
[2024-04-06] MEDS: CALCIUM POLYCARBOPHIL 625MG TAB PO SCH (08:53)
[2024-04-06] MEDS: ASPIRIN 81 MG ECTAB PO SCH (08:54)
[2024-04-06] MEDS: METOPROLOL SUCC 50MG EXT REL TAB PO SCH (08:54)
[2024-04-06] MEDS: MAGNESIUM OXIDE 400 MG TAB PO SCH (08:54)
[2024-04-06] MEDS: POTASSIUM CHLORIDE 10 MEQ TABCR PO SCH (08:54)
[2024-04-06] MEDS: FLUTICASONE FUROATE 100MCG 14 PUFFS/INHALER INH SCH (08:55)
[2024-04-06 09:30] LABS: Partial Thromboplastin Time 27 Seconds (21-31); Prothrombin Time 10.7 Seconds (9.0-12.0)
[2024-04-06] MEDS: HEPARIN SODIUM/DEXTROSE 25,000 UNITS/500 ML BAG IV SCH (09:30)
[2024-04-06] MEDS: Heparin IV Adult Wt-Based Standard *NO* INITIAL Bolus Protocol IV SCH (09:35)
--- NOTE | 2024-04-06 11:04 | Cardiology Consultation ---
Date of Consultation April 06, 2024 Assessment & Plan (1) Atrial fibrillation with RVR: (2) Acquired left ventricular outflow tract obstruction: (3) Coronary artery disease, non-occlusive: (4) Elevated troponin: Plan 1. Atrial fibrillation: It seems (based on symptoms) that his atrial fibrillation started less than 48 hours ago. He was already on metoprolol succinate 200 mg daily, that may have helped somewhat with heart rate but it is still very fast. We could potentially go up a little bit on that but I am going to add verapamil to his regimen. There is a potential interaction between that and disopyramide and I am going to hold his disopyramide. 2. Left ventricular outflow tract obstruction: He has been referred for surgery, I am not sure that is scheduled as yet. In the meantime I would continue high dose metoprolol succinate and now verapamil. 3. Coronary disease: He has nonobstructive coronary disease, his chest discomfort may have been ischemic pain however his enzymes are not elevated and this is most likely demand ischemia if it is anginal. I would not consider of invasive evaluation at this time. 4. Elevated troponin: His troponins are slightly elevated but very consistent with his known hypertrophic cardiomyopathy and his rapid heart rate. It is not suggestive of ischemia or infarction. History of Present Illness Reason for Consultation: Chest pain, atrial fibrillation Attending Physician: Yoan Whittington MD History of Present Illness This is a 53-year-old male with a history of Hypertension, Dyslipidemia, Non- Obstructive CAD, Hypertrophic Obstructive Cardiomyopathy, Seizure Disorder, COPD, and Atherosclerosis of the Aorta who is followed by Ghanshyam Cat in our office. He was hospitalized at [facility] in September 2023 for an NSTEMI. Underwent cardiac catheterization as outlined below. Patient was then re-admitted to [facility] from 11/28/23 through 11/30/23 with an acute exacerbation of HFpEF. Echocardiogram showed severe LVOT obstruction. He was treated with IV/PO Lasix. Metoprolol dose was increased to 200 mg daily. Verapamil was discontinued, and it was recommended that he start Disopyramide -- however disopyramide was not available on the hospital formulary, and he was not started on Disopyramide after he left the hospital. A cardiac MRI done January 28, 2024 showed upper septal hypertrophic cardiomyopathy, his calculated left ventricular ejection fraction was 55% and he had left atrial dilatation. There was a small circumferential pericardial effusion noted. He was referred to Dr. Matthew at [facility] for a septal myomectomy and possible mitral valve repair. He presents now with chest pressure and was noted to be in atrial fibrillation with a rapid ventricular response. He was having chest discomfort and fluttering in his chest on presentation although that resolved with heart rate control. He evidently had a seizure while here in the hospital. Is presenting electrocardiogram on April 05, 2024 shows atrial fibrillation with a heart rate of 120 bpm. His troponin measurements are slightly elevated but not much different than what they are chronically due to his hypertrophic cardiomyopathy. His outpatient medication should be metoprolol succinate 200 mg daily and disopyramide 100 mg twice daily. He is also on aspirin, as well as rosuvastatin. He describes to me relatively sudden onset of symptoms about 2 days ago in the evening, some type of chest discomfort as well as feeling a fluttering sensation in his chest when he lays on his left side. He does not believe he would have missed the symptoms if he had had them in the past. Today he feels better although does not feel back to normal. Allergies Allergy/AdvReac Type Severity Reaction Status Date / Time No Known Allergies Allergy Verified 04/06/24 07:50 Home Medications Medication Instructions Recorded Confirmed Type carbamazepine 200 mg tablet 600 mg PO BID 01/07/20 02/06/24 History (Tegretol) albuterol sulfate 90 mcg/actuation 2 puff inhalation QID PRN 04/29/22 02/06/24 History aerosol inhaler Shortness Of Breath aspirin 81 mg chewable tablet 81 mg PO DAILY 04/29/22 02/06/24 History phenytoin sodium extended 100 mg 300 mg PO BID 04/29/22 02/06/24 History capsule rosuvastatin 10 mg tablet 20 mg PO HS 08/05/23 02/06/24 History divalproex 500 mg tablet,delayed 625 mg PO BID 10/08/23 02/06/24 History release (Depakote) furosemide 20 mg tablet (Lasix) 20 mg PO DAILY PRN weight gain of 11/30/23 02/06/24 Rx more than 3 pounds in 1-2 days #10 tabs magnesium oxide 400 mg PO DAILY PRN ONLY take when 11/30/23 02/06/24 Rx furosemide is given #10 tabs metoprolol succinate 100 mg 200 mg (2 x 100 mg) PO DAILY #60 11/30/23 02/06/24 Rx tablet,extended release 24 hr tabs potassium chloride 10 mEq 10 meq PO DAILY PRN ONLY TAKE if 11/30/23 02/06/24 Rx tablet,extended release FUROSEMIDE is given #10 tabs disopyramide phosphate 100 mg 100 mg PO Q12H #60 caps 02/06/24 02/06/24 Rx capsule,extended release albuterol sulfate 90 mcg/actuation 2 puff inhalation QID PRN SOB 04/05/24 04/05/24 History aerosol inhaler (Proventil HFA) aspirin 81 mg tablet,delayed 81 mg PO DAILY 04/05/24 04/05/24 History release calcium polycarbophil 625 mg 625 mg PO DAILY 04/05/24 04/05/24 History tablet (Fiber-Lax) carbamazepine 200 mg tablet 600 mg PO BID 04/05/24 04/05/24 History ciclesonide 80 mcg/actuation 1 puff inhalation BID 04/05/24 04/05/24 History aerosol inhaler (Alvesco) disopyramide phosphate 100 mg 100 mg PO BID 04/05/24 04/05/24 History capsule,extended release (Norpace CR) divalproex 125 mg tablet,delayed 125 mg PO BID 04/05/24 04/05/24 History release divalproex 500 mg tablet,delayed 500 mg PO BID 04/05/24 04/05/24 History release furosemide 20 mg tablet 20 mg PO BID 04/05/24 04/05/24 History magnesium oxide 400 mg PO UD 04/05/24 04/05/24 History metoprolol succinate 200 mg 200 mg PO DAILY 04/05/24 04/05/24 History tablet,extended release 24 hr (Toprol XL) naproxen 500 mg tablet 500 mg PO BID PRN Pain 04/05/24 04/05/24 History phenytoin sodium extended 100 mg 300 mg PO BID 04/05/24 04/05/24 History capsule (Dilantin Extended) potassium chloride 10 mEq 10 meq PO DAILY 04/05/24 04/05/24 History tablet,extended release rosuvastatin 20 mg tablet 20 mg PO HS 04/05/24 04/05/24 History Patient History Medical History History of tobacco abuse Pulmonary nodule Surgical History No pertinent past surgical history Family History Father Coronary heart disease Seizure disorder Social History Smoking Status: Former smoker Tobacco Type: Cigarettes Second Hand Exposure: No; Do You Dip or Chew Tobacco: No; Hx Alcohol Use: Yes Hx Substance Use: Yes Last Used Substance Other:: quit in 2019 Preferred Language: Tamazight Communication Ability: Effective Finisher Denture Required: No Beliefs That Will Affect Care: None Current Living Situation: Other Current Living Situation Comment: [facility] Feels Safe at Home: Yes Safety Concerns: Feels Safe At This Time Assistive Devices: Glasses Review of Systems Review of Systems: All systems reviewed & are unremarkable except as noted in HPI & below Physical Exam Physical Exam: Constitutional: Alert, cooperative and in no distress. HEENT: Unremarkable Neck: No jugular venous distention, carotid pulses are irregular but otherwise normal and equal bilaterally without bruits. Pulmonary: Clear to auscultation bilaterally. Cardiac: Irregular rhythm with no murmur, gallop or rub. Abdomen: Soft, nontender with normal bowel sounds. Extremities: No edema. Distal pulses intact. Neurologic: No focal findings. Gait is steady. Skin: No rash, ecchymoses or petechiae. Results & Data Vital Signs (Past 12 Hours) Vital Signs Temp Pulse Pulse Resp BP Pulse Ox O2 Del Method 04/06/24 08:00 115 H 130/84 04/06/24 07:56 36.4 C L 107 H 20 79/57 L 96 Room Air 04/06/24 07:09 80 04/06/24 04:46 36.4 C L 89 16 97/64 L 93 Room Air 04/06/24 00:12 36.4 C L 102 H 18 141/101 H 97 Room Air 04/06/24 00:00 Room Air Laboratory Results Cardiac Enzymes 04/05/24 04/05/24 04/05/24 Range/Units 11:00 14:26 16:34 AST (13-39) U/L Troponin I High Sens 93.6 H* D 86.4 H* 87.9 H* (0-20) pg/ml 04/06/24 Range/Units 05:42 AST 12 L (13-39) U/L Troponin I High Sens (0-20) pg/ml Coagulation 04/06/24 Range/Units 08:44 PT 10.7 (9.0-12.0) Seconds APTT 27 (21-31) Seconds CBC 04/06/24 Range/Units 05:42 WBC 5.75 (4.8-10.8) K/ul RBC 4.59 L (4.70-6.10) M/uL Hgb 14.3 (14.0-18.0) g/dl Hct 41.0 L (42.0-52.0) % Plt Count 183 (130-400) K/uL Comprehensive Metabolic Panel 04/06/24 Range/Units 05:42 Sodium 140 (136-145) mmol/L Potassium 4.4 (3.5-5.1) mmol/L Chloride 107 (98-107) mmol/L Carbon Dioxide 28 (21-32) mmol/L BUN 14 (6-23) mg/dl Creatinine 0.80 (0.6-1.4) mg/dl Glucose 90 (70-99(Fasting)) mg/dl Calcium 8.6 (8.6-10.3) mg/dl AST 12 L (13-39) U/L ALT 12 (7-52) U/L Alkaline Phosphatase 40 (34-104) U/L Total Protein 6.3 (6.0-8.3) gm/dl Albumin 3.7 (3.4-5.0) gm/dl Intake and Output 04/05/24 04/06/24 04/06/24 22:59 06:59 14:59 Intake Total 1480 / 1480 1000 / 1000 Output Total 376 / 376 Balance 1104 / 1104 1000 / 1000 Intake: IV 1000 / 1000 1000 / 1000 Sodium Chloride 0.9% 1,000 ml @ 1000 / 1000 1000 / 1000 125 mls/hr IV .Q8H [facility] Rx#: [id number] Oral 480 / 480 Output: Urine 375 / 375 # Bowel Movements Other: # Unmeasured Voids 1 Weight 102 kg 102 kg Weight Measurement Method Built in [facility] Diagnostic Findings Telemetry: Atrial fibrillation with continued high heart rate. PG Care Time/CCT Total # of Minutes Spent Total Time Spent with Patient: Total time spent is greater than 50% in coordination of care (as documented) at patient's floor/unit and/or counseling patient: Coding Level of Care Code 14925 IN/OBS CONSULT LVL 4,60M Diagnoses Atrial fibrillation with RVR I48.91 Acquired left ventricular outflow tract obstruction I51.89 Coronary artery disease, non-occlusive I25.10 Elevated troponin R77.8
[2024-04-06] MEDS: VERAPAMIL HCL 180 MG TABCR PO SCH (13:52)
--- NOTE | 2024-04-06 15:06 | Hospitalist Progress Note ---
Date of Service April 06, 2024 Assessment & Plan (1) Atrial fibrillation with RVR: Plan: presented to [facility] with dyspnea & chest pain. found to be in afib with RVR which is a new diagnosis for him. was already on toprol xl 200mg daily prior to admission - this has been continued. seen by Dr Hurst - placed on verapamil in addition to the toprol xl. Norpace d/c by Dr Hurst. rates improved. CHADS-VASC score 2 (CHF, CAD) -- start heparin drip. Will need to check with group home system to see if they can provide Eliquis. appreciate Dr Hurst's consult & recs. (2) HOCM (hypertrophic obstructive cardiomyopathy): Plan: diagnosed earlier in 2023. has been referred to CT surgery at [facility] - saw them initially on 03/11/24. records indicate he was to have a repeat cardiac cath and then plan of care would be dictated by those results. records mention the possibility of alcohol septal ablation as a potential treatment of his HOCM. cont metoprolol succ. was taking lasix at the group home; during a prior admission he was decompensated from a volume standpoint. he received IV fluids since admission on 04/05. he now has b/l crackles on exam - fluids stopped, lasix given this afternoon. appreciate cardiology consult & recs. (3) Acquired left ventricular outflow tract obstruction: Plan: due to #2 (4) Elevated troponin: Plan: peak HS troponin low 90s likely myocardial demand ischemia in setting of #1, #2 unlikely to be ACS presenting chest pain was likely from a.fib in the setting of HOCM (5) Mitral regurgitation: Plan: mod-severe on prior echos earlier in 2023 this admission's echo - MR is improved (6) Heart failure with preserved ejection fraction: Plan: probably some element of decompensation brought on by rapid a.fib as well as iatrogenic from IV fluids IV fluids stopped restart lasix -- give 20mg po x 1 now of note - during his November 2023 admission he was decompensated then and did r equire multiple doses of lasix he tolerated diuresis during that November admission he also has been taking lasix back at the group home w/o issue (7) COPD (chronic obstructive pulmonary disease): Plan: no flare at this time (8) Coronary artery disease, non-occlusive: Plan: 10/10/23 - cath by Dr Akil Nogueira -- Coronary angiography Left main: Left main was very short and there was nearly dual ostial physiology. No ostial disease. Left anterior descending colon left anterior descending was a large transapical vessel. It provided several diagonal branches. Only luminal irregularities in this vessel without obstructive coronary disease Left circumflex: Left circumflex was a large dominant vessel. It produced several large obtuse marginal branches. The ongoing AV groove vessel after OM 2 had a discrete 50 to 60% stenosis. Right coronary artery: The right coronary is a nondominant vessel without evidence of obstructive disease cont statin cont metaprolol succinate cont asa 81mg daily (9) Seizure disorder: Plan: had seizures recently at the group home and then on day of admission no seizures since then appreciate neurology consultation cont tegretol BID cont depakote BID cont dilantin BID in light of recent seizure activity check levels of all 3 anti-epileptics of note - only level run in-house is depakote level Admission and Anticipated Discharge Date Admission Date: April 05, 2024 Subjective patient lying in bed during the visit denies any dyspnea at rest but does have mild WILEY had had chest pain prior to the admission - none today remains in a.fib on telemetry but rates <100 I received some records from [facility] - he did indeed see CT surgery in [place] 03/11/24 plan per records was to repeat a cardiac cath and plan of care for him would be dictated by the results of that cath he was to see CT surgery on 04/08/24 but this appt has been cancelled Review of Systems Review of Systems: pulm - no cough GI - no abd pain Physical Exam Physical Exam: gen - laying comfortably in bed, NAD neck - no JVD heart - 3-4/6 holosystolic murmur heard all over chest but loudest mid left sternal border, irregular, rate <100 lungs - b/l basilar rales abd - soft NT ND BS+ ext - trace edema b/l, pulses 2+ b/l skin - numerous tattoos psych - flat affect Results & Data Results & Data Vital Signs (Past 12 Hours) Vital Signs Temp Pulse Pulse Resp BP Pulse Ox O2 Del Method 04/06/24 13:00 91 H 04/06/24 11:26 36.5 C 86 20 105/74 95 Room Air 04/06/24 08:00 115 H 130/84 04/06/24 07:56 36.4 C L 107 H 20 79/57 L 96 Room Air 04/06/24 07:09 80 04/06/24 04:46 36.4 C L 89 16 97/64 L 93 Room Air Laboratory Results Laboratory Results - last 24 hr 04/06/24 04/06/24 04/06/24 05:42 08:44 15:46 WBC 5.75 RBC 4.59 L Hgb 14.3 Hct 41.0 L MCV 89.3 MCH 31.2 MCHC 34.9 RDW Std Deviation 40.4 RDW Coeff of Telly 12.4 Plt Count 183 MPV 9.3 L PT 10.7 INR 1.0 APTT 27 PTT Ratio 1.0 Heparin Anti-Xa, Unfract 0.37 Sodium 140 Potassium 4.4 Chloride 107 Carbon Dioxide 28 Anion Gap 5 BUN 14 Creatinine 0.80 Est Cr Clr Drug Dosing 122.2 Est GFR ( Amer) 117.4 Est GFR (Non-Af Amer) 101.3 BUN/Creatinine Ratio 17.5 Glucose 90 Calcium 8.6 Total Bilirubin 0.3 AST 12 L ALT 12 Alkaline Phosphatase 40 Total Protein 6.3 Albumin 3.7 Globulin 2.6 Albumin/Globulin Ratio 1.4 PG Care Time/CCT Total # of Minutes Spent Total Time Spent with Patient: Total time spent is greater than 50% in coordination of care (as documented) at patient's floor/unit and/or counseling patient: Coding Level of Care Code 03433 SUB INP/OBS CARE 3/50MIN Diagnoses Atrial fibrillation with RVR I48.91 HOCM (hypertrophic obstructive cardiomyopathy) I42.1 Acquired left ventricular outflow tract obstruction I51.89 Elevated troponin R79.89 Nonrheumatic mitral valve regurgitation I34.0 Cardiac valve disease etiology: nonrheumatic Heart failure with preserved ejection fraction, unspecified HF chronicity I50.30 Heart failure chronicity: unspecified COPD (chronic obstructive pulmonary disease) J44.9 Coronary artery disease, non-occlusive I25.10 Seizure disorder G40.909 (5) Mitral regurgitation Cardiac valve disease etiology: nonrheumatic Qualified Code(s): I34.0 - Nonrheumatic mitral (valve) insufficiency (6) Heart failure with preserved ejection fraction Heart failure chronicity: unspecified Qualified Code(s): I50.30 - Unspecified diastolic (congestive) heart failure
[2024-04-06 16:35] LABS: ANTI-Xa, UFH(UnfractionatedHep 0.37 IU/ml (0.3-0.7)
[2024-04-06] MEDS: FUROSEMIDE 20 MG TAB PO ONE (18:38)
[2024-04-06] MEDS: ROSUVASTATIN CALCIUM 20 MG TAB PO SCH (21:38)
--- NOTE | 2024-04-07 06:04 | Electrocardiogram Report ---
Test Reason : Blood Pressure : */* mmHG Vent. Rate : 120 BPM Atrial Rate : * BPM P-R Int : * ms QRS Dur : 96 ms QT Int : 332 ms P-R-T Axes : * 11 110 degrees QTcB Int : 469 ms Poor data quality, interpretation may be adversely affected Atrial fibrillation with rapid ventricular response Marked ST abnormality, possible inferior subendocardial injury Abnormal ECG No previous ECGs available Confirmed by Amado Hurst ([id number]) on 04/07/2024 6:04:15 AM Referred By: Confirmed By: Amado Hurst
[2024-04-07 07:16] LABS: BUN Creatinine Ratio 19.7 (10-20); Calcium 8.7 mg/dl (8.6-10.3); Creatinine Clr Calc Pharmacy 128.6 ml/min; Est GFR (African American) 119.9 ml/min; Est GFR (Non-African American) 103.4 ml/min; Potassium 4.3 mmol/L (3.5-5.1)
[2024-04-07 07:48] LABS: ANTI-Xa, UFH(UnfractionatedHep 0.43 IU/ml (0.3-0.7)
[2024-04-07] MEDS: FUROSEMIDE 20 MG TAB PO SCH (09:19)
[2024-04-07] MEDS: VERAPAMIL HCL 180 MG TABCR PO ONE (10:00)
--- NOTE | 2024-04-07 10:03 | Cardiology Progress Note ---
Date of Service April 07, 2024 Assessment & Plan (1) Atrial fibrillation with RVR: (2) Acquired left ventricular outflow tract obstruction: (3) Coronary artery disease, non-occlusive: (4) Elevated troponin: Plan 1. Atrial fibrillation: It seems (based on symptoms) that his atrial fibrillation started on 04/04/24. He was already on Metoprolol Succinate ER 200 mg daily. Disopyramide is on hold, and the addition of Verapamil has helped with his heart rate control, but he remains in atrial fibrillation. Patient given 2 Verapamil 180 mg tablets today (total dose 360 mg) to see if this will improve his heart rate even further. There is a potential interaction between Verapamil and disopyramide. 2. Left ventricular outflow tract obstruction: He has been referred for surgery, I am not sure that is scheduled as yet. In the meantime I would continue high dose metoprolol succinate and now verapamil. 3. Coronary disease: He has nonobstructive coronary disease, his chest discomfort may have been ischemic pain however his enzymes are not elevated and this is most likely demand ischemia if it is anginal. I would not consider of invasive evaluation at this time. 4. Elevated troponin: His troponins are slightly elevated but very consistent with his known hypertrophic cardiomyopathy and his rapid heart rate. It is not suggestive of ischemia or infarction. Admission and Anticipated Discharge Date Admission Date: April 05, 2024 Supervising Physician Co-Signing Physician Notes ADDENDUM (Dr. Nicole): Patient seen and examined. Agree with plan as outlined above by Emory SLONA. Patient asymptomatic at rest, but notes dyspnea just walking to the commode across the room. Remains in atrial fibrillation, rate 70-80 bpm at rest, increases to 135 bpm walking a short distance. As noted by Senait Emory, patient received an extra 180 mg of verapamil this morning, continue to observe heart rate response throughout the day. If he can ambulate with good heart rate control and no symptoms, he could potentially be discharged on metoprolol/verapamil with temporary use of apixaban (in case he requires cardioversion in the near future). Currently, he is on IV heparin for anticoagulation. Subjective Mr. Carreon is a 53-year-old male with a history of Hypertension, Dyslipidemia, Non-Obstructive CAD, Hypertrophic Obstructive Cardiomyopathy, Seizure Disorder, COPD, and Atherosclerosis of the Aorta who was admitted to [facility] on 04/05/24 after presenting with new onset atrial fibrillation with RVR and elevated high sensitivity troponin I levels. He was seen by Dr. Hurst yesterday who recommended holding disopyramide and starting Verapamil ER 180 mg daily in addition to keeping him on Toprol-XL 200 mg daily. With the addition of the calcium channel [place], his heart rate has been in the 70s to low 100s overnight, and currently in the low 100s. He is still in atrial fibrillation, but feels much better now than when he came in. Patient denies any chest pain, heaviness, tightness, pressure, or discomfort. He denies any shortness of b reath, orthopnea, or PND. He denies any syncope or near-syncope. Review of Systems Review of Systems: -- As per HPI. Physical Exam Physical Exam: Blood pressure 123/73, pulse 103 and irregularly irregular General: Patient is in no acute distress. HEENT: Head is atraumatic, normocephalic. EOM's intact. Sclerae anicteric. Facies symmetric. No perioral cyanosis. Neck: No JVD. JVP is not elevated. Carotid upstrokes +2 bilaterally without bruits. Chest and Lungs: Clear to auscultation throughout all lung warren, no wheezes, rales, or rhonchi. CVS: S1 and S2 are irregularly irregular with a grade 2/6 systolic murmur audible at both the right and left sternal borders, there is also a higher pitched grade 2/6 apical holosystolic murmur. No diastolic murmurs. No gallops or rubs. PMI is nonpalpable. No lifts, heaves, or thrills. No abdominal aortic or renal bruits. Abdominal Exam: Bowel sounds present. Extremities: No clubbing, cyanosis, or edema. Intact radial pulses bilaterally. Neurologic Exam: Patient is awake, alert, and oriented. Pleasant and cooperative. Answers questions appropriately. 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 Results & Data Vital Signs (Past 12 Hours) Vital Signs Temp Pulse Pulse Resp BP Pulse Ox O2 Del Method 04/07/24 08:09 36.3 C L 82 20 123/73 97 Room Air 04/07/24 03:18 36.5 C 82 18 92/69 L 95 Room Air 04/06/24 23:21 36.5 C 91 H 18 105/83 95 Room Air 04/06/24 22:08 76 Laboratory Results Laboratory Results - last 24 hr 04/06/24 04/07/24 04/07/24 15:46 06:14 06:53 Heparin Anti-Xa, Unfract 0.37 0.43 Sodium 139 Potassium 4.3 Chloride 106 Carbon Dioxide 26 Anion Gap 7 BUN 15 Creatinine 0.76 Est Cr Clr Drug Dosing 128.6 Est GFR ( Amer) 119.9 Est GFR (Non-Af Amer) 103.4 BUN/Creatinine Ratio 19.7 Glucose 100 H Calcium 8.7 Phenytoin Pending Valproic Acid 40 L Carbamazepine Cancelled 04/07/24 08:43 Heparin Anti-Xa, Unfract Sodium Potassium Chloride Carbon Dioxide Anion Gap BUN Creatinine Est Cr Clr Drug Dosing Est GFR ( Amer) Est GFR (Non-Af Amer) BUN/Creatinine Ratio Glucose Calcium Phenytoin Valproic Acid Carbamazepine Pending Medications Administered Medication List Aspirin (Aspirin 81 Mg Ectab) 81 mg PO DAILY [facility] Stop: 05/06/24 08:59 Last Admin: 04/07/24 09:19 Dose: 81 mg Documented By: Admin: 04/06/24 08:54 Dose: 81 mg Documented By: CUONG Calcium Polycarbophil (Calcium Polycarbophil 625mg Tab) 625 mg PO DAILY [facility] Stop: 05/06/24 08:59 Last Admin: 04/07/24 09:19 Dose: 625 mg Documented By: Admin: 04/06/24 08:53 Dose: 625 mg Documented By: CUONG Carbamazepine (Carbamazepine 200 Mg Tablet) 600 mg PO BID [facility] Stop: 05/05/24 20:59 Last Admin: 04/07/24 09:19 Dose: 600 mg Documented By: Admin: 04/06/24 21:37 Dose: 600 mg Documented By: Admin: 04/06/24 08:54 Dose: 600 mg Documented By: Admin: 04/05/24 20:25 Dose: 600 mg Documented By: KAREL Disopyramide Phosphate (Disopyramide Phos Extended Rel 100 Mg Capcr) 100 mg PO BID [facility] Stop: 05/05/24 20:59 Last Admin: 04/06/24 12:04 Dose: Not Given Documented By: Admin: 09/15/24 23:20 Dose: 100 mg Documented By: KAREL Divalproex Sodium (Divalproex Delay Release 125 Mg Tabec) 125 mg PO BID [facility] Stop: 05/05/24 20:59 Last Admin: 04/07/24 09:19 Dose: 125 mg Documented By: Admin: 04/06/24 21:39 Dose: 125 mg Documented By: Admin: 04/06/24 08:53 Dose: 125 mg Documented By: Admin: 04/05/24 20:25 Dose: 125 mg Documented By: KAREL Divalproex Sodium (Divalproex Delay Release 500 Mg Tab) 500 mg PO BID [facility] Stop: 05/05/24 20:59 Last Admin: 04/07/24 09:19 Dose: 500 mg Documented By: Admin: 04/06/24 21:39 Dose: 500 mg Documented By: Admin: 04/06/24 08:54 Dose: 500 mg Documented By: Admin: 04/05/24 20:25 Dose: 500 mg Documented By: KAREL Fluticasone Furoate (Fluticasone Furoate 100mcg 14 Puffs/Inhaler) 1 puffs INH DAILY [facility] Stop: 05/06/24 08:59 Last Admin: 04/07/24 09:20 Dose: 1 puffs Documented By: Admin: 04/06/24 08:55 Dose: 1 puffs Documented By: CUONG Furosemide (Furosemide 20 Mg Tab) 20 mg PO QAM [facility] Stop: 05/07/24 08:44 Last Admin: 04/07/24 09:21 Dose: 20 mg Documented By: Admin: 04/07/24 09:19 Dose: 20 mg Documented By: CUONG Heparin Sodium/Dextrose (Heparin Sodium/Dextrose) 25,000 units in 500 mls @ 29 mls/hr IV .[id number] [facility]; Protocol Stop: 05/06/24 08:14 Last Titration: 04/07/24 07:04 Dose: 1,450 units/hr, 29 mls/hr Documented By: RUIZ Co-signed By: CUONG Admin: 04/07/24 02:23 Dose: 1,450 units/hr, 29 mls/hr Documented By: RUIZ Co-signed By: NATALI Titration: 04/07/24 02:23 Dose: Infused Documented By: RUIZ Co-signed By: NATALI Titration: 04/06/24 19:26 Dose: 1,450 units/hr, 29 mls/hr Documented By: RUIZ Co-signed By: CUONG Admin: 04/06/24 09:30 Dose: 1,450 units/hr, 29 mls/hr Documented By: CUONG Co-signed By: YOLY Lorazepam (Lorazepam 2 Mg/1 Ml Vial) 4 mg IV Q1H PRN PRN Reason: seizure Stop: 05/05/24 13:21 Last Admin: 04/05/24 17:56 Dose: 4 mg Documented By: DOUG Magnesium Oxide (Magnesium Oxide 400 Mg Tab) 400 mg PO DAILY [facility] Stop: 05/06/24 08:59 Last Admin: 04/07/24 10:00 Dose: 400 mg Documented By: Admin: 04/06/24 08:54 Dose: 400 mg Documented By: CUONG Metoprolol Succinate (Metoprolol Succ 50mg Ext Rel Tab) 200 mg PO DAILY [facility] Stop: 05/06/24 08:59 Last Admin: 04/07/24 09:19 Dose: 200 mg Documented By: Admin: 04/06/24 08:54 Dose: 200 mg Documented By: CUONG Phenytoin Sodium (Phenytoin Sodium Er 100 Mg Cap) 300 mg PO BID [facility] Stop: 05/05/24 20:59 Last Admin: 04/07/24 09:19 Dose: 300 mg Documented By: Admin: 04/06/24 21:38 Dose: 300 mg Documented By: Admin: 04/06/24 08:54 Dose: 300 mg Documented By: Admin: 04/05/24 20:25 Dose: 300 mg Documented By: KAREL Potassium Chloride (Potassium Chloride 10 Meq Tabcr) 10 meq PO DAILY [facility] Stop: 05/06/24 08:59 Last Admin: 04/07/24 09:18 Dose: 10 meq Documented By: Admin: 04/06/24 08:54 Dose: 10 meq Documented By: CUONG Rosuvastatin Calcium (Rosuvastatin Calcium 20 Mg Tab) 20 mg PO HS [facility] Stop: 05/06/24 20:59 Last Admin: 04/06/24 21:38 Dose: 20 mg Documented By: RUIZ Verapamil HCl (Verapamil Hcl 180 Mg Tabcr) 180 mg PO QAM [facility] Stop: 05/06/24 12:44 Last Admin: 04/07/24 09:20 Dose: 180 mg Documented By: Admin: 04/06/24 13:52 Dose: 180 mg Documented By: CUONG Discontinued Medications Carbamazepine (Carbamazepine 200 Mg Tablet) 600 mg PO NOW ONE Stop: 04/05/24 08:20 Last Admin: 04/05/24 09:28 Dose: 600 mg Documented By: JACKIE Disopyramide Phosphate (Disopyramide Phosphate 100 Mg Cap) 100 mg PO NOW STA Stop: 04/05/24 08:20 Last Admin: 04/05/24 10:45 Dose: 100 mg Documented By: JACKIE Divalproex Sodium (Divalproex Delay Release 125 Mg Tabec) 125 mg PO NOW STA Stop: 04/05/24 08:20 Last Admin: 04/05/24 09:21 Dose: 125 mg Documented By: JACKIE Divalproex Sodium (Divalproex Delay Release 500 Mg Tab) 500 mg PO NOW ONE Stop: 04/05/24 08:20 Last Admin: 04/05/24 09:21 Dose: 500 mg Documented By: JACKIE Divalproex Sodium (Divalproex Extended Release 500 Mg Tab) 1,000 mg PO NOW ONE Stop: 04/05/24 18:25 Last Admin: 04/05/24 19:28 Dose: 1,000 mg Documented By: KAREL Enoxaparin Sodium (Enoxaparin Inj 40 Mg/0.4 Ml Syr) 40 mg SQ DAILY [facility] Stop: 05/05/24 13:59 Last Admin: 04/05/24 20:13 Dose: Not Given Documented By: KAREL Enoxaparin Sodium (Enoxaparin Inj 40 Mg/0.4 Ml Syr) 40 mg SQ HS [facility] Stop: 05/05/24 23:14 Last Admin: 04/05/24 23:20 Dose: 40 mg Documented By: KAREL Furosemide (Furosemide 20 Mg Tab) 20 mg PO NOW STA Stop: 04/05/24 08:20 Last Admin: 04/05/24 09:21 Dose: 20 mg Documented By: JACKIE Furosemide (Furosemide 20 Mg Tab) 20 mg PO BID [facility] Stop: 05/05/24 20:59 Last Admin: 04/05/24 20:25 Dose: 20 mg Documented By: KAREL Furosemide (Furosemide 20 Mg Tab) 20 mg PO ONE ONE Stop: 04/06/24 18:34 Last Admin: 04/06/24 18:38 Dose: 20 mg Documented By: CUONG Heparin Sodium/Dextrose (Heparin Iv Adult Wt-Based Standard *No* Initial Bolus Protocol) 1 each IV Q15M [facility]; Protocol Stop: 04/06/24 09:07 Last Admin: 04/06/24 11:48 Dose: Not Given Documented By: Admin: 04/06/24 11:48 Dose: Not Given Documented By: Admin: 04/06/24 11:21 Dose: 1 each Documented By: Admin: 04/06/24 09:35 Dose: 1 each Documented By: CUONG Sodium Chloride (Nss) 1,000 mls @ 125 mls/hr IV .Q8H [facility] Stop: 05/05/24 13:23 Last Admin: 04/06/24 15:55 Dose: Not Given Documented By: Infusion: 04/06/24 15:55 Dose: Infused Documented By: Admin: 04/06/24 09:06 Dose: 125 mls/hr Documented By: Infusion: 04/06/24 08:16 Dose: Infused Documented By: Admin: 04/06/24 00:16 Dose: 125 mls/hr Documented By: Infusion: 04/06/24 00:07 Dose: Infused Documented By: Admin: 04/05/24 14:57 Dose: 125 mls/hr Documented By: DOUG Lorazepam (Lorazepam 2 Mg/1 Ml Vial) 2 mg IV NOW STA Stop: 04/05/24 17:52 Last Admin: 04/05/24 18:13 Dose: Not Given Documented By: DOUG Magnesium Oxide (Magnesium Oxide 400 Mg Tab) 400 mg PO NOW STA Stop: 04/05/24 08:20 Last Admin: 04/05/24 09:20 Dose: 400 mg Documented By: JACKIE Metoprolol Succinate (Metoprolol Succ 50mg Ext Rel Tab) 200 mg PO NOW STA Stop: 04/05/24 08:20 Last Admin: 04/05/24 09:21 Dose: 200 mg Documented By: JACKIE Metoprolol Tartrate (Metoprolol Tartrate 1 Mg/Ml Vial) 5 mg IV NOW STA Stop: 04/05/24 06:36 Last Admin: 04/05/24 06:48 Dose: 5 mg Documented By: SLOAN Metoprolol Tartrate (Metoprolol Tartrate 1 Mg/Ml Vial) 5 mg IV NOW STA Stop: 04/05/24 07:24 Last Admin: 04/05/24 07:49 Dose: 5 mg Documented By: JACKIE Metoprolol Tartrate (Metoprolol Tartrate 1 Mg/Ml Vial) 5 mg IV NOW STA Stop: 04/05/24 07:30 Last Admin: 04/05/24 10:42 Dose: Not Given Documented By: JACKIE Phenytoin Sodium (Phenytoin Sodium Er 100 Mg Cap) 100 mg PO NOW STA Stop: 04/05/24 08:20 Last Admin: 04/05/24 09:22 Dose: 100 mg Documented By: JACKIE Potassium Chloride (Potassium Chloride 10 Meq Tabcr) 10 meq PO NOW STA Stop: 04/05/24 08:20 Last Admin: 04/05/24 09:20 Dose: 10 meq Documented By: JACKIE Rosuvastatin Calcium (Rosuvastatin Calcium 20 Mg Tab) 20 mg PO NOW STA Stop: 04/05/24 08:20 Last Admin: 04/05/24 09:22 Dose: 20 mg Documented By: JACKIE Verapamil HCl (Verapamil Hcl 180 Mg Tabcr) 180 mg PO NOW ONE Stop: 04/07/24 09:28 Last Admin: 04/07/24 10:00 Dose: 180 mg Documented By: CUONG PG Care Time/CCT Total # of Minutes Spent Total Time Spent with Patient: Total time spent is greater than 50% in coordination of care (as documented) at patient's floor/unit and/or counseling patient:25 C[place] [address] SUB INP/OBS CARE 3/50MIN Patient Type Established Medical Decision Making Moderate Complexity Diagnoses Atrial fibrillation with RVR I48.91 Acquired left ventricular outflow tract obstruction I51.89 Coronary artery disease, non-occlusive I25.10 Elevated troponin R77.8 Time Spent (min) 52
--- NOTE | 2024-04-07 13:50 | Hospitalist Progress Note ---
Date of Service April 07, 2024 Assessment & Plan (1) Atrial fibrillation with RVR: (2) Elevated troponin: (3) HOCM (hypertrophic obstructive cardiomyopathy): (4) CAD (coronary artery disease): (5) Heart failure with preserved ejection fraction: (6) Seizure disorder: (7) COPD (chronic obstructive pulmonary disease): Plan 53-year-old male with past medical history of HOCM, nonobstructive coronary artery disease, chronic diastolic congestive heart failure with preserved eje ction fraction, history of cocaine abuse, seizure disorder who presented to the ED with chest pain and shortness of breath and was found to be in atrial fibrillation with RVR and elevated troponin. Patient also had a seizure upon arrival to the hospital #Atrial fibrillation with RVR #HOCM #Nonobstructive coronary disease #Acute on chronic diastolic congestive heart failure with preserved ejection fraction of 60% #Elevated troponin, likely demand ischemia from A-fib with RVR Cardiology following the patient TSH is 3.740 Echo from 04/05/2024 shows left ventricular systolic function is normal with EF of 60 to 65%. No regional wall motion abnormalities noted. There is severe concentric left ventricular hypertrophy Patient is on heparin infusion for anticoagulation He is on metoprolol succinate 200 mg daily Disopyramide was held by cardiology and patient was started on verapamil ER 180 mg daily and dose has been increased back cardiology to verapamil ER 360 mg mera blanca I spoke with counselor manager Dr. Nicole via secure chat: Given that patient is on phenytoin, not a good candidate to be on apixaban. Cardiology in the meantime is recommended continuing IV infusion, stopping aspirin and to keep patient n.p.o. after midnight for possible cardioversion in a.m. Continue Lasix 20 mg p.o. daily I/O monitoring Daily weights He was referred to Dr. Matthew at [facility] for a septal myomectomy and possible mitral valve repair and awaiting follow-up with them. #Seizure disorder Patient was seen by neurology Neurologist recommended continuing phenytoin 300 mg twice daily, Depakote 500 mg twice daily and carbamazepine 600 mg twice daily Neurology has recommended checking levels which are still pending Seizure precautions Patient will need follow-up with neurology as an outpatient CODE STATUS: Full code DVT prophylaxis: Patient on heparin infusion Discharge planning back to senior care based on cardiology recommendations Care plan discussed with patient, nursing staff Admission and Anticipated Discharge Date Admission Date: April 05, 2024 Subjective Patient seen and examined Denies any chest pain or shortness of breath at rest. Patient states he gets short winded when he is trying to get out of bed. He denies any headache, dizziness, lightheadedness, nausea, vomiting, diarrhea, abdominal pain. He denies any fever or chills. He is tolerating oral diet without any issues. Review of Systems Review of Systems: As per HPI Physical Exam Physical Exam: General: No acute distress, speaking in full sentences Psych: Awake and alert HEENT: Anicteric sclera, moist oral mucosa CVS: irregular rate and rhythm Lungs: Bilateral air entry, no wheezing noted Abdomen: Soft, nontender, no rebound, no guarding Ext: No lower extremity edema, no calf tenderness Neuro: No focal motor deficits noted Results & Data Results & Data Vital Signs (Past 12 Hours) Vital Signs Temp Pulse Pulse Resp BP Pulse Ox O2 Del Method 04/07/24 11:45 97 H 18 97/81 L 96 Room Air 04/07/24 09:00 Room Air 04/07/24 08:09 36.3 C L 82 20 123/73 97 Room Air 04/07/24 07:00 83 04/07/24 03:18 36.5 C 82 18 92/69 L 95 Room Air Laboratory Results Laboratory Results - last 24 hr 04/07/24 04/07/24 04/07/24 06:14 06:53 08:43 Heparin Anti-Xa, Unfract 0.43 Sodium 139 Potassium 4.3 Chloride 106 Carbon Dioxide 26 Anion Gap 7 BUN 15 Creatinine 0.76 Est Cr Clr Drug Dosing 128.6 Est GFR ( Amer) 119.9 Est GFR (Non-Af Amer) 103.4 BUN/Creatinine Ratio 19.7 Glucose 100 H Calcium 8.7 Phenytoin Pending Valproic Acid 40 L Carbamazepine Cancelled Pending PG Care Time/CCT Total # of Minutes Spent Total Time Spent: 50 Total Time Spent with Patient: Total time spent is greater than 50% in coordination of care (as documented) at patient's floor/unit and/or counseling patient: Coding Level of Care Code 74896 SUB INP/OBS CARE 3/50MIN Diagnoses Atrial fibrillation with RVR I48.91 Elevated troponin R79.89 HOCM (hypertrophic obstructive cardiomyopathy) I42.1 CAD (coronary artery disease) I25.10 Heart failure with preserved ejection fraction, unspecified HF chronicity I50.30 Heart failure chronicity: unspecified Seizure disorder G40.909 COPD (chronic obstructive pulmonary disease) J44.9 Time Spent (min) 50 (5) Heart failure with preserved ejection fraction Heart failure chronicity: unspecified Qualified Code(s): I50.30 - Unspecified diastolic (congestive) heart failure
[2024-04-07] MEDS ORDERED: APIXABAN 5 MG TABLET PO SCH (21:00)
[2024-04-08 03:09] VITALS: TEMP 97.9
[2024-04-08 06:58] LABS: Basophils # (auto) 0.05 K/uL (0.00-0.20); Basophils % (auto) 0.9 %; Eosinophils # (auto) 0.11 K/uL (0.00-0.50); Hematocrit (blood only) 42.7 % (42.0-52.0); Hemoglobin 15.2 g/dl (14.0-18.0); Immature Granulocytes # (auto) 0.01 K/uL (0.01-0.20); Immature Granulocytes % (auto) 0.2 %; Lymphocytes # (auto) 1.98 K/uL (1.20-3.40); Lymphocytes % (auto) 36.5 %; Mean Corpuscular Hemoglobin 31.5 pg (25.0-34.0); Mean Corpuscular Hgb Conc 35.6 g/dL (32.0-36.0); Mean Corpuscular Volume 88.6 fL (80.0-100.0); Mean Platelet Volume 10.2 fL (9.4-12.4); Monocytes # (auto) 0.54 K/uL (0.11-0.59); Neutrophils # (auto) 2.73 K/uL (1.40-6.50); Neutrophils % (auto) 50.4 %; Platelet Count 178 K/uL (130-400); RDW Coefficient of Variation 12.4 % (11.5-14.5); RDW Standard Deviation 40.2 fL (36.4-46.3); Red Blood Count 4.82 M/uL (4.70-6.10); White Blood Count 5.42 K/ul (4.8-10.8)
[2024-04-08 07:04] LABS: Calcium 8.8 mg/dl (8.6-10.3); Creatinine Clr Calc Pharmacy 130.5 ml/min; Est GFR (African American) 120.5 ml/min; Magnesium 2.1 mg/dl (1.7-2.4); Potassium 4.3 mmol/L (3.5-5.1)
[2024-04-08 07:09] LABS: ANTI-Xa, UFH(UnfractionatedHep 0.44 IU/ml (0.3-0.7)
[2024-04-08] MEDS ORDERED: ASPIRIN 81 MG ECTAB PO SCH (09:00)
--- NOTE | 2024-04-08 09:00 | Cardiology Progress Note ---
Date of Service April 08, 2024 Assessment & Plan (1) Atrial fibrillation with RVR: (2) Acquired left ventricular outflow tract obstruction: (3) Coronary artery disease, non-occlusive: (4) Elevated troponin: Plan 1. Atrial fibrillation: It seems (based on symptoms) that his atrial fibrillation started on 04/04/24. He was anticoagulated on the morning of April 05, 2024. He was already on Metoprolol Succinate ER 200 mg daily. Disopyramide is on hold, and the addition of Verapamil (now 360 mg daily) has helped with his heart rate control, but he remains in atrial fibrillation. There is a potential interaction between Verapamil and disopyramide so the latter has been discontinued. We could consider cardioversion, it would be relatively low risk as long as the timing of onset of atrial fibrillation is correct. Since he feels well I would be inclined not to do so however. We should switch his anticoagulation to Eliquis, I would recommend 5 mg twice a day. If he remains in atrial fibrillation we can consider outpatient cardioversion in a month. 2. Left ventricular outflow tract obstruction: He has been referred for surgery, I am not sure that is scheduled as yet. In the meantime I would continue high dose metoprolol succinate and verapamil. 3. Coronary disease: He has nonobstructive coronary disease, his chest discomfort may have been ischemic pain however his enzymes are not elevated and this is most likely demand ischemia if it is anginal. I would not consider of invasive evaluation at this time. 4. Elevated troponin: His troponins are slightly elevated but very consistent with his known hypertrophic cardiomyopathy and his rapid heart rate. It is not suggestive of ischemia or infarction. Admission and Anticipated Discharge Date Admission Date: April 05, 2024 Subjective He is feeling quite well at rest and with ambulation in his room. I had him walk around the hallway several times, he tells me that he feels "all right", he is not having a lot of shortness of breath, does not have chest discomfort and does not feel poorly despite an increase in heart rate. Physical Exam Physical Exam: Constitutional: Alert, cooperative and in no distress. HEENT: Unremarkable Neck: No jugular venous distention, carotid pulses are irregular but otherwise normal and equal bilaterally without bruits. Pulmonary: Clear to auscultation bilaterally. Cardiac: Irregular rhythm with no murmur, gallop or rub. Abdomen: Soft, nontender with normal bowel sounds. Extremities: No edema. Distal pulses intact. Neurologic: No focal findings. Gait is steady. Skin: No rash, ecchymoses or petechiae. Results & Data Vital Signs (Past 12 Hours) Vital Signs Temp Pulse Pulse Resp BP Pulse Ox O2 Del Method 04/08/24 08:26 36.6 C 71 16 90/68 L 95 Room Air 04/08/24 07:32 73 04/08/24 03:04 36.6 C 68 16 118/90 95 Room Air 04/07/24 22:14 74 18 109/79 97 Room Air Laboratory Results CBC 04/08/24 Range/Units 06:17 WBC 5.42 (4.8-10.8) K/ul RBC 4.82 (4.70-6.10) M/uL Hgb 15.2 (14.0-18.0) g/dl Hct 42.7 (42.0-52.0) % Plt Count 178 (130-400) K/uL Neut # (Auto) 2.73 (1.40-6.50) K/uL Lymph # (Auto) 1.98 (1.20-3.40) K/uL [place] # (Auto) 0.54 (0.11-0.59) K/uL Eos # (Auto) 0.11 (0.00-0.50) K/uL Baso # (Auto) 0.05 (0.00-0.20) K/uL Comprehensive Metabolic Panel 04/08/24 Range/Units 06:17 Sodium 138 (136-145) mmol/L Potassium 4.3 (3.5-5.1) mmol/L Chloride 105 (98-107) mmol/L Carbon Dioxide 27 (21-32) mmol/L BUN 15 (6-23) mg/dl Creatinine 0.75 (0.6-1.4) mg/dl Glucose 98 (70-99(Fasting)) mg/dl Calcium 8.8 (8.6-10.3) mg/dl Intake and Output 04/07/24 04/08/24 04/08/24 22:59 06:59 14:59 Intake Total 564.183 / 700.000 307.883 / 307.883 Output Total 550 / 1700 Balance 564.183 / -1000.000 -550 / -1000.000 307.883 / 307.883 Intake: IV 364.183 / 500.000 307.883 / 307.883 Heparin Sodium/Dextrose 25,000 364.183 / 500.000 307.883 / 307.883 units In 500 ml @ 1,450 UNITS/ HR 29 mls/hr IV .[id number] DONOVAN Rx #:[id number] Oral 200 / 200 Output: Urine 550 / 1700 Other: Other Intake Source NPO # Unmeasured Voids 2 1 Weight 103.3 kg 102.2 kg Weight Measurement Method Standing Scale Standing Scale Diagnostic Findings Telemetry: Atrial fibrillation, heart rate better (70-80 overnight and with walking in the room), with ambulating around the hallway his heart rate went up over 130. PG Care Time/CCT Total # of Minutes Spent Total Time Spent with Patient: Total time spent is greater than 50% in coordination of care (as documented) at patient's floor/unit and/or counseling patient: Coding Level of Care Code 75299 SUB INP/OBS CARE 2/35MIN Diagnoses Atrial fibrillation with RVR I48.91 Acquired left ventricular outflow tract obstruction I51.89 Coronary artery disease, non-occlusive I25.10 Elevated troponin R77.8
[2024-04-08] MEDS: VERAPAMIL HCL 180 MG TABCR PO SCH (09:25)
[2024-04-08 12:03] VITALS: BP 122/80; PULSE 94; RESP 18; O2SAT 94
--- NOTE | 2024-04-08 13:16 | Hospitalist Progress Note ---
Date of Service April 08, 2024 Assessment & Plan (1) Atrial fibrillation with RVR: (2) Elevated troponin: (3) HOCM (hypertrophic obstructive cardiomyopathy): (4) CAD (coronary artery disease): (5) Heart failure with preserved ejection fraction: (6) Seizure disorder: (7) COPD (chronic obstructive pulmonary disease): Plan 53-year-old male with past medical history of HOCM, nonobstructive coronary artery disease, chronic diastolic congestive heart failure with preserved eje ction fraction, history of cocaine abuse, seizure disorder who presented to the ED with chest pain and shortness of breath and was found to be in atrial fibrillation with RVR and elevated troponin. Patient also had a seizure upon arrival to the hospital #Atrial fibrillation with RVR #HOCM #Nonobstructive coronary disease #Acute on chronic diastolic congestive heart failure with preserved ejection fraction of 60% #Elevated troponin, likely demand ischemia from A-fib with RVR Cardiology following the patient TSH is 3.740 Echo from 04/05/2024 shows left ventricular systolic function is normal with EF of 60 to 65%. No regional wall motion abnormalities noted. There is severe concentric left ventricular hypertrophy Patient is on heparin infusion for anticoagulation He is on metoprolol succinate 200 mg daily Disopyramide was held by cardiology and patient was started on verapamil ER 180 mg daily and dose has been increased back cardiology to verapamil ER 360 mg mera blanca I spoke with security shift manager Dr. Nicole via secure chat: Given that patient is on phenytoin, not a good candidate to be on apixaban. Cardiology in the meantime is recommended continuing IV infusion, stopping aspirin and to keep patient n.p.o. after midnight for possible cardioversion in a.m. Continue Lasix 20 mg p.o. daily I/O monitoring Daily weights He was referred to Dr. Matthew at [facility] for a septal myomectomy and possible mitral valve repair and awaiting follow-up with them. #Seizure disorder Patient was seen by neurology Neurologist recommended continuing phenytoin 300 mg twice daily, Depakote 500 mg twice daily and carbamazepine 600 mg twice daily Neurology has recommended checking levels which are still pending Seizure precautions Patient will need follow-up with neurology as an outpatient CODE STATUS: Full code DVT prophylaxis: Patient on heparin infusion Discharge planning back to intermediate based on cardiology recommendations Care plan discussed with patient, nursing staff Admission and Anticipated Discharge Date Admission Date: April 05, 2024 Review of Systems Review of Systems: As per HPI Physical Exam Physical Exam: General: No acute distress, speaking in full sentences Psych: Awake and alert HEENT: Anicteric sclera, moist oral mucosa CVS: irregular rate and rhythm Lungs: Bilateral air entry, no wheezing noted Abdomen: Soft, nontender, no rebound, no guarding Ext: No lower extremity edema, no calf tenderness Neuro: No focal motor deficits noted Results & Data Results & Data Vital Signs (Past 12 Hours) Vital Signs Temp Pulse Pulse Resp BP Pulse Ox O2 Del Method 04/08/24 12:00 36.6 C 94 H 18 122/80 94 Room Air 04/08/24 09:22 106/81 04/08/24 08:26 36.6 C 71 16 90/68 L 95 Room Air 04/08/24 07:32 73 04/08/24 03:04 36.6 C 68 16 118/90 95 Room Air PG Care Time/CCT Total # of Minutes Spent Total Time Spent with Patient: Total time spent is greater than 50% in coordination of care (as documented) at patient's floor/unit and/or counseling patient: Coding Diagnoses Atrial fibrillation with RVR I48.91 Elevated troponin R79.89 HOCM (hypertrophic obstructive cardiomyopathy) I42.1 CAD (coronary artery disease) I25.10 Heart failure with preserved ejection fraction, unspecified HF chronicity I50.30 Heart failure chronicity: unspecified Seizure disorder G40.909 COPD (chronic obstructive pulmonary disease) J44.9 (5) Heart failure with preserved ejection fraction Heart failure chronicity: unspecified Qualified Code(s): I50.30 - Unspecified diastolic (congestive) heart failure
--- NOTE | 2024-04-08 14:16 | Discharge Summary ---
Discharge Summary Date of Service April 08, 2024 Principal Dx & Hospital Course #1 = Principal Diagnosis (1) Atrial fibrillation with RVR: (2) Elevated troponin: (3) HOCM (hypertrophic obstructive cardiomyopathy): (4) CAD (coronary artery disease): (5) Heart failure with preserved ejection fraction: (6) Seizure disorder: (7) COPD (chronic obstructive pulmonary disease): Plan 53-year-old male with past medical history of HOCM, nonobstructive coronary artery disease, chronic diastolic congestive heart failure with preserved ejection fraction, history of cocaine abuse, seizure disorder who presented to the ED with chest pain and shortness of breath and was found to be in atrial fibrillation with RVR and elevated troponin. Patient also had a seizure upon arrival to the hospital #Atrial fibrillation with RVR #HOCM #Nonobstructive coronary disease #Acute on chronic diastolic congestive heart failure with preserved ejection fraction of 60% #Elevated troponin, likely demand ischemia from A-fib with RVR Cardiology saw the patient during hospital stay TSH is 3.740 Echo from 04/05/2024 shows left ventricular systolic function is normal with EF of 60 to 65%. No regional wall motion abnormalities noted. There is severe concentric left ventricular hypertrophy Patient was initially on heparin infusion for anticoagulation and cardiology has recommended switching him to oral apixaban 5 mg p.o. twice daily. I spoke with still worker helper Dr. Hurst about the drug interactions with apixaban and antiseizure medications, and as per cardiology okay to give apixaban He is on metoprolol succinate 200 mg daily Disopyramide was held by cardiology and patient was started on verapamil ER 180 mg daily and dose has been increased by cardiology to verapamil ER 360 mg daily I spoke with still worker helper Dr. Hurst via secure chat: Patient can be discharged back to facility from cardiology point of view on aspirin 81 mg daily, apixaban 5 mg p.o. twice daily, Toprol-XL 200 mg daily and verapamil extended release 360 mg p.o. daily and will need follow-up with cardiology as an outpatient to discuss cardioversion Continue Lasix 20 mg p.o. daily He was referred to Dr. Matthew at [facility] for a septal myomectomy and possible mitral valve repair and awaiting follow-up with them. Patient has been ambulating in the hallways without jump in his heart rate and any shortness of breath. Patient currently denies any chest pain or shortness of breath and feels much better. He is stable for discharge back to facility #Seizure disorder Patient was seen by neurology Neurologist recommended continuing phenytoin 300 mg twice daily, Depakote 625 mg twice daily and carbamazepine 600 mg twice daily Neurology has recommended checking levels, phenytoin level is still pending, valproic acid level was 40, carbamazepine level was 6.2 No driving, no baths and no swimming Patient will need follow-up with neurology as an outpatient Patient seen and examined today and he is stable for discharge back to facility. I gone over the discharge care plan and follow-up with the patient in great detail and answered all his questions. This discharge took greater than 30 minutes to coordinate I also called and updated the present facility doctor, Dr. Rogel ([phone]) and updated him on the care plan. As per Dr. Rogel, they can except the patient today itself Admission HPI Per Admitting Provider 53M pmh nonobstructive CAD, seizure d/o, hx cocaine abuse who presents to the ED with SOB and CP. Found to be in RVR to 147, given metoprolol 10mg which controlled his HR and largely his symptoms. Also restarted on metoprolol 200mg PO which is his home dose. On my evaluation patient's only complaint is some cp which is much improved from presentation. States that he had two "heart attacks" reportedly at [facility] but records unavailable. States he follows with cardio at [place] who recommended cardiac surgery in [place], but has not been scheduled. He is not clear as to what his diagnosis for cardiac surgery is. Cocaine history for 40 years, stopped 16 years ago. Also long history of seizure d/o on multiple medications. States in the last 2 weeks he has had two seizures, which is increased in frequency for him, but not by much. States that he had his last one before those two approximately 1.5 months ago which is good for him. Unclear etiology of seizure w/o but has had them since he was in his teens. Discharge Exam General: No acute distress, speaking in full sentences Psych: Awake and alert HEENT: Anicteric sclera, moist oral mucosa CVS: irregular rate and rhythm Lungs: Bilateral air entry, no wheezing noted Abdomen: Soft, nontender, no rebound, no guarding Ext: No lower extremity edema, no calf tenderness Neuro: No focal motor deficits noted Discharge Plan Discharge Items [facility] Reason For Visit: Atrial Fibrillation with RVR Discharge Diagnosis: #Atrial fibrillation with RVR #HOCM #Nonobstructive coronary disease #Acute on chronic diastolic congestive heart failure with preserved ejection fraction of 60% #Elevated troponin, likely demand ischemia from A-fib with RVR #Seizure disorder Condition on Discharge: Good Activity: Resume your previous activity Bathing Comment: No Baths or Swimming Driving/Machine Use: no driving Non-emergency contact: Primary Care Provider Call non-emergency contact if: you have any medication questions, your symptoms worsen and you have a fever Follow-up/Referrals: Amado Hurst MD [Physician] - Robert LUNDY [Primary Care Provider] - Francisco J Melgoza MD [Physician] - Diet: Heart Healthy Addtl Attending Provider Instructions: Follow-up with your primary care provider within 1 week regarding: Posthospital discharge, medication review, medication refills and follow-up on all your medical problems Please take all your discharge medications, discharge information and discharge instructions to all your doctors appointments. Avoid all NSAIDs including ibuprofen, Motrin, Advil, Aleve, naproxen, meloxicam, Toradol, diclofenac Follow-up with outpatient cardiology in 1 to 2 weeks time to discuss cardioversion for atrial fibrillation Follow-up with neurology as outpatient regarding seizure disorder labs thru PCP at Facility in 1 week: CBC, CMP, Mg Pending Studies at Discharge: No Stand-Alone Forms: My [facility] Skilled Items Patient informed of condition?: Yes Discharge Level of Care: Other Communicable Disease: No Discharge Prognosis: Stable Lines: None Urinary Catheter: Yes (Phenytoin Level) Medications and DC Order Prescriptions: New verapamil 180 mg Tablet Extended Release 360 mg PO QAM Qty: 30 0RF Eliquis 5 mg Tablet 5 mg PO BID Qty: 60 0RF Continued metoprolol succinate [Toprol XL] 200 mg Tablet Extended Release 24 Hr 200 mg PO DAILY potassium chloride 10 mEq Tablet Extended Release 10 meq PO DAILY phenytoin sodium extended [Dilantin Extended] 100 mg Capsule 300 mg PO BID divalproex 500 mg Tablet,Delayed Release (Dr/Ec) 500 mg PO BID Rx Instructions: Take with 125 mg dose to equal 625 mg aspirin [Aspir-81] 81 mg Tablet,Delayed Release (Dr/Ec) 81 mg PO DAILY carbamazepine 200 mg Tablet 600 mg PO BID Rx Instructions: 200 mg x3 tablets divalproex 125 mg Tablet,Delayed Release (Dr/Ec) 125 mg PO BID Rx Instructions: Take with 500 mg dose to equal 625 mg calcium polycarbophil [Fiber-Lax] 625 mg Tablet 625 mg PO DAILY albuterol sulfate [Proventil HFA] 90 mcg/actuation Hfa Aerosol Inhaler 2 puff INHALATION QID PRN (Reason: SOB) rosuvastatin 20 mg Tablet 20 mg PO HS Alvesco 80 mcg/actuation Hfa Aerosol Inhaler 1 puff INHALATION BID magnesium oxide 400 mg magnesium Tablet 400 mg PO UD Rx Instructions: 1 tablet po daily; give with PRN Lasix furosemide [Lasix] 20 mg tablet 20 mg PO DAILY PRN (Reason: weight gain of more than 3 pounds in 1-2 days) Qty: 10 0RF magnesium oxide 400 mg magnesium tablet 400 mg PO DAILY PRN (Reason: ONLY take when furosemide is given) Qty: 10 0RF potassium chloride 10 mEq tablet extended release 10 meq PO DAILY PRN (Reason: ONLY TAKE if FUROSEMIDE is given) Qty: 10 0RF Changed furosemide 20 mg Tablet 20 mg PO DAILY Qty: 0 0RF Discontinued rosuvastatin 10 mg tablet 20 mg PO HS disopyramide phosphate 100 mg capsule, extended release 100 mg PO Q12H Qty: 60 5RF carbamazepine [Tegretol] 200 mg Tablet 600 mg PO BID aspirin 81 mg Tablet,Chewable 81 mg PO DAILY albuterol sulfate 90 mcg/actuation Hfa Aerosol Inhaler 2 puff INHALATION QID PRN (Reason: Shortness Of Breath) phenytoin sodium extended 100 mg Capsule 300 mg PO BID divalproex [Depakote] 500 mg Tablet,Delayed Release (Dr/Ec) 625 mg PO BID Norpace CR 100 mg Capsule, Extended Release 100 mg PO BID naproxen 500 mg Tablet 500 mg PO BID PRN (Reason: Pain) metoprolol succinate 100 mg Tablet Extended Release 24 Hr 200 mg PO DAILY Qty: 60 0RF Discharge Orders: Discharge Order (Routine); Ordered 04/08/24 Ordered By: Christopher Porras/Other Patient Handouts: AFib Admission Data Admit Date/Time: 04/05/24 10:17 Attending Provider: Christopher Sosa Admit Provider: Mervin Benitez Primary Care Provider: Robert LUNDY Other Providers: Francisco J Melgoza; Amado Hurst Hospital Stay Data Consultations 04/05/24 08:56 ED Decision to Admit Stat 04/05/24 10:09 Consult Neurology Routine 04/05/24 13:24 Consult Cardiology Routine Diagnostic Imagining Performed Chest X-Ray 04/05/24 06:35 XR chest 1V portable CLINICAL HISTORY: Dysrhythmia TECHNIQUE: Single frontal radiograph of the chest was obtained. Comparison: None available at the time of this dictation. FINDINGS: No lines and tubes are seen. The cardiomediastinal silhouette is normal. The lungs are clear. No evidence of pleural effusion or pneumothorax. IMPRESSION: No acute chest disease. ACT 112: Negative or not required by law. Electronically signed by: Rhett Robins M.D. 04/05/2024 8:34 AM Laboratory Results - last 48 hr 04/06/24 04/07/24 04/07/24 15:46 06:14 06:53 WBC RBC Hgb Hct MCV MCH MCHC RDW Std Deviation RDW Coeff of Telly Plt Count MPV Immature Gran % (Auto) Neut % (Auto) Lymph % (Auto) Sutton % (Auto) Eos % (Auto) Baso % (Auto) Neut # (Auto) Lymph # (Auto) Sutton # (Auto) Eos # (Auto) Baso # (Auto) Immature Gran # (Auto) Heparin Anti-Xa, Unfract 0.37 0.43 Sodium 139 Potassium 4.3 Chloride 106 Carbon Dioxide 26 Anion Gap 7 BUN 15 Creatinine 0.76 Est Cr Clr Drug Dosing 128.6 Est GFR ( Amer) 119.9 Est GFR (Non-Af Amer) 103.4 BUN/Creatinine Ratio 19.7 Glucose 100 H Calcium 8.7 Magnesium Valproic Acid 40 L Carbamazepine Cancelled 04/07/24 04/08/24 08:43 06:17 WBC 5.42 RBC 4.82 Hgb 15.2 Hct 42.7 MCV 88.6 MCH 31.5 MCHC 35.6 RDW Std Deviation 40.2 RDW Coeff of Telly 12.4 Plt Count 178 MPV 10.2 Immature Gran % (Auto) 0.2 Neut % (Auto) 50.4 Lymph % (Auto) 36.5 Sutton % (Auto) 10.0 Eos % (Auto) 2.0 Baso % (Auto) 0.9 Neut # (Auto) 2.73 Lymph # (Auto) 1.98 Sutton # (Auto) 0.54 Eos # (Auto) 0.11 Baso # (Auto) 0.05 Immature Gran # (Auto) 0.01 Heparin Anti-Xa, Unfract 0.44 Sodium 138 Potassium 4.3 Chloride 105 Carbon Dioxide 27 Anion Gap 6 BUN 15 Creatinine 0.75 Est Cr Clr Drug Dosing 130.5 Est GFR ( Amer) 120.5 Est GFR (Non-Af Amer) 104.0 BUN/Creatinine Ratio 20.0 Glucose 98 Calcium 8.8 Magnesium 2.1 Valproic Acid Carbamazepine 6.2 Pending Results Patient Have Any Pending Studies at Discharge: No Discharge Instructions Given to Patient (Per Discharging Provider) Follow-up with your primary care provider within 1 week regarding: Posthospital discharge, medication review, medication refills and follow-up on all your medical problems Please take all your discharge medications, discharge information and discharge instructions to all your doctors appointments. Avoid all NSAIDs including ibuprofen, Motrin, Advil, Aleve, naproxen, meloxicam, Toradol, diclofenac Follow-up with outpatient cardiology in 1 to 2 weeks time to discuss cardioversion for atrial fibrillation Follow-up with neurology as outpatient regarding seizure disorder labs thru PCP at Facility in 1 week: CBC, CMP, Mg Total Time Total Time Spent Total Time Spent (In Minutes): 40 Coding Level of Care Code 88047 INP/OBS DISCH >30 MIN Diagnoses Atrial fibrillation with RVR I48.91 Elevated troponin R79.89 HOCM (hypertrophic obstructive cardiomyopathy) I42.1 CAD (coronary artery disease) I25.10 Heart failure with preserved ejection fraction, unspecified HF chronicity I50.30 Heart failure chronicity: unspecified Seizure disorder G40.909 COPD (chronic obstructive pulmonary disease) J44.9 Time Spent (min) 40
[2024-04-08] MEDS ORDERED: APIXABAN 5 MG TABLET PO SCH (21:00)
[2024-04-09] MEDS ORDERED: ASPIRIN 81 MG ECTAB PO SCH (09:00)
== END 2024-04-08 15:19 | DRG 308 ==
LOC: EDBD → ED 06:21 → MERGE 10:17 → SUATTDRO 10:17 → EDINP 10:17 → 2E 23:33

== ENCOUNTER 2024-04-10 07:37 | Inpatient (IN) ==
--- NOTE | 2024-04-10 08:29 | Emergency Department Note ---
Impression & Plan Abdominal pain, Constipation, Acute appendicitis ED Provider Note ED Provider Note NAME: PRAVEEN [id number] TERESA AGE:53 SEX: Male : 1970 ARRIVES VIA: EMS INFORMANT: Patient ED PROVIDER(s): Yelena Infante DO CHIEF COMPLAINT: Abdominal pain HPI: This is a 53-year-old male presents emergency department due to concern for right lower quadrant abdominal pain. Patient states symptoms began last night while he was straining to try and have a bowel movement. Patient states it has been 2 days since he had a bowel movement and he did feel constipated. Patient recently hospitalized for further cardiac evaluation as he does have a history of atrial fibrillation, hypertrophic obstructive cardiomyopathy, and CHF. Patient states several medication changes did occur during this hospitalization. Patient states he does not feel as though he has been passing as much gas additionally. He states no nausea or vomiting, no fevers or chills, no change in urine. No prior history of IBS or IBD, no prior abdominal surgeries. PAST MEDICAL HISTORY:See Below PAST SURGICAL HISTORY:See Below FAMILY HISTORY:See Below SOCIAL HISTORY:See Below HOME MEDICATIONS:See Below ALLERGIES:See Below VITALS:See Below PHYSICAL EXAMINATION: GENERAL: alert, well appearing, well nourished, no distress, non-toxic EYE EXAM: normal conjunctiva, PERRL and EOM's grossly intact OROPHARYNX: no exudate, no erythema, lips, buccal mucosa, and tongue normal and mucous membranes are moist NECK: supple, no nuchal rigidity, no adenopathy, non-tender LUNGS: Clear to auscultation. Normal chest wall mechanics, no w/r/r HEART: no murmurs, S1 normal and S2 normal ABDOMEN: abdomen soft, pain with palpation on the right lower quadrant, normo- active bowel sounds, no masses or obvious hernia, no rebound or guarding. Dull to percussion. SKIN: no rashes, petechiae, orbruising; numerous tattoos UPPER EXTREMITIES: upper extremities are grossly normal. FROM, nml pulses b/l. LOWER EXTREMITIES: No pitting edema. FROM, nml pulses b/l. NEURO EXAM: Normal sensorium, cranial nerves II-XII grossly intact, normal speech, no facial droop,nogross weakness of arms, no gross weakness of legs. Gross sensation intact. No ataxia. Vital Signs: reviewed and remarkable Differential Diagnosis: Constipation, colitis, perforation, GI bleed, bowel obstruction, appendicitis, ureterolithiasis, UTI, medication ADR, mesenteric ischemia, as well as others were considered MEDICAL DECISION MAKING: This is a 53 yo male brought in due to concern for RLQ abd pain. He was recently admitted for cardiac evaluation. Labs drawn and sent, IV established, EKG and KUB performed at bedside and interpreted by me and he was monitored on telemetry. KUB not convincing for reason for RLQ pain. Patient sent for CT a/p which shows acute appendicitis. General surgery was contacted however given extensive cardiac hx, they recommend medicine admission and they will see him in consult. Patient updated on results. Discussed with hospitalist team for additional evaluation. Consultation(s): 1140: Discussed with Dr. Fontana/Jenn camara PA-C with general surgery. After review of the patient's recent admission and past medical history they ask for hospitalist to admit and they will see in consult. Patient's last dose of Eliquis was at 0621 this morning per the report of the [facility]. 1205: Discussed with Dr. Elmore, [facility] hospitalist team, for additional evaluation and management. ER Treatment Provided: See below Diagnostics Interpreted By Me: -ECG: Atrial fibrillation with a rate of 130, normal axis, normal intervals, nonspecific ST/T wave changes including inverted T waves in lead I -Cardiac Monitoring: An order was placed for continuous cardiac monitoring. The monitor shows a rate of 102 with a.fib rhythm. -Laboratory studies: As stated above and show below. -Imaging studies: KUB: moderate stool, no sbo Triage Nursing Note Reviewed Prior/Outside Records Reviewed -discharge summary from Saturday reviewed Past Med/Surg History Problem List (Updated 04/11/24 @ 10:19 by Louis Lorenzo MD) Preop cardiovascular exam PAF (paroxysmal atrial fibrillation) Acute appendicitis (Acute) Constipation (Acute) Abdominal pain (Acute) Seizure disorder, grand mal Atrial fibrillation with RVR (Acute) Acquired left ventricular outflow tract obstruction Elevated brain natriuretic peptide (BNP) level (Acute) Elevated troponin (Acute) Mitral regurgitation Heart failure with preserved ejection fraction CHF (congestive heart failure) COPD (chronic obstructive pulmonary disease) (Acute) CAD (coronary artery disease) (Acute) Dyspnea (Acute) HOCM (hypertrophic obstructive cardiomyopathy) (Acute) Coronary artery disease, non-occlusive Hypertension Chest pain (Acute) Elevated troponin (Acute) History of coronary artery disease (Acute) Family history of premature coronary artery disease Seizure disorder Dyslipidemia Non-ST elevation myocardial infarction (NSTEMI) (Acute) Chest pain (Acute) Unstable angina pectoris (Acute) Medical History History of tobacco abuse Pulmonary nodule Surgical History No pertinent past surgical history Family History Father Coronary heart disease Seizure disorder Social History Smoking Status: Former smoker Tobacco Type: Cigarettes Second Hand Exposure: No; Do You Dip or Chew Tobacco: No; Hx Alcohol Use: No Hx Substance Use: Yes Last Used Substance: Days (ago) Last Used Substance Other:: 16+ years ago Preferred Language: Turkish Communication Ability: Effective Janitor Required: No Beliefs That Will Affect Care: None Current Living Situation: Other Current Living Situation Comment: [facility]lbs [facility] Other Information That Helps Us Care for You: No Feels Safe at Home: Yes and No Is there a partner from a previous relationship who is making you feel unsafe now?: No Any Concerns about Your Family Situation: No Would You Like to Speak to Someone About Your Situation: No Safety Concerns: Feels Safe At This Time Assistive Devices: Glasses Allergies Allergies Allergy/AdvReac Type Severity Reaction Status Date / Time No Known Allergies Allergy Verified 04/06/24 07:50 Home Meds Home Medications Medication Instructions Recorded Confirmed albuterol sulfate 90 mcg/actuation 2 puff inhalation QID PRN SOB 04/05/24 04/10/24 aerosol inhaler (Proventil HFA) aspirin 81 mg tablet,delayed 81 mg PO DAILY 04/05/24 04/10/24 release calcium polycarbophil 625 mg 625 mg PO DAILY 04/05/24 04/10/24 tablet (Fiber-Lax) carbamazepine 200 mg tablet 600 mg PO BID 04/05/24 04/10/24 ciclesonide 80 mcg/actuation 1 puff inhalation BID 04/05/24 04/10/24 aerosol inhaler (Alvesco) divalproex 125 mg tablet,delayed 125 mg PO BID 04/05/24 04/10/24 release divalproex 500 mg tablet,delayed 500 mg PO BID 04/05/24 04/10/24 release magnesium oxide 400 mg PO UD 04/05/24 04/10/24 metoprolol succinate 200 mg 200 mg PO DAILY 04/05/24 04/10/24 tablet,extended release 24 hr (Toprol XL) phenytoin sodium extended 100 mg 300 mg PO BID 04/05/24 04/10/24 capsule (Dilantin Extended) potassium chloride 10 mEq 10 meq PO DAILY 04/05/24 04/10/24 tablet,extended release rosuvastatin 20 mg tablet 20 mg PO HS 04/05/24 04/10/24 Previous Rx's Medication Instructions Recorded furosemide 20 mg tablet (Lasix) 20 mg PO DAILY PRN weight gain of 11/30/23 more than 3 pounds in 1-2 days #10 tabs magnesium oxide 400 mg PO DAILY PRN ONLY take when 11/30/23 furosemide is given #10 tabs potassium chloride 10 mEq 10 meq PO DAILY PRN ONLY TAKE if 11/30/23 tablet,extended release FUROSEMIDE is given #10 tabs apixaban 5 mg tablet (Eliquis) 5 mg PO BID #60 tabs 04/08/24 furosemide 20 mg tablet 20 mg PO DAILY #0 tabs 04/08/24 verapamil 180 mg tablet,extended 360 mg (2 x 180 mg) PO QAM #30 tabs 04/08/24 release Results & Data (ED) Vital Signs Vital Signs - 24 hr 04/10/24 07:29 04/10/24 08:03 04/10/24 08:33 Temperature 36.9 C Temperature Source Oral Pulse Rate 133 H 126 H 117 H Pulse Rate [Apical] Pulse Rate from SpO2 Sensor 134 H Respiratory Rate 20 17 Blood Pressure 104/86 Blood Pressure [Right Arm] Blood Pressure Mean 92 Blood Pressure Mean [Right Arm] Blood Pressure Position [Right Arm] Pulse Oximetry 95 95 Oxygen Delivery Method Room Air Sepsis Recent Fever Within 48 Hours No Sepsis New/Unexplained Change in Mental Status No Sepsis Action Taken by Nursing No Action Required 04/10/24 08:48 04/10/24 09:33 04/10/24 09:46 Temperature Temperature Source Pulse Rate 115 H 101 H Pulse Rate [Apical] Pulse Rate from SpO2 Sensor 122 H 107 H Respiratory Rate 20 18 Blood Pressure Blood Pressure [Right Arm] 120/82 Blood Pressure Mean Blood Pressure Mean [Right Arm] 94 Blood Pressure Position [Right Arm] Lying Pulse Oximetry 94 95 Oxygen Delivery Method Room Air Room Air Sepsis Recent Fever Within 48 Hours Sepsis New/Unexplained Change in Mental Status Sepsis Action Taken by Nursing 04/10/24 11:00 Temperature Temperature Source Pulse Rate Pulse Rate [Apical] 84 Pulse Rate from SpO2 Sensor Respiratory Rate 15 Blood Pressure Blood Pressure [Right Arm] 125/94 Blood Pressure Mean Blood Pressure Mean [Right Arm] 104 Blood Pressure Position [Right Arm] Pulse Oximetry 94 Oxygen Delivery Method Room Air Sepsis Recent Fever Within 48 Hours Sepsis New/Unexplained Change in Mental Status Sepsis Action Taken by Nursing Laboratory Data 04/12/24 08:12 04/12/24 08:12 Lab Results 04/10/24 Range/Units 08:15 WBC 10.74 (4.8-10.8) K/ul RBC 4.93 (4.70-6.10) M/uL Hgb 15.4 (14.0-18.0) g/dl Hct 43.6 (42.0-52.0) % MCV 88.4 (80.0-100.0) fL MCH 31.2 (25.0-34.0) pg MCHC 35.3 (32.0-36.0) g/dL RDW Std Deviation 40.0 (36.4-46.3) fL RDW Coeff of Telly 12.4 (11.5-14.5) % Plt Count 220 (130-400) K/uL MPV 10.3 (9.4-12.4) fL Immature Gran % (Auto) 0.5 % Neut % (Auto) 73.2 % Lymph % (Auto) 14.7 % Placer % (Auto) 10.5 % Eos % (Auto) 0.6 % Baso % (Auto) 0.5 % Neut # (Auto) 7.87 H (1.40-6.50) K/uL Lymph # (Auto) 1.58 (1.20-3.40) K/uL Placer # (Auto) 1.13 H (0.11-0.59) K/uL Eos # (Auto) 0.06 (0.00-0.50) K/uL Baso # (Auto) 0.05 (0.00-0.20) K/uL Immature Gran # (Auto) 0.05 (0.01-0.20) K/uL Sodium 136 (136-145) mmol/L Potassium 4.6 (3.5-5.1) mmol/L Chloride 102 (98-107) mmol/L Carbon Dioxide 26 (21-32) mmol/L Anion Gap 8 (3-11) BUN 15 (6-23) mg/dl Creatinine 0.88 (0.6-1.4) mg/dl Est Cr Clr Drug Dosing 118.0 ml/min Est GFR ( Amer) 112.9 ml/min Est GFR (Non-Af Amer) 97.4 ml/min BUN/Creatinine Ratio 17.0 (10-20) Glucose 130 H (70-99(Fasting)) mg/dl Calcium 9.5 (8.6-10.3) mg/dl Magnesium 2.0 (1.7-2.4) mg/dl Total Bilirubin 0.6 (0.2-1.0) mg/dl AST 14 (13-39) U/L ALT 16 (7-52) U/L Alkaline Phosphatase 51 (34-104) U/L Total Protein 7.8 (6.0-8.3) gm/dl Albumin 4.3 (3.4-5.0) gm/dl Globulin 3.5 (2.5-4.0) gm/dl Albumin/Globulin Ratio 1.2 (0.9-2) Lipase 7 L (11-82) U/L Administered Medications Aspirin (Aspirin 81 Mg Ectab) 81 mg PO DAILY DONOVAN Stop: 05/11/24 08:59 Last Admin: 04/12/24 08:02 Dose: 81 mg Documented By: Admin: 04/11/24 08:03 Dose: 81 mg Documented By: MINDY Carbamazepine (Carbamazepine 200 Mg Tablet) 600 mg PO BID DONOVAN Stop: 05/10/24 20:59 Last Admin: 04/12/24 08:03 Dose: 600 mg Documented By: Admin: 04/11/24 21:16 Dose: 600 mg Documented By: Admin: 04/11/24 08:04 Dose: 600 mg Documented By: Admin: 04/10/24 20:58 Dose: 600 mg Documented By: ELISHA Divalproex Sodium (Divalproex Delay Release 125 Mg Tabec) 125 mg PO BID DONOVAN Stop: 05/10/24 20:59 Last Admin: 04/12/24 08:03 Dose: 125 mg Documented By: Admin: 04/11/24 21:16 Dose: 125 mg Documented By: Admin: 04/11/24 08:05 Dose: 125 mg Documented By: Admin: 04/10/24 20:58 Dose: 125 mg Documented By: ELISHA Divalproex Sodium (Divalproex Delay Release 500 Mg Tab) 500 mg PO BID [facility] Stop: 05/10/24 20:59 Last Admin: 04/12/24 08:03 Dose: 500 mg Documented By: Admin: 04/11/24 21:16 Dose: 500 mg Documented By: Admin: 04/11/24 08:03 Dose: 500 mg Documented By: Admin: 04/10/24 20:59 Dose: 500 mg Documented By: ELISHA Ceftriaxone Sodium (Rocephin) 2,000 mg in 50 mls @ 100 mls/hr IV Q24H [facility] Stop: 04/21/24 13:59 Last Infusion: 04/11/24 14:57 Dose: Infused Documented By: Admin: 04/11/24 13:50 Dose: 100 mls/hr Documented By: MINDY Metronidazole (Flagyl) 500 mg in 100 mls @ 100 mls/hr IV Q8H [facility]; Protocol Stop: 04/20/24 20:59 Last Admin: 04/12/24 13:28 Dose: 100 mls/hr Documented By: Infusion: 04/12/24 05:29 Dose: Infused Documented By: Admin: 04/12/24 04:29 Dose: 100 mls/hr Documented By: Infusion: 04/11/24 22:21 Dose: Infused Documented By: Admin: 04/11/24 21:21 Dose: 100 mls/hr Documented By: Infusion: 04/11/24 13:29 Dose: Infused Documented By: Admin: 04/11/24 12:27 Dose: 100 mls/hr Documented By: Infusion: 04/11/24 05:03 Dose: Infused Documented By: Admin: 04/11/24 03:58 Dose: 100 mls/hr Documented By: Infusion: 04/10/24 22:29 Dose: Infused Documented By: Admin: 04/10/24 21:00 Dose: 100 mls/hr Documented By: ELISHA Acetaminophen (Ofirmev) 1,000 mg in 100 mls @ 400 mls/hr IV Q8H [facility] Stop: 04/13/24 18:59 Last Infusion: 04/12/24 11:08 Dose: Infused Documented By: Admin: 04/12/24 10:46 Dose: 400 mls/hr Documented By: Infusion: 04/12/24 04:27 Dose: Infused Documented By: Admin: 04/12/24 04:12 Dose: 400 mls/hr Documented By: Infusion: 04/11/24 19:03 Dose: Infused Documented By: Admin: 04/11/24 18:11 Dose: 400 mls/hr Documented By: Infusion: 04/11/24 11:07 Dose: Infused Documented By: Admin: 04/11/24 10:52 Dose: 400 mls/hr Documented By: Infusion: 04/11/24 04:30 Dose: Infused Documented By: Admin: 04/11/24 03:58 Dose: 400 mls/hr Documented By: Infusion: 04/10/24 21:16 Dose: Infused Documented By: Admin: 04/10/24 20:57 Dose: 400 mls/hr Documented By: ELISHA Lactated Ringer's (Lr) 1,000 mls @ 80 mls/hr IV .[id number] [facility] Stop: 04/12/24 18:59 Last Admin: 04/12/24 07:29 Dose: 80 mls/hr Documented By: Infusion: 04/12/24 07:28 Dose: Infused Documented By: Admin: 04/11/24 18:11 Dose: 80 mls/hr Documented By: MINDY Heparin Sodium/Dextrose (Heparin Sodium/Dextrose) 25,000 units in 500 mls @ 30 mls/hr IV .[id number] DONOVAN; Protocol Stop: 05/12/24 11:29 Last Admin: 04/12/24 12:42 Dose: 1,500 units/hr, 30 mls/hr Documented By: STEVE Co-signed By: LEOPOLDO Metoprolol Succinate (Metoprolol Succ 50mg Ext Rel Tab) 200 mg PO DAILY [facility] Stop: 05/11/24 08:59 Last Admin: 04/12/24 08:02 Dose: 200 mg Documented By: Admin: 04/11/24 08:03 Dose: 200 mg Documented By: MINDY Phenytoin Sodium (Phenytoin Sodium Er 100 Mg Cap) 300 mg PO BID DONOVAN Stop: 05/10/24 20:59 Last Admin: 04/12/24 08:03 Dose: 300 mg Documented By: Admin: 04/11/24 21:16 Dose: 300 mg Documented By: Admin: 04/11/24 08:05 Dose: 300 mg Documented By: Admin: 04/10/24 20:57 Dose: 300 mg Documented By: ELISHA Verapamil HCl (Verapamil Hcl 180 Mg Tabcr) 360 mg PO QAM DONOVAN Stop: 05/11/24 08:59 Last Admin: 04/12/24 08:03 Dose: 360 mg Documented By: Admin: 04/11/24 08:04 Dose: 360 mg Documented By: MINDY Discontinued Medications Acetaminophen (Acetaminophen 500 Mg Tab) 1,000 mg PO NOW STA Stop: 04/10/24 12:19 Last Admin: 04/10/24 12:48 Dose: 1,000 mg Documented By: SHAI Carbamazepine (Carbamazepine 200 Mg Tablet) 600 mg PO NOW ONE Stop: 04/10/24 12:46 Last Admin: 04/10/24 14:01 Dose: 600 mg Documented By: SHAI Divalproex Sodium (Divalproex Delay Release 125 Mg Tabec) 625 mg PO NOW ONE Stop: 04/10/24 13:01 Last Admin: 04/10/24 14:00 Dose: 625 mg Documented By: SHAI Heparin Sodium/Dextrose (Heparin Iv Adult Wt-Based Standard *No* Initial Bolus Protocol) 1 each IV ONE STA; Protocol Stop: 04/12/24 11:07 Last Admin: 04/12/24 12:50 Dose: Not Given Documented By: STEVE Acetaminophen (Ofirmev) 1,000 mg in 100 mls @ 400 mls/hr IV NOW STA Stop: 04/10/24 09:22 Last Infusion: 04/10/24 09:43 Dose: Infused Documented By: Admin: 04/10/24 09:13 Dose: 400 mls/hr Documented By: ALEKSANDAR Sodium Chloride (Nss) 500 mls @ 999 mls/hr IV .Q31M ONE Stop: 04/10/24 12:21 Last Infusion: 04/10/24 12:54 Dose: Infused Documented By: Admin: 04/10/24 12:16 Dose: 999 mls/hr Documented By: SHAI Ceftriaxone Sodium (Rocephin) 2,000 mg in 50 mls @ 100 mls/hr IV NOW STA Stop: 04/10/24 12:42 Last Infusion: 04/10/24 14:40 Dose: Infused Documented By: Admin: 04/10/24 14:00 Dose: 100 mls/hr Documented By: SHAI Metronidazole (Flagyl) 500 mg in 100 mls @ 100 mls/hr IV NOW STA; Protocol Stop: 04/10/24 13:12 Last Infusion: 04/10/24 14:00 Dose: Infused Documented By: Admin: 04/10/24 12:48 Dose: 100 mls/hr Documented By: SHAI Parenteral Electrolytes (Plasma-Lyte A Ph 7.4) 1,000 mls @ 999 mls/hr IV .Q1H1M ONE Stop: 04/10/24 13:21 Last Infusion: 04/10/24 13:55 Dose: Infused Documented By: Admin: 04/10/24 12:48 Dose: 999 mls/hr Documented By: SHAI Famotidine (Pepcid 20mg Iv Push) 20 mg in 5 mls @ 2.5 mls/min IV NOW STA Stop: 04/10/24 16:38 Last Admin: 04/10/24 16:49 Dose: 2.5 mls/min Documented By: SHAI Lactated Ringer's (Lr) 1,000 mls @ 80 mls/hr IV .[id number] DONOVAN Stop: 04/11/24 15:20 Last Infusion: 04/11/24 13:54 Dose: Infused Documented By: Admin: 04/11/24 03:58 Dose: 100 mls/hr Documented By: Infusion: 04/11/24 03:58 Dose: Infused Documented By: Admin: 04/10/24 18:40 Dose: 100 mls/hr Documented By: [id number] Ioversol (Optiray 320 100ml) 93 ml IV ONCE ONE Stop: 04/10/24 11:03 Last Admin: 04/10/24 11:02 Dose: 93 ml Documented By: TATYANA Ioversol (Optiray 320 125ml) 119 ml IV ONCE ONE Stop: 04/10/24 17:03 Last Admin: 04/10/24 17:03 Dose: 119 ml Documented By: BUSHRA Morphine Sulfate (Morphine Sulfate 4 Mg/Ml 1 Ml Carp\Vial) 4 mg IV Q3H PRN PRN Reason: Pain (6,7,8,9,10) Stop: 04/24/24 12:17 Last Admin: 04/10/24 15:53 Dose: 4 mg Documented By: SHAI Phenytoin Sodium (Phenytoin Sodium Er 100 Mg Cap) 300 mg PO NOW STA Stop: 04/10/24 12:43 Last Admin: 04/10/24 14:01 Dose: 300 mg Documented By: SHAI Verapamil HCl (Verapamil Hcl 180 Mg Tabcr) 360 mg PO NOW STA Stop: 04/10/24 12:43 Last Admin: 04/10/24 14:01 Dose: 360 mg Documented By: SHAI Imaging Data Radiologist's Impression: KUB X-Ray 04/10/24 08:14 KUB HISTORY: constipation COMPARISON: Abdomen and pelvis CT 01/07/2020. FINDINGS: The bowel gas pattern is unremarkable. There are no dilated loops of small bowel to suggest an obstruction. No renal calculi. No ureteral calculi. Calcifications in the deep pelvis likely represent phleboliths. Moderate fecal retention. No pneumoperitoneum or pneumatosis. IMPRESSION: 1. Nonobstructive bowel gas pattern. 2. Moderate fecal retention. ACT 112: Negative or not required by law. Electronically signed by: Hakeem Hernandez M.D. 04/10/2024 10:45 AM Abdomen/Pelvis CT 04/10/24 10:47 CT OF THE ABDOMEN AND PELVIS WITH CONTRAST CLINICAL HISTORY: Right lower quadrant abdominal pain. COMPARISON STUDY: CT of the abdomen and pelvis January 07, 2020. KUB performed earlier today. TECHNIQUE: Following IV administration of 93 mL of Optiray, axial images of the abdomen and pelvis were obtained from the lung bases to the proximal femurs. Images were reviewed in the axial, sagittal, and coronal planes. IV contrast was administered without complication. Automated exposure control was utilized for the study. A dose lowering technique was utilized adhering to the principles of ALARA. CT DOSE: 1423.74 mGy.cm FINDINGS: Trace pericardial effusion. Several calcified granulomas within the lingula are benign. Calcifications within the right hepatic lobe are of no significance. There are no suspicious hepatic lesions. There is no biliary or pancreatic ductal dilatation. Spleen, adrenal glands, kidneys and pancreas are unremarkable. Is no hydronephrosis. The appendix is mildly dilated and fluid- filled, measuring 1.2 cm in caliber. There is moderate periappendiceal stranding with trace fluid. There is no free air or abscess. Trace fluid within the pelvis. No evidence for a bowel obstruction. There is no lymphadenopathy. Moderate aortoiliac atherosclerotic plaque. IMPRESSION: Acute appendicitis. Moderate periappendiceal inflammation. No free air or abscess. ACT 112: Negative or not required by law. Electronically signed by: Aaron Ramirez M.D. 04/10/2024 11:27 AM Discharge Plan Visit Data Chief Complaint: Cardiac Assessment ED Provider: Yelena Infante Discharge Problem: Abdominal pain, Constipation, Acute appendicitis Patient Disposition: Admitted As Inpatient Discharge Instructions Interventions: ED Discharge Assessment Last Done: 04/10/24 17:43
[2024-04-10 08:40] LABS: Basophils # (auto) 0.05 K/uL (0.00-0.20); Basophils % (auto) 0.5 %; Eosinophils # (auto) 0.06 K/uL (0.00-0.50); Eosinophils % (auto) 0.6 %; Hematocrit (blood only) 43.6 % (42.0-52.0); Hemoglobin 15.4 g/dl (14.0-18.0); Immature Granulocytes # (auto) 0.05 K/uL (0.01-0.20); Immature Granulocytes % (auto) 0.5 %; Lymphocytes # (auto) 1.58 K/uL (1.20-3.40); Lymphocytes % (auto) 14.7 %; Mean Corpuscular Hemoglobin 31.2 pg (25.0-34.0); Mean Corpuscular Hgb Conc 35.3 g/dL (32.0-36.0); Mean Corpuscular Volume 88.4 fL (80.0-100.0); Mean Platelet Volume 10.3 fL (9.4-12.4); Monocytes # (auto) 1.13 K/uL (0.11-0.59); Monocytes % (auto) 10.5 %; Neutrophils # (auto) 7.87 K/uL (1.40-6.50); Neutrophils % (auto) 73.2 %; Platelet Count 220 K/uL (130-400); RDW Coefficient of Variation 12.4 % (11.5-14.5); Red Blood Count 4.93 M/uL (4.70-6.10); White Blood Count 10.74 K/ul (4.8-10.8)
[2024-04-10 08:46] LABS: Albumin Globulin Ratio 1.2 (0.9-2); Albumin Level 4.3 gm/dl (3.4-5.0); Bilirubin,Total 0.6 mg/dl (0.2-1.0); Calcium 9.5 mg/dl (8.6-10.3); Est GFR (African American) 112.9 ml/min; Est GFR (Non-African American) 97.4 ml/min; Globulin 3.5 gm/dl (2.5-4.0); Potassium 4.6 mmol/L (3.5-5.1); Total Protein 7.8 gm/dl (6.0-8.3)
[2024-04-10] MEDS: ACETAMINOPHEN 1,000 MG/100 ML VIAL IV STA (09:13)
--- NOTE | 2024-04-10 10:47 | XRay Report ---
KUB HISTORY: constipation COMPARISON: Abdomen and pelvis CT 01/07/2020. FINDINGS: The bowel gas pattern is unremarkable. There are no dilated loops of small bowel to suggest an obstruction. No renal calculi. No ureteral calculi. Calcifications in the deep pelvis likely rep resent phleboliths. Moderate fecal retention. No pneumoperitoneum or pneumatosis. IMPRESSION: 1. Nonobstructive bowel gas pattern. 2. Moderate fecal retention. ACT 112: Negative or not required by law. Electronically signed by: Hakeem Hernandez M.D. 04/10/2024 10:45 AM
[2024-04-10] MEDS: OPTIRAY 320 100ml IV ONE (11:02)
--- NOTE | 2024-04-10 11:29 | CT Scan Report ---
CT OF THE ABDOMEN AND PELVIS WITH CONTRAST CLINICAL HISTORY: Right lower quadrant abdominal pain. COMPARISON STUDY: CT of the abdomen and pelvis January 07, 2020. KUB performed earlier today. TECHNIQUE: Following IV administration of 93 mL of Optiray, axial images of the abdomen and pelvis we re obtained from the lung bases to the proximal femurs. Images were reviewed in the axial, sagittal, and coronal planes. IV contrast was administered without complication. Automated exposure control wa s utilized for the study. A dose lowering technique was utilized adhering to the principles of ALARA . CT DOSE: 1423.74 mGy.cm FINDINGS: Trace pericardial effusion. Several calcified granulomas within the lingula are benign. Dereje cifications within the right hepatic lobe are of no significance. There are no suspicious hepatic les ions. There is no biliary or pancreatic ductal dilatation. Spleen, adrenal glands, kidneys and pancre as are unremarkable. Is no hydronephrosis. The appendix is mildly dilated and fluid-filled, measuring 1.2 cm in caliber. There is moderate periappendiceal stranding with trace fluid. There is no free ai r or abscess. Trace fluid within the pelvis. No evidence for a bowel obstruction. There is no lymphad enopathy. Moderate aortoiliac atherosclerotic plaque. IMPRESSION: Acute appendicitis. Moderate periappendiceal inflammation. No free air or abscess. ACT 112: Negative or not required by law. Electronically signed by: Aaron Ramirez M.D. 04/10/2024 11:27 AM
--- NOTE | 2024-04-10 12:00 | History & Physical Report ---
Date of Service April 10, 2024 Assessment & Plan (1) Acute appendicitis: Plan: Admit to med telemetry and pulse oximetry Currently stable nontoxic-appearing Presented to the ED via EMS for progressive right lower quadrant abdominal pain which started last night CT of the abdomen pelvis with IV contrast shows findings consistent with acute, uncomplicated appendicitis Labs are stable General Surgery has been consulted and will evaluate the patient in the near future, at this time the initial plan is to admit for IV antibiotics and continued observation, will consider OR if symptoms do not improve with conservative measures Patient n.p.o. except meds until he is evaluated by general surgery Will start ceftriaxone and Flagyl for now As needed Tylenol and morphine as needed Narcan Will obtain chest x-ray and consult cardiology for preoperative cardiac clearance with his complex cardiac history Hold Eliquis for now as his last dose was this morning in case he needs to go to the OR Status post 500 mL NSS, will give an additional 1 L Plasma-Lyte at the time of admission to prevent dehydration with his history of HOCM Bilateral SCDs for DVT prophylaxis AM CBC, CMP, mag, PT/INR (2) Atrial fibrillation with RVR: Plan: Arrived to the ER in known atrial fibrillation with RVR with heart rate in the 130s Remained hemodynamically stable despite his increased heart rate Heart rate now within normal limits after initial IV fluids and pain control in the ED [facility]irm[facility] confirm he had his a.m. doses of metoprolol and Eliquis Will give his a.m. dose of verapamil he missed now Continue metoprolol and verapamil Holding home Eliquis for now until we confirm OR plans with general surgery Continue to monitor on telemetry (3) Seizure disorder, grand mal: Plan: Confirmed with his infirmary that he did not have any of his a.m. antiepileptics prior to arrival Will give his a.m. doses of phenytoin, Depakote, and Tegretol Will obtain phenytoin level at the time of admission Continue phenytoin, Depakote, and Tegretol (4) Constipation: Plan: Will hydrate first and can order bowel regimen if needed (5) COPD (chronic obstructive pulmonary disease): Plan: Currently stable on room air without wheezing on exam Continue home breathing treatments Incentive spirometry As needed O2 to keep SpO2 between 89-92% (6) HOCM (hypertrophic obstructive cardiomyopathy): Plan: Patient will need to remain hydrated today's exam to prevent complications related to his hokum as he is much higher risk for acute decline if he becomes dehydrated Monitor fluid status daily Follow cardiology consult which was placed at time of the admission Plan The patient was discussed with Dr. Elmore at the time of the History of Present Illness Chief Complaint: RLQ abd pain Primary Care Provider: KAMRON merritt Rafael is a 53-year-old male inmate at [facility] long term with past medical history of HOCM, nonobstructive coronary artery disease, chronic diastolic congestive heart failure with preserved ejection fraction, history of cocaine abuse, seizure disorder, new onset A-fib (now on Eliquis) who presented to the [facility] ED via EMS from [facility] due to progressive right lower quadrant pain which started overnight. Was noted to be tachycardic on arrival with heart rate in the 130s but otherwise stable.. Labs including CBC and CMP were unremarkable. KUB shows nonobstructive bowel gas pattern and moderate fecal retention. CT and pelvis with contrast was read as acute appendicitis with moderate periappendiceal inflammation without free air or abscess. General surgery was consulted and will evaluate the patient but asked for medicine medicine due to patient's complex cardiac and seizure history. Prior to admission the patient was given 500 mL NSS and 1 g IV Tylenol. Patient was seen in bed at time of exam without acute distress. Confirms he started to develop right lower quadrant pain overnight without radiation. Denies recent fever, chills, chest pain, shortness of breath, nausea/vomiting, dysuria/hematuria states that he has been constipated over the past 48 hours. Pain is currently an 8 out of 10. I was able [facility] the patient had his a.m. doses of metoprolol, Eliquis, but missed his a.m. doses of his antiepileptic medications and verapamil. Please refer to Dr. Elmore's attestation for any changes to treatment plan Allergies Allergy/AdvReac Type Severity Reaction Status Date / Time No Known Allergies Allergy Verified 04/06/24 07:50 Home Medications Medication Instructions Recorded Confirmed Type furosemide 20 mg tablet (Lasix) 20 mg PO DAILY PRN weight gain of 11/30/23 04/10/24 Rx more than 3 pounds in 1-2 days #10 tabs magnesium oxide 400 mg PO DAILY PRN ONLY take when 11/30/23 04/10/24 Rx furosemide is given #10 tabs potassium chloride 10 mEq 10 meq PO DAILY PRN ONLY TAKE if 11/30/23 04/10/24 Rx tablet,extended release FUROSEMIDE is given #10 tabs albuterol sulfate 90 mcg/actuation 2 puff inhalation QID PRN SOB 04/05/24 04/10/24 History aerosol inhaler (Proventil HFA) aspirin 81 mg tablet,delayed 81 mg PO DAILY 04/05/24 04/10/24 History release calcium polycarbophil 625 mg 625 mg PO DAILY 04/05/24 04/10/24 History tablet (Fiber-Lax) carbamazepine 200 mg tablet 600 mg PO BID 04/05/24 04/10/24 History ciclesonide 80 mcg/actuation 1 puff inhalation BID 04/05/24 04/10/24 History aerosol inhaler (Alvesco) divalproex 125 mg tablet,delayed 125 mg PO BID 04/05/24 04/10/24 History release divalproex 500 mg tablet,delayed 500 mg PO BID 04/05/24 04/10/24 History release magnesium oxide 400 mg PO UD 04/05/24 04/10/24 History metoprolol succinate 200 mg 200 mg PO DAILY 04/05/24 04/10/24 History tablet,extended release 24 hr (Toprol XL) phenytoin sodium extended 100 mg 300 mg PO BID 04/05/24 04/10/24 History capsule (Dilantin Extended) potassium chloride 10 mEq 10 meq PO DAILY 04/05/24 04/10/24 History tablet,extended release rosuvastatin 20 mg tablet 20 mg PO HS 04/05/24 04/10/24 History apixaban 5 mg tablet (Eliquis) 5 mg PO BID #60 tabs 04/08/24 04/10/24 Rx furosemide 20 mg tablet 20 mg PO DAILY #0 tabs 04/08/24 04/05/24 Rx verapamil 180 mg tablet,extended 360 mg (2 x 180 mg) PO QAM #30 tabs 04/08/24 04/10/24 Rx release Past Med/Surg History Problem List (Updated 04/11/24 @ 10:19 by Louis Lorenzo MD) Preop cardiovascular exam PAF (paroxysmal atrial fibrillation) Acute appendicitis (Acute) Constipation (Acute) Abdominal pain (Acute) Seizure disorder, grand mal Atrial fibrillation with RVR (Acute) Acquired left ventricular outflow tract obstruction Elevated brain natriuretic peptide (BNP) level (Acute) Elevated troponin (Acute) Mitral regurgitation Heart failure with preserved ejection fraction CHF (congestive heart failure) COPD (chronic obstructive pulmonary disease) (Acute) CAD (coronary artery disease) (Acute) Dyspnea (Acute) HOCM (hypertrophic obstructive cardiomyopathy) (Acute) Coronary artery disease, non-occlusive Hypertension Chest pain (Acute) Elevated troponin (Acute) History of coronary artery disease (Acute) Family history of premature coronary artery disease Seizure disorder Dyslipidemia Non-ST elevation myocardial infarction (NSTEMI) (Acute) Chest pain (Acute) Unstable angina pectoris (Acute) Medical History History of tobacco abuse Pulmonary nodule Surgical History No pertinent past surgical history Family History Father Coronary heart disease Seizure disorder Social History Smoking Status: Former smoker Tobacco Type: Cigarettes Second Hand Exposure: No; Do You Dip or Chew Tobacco: No; Hx Alcohol Use: No Hx Substance Use: Yes Last Used Substance: Days (ago) Last Used Substance Other:: 16+ years ago Preferred Language: Uzbek Communication Ability: Effective Apple Packing Header Required: No Beliefs That Will Affect Care: None Current Living Situation: Other Current Living Situation Comment: [facility] Feels Safe at Home: Yes and No Is there a partner from a previous relationship who is making you feel unsafe now?: No Assistive Devices: Glasses Physical Exam Physical Exam: Physical Exam: General: In no acute distress, stated age, well-nourished, nontoxic-appearing HEENT: Normocephalic, atraumatic, no scleral icterus, pupils around round, symmetrical, and reactive to light, moist mucus membranes, trachea midline, no thyromegaly Chest/Pulm: No respiratory distress, symmetrical chest expansion, clear breath sounds throughout Cardiac: Irregular rate and rhythm, no murmurs noted Abdomen: Negative for ascites and bruising, normoactive bowel sounds, soft, non-tender to percussion throughout, patient is tender to palpation in the right upper and right lower quadrants with rebound tenderness in the right lower quadrant, otherwise nontender to palpation in the left abdomen Musculoskeletal: Symmetrical and without signs of acute trauma, upper and lower extremities with full ROM, no atrophy, spasticity, or flaccidity Extremities: Radial, dorsalis pedis, and posterior tibial pulses are intact and symmetrical, no edema noted in the BL LE's Skin: Warm, dry, no rashes , lesions, or scars noted Neuro: Alert and oriented to person, place, month, year, and president, no focal defects,no tremors noted Psych: No acute distress, calm, polite, and cooperative during the exam Results & Data Results & Data Vital Signs (Past 12 Hours) Vital Signs Temp Pulse Resp BP BP Pulse Ox O2 Del Method 04/10/24 09:46 120/82 04/10/24 09:33 101 H 18 95 Room Air 04/10/24 08:48 115 H 20 94 Room Air 04/10/24 08:33 117 H 04/10/24 08:03 126 H 17 95 Room Air 04/10/24 07:29 36.9 C 133 H 20 104/86 95 Laboratory Results Abnormal lab results 04/10/24 Range/Units 08:15 Neut # (Auto) 7.87 H (1.40-6.50) K/uL Hill # (Auto) 1.13 H (0.11-0.59) K/uL Glucose 130 H (70-99(Fasting)) mg/dl Lipase 7 L (11-82) U/L Diagnostic Findings KUB X-Ray 04/10/24 08:14 KUB HISTORY: constipation COMPARISON: Abdomen and pelvis CT 01/07/2020. FINDINGS: The bowel gas pattern is unremarkable. There are no dilated loops of small bowel to suggest an obstruction. No renal calculi. No ureteral calculi. Calcifications in the deep pelvis likely represent phleboliths. Moderate fecal retention. No pneumoperitoneum or pneumatosis. IMPRESSION: 1. Nonobstructive bowel gas pattern. 2. Moderate fecal retention. ACT 112: Negative or not required by law. Electronically signed by: Hakeem Hernandez M.D. 04/10/2024 10:45 AM Abdomen/Pelvis CT 04/10/24 10:47 CT OF THE ABDOMEN AND PELVIS WITH CONTRAST CLINICAL HISTORY: Right lower quadrant abdominal pain. COMPARISON STUDY: CT of the abdomen and pelvis January 07, 2020. KUB performed earlier today. TECHNIQUE: Following IV administration of 93 mL of Optiray, axial images of the abdomen and pelvis were obtained from the lung bases to the proximal femurs. Images were reviewed in the axial, sagittal, and coronal planes. IV contrast was administered without complication. Automated exposure control was utilized for the study. A dose lowering technique was utilized adhering to the principles of ALARA. CT DOSE: 1423.74 mGy.cm FINDINGS: Trace pericardial effusion. Several calcified granulomas within the lingula are benign. Calcifications within the right hepatic lobe are of no significance. There are no suspicious hepatic lesions. There is no biliary or pancreatic ductal dilatation. Spleen, adrenal glands, kidneys and pancreas are unremarkable. Is no hydronephrosis. The appendix is mildly dilated and fluid- filled, measuring 1.2 cm in caliber. There is moderate periappendiceal stranding with trace fluid. There is no free air or abscess. Trace fluid within the pelvis. No evidence for a bowel obstruction. There is no lymphadenopathy. Moderate aortoiliac atherosclerotic plaque. IMPRESSION: Acute appendicitis. Moderate periappendiceal inflammation. No free air or abscess. ACT 112: Negative or not required by law. Electronically signed by: Aaron Ramirez M.D. 04/10/2024 11:27 AM ECG Additional Comments: Atrial fibrillation with RVR with heart rate in the 130s Code Status & VTE Plan Code Status Full code VTE Prophylaxis Plan VTE Prophylaxis will be ordered: Yes Supervising Physician Co-Signing Physician Notes I personally saw and examined the patient. I verified all durbin points and agree with Jeremias Castillo PA-C with the following exceptions and/or additions: 53 year old male presents to the ER with right lower quadrant pain. O/E HS RRR, no murmurs, Chest CTAB, right lower quadrant pain without guarding or rebound tenderness A/P Acute appendicitis - ceftriaxone + metronidazole, consult surgery, consult cardiology for preop clearance PG Care Time/CCT Total # of Minutes Spent Total Time Spent with Patient: Total time spent is greater than 50% in coordination of care (as documented) at patient's floor/unit and/or counseling patient: Coding [place] [address] INT INP/OBS CARE 3/75MIN Patient Type Established Medical Decision Making High Complexity Diagnoses Acute appendicitis K35.80 Atrial fibrillation with RVR I48.91 Seizure disorder, grand mal G40.409 Constipation K59.00 COPD (chronic obstructive pulmonary disease) J44.9 HOCM (hypertrophic obstructive cardiomyopathy) I42.1
[2024-04-10] MEDS: SODIUM CHLORIDE 0.9% 500 ML IV ONE (12:16)
[2024-04-10] MEDS ORDERED: MoRPHine SULFATE 2 MG/ML CARP IV PRN (12:18)
[2024-04-10] MEDS ORDERED: NALOXONE HCL 0.4 MG/1 ML VIAL/CARP IV PRN (12:19)
--- NOTE | 2024-04-10 12:47 | Surgery Consultation ---
Date of Consultation April 10, 2024 Assessment & Plan (1) Acute appendicitis: (2) Atrial fibrillation with RVR: (3) Heart failure with preserved ejection fraction: (4) CHF (congestive heart failure): (5) COPD (chronic obstructive pulmonary disease): (6) HOCM (hypertrophic obstructive cardiomyopathy): Plan 53 yo male prisoner with recent diagnosis of new onset afib with RVR on Eliquis with CAD, COPD, HTN, CHF with preserved EF, and HOCM who presented to ED with abdominal pain and constipation. CT scan with uncomplicated acute appendicitis. No leukocytosis and afebrile. Given patients severe HOCM and cardiac comorbidities , discussed recommendation of nonoperative conservative management of acute appendicitis given increased risk of any surgical intervention. WIll have hospitalist admit, IV antibiotics, pain management, antiemetics as needed and repeat labs, and hold Eliquis. If pain increases, develops fever, wbc increases, he would require transfer to tertiary center for surgical intervention for his appendicitis with cardiothoracic surgery available given his high risk and cardiac comorbidities. Dr. Fontana has seen and examined patient, see addendum for further recommendations/plan. Supervising Physician Co-Signing Physician Notes I have seen and examined the patient personally agree with the above assessment plan. In brief this 49-year-old male prisoner with early acute appendicitis. White count is normal. He has severe HOCM, and is being considered for surgery with cardiothoracic in the near future at [place]. I discussed the case with anesthesiology, who stated that if surgery was to be done it would need to be at a tertiary care center. Currently he is on antibiotics. Given the recent study on early acute appendicitis being treated with antibiotics, we will plan for conservative measures at this time. We will observe closely and recheck labs in the morning. If he were to worsen, he will need to be transferred. History of Present Illness Reason for Consultation: Acute appendicitis Requesting Physician: MD Naresh Attending Physician: Yoan Elmore MD History of Present Illness Mr. Carreon is a 53 yo male who was recently admitted here at [facility] and discharged on Saturday04/07/2024 for new onset afib with RVR with history of CAD, [employer], CHF with preserved ejection fraction, HOCM, mitral regurgitation,seizure disorder, HTN presented to ED with low abdominal pain and constipation. Pain started last evening and has been persistent since. Pain located in right lower abdomen and sharp in nature at 8/10. Denies of any fever, chills, nausea, vomiting, chest pain, shortness of breath, palpitations, changes in bowel habits other than constipation, difficulty urinating or blood in urine. States he saw cardiothoracic surgery team in [place] and discussed about heart surgery but has another consultation with them. ON eliquis since last admission and last dose was this am at 6:00 confirmed by the care home with Dr. Infante. No prior abdominal surgeries. Allergies Allergy/AdvReac Type Severity Reaction Status Date / Time No Known Allergies Allergy Verified 04/06/24 07:50 Home Medications Medication Instructions Recorded Confirmed Type furosemide 20 mg tablet (Lasix) 20 mg PO DAILY PRN weight gain of 11/30/23 04/10/24 Rx more than 3 pounds in 1-2 days #10 tabs magnesium oxide 400 mg PO DAILY PRN ONLY take when 11/30/23 04/10/24 Rx furosemide is given #10 tabs potassium chloride 10 mEq 10 meq PO DAILY PRN ONLY TAKE if 11/30/23 04/10/24 Rx tablet,extended release FUROSEMIDE is given #10 tabs albuterol sulfate 90 mcg/actuation 2 puff inhalation QID PRN SOB 04/05/24 04/10/24 History aerosol inhaler (Proventil HFA) aspirin 81 mg tablet,delayed 81 mg PO DAILY 04/05/24 04/10/24 History release calcium polycarbophil 625 mg 625 mg PO DAILY 04/05/24 04/10/24 History tablet (Fiber-Lax) carbamazepine 200 mg tablet 600 mg PO BID 04/05/24 04/10/24 History ciclesonide 80 mcg/actuation 1 puff inhalation BID 04/05/24 04/10/24 History aerosol inhaler (Alvesco) divalproex 125 mg tablet,delayed 125 mg PO BID 04/05/24 04/10/24 History release divalproex 500 mg tablet,delayed 500 mg PO BID 04/05/24 04/10/24 History release magnesium oxide 400 mg PO UD 04/05/24 04/10/24 History metoprolol succinate 200 mg 200 mg PO DAILY 04/05/24 04/10/24 History tablet,extended release 24 hr (Toprol XL) phenytoin sodium extended 100 mg 300 mg PO BID 04/05/24 04/10/24 History capsule (Dilantin Extended) potassium chloride 10 mEq 10 meq PO DAILY 04/05/24 04/10/24 History tablet,extended release rosuvastatin 20 mg tablet 20 mg PO HS 04/05/24 04/10/24 History apixaban 5 mg tablet (Eliquis) 5 mg PO BID #60 tabs 04/08/24 04/10/24 Rx furosemide 20 mg tablet 20 mg PO DAILY #0 tabs 04/08/24 04/05/24 Rx verapamil 180 mg tablet,extended 360 mg (2 x 180 mg) PO QAM #30 tabs 04/08/24 04/10/24 Rx release Patient History Medical History History of tobacco abuse Pulmonary nodule Surgical History No pertinent past surgical history Family History Father Coronary heart disease Seizure disorder Social History Smoking Status: Former smoker Tobacco Type: Cigarettes Second Hand Exposure: No; Do You Dip or Chew Tobacco: No; Hx Alcohol Use: No Hx Substance Use: Yes Last Used Substance: Days (ago) Last Used Substance Other:: 16+ years ago Preferred Language: Bengali Communication Ability: Effective Tank Cleaner Required: No Beliefs That Will Affect Care: None Current Living Situation: Other Current Living Situation Comment: [facility] Other Information That Helps Us Care for You: No Feels Safe at Home: Yes and No Is there a partner from a previous relationship who is making you feel unsafe now?: No Any Concerns about Your Family Situation: No Would You Like to Speak to Someone About Your Situation: No Safety Concerns: Feels Safe At This Time Assistive Devices: Glasses Review of Systems Review of Systems: All systems reviewed & are unremarkable except as noted in HPI & below Physical Exam Constitutional: WD/WN, vitals as above + obese, cooperative and comfortable; no acute distress and not ill appearing Respiratory: normal respiratory effort, lungs clear to auscultation Cardiovascular: Rate/Rhythm: + tachycardic and + irregularly irregular Heart Sounds: normal S1 and normal S2 Gastrointestinal (Abdomen): Inspection/Auscultation: abdomen normal to inspection; abdomen not distended Percussion/Palpation: + abdomen tender (RLQ), + guarding (RLQ with positive McBurneys point) and abdomen soft; abdomen not rigid and abdomen not firm Skin: no rashes, warm and dry Psychiatric: Orientation: alert and oriented x 3 Results & Data Vital Signs (Past 12 Hours) Vital Signs Temp Pulse Pulse Resp BP BP Pulse Ox 04/10/24 11:00 84 15 125/94 94 04/10/24 09:46 120/82 04/10/24 09:33 101 H 18 95 04/10/24 08:48 115 H 20 94 04/10/24 08:33 117 H 04/10/24 08:03 126 H 17 95 04/10/24 07:29 36.9 C 133 H 20 104/86 95 O2 Del Method 04/10/24 11:00 Room Air 04/10/24 09:46 04/10/24 09:33 Room Air 04/10/24 08:48 Room Air 04/10/24 08:33 04/10/24 08:03 Room Air 04/10/24 07:29 Laboratory Results 04/10/24 04/10/24 Range/Units 12:21 08:15 WBC 10.74 (4.8-10.8) K/ul RBC 4.93 (4.70-6.10) M/uL Hgb 15.4 (14.0-18.0) g/dl Hct 43.6 (42.0-52.0) % MCV 88.4 (80.0-100.0) fL MCH 31.2 (25.0-34.0) pg MCHC 35.3 (32.0-36.0) g/dL RDW Std Deviation 40.0 (36.4-46.3) fL RDW Coeff of Telly 12.4 (11.5-14.5) % Plt Count 220 (130-400) K/uL MPV 10.3 (9.4-12.4) fL Immature Gran % (Auto) 0.5 % Neut % (Auto) 73.2 % Lymph % (Auto) 14.7 % Bertie % (Auto) 10.5 % Eos % (Auto) 0.6 % Baso % (Auto) 0.5 % Neut # (Auto) 7.87 H (1.40-6.50) K/uL Lymph # (Auto) 1.58 (1.20-3.40) K/uL Bertie # (Auto) 1.13 H (0.11-0.59) K/uL Eos # (Auto) 0.06 (0.00-0.50) K/uL Baso # (Auto) 0.05 (0.00-0.20) K/uL Immature Gran # (Auto) 0.05 (0.01-0.20) K/uL Sodium 136 (136-145) mmol/L Potassium 4.6 (3.5-5.1) mmol/L Chloride 102 (98-107) mmol/L Carbon Dioxide 26 (21-32) mmol/L Anion Gap 8 (3-11) BUN 15 (6-23) mg/dl Creatinine 0.88 (0.6-1.4) mg/dl Est Cr Clr Drug Dosing 118.0 ml/min Est GFR ( Amer) 112.9 ml/min Est GFR (Non-Af Amer) 97.4 ml/min BUN/Creatinine Ratio 17.0 (10-20) Glucose 130 H (70-99(Fasting)) mg/dl Calcium 9.5 (8.6-10.3) mg/dl Magnesium 2.0 (1.7-2.4) mg/dl Total Bilirubin 0.6 (0.2-1.0) mg/dl AST 14 (13-39) U/L ALT 16 (7-52) U/L Alkaline Phosphatase 51 (34-104) U/L Total Protein 7.8 (6.0-8.3) gm/dl Albumin 4.3 (3.4-5.0) gm/dl Globulin 3.5 (2.5-4.0) gm/dl Albumin/Globulin Ratio 1.2 (0.9-2) Lipase 7 L (11-82) U/L SARS-CoV-2 (PCR) Pending Influenza Type A (PCR) Pending Influenza Type B (PCR) Pending RSV (RT-PCR) Pending Diagnostic Findings CT OF THE ABDOMEN AND PELVIS WITH CONTRAST CLINICAL HISTORY: Right lower quadrant abdominal pain. COMPARISON STUDY: CT of the abdomen and pelvis January 07, 2020. KUB performed earlier today. TECHNIQUE: Following IV administration of 93 mL of Optiray, axial images of the abdomen and pelvis were obtained from the lung bases to the proximal femurs. Images were reviewed in the axial, sagittal, and coronal planes. IV contrast was administered without complication. Automated exposure control was utilized for the study. A dose lowering technique was utilized adhering to the principles of ALARA. CT DOSE: 1423.74 mGy.cm FINDINGS: Trace pericardial effusion. Several calcified granulomas within the lingula are benign. Calcifications within the right hepatic lobe are of no significance. There are no suspicious hepatic lesions. There is no biliary or pancreatic ductal dilatation. Spleen, adrenal glands, kidneys and pancreas are unremarkable. Is no hydronephrosis. The appendix is mildly dilated and fluid- filled, measuring 1.2 cm in caliber. There is moderate periappendiceal stranding with trace fluid. There is no free air or abscess. Trace fluid within the pelvis. No evidence for a bowel obstruction. There is no lymphadenopathy. Moderate aortoiliac atherosclerotic plaque. IMPRESSION: Acute appendicitis. Moderate periappendiceal inflammation. No free air or abscess. I personally reviewed CT scan images and concur with above findings. (3) Heart failure with preserved ejection fraction Heart failure chronicity: unspecified Qualified Code(s): I50.30 - Unspecified diastolic (congestive) heart failure
[2024-04-10] MEDS: metroNIDAZOLE 500 MG/100 ML BAG IV STA (12:48)
[2024-04-10] MEDS: ACETAMINOPHEN 500 MG TAB PO STA (12:48)
[2024-04-10] MEDS: PLASMA-LYTE A 1,000 ML IV ONE (12:48)
--- NOTE | 2024-04-10 13:03 | Electrocardiogram Report ---
Test Reason : Blood Pressure : */* mmHG Vent. Rate : 130 BPM Atrial Rate : * BPM P-R Int : * ms QRS Dur : 106 ms QT Int : 326 ms P-R-T Axes : * -9 132 degrees QTcB Int : 479 ms Poor data quality, interpretation may be adversely affected Atrial fibrillation with rapid ventricular response Minimal voltage criteria for LVH, may be normal variant ( [place] product ) Abnormal ECG When compared with ECG of 27-Nov-2023 20:53, Atrial fibrillation has replaced Sinus rhythm Vent. rate has increased by [address] now depressed in Inferior leads T wave inversion now evident in Lateral leads Confirmed by Amado Hurst ([id number]) on 04/10/2024 1:03:02 PM Referred By: Confirmed By: Amado Hurst
[2024-04-10 13:17] LABS: Influenza A virus by PCR Negative (Neg); Influenza B virus by PCR Negative (Neg); RSV by PCR Negative (Neg); SARS CoV2 RNA(COVID-19) Ceph NEGATIVE (Negative)
--- NOTE | 2024-04-10 13:18 | XRay Report ---
XR chest 1V portable HISTORY: preoperative clearance COMPARISON: Chest 04/05/2024. FINDINGS: The lungs are clear. Cardiac silhouette is normal in size. No pleural effusions. No pneumot horax. IMPRESSION: No acute process. ACT 112: Negative or not required by law. Electronically signed by: Hakeem Hernandez M.D. 04/10/2024 1:17 PM
[2024-04-10] MEDS: cefTRIAXone SODIUM 2,000 MG/50 ML BAG IV STA (14:00)
[2024-04-10] MEDS: DIVALPROEX DELAY RELEASE 125 MG TABEC PO ONE (14:00)
[2024-04-10] MEDS: PHENYTOIN SODIUM ER 100 MG CAP PO STA (14:01)
[2024-04-10] MEDS: carBAMazepine 200 MG TABLET PO ONE (14:01)
[2024-04-10] MEDS: VERAPAMIL HCL 180 MG TABCR PO STA (14:01)
[2024-04-10 14:16] LABS: Appearance Urine Clear (Clear); Bacteria Urine Automated None Seen (None Seen); Bilirubin Urine Negative (Negative); Blood Urine Negative (Negative); Cast Urine Automated 0-2 /lpf (0-2); Color Urine Yellow; Epithelial Cell Urine Auto 0-2 /hpf (0-2); Glucose Urine UA Negative (Negative); Ketones Urine Negative (Negative); Leukocyte Esterase Urine Negative (Negative); Nitrite Urine Negative (Negative); Protein Urine Trace (Negative); RBC Urine Automated 0-2 /hpf (0-2); Specific Gravity Urine > 1.045 (1.000-1.030); Urobilinogen Urine Negative (Negative); WBC Urine Automated 0-5 /hpf (0-5)
[2024-04-10] MEDS: MoRPHine SULFATE 4 MG/ML 1 ML CARP\\VIAL IV PRN (15:53)
[2024-04-10] MEDS ORDERED: ALBUTEROL HFA 8 GM INHALER INH PRN (16:08)
[2024-04-10] MEDS: FAMOTIDINE 20MG IV PUSH 20 MG/5 ML SYR IV STA (16:49)
--- NOTE | 2024-04-10 17:02 | XRay Report ---
KUB HISTORY: chest/abd pain COMPARISON: KUB 04/10/2024. FINDINGS: The bowel gas pattern is unremarkable. There are no dilated loops of small bowel to suggest an obstruction. No renal calculi. No ureteral calculi. No pneumoperitoneum or pneumatosis. Contrast within the bladder. IMPRESSION: Nonobstructive bowel gas pattern. ACT 112: Negative or not required by law. Electronically signed by: Hakeem Hernandez M.D. 04/10/2024 5:00 PM
[2024-04-10] MEDS: OPTIRAY 320 125ml IV ONE (17:03)
--- NOTE | 2024-04-10 17:08 | XRay Report ---
XR chest 1V portable CLINICAL HISTORY: acute chest pain, monitor for free air COMPARISON STUDY: Chest radiograph performed earlier today. FINDINGS: There is no lucency under the hemidiaphragms to suggest pneumoperitoneum on upright chest r adiograph. There is no pneumothorax or pleural effusion. There is mild cardiomegaly. A 4.7 cm irregul ar right lung density has developed since chest radiograph performed earlier today. Pulmonary vascula r congestion without overt pulmonary edema. IMPRESSION: 1. Cardiomegaly with pulmonary vascular congestion. 2. No lucency under the hemidiaphragms to suggest pneumoperitoneum on upright chest radiograph. 3. Interval development of a 4.7 cm right midlung density. This may be artifactual or represent a dev eloping infectious process such as pneumonia or aspiration pneumonitis. ACT 112: Negative or not required by law. Electronically signed by: Aaron Ramirez M.D. 04/10/2024 5:07 PM
[2024-04-10 17:11] LABS: Base Excess VBG 4.7 mEq/L; HCO3 VBG 31 mmol/L; Oxygen Saturation VBG < 60.0 %; PCO2 VBG 51 mmHg (38-50); PO2 VBG < 20 mmHg; pH VBG 7.39 (7.36-7.41)
[2024-04-10 17:19] LABS: Basophils # (auto) 0.05 K/uL (0.00-0.20); Basophils % (auto) 0.6 %; Eosinophils # (auto) 0.11 K/uL (0.00-0.50); Eosinophils % (auto) 1.2 %; Hematocrit (blood only) 41.9 % (42.0-52.0); Hemoglobin 14.3 g/dl (14.0-18.0); Immature Granulocytes # (auto) 0.03 K/uL (0.01-0.20); Immature Granulocytes % (auto) 0.3 %; Lymphocytes # (auto) 2.17 K/uL (1.20-3.40); Lymphocytes % (auto) 24.3 %; Mean Corpuscular Hgb Conc 34.1 g/dL (32.0-36.0); Mean Corpuscular Volume 90.9 fL (80.0-100.0); Mean Platelet Volume 10.4 fL (9.4-12.4); Monocytes # (auto) 1.32 K/uL (0.11-0.59); Monocytes % (auto) 14.8 %; Neutrophils # (auto) 5.24 K/uL (1.40-6.50); Neutrophils % (auto) 58.8 %; Platelet Count 196 K/uL (130-400); RDW Coefficient of Variation 12.7 % (11.5-14.5); RDW Standard Deviation 41.2 fL (36.4-46.3); Red Blood Count 4.61 M/uL (4.70-6.10); White Blood Count 8.92 K/ul (4.8-10.8)
--- NOTE | 2024-04-10 17:20 | CT Scan Report ---
CT ANGIOGRAPHY OF THE CHEST DISSECTION PROTOCOL CLINICAL HISTORY: HTN, Acute chest pain. COMPARISON STUDY: Chest radiograph performed earlier today. TECHNIQUE: Before and following the IV administration of 119 mL of Optiray, helical axial images of t he chest were obtained. Maximal intensity projections and sagittal and coronal reformats were viewed on an independent 3D workstation. IV contrast was administered without complication. Automated exp osure control was utilized for the study. A dose lowering technique was utilized adhering to the fazal Sue. CT DOSE: 3313.23 mGy.cm FINDINGS: Caliber of the thoracic aorta is normal. There is no thoracic aortic dissection or intramu ral hematoma. The heart is moderately enlarged. There is a small pericardial effusion. No enlarged th oracic is are present. There is no pneumothorax or pleural effusion. No central or lobar pulmonary em boli are identified. There is no consolidation to suggest pneumonia. Numerous calcified nodules withi n the lungs are benign. There is a 6 mm perifissural right middle lobe nodule which is likely benign. Several mild thoracic spine compression deformity is are likely chronic. IMPRESSION: 1. No thoracic aortic dissection. 2. Moderate cardiomegaly. Small pericardial effusion. 3. No consolidation to suggest pneumonia. 4. 6 mm perifissural right middle lobe nodule. This is likely benign. A chest CT in 6 months to ensur e stability is recommended. ACT 112: Negative or not required by law. Electronically signed by: Aaron Ramirez M.D. 04/10/2024 5:18 PM
[2024-04-10 17:22] LABS: Albumin Globulin Ratio 1.3 (0.9-2); BUN Creatinine Ratio 14.6 (10-20); Bilirubin,Total 0.5 mg/dl (0.2-1.0); Calcium 8.9 mg/dl (8.6-10.3); Creatinine Clr Calc Pharmacy 108.1 ml/min; Est GFR (African American) 103.4 ml/min; Est GFR (Non-African American) 89.3 ml/min; Globulin 3.2 gm/dl (2.5-4.0); Potassium 4.4 mmol/L (3.5-5.1); Total Protein 7.2 gm/dl (6.0-8.3)
--- NOTE | 2024-04-10 17:26 | CT Scan Report ---
CT OF THE ABDOMEN AND PELVIS WITH CONTRAST CLINICAL HISTORY: known appendicitis, acute central/upper abd pain COMPARISON STUDY: CT of the abdomen and pelvis performed earlier today. TECHNIQUE: Following IV administration of 119 mL of Optiray, axial images of the abdomen and pelvis w ere obtained from the lung bases to the proximal femurs. Images were reviewed in the axial, sagittal, and coronal planes. IV contrast was administered without complication. Automated exposure control w as utilized for the study. A dose lowering technique was utilized adhering to the principles of KAYLAH Eli. FINDINGS: No pneumatosis, free air or portal venous gas is present. There are no suspicious hepatic l esions. There is no biliary or pancreatic ductal dilatation. Spleen, adrenal glands, kidneys and panc reas are unremarkable. Excreted contrast from prior CT is noted. There is no evidence for a bowel obs truction. The appendix is dilated, measuring 1.3 cm in caliber. Periappendiceal inflammation is noted is no free air or abscess. Caliber of the abdominal aorta is normal. There is moderate aortoiliac at herosclerotic plaque. No lymphadenopathy. IMPRESSION: 1. Acute appendicitis. No free air or abscess. 2. No bowel obstruction. 3. Normal caliber abdominal aorta. Moderate aortoiliac atherosclerotic plaque. ACT 112: Negative or not required by law. Electronically signed by: Aaron Ramirez M.D. 04/10/2024 5:24 PM
[2024-04-10] MEDS: LACTATED RINGER'S 1,000 ML IV SCH (18:40)
[2024-04-10] MEDS: PHENYTOIN SODIUM ER 100 MG CAP PO SCH (20:57)
[2024-04-10] MEDS: ACETAMINOPHEN 1,000 MG/100 ML VIAL IV SCH (20:57)
[2024-04-10] MEDS: DIVALPROEX DELAY RELEASE 125 MG TABEC PO SCH (20:58)
[2024-04-10] MEDS: carBAMazepine 200 MG TABLET PO SCH (20:58)
[2024-04-10] MEDS: DIVALPROEX DELAY RELEASE 500 MG TAB PO SCH (20:59)
[2024-04-10] MEDS: metroNIDAZOLE 500 MG/100 ML BAG IV SCH (21:00)
[2024-04-11 07:24] LABS: Basophils # (auto) 0.03 K/uL (0.00-0.20); Basophils % (auto) 0.7 %; Eosinophils # (auto) 0.08 K/uL (0.00-0.50); Eosinophils % (auto) 1.8 %; Hematocrit (blood only) 37.5 % (42.0-52.0); Hemoglobin 12.8 g/dl (14.0-18.0); Immature Granulocytes # (auto) 0.01 K/uL (0.01-0.20); Immature Granulocytes % (auto) 0.2 %; Lymphocytes # (auto) 1.07 K/uL (1.20-3.40); Lymphocytes % (auto) 23.8 %; Mean Corpuscular Hemoglobin 30.8 pg (25.0-34.0); Mean Corpuscular Hgb Conc 34.1 g/dL (32.0-36.0); Mean Corpuscular Volume 90.4 fL (80.0-100.0); Mean Platelet Volume 10.3 fL (9.4-12.4); Monocytes # (auto) 0.49 K/uL (0.11-0.59); Monocytes % (auto) 10.9 %; Neutrophils # (auto) 2.82 K/uL (1.40-6.50); Neutrophils % (auto) 62.6 %; Platelet Count 142 K/uL (130-400); RDW Coefficient of Variation 12.6 % (11.5-14.5); RDW Standard Deviation 41.4 fL (36.4-46.3); Red Blood Count 4.15 M/uL (4.70-6.10)
[2024-04-11 07:46] LABS: Albumin Globulin Ratio 1.2 (0.9-2); Albumin Level 3.5 gm/dl (3.4-5.0); BUN Creatinine Ratio 14.5 (10-20); Bilirubin,Total 0.3 mg/dl (0.2-1.0); Calcium 8.5 mg/dl (8.6-10.3); Creatinine Clr Calc Pharmacy 143.7 ml/min; Est GFR (African American) 124.7 ml/min; Est GFR (Non-African American) 107.6 ml/min; Magnesium 2.1 mg/dl (1.7-2.4); Potassium 4.3 mmol/L (3.5-5.1); Total Protein 6.5 gm/dl (6.0-8.3)
[2024-04-11 07:52] LABS: Prothrombin Time 11.1 Seconds (9.0-12.0)
[2024-04-11] MEDS: METOPROLOL SUCC 50MG EXT REL TAB PO SCH (08:03)
[2024-04-11] MEDS: ASPIRIN 81 MG ECTAB PO SCH (08:03)
[2024-04-11] MEDS: VERAPAMIL HCL 180 MG TABCR PO SCH (08:04)
--- NOTE | 2024-04-11 10:17 | Hospitalist Progress Note ---
Date of Service April 11, 2024 Assessment & Plan (1) PAF (paroxysmal atrial fibrillation): (2) Acute appendicitis: (3) Seizure disorder, grand mal: (4) Heart failure with preserved ejection fraction: (5) HOCM (hypertrophic obstructive cardiomyopathy): (6) COPD (chronic obstructive pulmonary disease): Plan 53-year-old male inmate at [facility] with past medical history of HOCM, nonobstructive coronary artery disease, chronic diastolic congestive heart failure with preserved ejection fraction, history of cocaine abuse, seizure disorder, new onset A-fib (now on Eliquis) Acute appendicitis: Currently stable nontoxic-appearing. Pain 2/10 CT abdomen- acute, uncomplicated appendicitis No leukocytosis, no fever General Surgery consulted: conservative measures for now. Continue IV Abx - If symptoms worse, fever, or increased of WBC will need transfer to tertiary center for surgery - IV ceftriaxone and Flagyl - Cardiology consulted for preop cardiac clearance: Elevated risk due to his hypertrophic cardiomyopathy. - Eliquis on hold - NPO - LR 80 ml/hr now- will re eval in afternoon fluids status AM CBC, CMP, mag, PT/INR Paroxysmal Atrial fibrillation with RVR: RVR on admission HR 130s Rate well-controlled on metoprolol succinate and verapamil Holding home Eliquis for now until we confirm OR plans with general surgery Continue to monitor on telemetry Seizure disorder, grand mal: Home med continue: phenytoin, Depakote, and Tegretol phenytoin level pending COPD (chronic obstructive pulmonary disease): Currently stable on room air without wheezing on exam Continue home breathing treatments Incentive spirometry As needed O2 to keep SpO2 between 89-92% HOCM (hypertrophic obstructive cardiomyopathy): - Has been seen by CT surgery at [facility]. - gentle fluid maintenance in the setting of appendicitis and possible complications - LR 80 ml/hr - continue monitor fluid status daily Plan DVT prophylaxis: SCDs NPO Med surg/ Telemetry Admission and Anticipated Discharge Date Admission Date: April 10, 2024 Supervising Physician Co-Signing Physician Notes Attending Physician Supervision Note: I independently interviewed and examined the patient and verified the durbin history and physical, reviewed labs and image studies and agree with findings and care plan noted above. Subjective Seen this morning. Feel ok. Refers abdominal pain is 2/10. Denied any palpitations or chest pain. Review of Systems Review of Systems: as per HPI Physical Exam Constitutional: WD/WN, vitals as above Respiratory: normal respiratory effort, lungs clear to auscultation Cardiovascular: Rate/Rhythm: + irregularly irregular Gastrointestinal (Abdomen): Inspection/Auscultation: normal bowel sounds; abdomen not distended Percussion/Palpation: + abdomen tender (RUQ upon palpation) and abdomen soft; no guarding Musculoskeletal: no cyanosis or clubbing, extremities motor strength 5/5 Results & Data Results & Data Vital Signs (Past 12 Hours) Vital Signs Temp Pulse Pulse Resp BP Pulse Ox O2 Del Method 04/11/24 09:38 36.5 C 81 16 128/82 97 Room Air 04/11/24 07:59 36.5 C 81 16 128/82 97 Room Air 04/11/24 07:17 75 04/11/24 02:10 36.3 C L 100 H 20 118/69 94 Room Air 04/11/24 01:56 72 Resident Activity Tracking Resident Involvement: Resident Care Provided Care Provided: Adult Hospital Medicine (4) Heart failure with preserved ejection fraction Heart failure chronicity: unspecified Qualified Code(s): I50.30 - Unspecified diastolic (congestive) heart failure
--- NOTE | 2024-04-11 10:21 | Cardiology Progress Note ---
Date of Service April 11, 2024 Assessment & Plan (1) PAF (paroxysmal atrial fibrillation): Plan: -Rate well-controlled on metoprolol succinate and verapamil. -Eliquis currently on hold as he may require surgery. (2) HOCM (hypertrophic obstructive cardiomyopathy): Plan: -Known diagnosis. -Has been seen by CT surgery at [facility]. (3) Coronary artery disease, non-occlusive: Plan: -By cardiac catheterization in September 2023. -Quiescent on medical management. (4) Preop cardiovascular exam: Plan: -Elevated risk due to his hypertrophic cardiomyopathy. Admission and Anticipated Discharge Date Admission Date: April 10, 2024 Subjective The patient is resting comfortably in bed without complaints of chest pain, dyspnea, or palpitations. Abdominal pain has improved. Physical Exam Physical Exam: In general is well-developed well-nourished male in no acute distress. HEENT exam is negative. Neck is supple with full carotid upstrokes. There are no carotid bruits. Jugular venous pressure is flat at 90 degrees. There is no thyromegaly. Cardiovascular exam reveals an irregular rhythm with distant heart sounds. No obvious murmurs. Lungs are clear without rales, rhonchi or wheezes. Abdomen is soft. Extremities reveal intact radial artery pulses bilaterally. No peripheral edema. Results & Data Vital Signs (Past 12 Hours) Vital Signs Temp Pulse Pulse Resp BP Pulse Ox O2 Del Method 04/11/24 09:38 36.5 C 81 16 128/82 97 Room Air 04/11/24 07:59 36.5 C 81 16 128/82 97 Room Air 04/11/24 07:17 75 04/11/24 02:10 36.3 C L 100 H 20 118/69 94 Room Air 04/11/24 01:56 72 Diagnostic Findings monitoring and evaluation advisor notes rate controlled atrial fibrillation. PG Care Time/CCT Total # of Minutes Spent Total Time Spent with Patient: Total time spent is greater than 50% in coordination of care (as documented) at patient's floor/unit and/or counseling patient: Coding Level of Care Code 96311 SUB INP/OBS CARE 3/50MIN Diagnoses PAF (paroxysmal atrial fibrillation) I48.0 HOCM (hypertrophic obstructive cardiomyopathy) I42.1 Coronary artery disease, non-occlusive I25.10 Preop cardiovascular exam Z01.810
--- NOTE | 2024-04-11 11:26 | Electrocardiogram Report ---
Test Reason : Blood Pressure : */* mmHG Vent. Rate : 88 BPM Atrial Rate : * BPM P-R Int : * ms QRS Dur : 114 ms QT Int : 394 ms P-R-T Axes : * 42 120 degrees QTcB Int : 476 ms Atrial fibrillation T wave abnormality, consider lateral ischemia Prolonged QT Abnormal ECG When compared with ECG of 10-Apr-2024 07:46, ST no longer depressed in Inferior leads Confirmed by Louis Lorenzo ([id number]) on 04/11/2024 11:26:17 AM Referred By: REFERRED SELF Confirmed By: Louis Lorenzo
--- NOTE | 2024-04-11 11:55 | Surgery Progress Note ---
Date of Service April 11, 2024 Assessment & Plan (1) Acute appendicitis: Plan 53-year-old prisoner with extensive cardiac history, A-fib, and acute appendicitis He is improving. He has less pain in his white blood cell count is lower today. We will continue conservative measures at this time. Again, if he were to worsen, he will need to be transferred to tertiary care center for surgery. We will continue to monitor and recheck his labs in the morning. Admission and Anticipated Discharge Date Admission Date: April 10, 2024 Subjective feeling better this morning. Less pain. No nausea or vomiting. No fevers overnight. Physical Exam Physical Exam: AFVSS NAD, A&O x 3 NCAT Abdomen: Soft, mild TTP in RLQ No rebound or guarding Results & Data Vital Signs (Past 12 Hours) Vital Signs Temp Pulse Pulse Resp BP Pulse Ox O2 Del Method 04/11/24 09:38 36.5 C 81 16 128/82 97 Room Air 04/11/24 07:59 36.5 C 81 16 128/82 97 Room Air 04/11/24 07:17 75 04/11/24 02:10 36.3 C L 100 H 20 118/69 94 Room Air 04/11/24 01:56 72 Laboratory Results 04/11/24 04/10/24 04/10/24 Range/Units 06:56 Unknown 18:45 WBC 4.50 L (4.8-10.8) K/ul RBC 4.15 L (4.70-6.10) M/uL Hgb 12.8 L (14.0-18.0) g/dl Hct 37.5 L (42.0-52.0) % MCV 90.4 (80.0-100.0) fL MCH 30.8 (25.0-34.0) pg MCHC 34.1 (32.0-36.0) g/dL RDW Std Deviation 41.4 (36.4-46.3) fL RDW Coeff of Telly 12.6 (11.5-14.5) % Plt Count 142 (130-400) K/uL MPV 10.3 (9.4-12.4) fL Immature Gran % (Auto) 0.2 % Neut % (Auto) 62.6 % Lymph % (Auto) 23.8 % [place] % (Auto) 10.9 % Eos % (Auto) 1.8 % Baso % (Auto) 0.7 % Neut # (Auto) 2.82 (1.40-6.50) K/uL Lymph # (Auto) 1.07 L (1.20-3.40) K/uL [place] # (Auto) 0.49 (0.11-0.59) K/uL Eos # (Auto) 0.08 (0.00-0.50) K/uL Baso # (Auto) 0.03 (0.00-0.20) K/uL Immature Gran # (Auto) 0.01 (0.01-0.20) K/uL PT 11.1 (9.0-12.0) Seconds INR 1.0 (0.9-1.1) VBG pH (7.36-7.41) VBG pCO2 (38-50) mmHg VBG pO2 mmHg VBG HCO3 mmol/L VBG O2 Saturation % VBG Base Excess mEq/L Sodium 138 (136-145) mmol/L Potassium 4.3 (3.5-5.1) mmol/L Chloride 105 (98-107) mmol/L Carbon Dioxide 27 (21-32) mmol/L Anion Gap 6 (3-11) BUN 10 (6-23) mg/dl Creatinine 0.69 (0.6-1.4) mg/dl Est Cr Clr Drug Dosing 143.7 ml/min Est GFR ( Amer) 124.7 ml/min Est GFR (Non-Af Amer) 107.6 ml/min BUN/Creatinine Ratio 14.5 (10-20) Glucose 85 (70-99(Fasting)) mg/dl Lactate (0.4-2.0) mmol/L Calcium 8.5 L (8.6-10.3) mg/dl Magnesium 2.1 (1.7-2.4) mg/dl Total Bilirubin 0.3 (0.2-1.0) mg/dl AST 13 (13-39) U/L ALT 16 (7-52) U/L Alkaline Phosphatase 40 (34-104) U/L Troponin I High Sens 23.1 H (0-20) pg/ml Total Protein 6.5 (6.0-8.3) gm/dl Albumin 3.5 (3.4-5.0) gm/dl Globulin 3.0 (2.5-4.0) gm/dl Albumin/Globulin Ratio 1.2 (0.9-2) Urine Color Urine Appearance (Clear) Urine pH (4.5-7.5) Ur Specific [place] (1.000-1.030) Urine Protein (Negative) Urine Glucose (UA) (Negative) Urine Ketones (Negative) Urine Blood (Negative) Urine Nitrite (Negative) Urine Bilirubin (Negative) Urine Urobilinogen (Negative) Ur Leukocyte Esterase (Negative) Urine WBC (Auto) (0-5) /hpf Urine RBC (Auto) (0-2) /hpf U Hyaline Cast (Auto) (0-2) /lpf U Epithel Cells (Auto) (0-2) /hpf Urine Bacteria (Auto) (None Seen) Nasal Screen MRSA (PCR) Negative (Negative) Phenytoin SARS-CoV-2 (PCR) (Negative) Influenza Type A (PCR) (Neg) Influenza Type B (PCR) (Neg) RSV (RT-PCR) (Neg) 04/10/24 04/10/24 04/10/24 Range/Units 16:52 16:20 13:50 WBC 8.92 (4.8-10.8) K/ul RBC 4.61 L (4.70-6.10) M/uL Hgb 14.3 (14.0-18.0) g/dl Hct 41.9 L (42.0-52.0) % MCV 90.9 (80.0-100.0) fL MCH 31.0 (25.0-34.0) pg MCHC 34.1 (32.0-36.0) g/dL RDW Std Deviation 41.2 (36.4-46.3) fL RDW Coeff of Telly 12.7 (11.5-14.5) % Plt Count 196 (130-400) K/uL MPV 10.4 (9.4-12.4) fL Immature Gran % (Auto) 0.3 % Neut % (Auto) 58.8 % Lymph % (Auto) 24.3 % [place] % (Auto) 14.8 % Eos % (Auto) 1.2 % Baso % (Auto) 0.6 % Neut # (Auto) 5.24 (1.40-6.50) K/uL Lymph # (Auto) 2.17 (1.20-3.40) K/uL [place] # (Auto) 1.32 H (0.11-0.59) K/uL Eos # (Auto) 0.11 (0.00-0.50) K/uL Baso # (Auto) 0.05 (0.00-0.20) K/uL Immature Gran # (Auto) 0.03 (0.01-0.20) K/uL PT (9.0-12.0) Seconds INR (0.9-1.1) VBG pH 7.39 (7.36-7.41) VBG pCO2 51 H (38-50) mmHg VBG pO2 < 20 mmHg VBG HCO3 31 mmol/L VBG O2 Saturation < 60.0 % VBG Base Excess 4.7 mEq/L Sodium 137 (136-145) mmol/L Potassium 4.4 (3.5-5.1) mmol/L Chloride 101 (98-107) mmol/L Carbon Dioxide 29 (21-32) mmol/L Anion Gap 7 (3-11) BUN 14 (6-23) mg/dl Creatinine 0.96 (0.6-1.4) mg/dl Est Cr Clr Drug Dosing 108.1 ml/min Est GFR ( Amer) 103.4 ml/min Est GFR (Non-Af Amer) 89.3 ml/min BUN/Creatinine Ratio 14.6 (10-20) Glucose 156 H (70-99(Fasting)) mg/dl Lactate 1.7 (0.4-2.0) mmol/L Calcium 8.9 (8.6-10.3) mg/dl Magnesium (1.7-2.4) mg/dl Total Bilirubin 0.5 (0.2-1.0) mg/dl AST 19 (13-39) U/L ALT 18 (7-52) U/L Alkaline Phosphatase 47 (34-104) U/L Troponin I High Sens 27.7 H (0-20) pg/ml Total Protein 7.2 (6.0-8.3) gm/dl Albumin 4.0 (3.4-5.0) gm/dl Globulin 3.2 (2.5-4.0) gm/dl Albumin/Globulin Ratio 1.3 (0.9-2) Urine Color Yellow Urine Appearance Clear (Clear) Urine pH 8.0 H (4.5-7.5) Ur Specific [place] > 1.045 H (1.000-1.030) Urine Protein Trace H (Negative) Urine Glucose (UA) Negative (Negative) Urine Ketones Negative (Negative) Urine Blood Negative (Negative) Urine Nitrite Negative (Negative) Urine Bilirubin Negative (Negative) Urine Urobilinogen Negative (Negative) Ur Leukocyte Esterase Negative (Negative) Urine WBC (Auto) 0-5 (0-5) /hpf Urine RBC (Auto) 0-2 (0-2) /hpf U Hyaline Cast (Auto) 0-2 (0-2) /lpf U Epithel Cells (Auto) 0-2 (0-2) /hpf Urine Bacteria (Auto) None Seen (None Seen) Nasal Screen MRSA (PCR) (Negative) Phenytoin SARS-CoV-2 (PCR) (Negative) Influenza Type A (PCR) (Neg) Influenza Type B (PCR) (Neg) RSV (RT-PCR) (Neg) 04/10/24 04/10/24 Range/Units 13:02 12:21 WBC (4.8-10.8) K/ul RBC (4.70-6.10) M/uL Hgb (14.0-18.0) g/dl Hct (42.0-52.0) % MCV (80.0-100.0) fL MCH (25.0-34.0) pg MCHC (32.0-36.0) g/dL RDW Std Deviation (36.4-46.3) fL RDW Coeff of Telly (11.5-14.5) % Plt Count (130-400) K/uL MPV (9.4-12.4) fL Immature Gran % (Auto) % Neut % (Auto) % Lymph % (Auto) % [place] % (Auto) % Eos % (Auto) % Baso % (Auto) % Neut # (Auto) (1.40-6.50) K/uL Lymph # (Auto) (1.20-3.40) K/uL [place] # (Auto) (0.11-0.59) K/uL Eos # (Auto) (0.00-0.50) K/uL Baso # (Auto) (0.00-0.20) K/uL Immature Gran # (Auto) (0.01-0.20) K/uL PT (9.0-12.0) Seconds INR (0.9-1.1) VBG pH (7.36-7.41) VBG pCO2 (38-50) mmHg VBG pO2 mmHg VBG HCO3 mmol/L VBG O2 Saturation % VBG Base Excess mEq/L Sodium (136-145) mmol/L Potassium (3.5-5.1) mmol/L Chloride (98-107) mmol/L Carbon Dioxide (21-32) mmol/L Anion Gap (3-11) BUN (6-23) mg/dl Creatinine (0.6-1.4) mg/dl Est Cr Clr Drug Dosing ml/min Est GFR ( Amer) ml/min Est GFR (Non-Af Amer) ml/min BUN/Creatinine Ratio (10-20) Glucose (70-99(Fasting)) mg/dl Lactate (0.4-2.0) mmol/L Calcium (8.6-10.3) mg/dl Magnesium (1.7-2.4) mg/dl Total Bilirubin (0.2-1.0) mg/dl AST (13-39) U/L ALT (7-52) U/L Alkaline Phosphatase (34-104) U/L Troponin I High Sens (0-20) pg/ml Total Protein (6.0-8.3) gm/dl Albumin (3.4-5.0) gm/dl Globulin (2.5-4.0) gm/dl Albumin/Globulin Ratio (0.9-2) Urine Color Urine Appearance (Clear) Urine pH (4.5-7.5) Ur Specific [place] (1.000-1.030) Urine Protein (Negative) Urine Glucose (UA) (Negative) Urine Ketones (Negative) Urine Blood (Negative) Urine Nitrite (Negative) Urine Bilirubin (Negative) Urine Urobilinogen (Negative) Ur Leukocyte Esterase (Negative) Urine WBC (Auto) (0-5) /hpf Urine RBC (Auto) (0-2) /hpf U Hyaline Cast (Auto) (0-2) /lpf U Epithel Cells (Auto) (0-2) /hpf Urine Bacteria (Auto) (None Seen) Nasal Screen MRSA (PCR) (Negative) Phenytoin Pending SARS-CoV-2 (PCR) NEGATIVE (Negative) Influenza Type A (PCR) Negative (Neg) Influenza Type B (PCR) Negative (Neg) RSV (RT-PCR) Negative (Neg)
[2024-04-11] MEDS: cefTRIAXone SODIUM 2,000 MG/50 ML BAG IV SCH (13:50)
[2024-04-11] MEDS: LACTATED RINGER'S 1,000 ML IV SCH (18:11)
[2024-04-12 08:39] LABS: Basophils # (auto) 0.04 K/uL (0.00-0.20); Basophils % (auto) 0.8 %; Eosinophils # (auto) 0.12 K/uL (0.00-0.50); Eosinophils % (auto) 2.3 %; Hematocrit (blood only) 42.2 % (42.0-52.0); Hemoglobin 14.5 g/dl (14.0-18.0); Immature Granulocytes # (auto) 0.01 K/uL (0.01-0.20); Immature Granulocytes % (auto) 0.2 %; Lymphocytes # (auto) 1.24 K/uL (1.20-3.40); Lymphocytes % (auto) 23.4 %; Mean Corpuscular Hemoglobin 31.1 pg (25.0-34.0); Mean Corpuscular Hgb Conc 34.4 g/dL (32.0-36.0); Mean Corpuscular Volume 90.6 fL (80.0-100.0); Mean Platelet Volume 10.4 fL (9.4-12.4); Monocytes # (auto) 0.51 K/uL (0.11-0.59); Monocytes % (auto) 9.6 %; Neutrophils # (auto) 3.37 K/uL (1.40-6.50); Neutrophils % (auto) 63.7 %; Platelet Count 201 K/uL (130-400); RDW Coefficient of Variation 12.5 % (11.5-14.5); RDW Standard Deviation 40.6 fL (36.4-46.3); Red Blood Count 4.66 M/uL (4.70-6.10); White Blood Count 5.29 K/ul (4.8-10.8)
[2024-04-12 08:58] LABS: Albumin Globulin Ratio 1.1 (0.9-2); Albumin Level 3.9 gm/dl (3.4-5.0); BUN Creatinine Ratio 13.3 (10-20); Bilirubin,Total 0.4 mg/dl (0.2-1.0); Calcium 9.2 mg/dl (8.6-10.3); Creatinine Clr Calc Pharmacy 119.6 ml/min; Est GFR (African American) 115.6 ml/min; Est GFR (Non-African American) 99.8 ml/min; Globulin 3.5 gm/dl (2.5-4.0); Magnesium 1.9 mg/dl (1.7-2.4); Potassium 4.6 mmol/L (3.5-5.1); Total Protein 7.4 gm/dl (6.0-8.3)
[2024-04-12 09:05] LABS: Prothrombin Time 11.2 Seconds (9.0-12.0)
--- NOTE | 2024-04-12 10:50 | Surgery Progress Note ---
Date of Service April 12, 2024 Assessment & Plan (1) Acute appendicitis: Plan 53-year-old prisoner with extensive cardiac history, A-fib, and acute appendicitis He is improving. He has less pain in his white blood cell count is lower today. We will continue conservative measures at this time. we will plan for 1 more day of IV antibiotics, probable rescan tomorrow morning. Will continue to follow. Admission and Anticipated Discharge Date Admission Date: April 10, 2024 Subjective feeling better this morning. Denies pain today. No nausea or vomiting. No fevers overnight. Physical Exam Physical Exam: AFVSS NAD, A&O x 3 NCAT Abdomen: Soft, nontender nondistended No rebound or guarding Results & Data Vital Signs (Past 12 Hours) Vital Signs Temp Pulse Pulse Resp BP Pulse Ox O2 Del Method 04/12/24 08:32 36.3 C L 108 H 18 138/80 97 Room Air 04/12/24 07:15 91 H 04/12/24 04:47 36.5 C 73 20 130/84 94 Room Air 04/12/24 01:05 36.3 C L 95 H 20 119/85 93 Room Air Laboratory Results 04/12/24 Range/Units 08:12 WBC 5.29 (4.8-10.8) K/ul RBC 4.66 L (4.70-6.10) M/uL Hgb 14.5 (14.0-18.0) g/dl Hct 42.2 (42.0-52.0) % MCV 90.6 (80.0-100.0) fL MCH 31.1 (25.0-34.0) pg MCHC 34.4 (32.0-36.0) g/dL RDW Std Deviation 40.6 (36.4-46.3) fL RDW Coeff of Telly 12.5 (11.5-14.5) % Plt Count 201 (130-400) K/uL MPV 10.4 (9.4-12.4) fL Immature Gran % (Auto) 0.2 % Neut % (Auto) 63.7 % Lymph % (Auto) 23.4 % [place] % (Auto) 9.6 % Eos % (Auto) 2.3 % Baso % (Auto) 0.8 % Neut # (Auto) 3.37 (1.40-6.50) K/uL Lymph # (Auto) 1.24 (1.20-3.40) K/uL [place] # (Auto) 0.51 (0.11-0.59) K/uL Eos # (Auto) 0.12 (0.00-0.50) K/uL Baso # (Auto) 0.04 (0.00-0.20) K/uL Immature Gran # (Auto) 0.01 (0.01-0.20) K/uL PT 11.2 (9.0-12.0) Seconds INR 1.0 (0.9-1.1) Sodium 138 (136-145) mmol/L Potassium 4.6 (3.5-5.1) mmol/L Chloride 101 (98-107) mmol/L Carbon Dioxide 29 (21-32) mmol/L Anion Gap 8 (3-11) BUN 11 (6-23) mg/dl Creatinine 0.83 (0.6-1.4) mg/dl Est Cr Clr Drug Dosing 119.6 ml/min Est GFR ( Amer) 115.6 ml/min Est GFR (Non-Af Amer) 99.8 ml/min BUN/Creatinine Ratio 13.3 (10-20) Glucose 77 (70-99(Fasting)) mg/dl Calcium 9.2 (8.6-10.3) mg/dl Magnesium 1.9 (1.7-2.4) mg/dl Total Bilirubin 0.4 (0.2-1.0) mg/dl AST 13 (13-39) U/L ALT 14 (7-52) U/L Alkaline Phosphatase 45 (34-104) U/L Total Protein 7.4 (6.0-8.3) gm/dl Albumin 3.9 (3.4-5.0) gm/dl Globulin 3.5 (2.5-4.0) gm/dl Albumin/Globulin Ratio 1.1 (0.9-2)
--- NOTE | 2024-04-12 12:11 | Hospitalist Progress Note ---
Date of Service April 12, 2024 Assessment & Plan (1) PAF (paroxysmal atrial fibrillation): (2) Acute appendicitis: (3) Seizure disorder, grand mal: (4) Heart failure with preserved ejection fraction: (5) HOCM (hypertrophic obstructive cardiomyopathy): (6) COPD (chronic obstructive pulmonary disease): Plan 53-year-old male inmate at [facility] nursing home with past medical history of HOCM, nonobstructive coronary artery disease, chronic diastolic congestive heart failure with preserved ejection fraction, history of cocaine abuse, seizure disorder, new onset A-fib (now on Eliquis) Acute appendicitis: Currently stable nontoxic-appearing. Pain had improved CT abdomen- acute, uncomplicated appendicitis No leukocytosis, no fever General Surgery consulted: Continue IV Abx one more day - Repeat CT tomorrow AM - If symptoms worse, fever, or increased of WBC will need transfer to tertiary center for surgery - IV ceftriaxone and Flagyl - Cardiology consulted for preop cardiac clearance: Elevated risk due to his hypertrophic cardiomyopathy. - Clear diet - s/p LR 80 ml/hr AM CBC, CMP, mag, PT/INR Paroxysmal Atrial fibrillation Rate well-controlled on metoprolol succinate and verapamil Placed on Heparin drip today - Continue Metoprolol and Verapamil Continue to monitor on telemetry Seizure disorder, grand mal: Home med continue: phenytoin, Depakote, and Tegretol phenytoin level pending COPD (chronic obstructive pulmonary disease): Continue home breathing treatments Incentive spirometry HOCM (hypertrophic obstructive cardiomyopathy): - Has been seen by CT surgery at [facility]. - gentle fluid maintenance in the setting of appendicitis and possible complications - s/p LR 80 ml/hr - continue monitor fluid status daily Plan DVT prophylaxis: Heparin drip NPO Med surg/ Telemetry Admission and Anticipated Discharge Date Admission Date: April 10, 2024 Supervising Physician Co-Signing Physician Notes Attending Physician Supervision Note: I independently interviewed and examined the patient and verified the durbin history and physical, reviewed labs and image studies and agree with findings and care plan noted above. Acute appendicitis - Medical mx due to high cardiac risk. Improving. Tolerated full liquid diet today. For CT abdomen in am by surgery. -d/c IVF PAF - Heparin drip - planning to transition to oral med after surgery evaluation in am. Subjective Seen this morning. Refers feeling better. Denied any pain. Denied palpitations or chest pain. Review of Systems Review of Systems: as per HPI Physical Exam Constitutional: WD/WN, vitals as above Respiratory: normal respiratory effort, lungs clear to auscultation Cardiovascular: Rate/Rhythm: + irregularly irregular Gastrointestinal (Abdomen): Inspection/Auscultation: normal bowel sounds; abdomen not distended Percussion/Palpation: abdomen soft; abdomen nontender and no guarding Musculoskeletal: no cyanosis or clubbing, extremities motor strength 5/5 Results & Data Results & Data Vital Signs (Past 12 Hours) Vital Signs Temp Pulse Pulse Resp BP Pulse Ox O2 Del Method 04/12/24 11:50 36.5 C 90 18 95/64 L 94 Room Air 04/12/24 08:32 36.3 C L 108 H 18 138/80 97 Room Air 04/12/24 07:15 91 H 04/12/24 04:47 36.5 C 73 20 130/84 94 Room Air 04/12/24 01:05 36.3 C L 95 H 20 119/85 93 Room Air Resident Activity Tracking Resident Involvement: Resident Care Provided Care Provided: Adult Hospital Medicine (4) Heart failure with preserved ejection fraction Heart failure chronicity: unspecified Qualified Code(s): I50.30 - Unspecified diastolic (congestive) heart failure
[2024-04-12] MEDS: HEPARIN SODIUM/DEXTROSE 25,000 UNITS/500 ML BAG IV SCH (12:42)
[2024-04-12] MEDS: Heparin IV Adult Wt-Based Standard *NO* INITIAL Bolus Protocol IV STA (12:50)
[2024-04-12 19:35] LABS: ANTI-Xa, UFH(UnfractionatedHep 0.32 IU/ml (0.3-0.7)
[2024-04-13 00:21] VITALS: RESP 18
[2024-04-13 07:45] VITALS: O2SAT 96
[2024-04-13 08:27] LABS: Basophils # (auto) 0.02 K/uL (0.00-0.20); Basophils % (auto) 0.5 %; Eosinophils # (auto) 0.11 K/uL (0.00-0.50); Hematocrit (blood only) 38.7 % (42.0-52.0); Hemoglobin 13.4 g/dl (14.0-18.0); Immature Granulocytes # (auto) 0.01 K/uL (0.01-0.20); Immature Granulocytes % (auto) 0.3 %; Lymphocytes # (auto) 1.44 K/uL (1.20-3.40); Lymphocytes % (auto) 39.2 %; Mean Corpuscular Hemoglobin 30.8 pg (25.0-34.0); Mean Corpuscular Hgb Conc 34.6 g/dL (32.0-36.0); Mean Platelet Volume 10.5 fL (9.4-12.4); Monocytes # (auto) 0.44 K/uL (0.11-0.59); Neutrophils # (auto) 1.65 K/uL (1.40-6.50); Platelet Count 189 K/uL (130-400); RDW Coefficient of Variation 12.3 % (11.5-14.5); Red Blood Count 4.35 M/uL (4.70-6.10); White Blood Count 3.67 K/ul (4.8-10.8)
[2024-04-13 08:50] LABS: ANTI-Xa, UFH(UnfractionatedHep 0.42 IU/ml (0.3-0.7); INR 1.1 (0.9-1.1); Prothrombin Time 11.5 Seconds (9.0-12.0)
[2024-04-13 08:55] LABS: Albumin Globulin Ratio 1.1 (0.9-2); Albumin Level 3.4 gm/dl (3.4-5.0); BUN Creatinine Ratio 11.5 (10-20); Bilirubin,Total 0.3 mg/dl (0.2-1.0); Calcium 8.7 mg/dl (8.6-10.3); Creatinine Clr Calc Pharmacy 127.2 ml/min; Est GFR (African American) 118.6 ml/min; Est GFR (Non-African American) 102.3 ml/min; Globulin 3.1 gm/dl (2.5-4.0); Magnesium 1.9 mg/dl (1.7-2.4); Potassium 3.7 mmol/L (3.5-5.1); Total Protein 6.5 gm/dl (6.0-8.3)
[2024-04-13] MEDS: OPTIRAY 320 100ml IV ONE (09:00)
--- NOTE | 2024-04-13 09:24 | Hospitalist Progress Note ---
Date of Service April 13, 2024 Assessment & Plan (1) PAF (paroxysmal atrial fibrillation): (2) Acute appendicitis: (3) Seizure disorder, grand mal: (4) Heart failure with preserved ejection fraction: (5) HOCM (hypertrophic obstructive cardiomyopathy): (6) COPD (chronic obstructive pulmonary disease): Plan 53-year-old male inmate at [facility] with past medical history of HOCM, nonobstructive coronary artery disease, chronic diastolic congestive heart failure with preserved ejection fraction, history of cocaine abuse, seizure disorder, new onset A-fib (now on Eliquis) Acute appendicitis: Currently stable nontoxic-appearing. Pain had improved CT abdomen- acute, uncomplicated appendicitis No leukocytosis, no fever General Surgery consulted: Continue IV Abx one more day - Repeat CT tomorrow AM - If symptoms worse, fever, or increased of WBC will need transfer to tertiary center for surgery - IV ceftriaxone and Flagyl - Cardiology consulted for preop cardiac clearance: Elevated risk due to his hypertrophic cardiomyopathy. - Clear diet - s/p LR 80 ml/hr AM CBC, CMP, mag, PT/INR Paroxysmal Atrial fibrillation Rate well-controlled on metoprolol succinate and verapamil Placed on Heparin drip today - Continue Metoprolol and Verapamil Continue to monitor on telemetry Seizure disorder, grand mal: Home med continue: phenytoin, Depakote, and Tegretol phenytoin level pending COPD (chronic obstructive pulmonary disease): Continue home breathing treatments Incentive spirometry HOCM (hypertrophic obstructive cardiomyopathy): - Has been seen by CT surgery at [facility]. - gentle fluid maintenance in the setting of appendicitis and possible complications - s/p LR 80 ml/hr - continue monitor fluid status daily Plan DVT prophylaxis: Heparin drip NPO Med surg/ Telemetry Admission and Anticipated Discharge Date Admission Date: April 10, 2024 Results & Data Results & Data Vital Signs (Past 12 Hours) Vital Signs Temp Pulse Pulse Resp BP Pulse Ox O2 Del Method 04/13/24 07:45 36.5 C 83 18 112/75 96 Room Air 04/13/24 07:26 81 04/13/24 04:00 36.5 C 102 H 18 124/86 98 Room Air 04/13/24 00:00 36.9 C 90 18 134/82 96 Room Air 04/12/24 23:37 79 (4) Heart failure with preserved ejection fraction Heart failure chronicity: unspecified Qualified Code(s): I50.30 - Unspecified diastolic (congestive) heart failure
--- NOTE | 2024-04-13 11:39 | CT Scan Report ---
CT abd pelvis IV con only CLINICAL HISTORY: Uncomplicated appendicitis TECHNIQUE: Helical axial images of the abdomen and pelvis were obtained and displayed. Automated dose lowering techniques and/or adjustment according to patient size were utilized for this exam. This e xam was performed with intravenous contrast. CT DOSE: 1495.73 mGy.cm COMPARISON: Comparison is made to CT abdomen pelvis 04/10/2024 FINDINGS: Lower chest: Atelectasis is seen. Calcified granulomata are seen. Liver: Unremarkable. No focal lesions are seen. Gallbladder and biliary tree: No calcified gallstones. Normal caliber wall. No intra- or extrahepatic biliary ductal dilation. Pancreas: Unremarkable, no focal lesions. Spleen: Splenule is incidentally noted. Adrenals: Unremarkable. Kidneys and ureters: Perinephric stranding is noted bilaterally. Bladder: Unremarkable. Reproductive organs: Unremarkable. Bowel: The appendix is normal. Lymph nodes Retroperitoneal: Subcentimeter lymph nodes are noted. Pelvic: Unremarkable. Mesenteric: Unremarkable. Peritoneum: Fat stranding is in the right lower quadrant. No evidence of perforation or abscess. Vessels: Atherosclerotic calcifications are seen. Abdominal wall: Unremarkable. Bones: Unremarkable. IMPRESSION: Thickening of the appendix is again seen. No evidence of perforation or abscess formation. ACT 112: Negative or not required by law. Electronically signed by: Rhett Robins M.D. 04/13/2024 11:37 AM
[2024-04-13 11:52] VITALS: TEMP 97.3
--- NOTE | 2024-04-13 12:59 | Surgery Progress Note ---
Date of Service April 13, 2024 Assessment & Plan (1) Acute appendicitis: Plan 53-year-old prisoner with extensive cardiac history, A-fib, and acute appendicitis Repeat ct scan this am showing uncomplicated appendicitis without abscess. afebrile. no leukocytosis. Pain has resolved. Plan: can advance diet as tolerated Can transition to oral antibiotics for another 7 days If his abdominal pain reoccurs on oral antibiotics he would likely require surgical intervention at tertiary center given his extensive cardiac history. Our services signing off, please call with questions/concerns Discussed with Dr. Fontana who agrees with above. Admission and Anticipated Discharge Date Admission Date: April 10, 2024 Subjective feeling better today no abdominal pain no n,v tolerating liquids Physical Exam Constitutional: WD/WN, vitals as above + obese, cooperative and comfortable; no acute distress and not ill appearing Respiratory: normal respiratory effort; no respiratory distress Gastrointestinal (Abdomen): Inspection/Auscultation: abdomen normal to inspection; abdomen not distended Percussion/Palpation: abdomen soft; abdomen nontender, no guarding, abdomen not rigid and abdomen not firm Skin: no rashes, warm and dry Psychiatric: Orientation: alert and oriented x 3 Results & Data Vital Signs (Past 12 Hours) Vital Signs Temp Pulse Pulse Resp BP BP Pulse Ox 04/13/24 11:51 36.3 C L 73 18 108/76 96 04/13/24 07:45 36.5 C 83 18 112/75 96 04/13/24 07:26 81 04/13/24 04:00 36.5 C 102 H 18 124/86 98 O2 Del Method 04/13/24 11:51 Room Air 04/13/24 07:45 Room Air 04/13/24 07:26 04/13/24 04:00 Room Air Laboratory Results 04/13/24 04/12/24 04/10/24 Range/Units 07:46 18:49 13:02 WBC 3.67 L (4.8-10.8) K/ul RBC 4.35 L (4.70-6.10) M/uL Hgb 13.4 L (14.0-18.0) g/dl Hct 38.7 L (42.0-52.0) % MCV 89.0 (80.0-100.0) fL MCH 30.8 (25.0-34.0) pg MCHC 34.6 (32.0-36.0) g/dL RDW Std Deviation 40.0 (36.4-46.3) fL RDW Coeff of Telly 12.3 (11.5-14.5) % Plt Count 189 (130-400) K/uL MPV 10.5 (9.4-12.4) fL Immature Gran % (Auto) 0.3 % Neut % (Auto) 45.0 % Lymph % (Auto) 39.2 % [place] % (Auto) 12.0 % Eos % (Auto) 3.0 % Baso % (Auto) 0.5 % Neut # (Auto) 1.65 (1.40-6.50) K/uL Lymph # (Auto) 1.44 (1.20-3.40) K/uL [place] # (Auto) 0.44 (0.11-0.59) K/uL Eos # (Auto) 0.11 (0.00-0.50) K/uL Baso # (Auto) 0.02 (0.00-0.20) K/uL Immature Gran # (Auto) 0.01 (0.01-0.20) K/uL PT 11.5 (9.0-12.0) Seconds INR 1.1 (0.9-1.1) Heparin Anti-Xa, Unfract 0.42 0.32 (0.3-0.7) IU/ml Sodium 138 (136-145) mmol/L Potassium 3.7 (3.5-5.1) mmol/L Chloride 102 (98-107) mmol/L Carbon Dioxide 30 (21-32) mmol/L Anion Gap 6 (3-11) BUN 9 (6-23) mg/dl Creatinine 0.78 (0.6-1.4) mg/dl Est Cr Clr Drug Dosing 127.2 ml/min Est GFR ( Amer) 118.6 ml/min Est GFR (Non-Af Amer) 102.3 ml/min BUN/Creatinine Ratio 11.5 (10-20) Glucose 98 (70-99(Fasting)) mg/dl Calcium 8.7 (8.6-10.3) mg/dl Magnesium 1.9 (1.7-2.4) mg/dl Total Bilirubin 0.3 (0.2-1.0) mg/dl AST 13 (13-39) U/L ALT 14 (7-52) U/L Alkaline Phosphatase 38 (34-104) U/L Total Protein 6.5 (6.0-8.3) gm/dl Albumin 3.4 (3.4-5.0) gm/dl Globulin 3.1 (2.5-4.0) gm/dl Albumin/Globulin Ratio 1.1 (0.9-2) Phenytoin See Scanned Report Diagnostic Findings CT abd pelvis IV con only CLINICAL HISTORY: Uncomplicated appendicitis TECHNIQUE: Helical axial images of the abdomen and pelvis were obtained and displayed. Automated dose lowering techniques and/or adjustment according to patient size were utilized for this exam. This exam was performed with intravenous contrast. CT DOSE: 1495.73 mGy.cm COMPARISON: Comparison is made to CT abdomen pelvis 04/10/2024 FINDINGS: Lower chest: Atelectasis is seen. Calcified granulomata are seen. Liver: Unremarkable. No focal lesions are seen. Gallbladder and biliary tree: No calcified gallstones. Normal caliber wall. No intra- or extrahepatic biliary ductal dilation. Pancreas: Unremarkable, no focal lesions. Spleen: Splenule is incidentally noted. Adrenals: Unremarkable. Kidneys and ureters: Perinephric stranding is noted bilaterally. Bladder: Unremarkable. Reproductive organs: Unremarkable. Bowel: The appendix is normal. Lymph nodes Retroperitoneal: Subcentimeter lymph nodes are noted. Pelvic: Unremarkable. Mesenteric: Unremarkable. Peritoneum: Fat stranding is in the right lower quadrant. No evidence of perforation or abscess. Vessels: Atherosclerotic calcifications are seen. Abdominal wall: Unremarkable. Bones: Unremarkable. IMPRESSION: Thickening of the appendix is again seen. No evidence of perforation or abscess formation. ACT 112: Negative or not required by law.
[2024-04-13 15:45] VITALS: BP 126/77; PULSE 75
--- NOTE | 2024-04-13 17:03 | Discharge Summary ---
Date of Service April 13, 2024 Admission HPI Per Admitting Provider Rafael is a 53-year-old male inmate at [facility] with past medical history of HOCM, nonobstructive coronary artery disease, chronic diastolic congestive heart failure with preserved ejection fraction, history of cocaine abuse, seizure disorder, new onset A-fib (now on Eliquis) who presented to the [facility] ED via EMS from [facility] due to progressive right lower quadrant pain which started overnight. Was noted to be tachycardic on arrival with heart rate in the 130s but otherwise stable.. Labs including CBC and CMP were unremarkable. KUB shows nonobstructive bowel gas pattern and moderate fecal retention. CT and pelvis with contrast was read as acute appendicitis with moderate periappendiceal inflammation without free air or abscess. General surgery was consulted and will evaluate the patient but asked for medicine medicine due to patient's complex cardiac and seizure history. Prior to admission the patient was given 500 mL NSS and 1 g IV Tylenol. Patient was seen in bed at time of exam without acute distress. Confirms he started to develop right lower quadrant pain overnight without radiation. Denies recent fever, chills, chest pain, shortness of breath, nausea/vomiting, dysuria/hematuria states that he has been constipated over the past 48 hours. Pain is currently an 8 out of 10. I [facility] that the patient had his a.m. doses of metoprolol, Eliquis, but missed his a.m. doses of his antiepileptic medications and verapamil. Please refer to Dr. Elmore's attestation for any changes to treatment plan Principal Diagnosis uncomplicated appendicitis Discharge Exam Constitutional WD/WN, vitals as above Respiratory normal respiratory effort, lungs clear to auscultation Cardiovascular Rate/Rhythm: + irregularly irregular Gastrointestinal (Abdomen) Inspection/Auscultation: normal bowel sounds; abdomen not distended Percussion/Palpation: abdomen soft; abdomen nontender and no guarding Musculoskeletal no cyanosis or clubbing, extremities motor strength 5/5 Discharge Data Allergies Allergy/AdvReac Type Severity Reaction Status Date / Time No Known Allergies Allergy Verified 04/06/24 07:50 Consultations 04/10/24 12:19 Consult General Surgery Routine 04/10/24 12:20 Consult Cardiology Routine 04/10/24 12:26 ED Decision to Admit Stat Ordered Studies 04/10/24 10:47 CT abd pelvis IV con only Stat 04/10/24 16:52 CT Abd and Pelvis [CT abd pelvis IV con only] Stat 04/10/24 16:54 CTA chest dissec wo/w con [CT angio chest dissec wo/w con] Stat 04/13/24 07:28 CT Abd and Pelvis [CT abd pelvis IV con only] Routine Hospital Course (1) PAF (paroxysmal atrial fibrillation): (2) Acute appendicitis: (3) Seizure disorder, grand mal: (4) Heart failure with preserved ejection fraction: (5) HOCM (hypertrophic obstructive cardiomyopathy): (6) COPD (chronic obstructive pulmonary disease): Plan 53-year-old male inmate at [facility] with past medical history of HOCM, nonobstructive coronary artery disease, chronic diastolic congestive heart failure with preserved ejection fraction, history of cocaine abuse, seizure disorder, new onset A-fib (now on Eliquis) Acute appendicitis: Currently stable nontoxic-appearing. Pain had improved CT abdomen- acute, uncomplicated appendicitis No leukocytosis, no fever General Surgery consulted: Continue IV Abx one more day Repeat CT: showing uncomplicated appendicitis without abscess. If his abdominal pain reoccurs on oral antibiotics he would likely require surgical intervention at tertiary center given his extensive cardiac history. s/p IV ceftriaxone and Flagyl --> Flagyl 500mg po x 7 days and Ciprofloxacin 500 mg Q8hr PO every 12 hours for 7 more days - Cardiology consulted for preop cardiac clearance: Elevated risk due to his hypertrophic cardiomyopathy. Paroxysmal Atrial fibrillation Rate well-controlled on metoprolol succinate and verapamil - Continue Metoprolol and Verapamil - Continue Eliquis Seizure disorder, grand mal: Home med continue: phenytoin, Depakote, and Tegretol phenytoin level: 8.0 COPD (chronic obstructive pulmonary disease): Continue home breathing treatments Incentive spirometry HOCM (hypertrophic obstructive cardiomyopathy): - Has been seen by CT surgery at [facility]. Total Time Total Time Spent Total Time Spent (In Minutes): <30 Discharge Plan Discharge Items [facility] Disposition[facility] Reason For Visit: ACUTE APPENDICITIS Discharge Diagnosis: uncomplicated appendicitis Activity: Per Instructions section Non-emergency contact: Primary Care Provider Call non-emergency contact if: you have any medication questions, your symptoms worsen and your pain is worsening Follow-up/Referrals: Robert LUNDY [Primary Care Provider] - Diet: Regular Addtl Attending Provider Instructions: 53-year-old male inmate at [facility] with past medical history of HOCM, nonobstructive coronary artery disease, chronic diastolic congestive heart failure with preserved ejection fraction, history of cocaine abuse, seizure disorder, new onset A-fib (now on Eliquis) Acute appendicitis: Currently stable nontoxic-appearing. Pain had improved CT abdomen- acute, uncomplicated appendicitis No leukocytosis, no fever General Surgery consulted: Continue IV Abx one more day Repeat CT: showing uncomplicated appendicitis without abscess. If his abdominal pain reoccurs on oral antibiotics he would likely require surgical intervention at tertiary center given his extensive cardiac history. s/p IV ceftriaxone and Flagyl --> Flagyl 500mg po x 7 days and Ciprofloxacin 500 mg Q8hr PO every 12 hours for 7 more days - Cardiology consulted for preop cardiac clearance: Elevated risk due to his hypertrophic cardiomyopathy. Paroxysmal Atrial fibrillation Rate well-controlled on metoprolol succinate and verapamil - Continue Metoprolol and Verapamil - Continue Eliquis Seizure disorder, grand mal: Home med continue: phenytoin, Depakote, and Tegretol phenytoin level: 8.0 COPD (chronic obstructive pulmonary disease): Continue home breathing treatments Incentive spirometry HOCM (hypertrophic obstructive cardiomyopathy): - Has been seen by CT surgery at [facility]. Pending Studies at Discharge: No Stand-Alone Forms: My [facility] Skilled Items Patient informed of condition?: Yes Discharge Level of Care: Other Communicable Disease: No Discharge Prognosis: Stable Lines: None Urinary Catheter: No Medications and DC Order Prescriptions: Continued metoprolol succinate [Toprol XL] 200 mg Tablet Extended Release 24 Hr 200 mg PO DAILY potassium chloride 10 mEq Tablet Extended Release 10 meq PO DAILY phenytoin sodium extended [Dilantin Extended] 100 mg Capsule 300 mg PO BID divalproex 500 mg Tablet,Delayed Release (Dr/Ec) 500 mg PO BID Rx Instructions: Take with 125 mg dose to equal 625 mg aspirin 81 mg Tablet,Delayed Release (Dr/Ec) 81 mg PO DAILY carbamazepine 200 mg Tablet 600 mg PO BID Rx Instructions: 200 mg x3 tablets divalproex 125 mg Tablet,Delayed Release (Dr/Ec) 125 mg PO BID Rx Instructions: Take with 500 mg dose to equal 625 mg calcium polycarbophil [Fiber-Lax] 625 mg Tablet 625 mg PO DAILY albuterol sulfate [Proventil HFA] 90 mcg/actuation Hfa Aerosol Inhaler 2 puff INHALATION QID PRN (Reason: SOB) rosuvastatin 20 mg Tablet 20 mg PO HS Alvesco 80 mcg/actuation Hfa Aerosol Inhaler 1 puff INHALATION BID magnesium oxide 400 mg magnesium Tablet 400 mg PO UD Rx Instructions: 1 tablet po daily; give with PRN Lasix verapamil 180 mg Tablet Extended Release 360 mg PO QAM Qty: 30 0RF Eliquis 5 mg Tablet 5 mg PO BID Qty: 60 0RF furosemide 20 mg Tablet 20 mg PO DAILY Qty: 0 0RF furosemide [Lasix] 20 mg tablet 20 mg PO DAILY PRN (Reason: weight gain of more than 3 pounds in 1-2 days) Qty: 10 0RF magnesium oxide 400 mg magnesium tablet 400 mg PO DAILY PRN (Reason: ONLY take when furosemide is given) Qty: 10 0RF potassium chloride 10 mEq tablet extended release 10 meq PO DAILY PRN (Reason: ONLY TAKE if FUROSEMIDE is given) Qty: 10 0RF Discharge Orders: Discharge Order (Routine); Ordered 04/13/24 Ordered By: Marita Brown Admission Data Admit Date/Time: 04/10/24 12:17 Attending Provider: Noah Thomas Admit Provider: Yoan Elmore Primary Care Provider: Robert LUNDY Other Providers: Yoan Elmore; Latrell Fontana; Amado Hurst Other Interventions: Discharge Summary Assessment (RN) Last Done: 04/13/24 18:00 Supervising Physician Co-Signing Physician Notes I personally examined the patient and verified all durbin points of history and exam, discussed case, and agree with decision making with Dr Obed Brown Feeling better. Pain improved. Feels okay with leaving the hospital. Surgical team input greatly appreciated. Vitals noted, in general he is awake and alert pleasant no distress. HEENT normocephalic atraumatic mucous membranes moist. Breathing unlabored no accessory muscle use good effort. Skin without rashes pallor or icterus. Abdomen is soft nontender nondistended no guarding rebound or rigidity. Acute appendicitis - Medical mx due to high cardiac risk. Improving. Surgical team guiding managementand feel that he is safe for discharge on oral antibioti cs. Given his improvement and benign exam -this seems reasonable. otherwise as above Resident Activity Tracking Resident Involvement: Resident Care Provided Care Provided: Adult [facility] Medicine
--- NOTE | 2024-04-13 18:32 | Billing Data ---
Date of Service April 13, 2024 Coding Level of Care Code 52908 IN/OBS DISCH 30 MIN/LESS
[2024-04-13] MEDS ORDERED: APIXABAN 5 MG TABLET PO SCH (21:00)
== END 2024-04-13 20:04 | DRG 394 ==
LOC: ED 07:37 → SUATTDRO 12:17 → EDINP 12:17 → 2W 17:43
DX: G40.409 Other generalized epilepsy and epileptic syndromes, not intractable, without status epilepticus; I42.1 Obstructive hypertrophic cardiomyopathy; Z79.82 Long term (current) use of aspirin; I11.0 Hypertensive heart disease with heart failure; F14.11 Cocaine abuse, in remission; I48.0 Paroxysmal atrial fibrillation; J44.9 Chronic obstructive pulmonary disease, unspecified; K35.80 Unspecified acute appendicitis; I25.10 Atherosclerotic heart disease of native coronary artery without angina pectoris; Z87.891 Personal history of nicotine dependence; K59.00 Constipation, unspecified; I50.32 Chronic diastolic (congestive) heart failure

== ENCOUNTER 2024-07-09 18:43 | Observation (INO) ==
[2024-07-09 19:30] LABS: Basophils # (auto) 0.04 K/uL (0.00-0.20); Basophils % (auto) 0.9 %; Eosinophils # (auto) 0.06 K/uL (0.00-0.50); Eosinophils % (auto) 1.3 %; Immature Granulocytes # (auto) 0.01 K/uL (0.01-0.20); Immature Granulocytes % (auto) 0.2 %; Lymphocytes % (auto) 32.9 %; Mean Corpuscular Hemoglobin 31.1 pg (25.0-34.0); Mean Corpuscular Hgb Conc 34.1 g/dL (32.0-36.0); Mean Corpuscular Volume 91.3 fL (80.0-100.0); Mean Platelet Volume 10.1 fL (9.4-12.4); Neutrophils # (auto) 2.45 K/uL (1.40-6.50); Neutrophils % (auto) 53.7 %; Platelet Count 225 K/uL (130-400); RDW Coefficient of Variation 12.6 % (11.5-14.5); RDW Standard Deviation 41.9 fL (36.4-46.3); Red Blood Count 4.82 M/uL (4.70-6.10); White Blood Count 4.56 K/ul (4.8-10.8)
[2024-07-09 19:46] LABS: Albumin Globulin Ratio 1.4 (0.9-2); Albumin Level 4.3 gm/dl (3.4-5.0); BUN Creatinine Ratio 19.1 (10-20); Bilirubin,Total 0.2 mg/dl (0.2-1.0); Calcium 8.8 mg/dl (8.6-10.3); Creatinine Clr Calc Pharmacy 84.8 ml/min; Potassium 4.9 mmol/L (3.5-5.1); Total Protein 7.3 gm/dl (6.0-8.3)
[2024-07-09 19:52] LABS: Troponin I High Sensitivity 24.7 pg/ml (0-20)
--- NOTE | 2024-07-09 21:32 | History & Physical Report ---
Date of Service July 09, 2024 Assessment & Plan (1) Chest pain: Plan: -Patient with on and off chest pain for the last year with now exertional dyspnea with chest pain and lightheadedness. No syncopal episodes. -EKG showing A-fib with no significant changes compared to previous EKGs. -CBC and CMP benign, lipase negative. -BNP of 248. -Elevated troponin of 24 with a 2-hour repeat of 28. Will continue to monitor troponin every 6 hours. -Chest x-ray negative. -RUBI done on 04/2024 showed an EF of 55-60%. Also showed mild mitral regurgitation, left atrium is severely dilated, moderate concentric left hypertrophic with severe asymmetric hypertrophy of of the basilar septum -Consult cardiology. -Low suspicion for cardiac intervention at this time. Will allow patient to eat. -Patient states that he was seen at [place] in [facility] 2 months ago and they talked about doing a surgery. He is unsure if he is going to have a surgery or not. Requested records from ED personnel. Have not gotten records yet at time of admission. (2) Elevated troponin: Plan: -Elevated troponin of 24 with a repeat of 28. -Will refer to cardiology. (3) Left ventricular outflow obstruction: Plan: -Of note, cardiology progress note from 04/07/2024 talked about a left ventricular outflow tract obstruction. Patient was referred to surgery and unsure if it had been scheduled yet. (4) PAF (paroxysmal atrial fibrillation): Plan: -Patient is currently in A-fib. -Rate controlled with metoprolol and verapamil. -Continue with Eliquis. (5) Seizure disorder, grand mal: Plan: -History of seizures on phenytoin, Depakote, and tegretol (6) Heart failure with preserved ejection fraction: Plan: -History of heart failure with preserved ejection fraction. -Euvolemic on exam today. -Continue with 20 mg Lasix daily. (7) COPD (chronic obstructive pulmonary disease): Plan: -History of COPD, continue albuterol inhaler as needed. (8) CAD (coronary artery disease): Plan: -History of CAD, prior catheterization in September 2023. (9) HOCM (hypertrophic obstructive cardiomyopathy): Plan: -Seen on CT surgery at [facility]. (10) Dyslipidemia: Plan: -Continue Crestor. Plan Fluids: None Nutrition: Heart healthy Code status: Full code DVT ppx: Eliquis Consults: Cardiology Dispo: PCU/telemetry History of Present Illness Chief Complaint: Chest pain rule out Primary Care Provider: KAMRON Robert Patient is a 53-year-old male prisoner with past medical history of paroxysmal A-fib on Eliquis, COPD, CAD, hypertrophic obstructive cardiomyopathy, hypertension, dyslipidemia, seizure disorder, and history of NSTEMI. Who presents to the hospital with worsening chest pain and shortness of breath on exertion. Patient states that he has had tightness across his chest for over the past year. Getting a little worse though has been pretty consistent over the past year. States though that recently he has been getting shortness of breath on exertion which is new. Also had some nausea earlier today with walking. Denies any cough, fever, chills, abdominal pain. Denies any radiating pain. Denies any significant changes to his medical history or medications. Patient also notes some lightheadedness with ambulation. Of note patient was seen 2 months ago in [place] by cardiology. States that they did not do any surgery at that time but did discuss that he will probably need surgery in the near future. Reached out to ED staff about obtaining records from [place]. Allergies Allergy/AdvReac Type Severity Reaction Status Date / Time No Known Allergies Allergy Verified 07/09/24 23:20 Home Medications Medication Instructions Recorded Confirmed Type aspirin 81 mg tablet,delayed 81 mg PO DAILY 04/05/24 07/09/24 History release calcium polycarbophil 625 mg 625 mg PO DAILY 04/05/24 07/09/24 History tablet (Fiber-Lax) carbamazepine 200 mg tablet 600 mg PO BID 04/05/24 07/09/24 History ciclesonide 80 mcg/actuation 1 puff inhalation BID 04/05/24 07/09/24 History aerosol inhaler (Alvesco) divalproex 125 mg tablet,delayed 125 mg PO BID 04/05/24 07/09/24 History release divalproex 500 mg tablet,delayed 500 mg PO BID 04/05/24 07/09/24 History release magnesium oxide 400 mg PO QAM 04/05/24 07/09/24 History metoprolol succinate 200 mg 200 mg PO QAM 04/05/24 07/09/24 History tablet,extended release 24 hr (Toprol XL) rosuvastatin 20 mg tablet 20 mg PO HS 04/05/24 07/09/24 History apixaban 5 mg tablet (Eliquis) 5 mg PO BID #60 tabs 04/08/24 07/09/24 Rx naproxen 500 mg tablet 500 mg PO BID PRN Pain 05/04/24 07/09/24 History phenytoin sodium extended 100 mg 300 mg PO BID 05/04/24 07/09/24 History capsule potassium chloride 10 mEq 10 meq PO QAM 05/04/24 07/09/24 History tablet,extended release verapamil 360 mg 24 hr 360 mg PO QPM 05/04/24 07/09/24 History capsule,extended release albuterol sulfate 90 mcg/actuation 2 puff inhalation QID PRN 07/09/24 07/09/24 History aerosol inhaler Shortness Of Breath amiodarone 200 mg tablet 200 mg PO DAILY 07/09/24 07/09/24 History furosemide 20 mg tablet 20 mg PO BID 07/09/24 07/09/24 History Past Med/Surg History Problem List (Updated 07/10/24 @ 23:02 by James Reilly MD) Persistent atrial fibrillation Chest pain Left ventricular outflow obstruction PAF (paroxysmal atrial fibrillation) Acute appendicitis (Acute) 04/10/24 Constipation (Acute) Abdominal pain (Acute) 04/10/24 Seizure disorder, grand mal Atrial fibrillation with RVR (Acute) Elevated brain natriuretic peptide (BNP) level (Acute) 11/29/23 Elevated troponin (Acute) 11/29/23 Mitral regurgitation Heart failure with preserved ejection fraction CHF (congestive heart failure) COPD (chronic obstructive pulmonary disease) (Acute) CAD (coronary artery disease) (Acute) Dyspnea (Acute) History of coronary artery disease (Acute) Elevated troponin (Acute) 04/29/22 Chest pain (Acute) 04/29/22 Coronary artery disease, non-occlusive HOCM (hypertrophic obstructive cardiomyopathy) (Acute) Hypertension Family history of premature coronary artery disease Dyslipidemia Seizure disorder Unstable angina pectoris (Acute) 01/07/20 Chest pain (Acute) 01/07/20 Non-ST elevation myocardial infarction (NSTEMI) (Acute) Medical History (Updated 07/10/24 @ 23:02 by James Reilly MD) Acquired left ventricular outflow tract obstruction Appendicitis was hospitalized and treated with antibiotics 03/2024 HOCM (hypertrophic obstructive cardiomyopathy) COPD (chronic obstructive pulmonary disease) CHF (congestive heart failure) 03/2024 Mitral regurgitation PAF (paroxysmal atrial fibrillation) Non-ST elevated myocardial infarction 10/12 [place] Dyslipidemia Seizure disorder Grandmal CAD (coronary artery disease) HTN (hypertension) Pulmonary nodule Surgical History Hx of cardiac cath 09/2023 [place] Family History Father Coronary heart disease Seizure disorder Social History Smoking Status: Former smoker Tobacco Type: Cigarettes Cigarettes Per Day: SCI Robert; Second Hand Exposure: No; Do You Dip or Chew Tobacco: No; Hx Alcohol Use: No Hx Substance Use: Yes Last Used Substance: Unknown Last Used Substance Other:: 16+ years ago Preferred Language: Welsh Communication Ability: Effective Web Production Manager Required: No Beliefs That Will Affect Care: None Current Living Situation: Other Current Living Situation Comment: Robert Feels Safe at Home: Yes Assistive Devices: Glasses Review of Systems Review of Systems: All systems reviewed & are unremarkable except as noted in Subjective Physical Exam Physical Exam: Constitutional: well-appearing, no acute distress HEENT: NCAT, no conjunctival injection CV: Irregularly irregular rate and rhythm, no murmur appreciated, extremities well-perfused, no LE edema Resp: CTABL, no wheezes/rales/rhonchi appreciated, no increased work of dallin thing GI: soft, nondistended, nontender, BS normoactive MSK: no gross deformities appreciated Skin: warm, dry, no rash appreciated Neuro: alert, oriented, no focal neurologic deficit appreciated Results & Data Results & Data Vital Signs (Past 12 Hours) Vital Signs Temp Pulse Pulse Resp BP BP Pulse Ox 07/09/24 20:00 84 14 120/79 97 07/09/24 19:19 70 18 96 07/09/24 19:00 96 07/09/24 18:49 105 H 07/09/24 18:30 36.7 C 75 16 130/82 98 O2 Del Method 07/09/24 20:00 Room Air 07/09/24 19:19 Room Air 07/09/24 19:00 Room Air 07/09/24 18:49 07/09/24 18:30 Room Air Supervising Physician Co-Signing Physician Notes Attending addendum: I have physically seen this patient, have supervised the medical residents activ ities, and agree with the H&P unless as otherwise noted. Assessment and Plan: Elevated troponin/chest pain/atrial fibrillation/history of left ventricular outflow tract obstruction-HOCM/HFpEF- The patient will be admitted to telemetry for serial cardiac enzymes, serial EKG's, cardiac rhythm monitoring and a 2-D echocardiogram with Dopplers. Troponin initially 24.7, follow-up pending Most recent echocardiogram/RUBI on 05/14 with EF 55-60% Continue metoprolol, verapamil and Eliquis Continue furosemide Consult cardiology Note review suggest possibility of future surgery, discussed with cardiology Seizure disorder- History grand mal seizures- Continue phenytoin, Depakote and Tegretol, levels ordered COPD- At baseline Continue routine inhalers Dyslipidemia- Continue Crestor (1) Chest pain Chest pain type: unspecified Qualified Code(s): R07.9 - Chest pain, un specified (6) Heart failure with preserved ejection fraction Heart failure chronicity: unspecified Qualified Code(s): I50.30 - Unspecified diastolic (congestive) heart failure
--- NOTE | 2024-07-09 22:23 | Emergency Department Note ---
Impression & Plan Chest pain, Non-ST elevation myocardial infarction (NSTEMI), HOCM (hypertrophic obstructive cardiomyopathy), Elevated troponin, Dyspnea ED Provider Note NAME: PRAVEEN MOORE AGE: 53 SEX: M : 1970 ARRIVES VIA: Ambulance INFORMANT: Patient, ED PROVIDER(S): Jacquelyn Barrera MD CHIEF COMPLAINT: Chest pain HPI: This is a 53-year-old male with history of CAD presenting for chest pain. Patient has a past few months he has had increasing episodes of chest pain. He is now having exertional dyspnea and chest pain. He notes lightheadedness with ambulation as well. No syncope with this. No pleurisy. No fever, chills, cough, congestion. No significant leg swelling. ROS: See above HPI for pertinent positives & negatives. A total of 10 systems reviewed and were otherwise negative. PAST MEDICAL HISTORY: See Below PAST SURGICAL HISTORY: See Below FAMILY HISTORY: See Below SOCIAL HISTORY: See Below HOME MEDICATIONS: See Below ALLERGIES: See Below VITALS: See Below PHYSICAL EXAMINATION: General: resting comfortably in no acute distress Head: Normocephalic and atraumatic Eyes: Normal inspection, extraocular muscles intact Ear, nose, throat: Normal external exam Neck: Normal range of motion Respiratory: lungs clear to auscultation bilaterally Cardiovascular: Regular rate/rhythm, no murmur GI: soft, nontender, no guarding or rebound Extremities: nontender, moves all extremities Neuro: The patient awake and alert, appropriately conversive, no focal deficits, symmetric faces Skin: Warm, dry, and intact MEDICAL DECISION MAKING: This is a 53-year-old male with history of CAD presenting for chest pain. Patient has had previous hypertrophic cardiomyopathy and was evaluated CT surgery. He has not had any surgery done however. He notes previous heart attacks. -Will do EKG, troponin. -ECG independently interpreted by me with atrial fibrillation at a rate of 86, normal axis, normal [place], normal QRS, normal QTc, no ST segment elevations consistent with STEMI criteria -No leukocytosis or anemia. Electrolytes within normal limits. Troponin is elevated at this time as well as BNP. With patient's previous history of STEMI and stenting as well as hypertrophic cardiomyopathy with the lightheadedness/presyncopal episode, will admit for further testing and cardiology consultation -Care discussed with [facility] service for admission Differential diagnosis: ACS, hypertrophic cardiomyopathy, PE, STEMI, NSTEMI Independent History obtained from: Shelter guards Diagnostics interpreted by me: ECG: See above Cardiac Monitoring: An order was placed for continuous cardiac monitoring. The monitor shows a rate of 81 with sinus rhythm. Past Med/Surg History Problem List (Updated 07/10/24 @ 01:38 by Jacquelyn Barrera MD) Left ventricular outflow obstruction PAF (paroxysmal atrial fibrillation) Acute appendicitis (Acute) 04/10/24 Constipation (Acute) Abdominal pain (Acute) 04/10/24 Seizure disorder, grand mal Atrial fibrillation with RVR (Acute) Elevated brain natriuretic peptide (BNP) level (Acute) 11/29/23 Elevated troponin (Acute) 11/29/23 Mitral regurgitation Heart failure with preserved ejection fraction CHF (congestive heart failure) COPD (chronic obstructive pulmonary disease) (Acute) CAD (coronary artery disease) (Acute) Dyspnea (Acute) History of coronary artery disease (Acute) Elevated troponin (Acute) 04/29/22 Chest pain (Acute) 04/29/22 Coronary artery disease, non-occlusive HOCM (hypertrophic obstructive cardiomyopathy) (Acute) Hypertension Family history of premature coronary artery disease Dyslipidemia Seizure disorder Unstable angina pectoris (Acute) 01/07/20 Chest pain (Acute) 01/07/20 Non-ST elevation myocardial infarction (NSTEMI) (Acute) Medical History (Updated 07/10/24 @ 01:38 by Jacquelyn Barrera MD) Acquired left ventricular outflow tract obstruction Appendicitis was hospitalized and treated with antibiotics 03/2024 HOCM (hypertrophic obstructive cardiomyopathy) COPD (chronic obstructive pulmonary disease) CHF (congestive heart failure) 03/2024 Mitral regurgitation PAF (paroxysmal atrial fibrillation) Non-ST elevated myocardial infarction 10/12 [place] Dyslipidemia Seizure disorder Grandmal CAD (coronary artery disease) HTN (hypertension) Pulmonary nodule Surgical History Hx of cardiac cath 09/2023 [place] Family History Father Coronary heart disease Seizure disorder Social History Smoking Status: Unknown if ever smoked Tobacco Type: Cigarettes Cigarettes Per Day: SCI [place]; Second Hand Exposure: No; Do You Dip or Chew Tobacco: No; Hx Alcohol Use: No Hx Substance Use: Yes Last Used Substance: Days (ago) Last Used Substance Other:: 16+ years ago Preferred Language: Chinese Communication Ability: Effective Pharmacy Laboratory Technician Required: No Beliefs That Will Affect Care: None Current Living Situation: Other Current Living Situation Comment: KAMRON Jones Feels Safe at Home: Yes Assistive Devices: Glasses Allergies Allergies Allergy/AdvReac Type Severity Reaction Status Date / Time No Known Allergies Allergy Verified 07/09/24 23:20 Home Meds Home Medications Medication Instructions Recorded Confirmed aspirin 81 mg tablet,delayed 81 mg PO DAILY 04/05/24 07/09/24 release calcium polycarbophil 625 mg 625 mg PO DAILY 04/05/24 07/09/24 tablet (Fiber-Lax) carbamazepine 200 mg tablet 600 mg PO BID 04/05/24 07/09/24 ciclesonide 80 mcg/actuation 1 puff inhalation BID 04/05/24 07/09/24 aerosol inhaler (Alvesco) divalproex 125 mg tablet,delayed 125 mg PO BID 04/05/24 07/09/24 release divalproex 500 mg tablet,delayed 500 mg PO BID 04/05/24 07/09/24 release magnesium oxide 400 mg PO QAM 04/05/24 07/09/24 metoprolol succinate 200 mg 200 mg PO QAM 04/05/24 07/09/24 tablet,extended release 24 hr (Toprol XL) rosuvastatin 20 mg tablet 20 mg PO HS 04/05/24 07/09/24 naproxen 500 mg tablet 500 mg PO BID PRN Pain 05/04/24 07/09/24 phenytoin sodium extended 100 mg 300 mg PO BID 05/04/24 07/09/24 capsule potassium chloride 10 mEq 10 meq PO QAM 05/04/24 07/09/24 tablet,extended release verapamil 360 mg 24 hr 360 mg PO QPM 05/04/24 07/09/24 capsule,extended release albuterol sulfate 90 mcg/actuation 2 puff inhalation QID PRN 07/09/24 07/09/24 aerosol inhaler Shortness Of Breath amiodarone 200 mg tablet 200 mg PO DAILY 07/09/24 07/09/24 furosemide 20 mg tablet 20 mg PO BID 07/09/24 07/09/24 Previous Rx's Medication Instructions Recorded apixaban 5 mg tablet (Eliquis) 5 mg PO BID #60 tabs 04/08/24 Results & Data (ED) Vital Signs Vital Signs - 24 hr 07/09/24 18:30 07/09/24 18:49 07/09/24 19:00 Temperature 36.7 C Temperature Source Oral Pulse Rate 75 105 H Pulse Rate [Apical] Pulse Rhythm Respiratory Rate 16 Respiratory Effort / Characteristics Non-Labored Respiratory Depth Normal Respiratory Pattern Blood Pressure 130/82 Blood Pressure [Left Arm] Blood Pressure Mean 98 Blood Pressure Mean [Left Arm] Blood Pressure Position Sitting Blood Pressure Position [Left Arm] Pulse Oximetry 98 96 Oxygen Delivery Method Room Air Room Air Sepsis Recent Fever Within 48 Hours No Sepsis New/Unexplained Change in Mental Status N/A Sepsis Action Taken by Nursing No Action Required 07/09/24 19:19 07/09/24 20:00 Temperature Temperature Source Pulse Rate 70 Pulse Rate [Apical] 84 Pulse Rhythm Irregular Respiratory Rate 18 14 Respiratory Effort / Characteristics Non-Labored Spontaneous Respiratory Depth Normal Respiratory Pattern Regular Blood Pressure Blood Pressure [Left Arm] 120/79 Blood Pressure Mean Blood Pressure Mean [Left Arm] 92 Blood Pressure Position Blood Pressure Position [Left Arm] Semi-fowlers Pulse Oximetry 96 97 Oxygen Delivery Method Room Air Room Air Sepsis Recent Fever Within 48 Hours Sepsis New/Unexplained Change in Mental Status Sepsis Action Taken by Nursing Laboratory Data 07/09/24 18:53 07/09/24 18:53 Lab Results 07/09/24 07/09/24 07/09/24 Range/Units 18:53 21:14 21:22 WBC 4.56 L (4.8-10.8) K/ul RBC 4.82 (4.70-6.10) M/uL Hgb 15.0 (14.0-18.0) g/dl Hct 44.0 (42.0-52.0) % MCV 91.3 (80.0-100.0) fL MCH 31.1 (25.0-34.0) pg MCHC 34.1 (32.0-36.0) g/dL RDW Std Deviation 41.9 (36.4-46.3) fL RDW Coeff of Telly 12.6 (11.5-14.5) % Plt Count 225 (130-400) K/uL MPV 10.1 (9.4-12.4) fL Immature Gran % (Auto) 0.2 % Neut % (Auto) 53.7 % Lymph % (Auto) 32.9 % [place] % (Auto) 11.0 % Eos % (Auto) 1.3 % Baso % (Auto) 0.9 % Neut # (Auto) 2.45 (1.40-6.50) K/uL Lymph # (Auto) 1.50 (1.20-3.40) K/uL [place] # (Auto) 0.50 (0.11-0.59) K/uL Eos # (Auto) 0.06 (0.00-0.50) K/uL Baso # (Auto) 0.04 (0.00-0.20) K/uL Immature Gran # (Auto) 0.01 (0.01-0.20) K/uL Sodium 138 (136-145) mmol/L Potassium 4.9 (3.5-5.1) mmol/L Chloride 103 (98-107) mmol/L Carbon Dioxide 29 (21-32) mmol/L Anion Gap 6 (3-11) BUN 22 (6-23) mg/dl Creatinine 1.15 (0.6-1.4) mg/dl Est Cr Clr Drug Dosing 84.8 ml/min eGFR 75.63 BUN/Creatinine Ratio 19.1 (10-20) Glucose 173 H (70-99(Fasting)) mg/dl Calcium 8.8 (8.6-10.3) mg/dl Total Bilirubin 0.2 (0.2-1.0) mg/dl AST 37 (13-39) U/L ALT 38 (7-52) U/L Alkaline Phosphatase 48 (34-104) U/L Troponin I High Sens 24.7 H 28.6 H (0-20) pg/ml B-Natriuretic Peptide 248 H (0-100) pg/ml Total Protein 7.3 (6.0-8.3) gm/dl Albumin 4.3 (3.4-5.0) gm/dl Globulin 3.0 (2.5-4.0) gm/dl Albumin/Globulin Ratio 1.4 (0.9-2) Lipase 22 (11-82) U/L Imaging Data Radiologist's Impression: Chest X-Ray 07/09/24 19:13 Exam(s): XR CXR 1 VIEW EXAM: XR Chest, 1 View CLINICAL HISTORY: Reason for exam: Chest pain, nonspecific. TECHNIQUE: Frontal view of the chest. COMPARISON: April 10, 2024 FINDINGS: Lungs: Unremarkable. No acute infiltration, atelectasis or mass. Pleural space: Unremarkable. No pneumothorax or pleural fluid. Heart: Unremarkable. No cardiomegaly. Mediastinum: Unremarkable. Normal mediastinal contour. Bones/joints: No acute findings. Old healed fracture of the left clavicle. IMPRESSION: No acute findings in the chest. Electronically signed by: Zachary Martinez MD 07/10/24 00:08 AM Discharge Plan Visit Data Chief Complaint: Chest Pain Stated Complaint: CHEST PAIN ED Provider: Jacquelyn Barrera Discharge Problem: Chest pain, Non-ST elevation myocardial infarction (NSTEMI), HOCM (hypertrophic obstructive cardiomyopathy), Elevated troponin, Dyspnea Patient Disposition: Admitted As Inpatient Discharge Instructions Interventions: ED Discharge Assessment Last Done: 07/10/24 00:46
--- NOTE | 2024-07-10 00:09 | XRay Report ---
Exam(s): XR CXR 1 VIEW EXAM: XR Chest, 1 View CLINICAL HISTORY: Reason for exam: Chest pain, nonspecific. TECHNIQUE: Frontal view of the chest. COMPARISON: April 10, 2024 FINDINGS: Lungs: Unremarkable. No acute infiltration, atelectasis or mass. Pleural space: Unremarkable. No pneumothorax or pleural fluid. Heart: Unremarkable. No cardiomegaly. Mediastinum: Unremarkable. Normal mediastinal contour. Bones/joints: No acute findings. Old healed fracture of the left clavicle. IMPRESSION: No acute findings in the chest. Electronically signed by: Zachary Martinez MD 07/10/24 00:08 AM
[2024-07-10] MEDS ORDERED: POLYETHYLENE (MIRALAX) 17 GM PACK PO PRN (01:53)
[2024-07-10] MEDS ORDERED: ONDANSETRON INJ 2 MG/ML 2 ML VIAL IV PRN (01:53)
[2024-07-10] MEDS ORDERED: ALBUTEROL HFA 8 GM INHALER INH PRN (01:53)
[2024-07-10] MEDS ORDERED: ACETAMINOPHEN 325 MG TAB PO PRN (01:53)
[2024-07-10 02:28] LABS: Basophils # (auto) 0.03 K/uL (0.00-0.20); Basophils % (auto) 0.6 %; Eosinophils # (auto) 0.05 K/uL (0.00-0.50); Hematocrit (blood only) 44.3 % (42.0-52.0); Hemoglobin 15.1 g/dl (14.0-18.0); Immature Granulocytes # (auto) 0.01 K/uL (0.01-0.20); Immature Granulocytes % (auto) 0.2 %; Lymphocytes % (auto) 42.6 %; Mean Corpuscular Hemoglobin 31.4 pg (25.0-34.0); Mean Corpuscular Hgb Conc 34.1 g/dL (32.0-36.0); Mean Corpuscular Volume 92.1 fL (80.0-100.0); Mean Platelet Volume 10.1 fL (9.4-12.4); Monocytes # (auto) 0.48 K/uL (0.11-0.59); Monocytes % (auto) 9.7 %; Neutrophils # (auto) 2.26 K/uL (1.40-6.50); Neutrophils % (auto) 45.9 %; Platelet Count 229 K/uL (130-400); RDW Coefficient of Variation 12.6 % (11.5-14.5); RDW Standard Deviation 43.1 fL (36.4-46.3); Red Blood Count 4.81 M/uL (4.70-6.10); White Blood Count 4.93 K/ul (4.8-10.8)
[2024-07-10 02:40] LABS: Albumin Globulin Ratio 1.1 (0.9-2); BUN Creatinine Ratio 19.5 (10-20); Bilirubin,Total 0.2 mg/dl (0.2-1.0); Calcium 9.1 mg/dl (8.6-10.3); Creatinine Clr Calc Pharmacy 87.6 ml/min; Globulin 3.5 gm/dl (2.5-4.0); Potassium 5.1 mmol/L (3.5-5.1); Total Protein 7.5 gm/dl (6.0-8.3)
[2024-07-10] MEDS: CALCIUM POLYCARBOPHIL 625MG TAB PO SCH (09:43)
[2024-07-10] MEDS: carBAMazepine 200 MG TABLET PO SCH (09:43)
[2024-07-10] MEDS: APIXABAN 5 MG TABLET PO SCH (09:44)
[2024-07-10] MEDS: ASPIRIN 81 MG ECTAB PO SCH (09:44)
[2024-07-10] MEDS: DIVALPROEX DELAY RELEASE 500 MG TAB PO SCH (09:44)
[2024-07-10] MEDS: MAGNESIUM OXIDE 400 MG TAB PO SCH (09:45)
[2024-07-10] MEDS: METOPROLOL SUCC 50MG EXT REL TAB PO SCH (09:45)
[2024-07-10] MEDS: PHENYTOIN SODIUM ER 100 MG CAP PO SCH (09:45)
[2024-07-10] MEDS: FUROSEMIDE 20 MG TAB PO SCH (09:45)
[2024-07-10] MEDS: POTASSIUM CHLORIDE 10 MEQ TABCR PO SCH (09:46)
[2024-07-10] MEDS: FLUTICASONE FUROATE 100MCG 14 PUFFS/INHALER INH SCH (09:47)
[2024-07-10] MEDS: DIVALPROEX DELAY RELEASE 125 MG TABEC PO SCH (09:48)
[2024-07-10] MEDS: LORazepam 2 MG/1 ML VIAL IV STA (15:17)
--- NOTE | 2024-07-10 15:43 | Hospitalist Progress Note ---
Date of Service July 10, 2024 Assessment & Plan (1) Chest pain: (2) Atrial fibrillation with RVR: (3) Seizure disorder, grand mal: (4) CHF (congestive heart failure): (5) Dyslipidemia: Plan Chest pain -awaiting cardiology consult -troponin slightly elevated at 24 then 28 -low suspicion for cardiac intervention at this time Afib -rate controlled with metoprolol and verapamil -eliquis Seizure disorder -on phenytoin, depakote, and tegretol -ativan given today for possible seizure onset as per patient CHF -con't lasix daily Dyslipidemia -con't crestor Admission and Anticipated Discharge Date Admission Date: July 09, 2024 Subjective No events overnight, pt did have complaints of seizure coming on this afternoon. Was give ativan IV, and is being monitored. Review of Systems Review of Systems: CONST: Negative for fever, body aches and chills. HENT: Negative for neck pain/stiffness, headache, congestion, sore throat, swelling. EYES: Negative for discharge/pain or vision changes. RESP: Negative for cough/hemoptysis and shortness of breath. CV: Negative chest pain, difficulty breathing, palpitations. ABD: Negative pain, nausea, vomiting. : Negative increase frequency, dysuria, blood in urine or stool. MUSC: Negative for muscle aches, edema. SKIN: Negative rash, lesions/sores. NEURO: Negative headache, dizziness, weakness. Physical Exam Physical Exam: GENERAL APPEARANCE NAD, activity normal for age, well developed/ well nourished, no cyanosis, pallor, or diaphoresis. EYES lids/conjunctiva normal. EARS/NOSE/THROAT Mucous membranes moist, nares normal, lips/teeth normal uvula midline without oral pharyngeal erythema, exudat e or swelling TMs normal bilaterally. No lymphangitis/lymphedema. HEAD/NECK normocephalic atraumatic, no facial trauma, neck is supple. RESPIRATORY respiratory effort normal, speaks in full sentences, no tripod position, no accessory muscle use. Lungs clear to auscultation without rhonchi, wheezes, rales CARDIAC Regular rate and rhythm, no edema. ABDOMINAL Soft, ND/NT. No evidence of fluid wave. No pulsatile masses on exam, rebound tenderness, Pelletier sign or pain over Mcburney's point. MUSCLES/EXTREMITIES No abnormal range of motion, no swelling. SKIN Warm, pink and dry. No rashes, dermatoses, petechiae or lesions. NEUROLOGICAL Speech is clear and appropriate. Normal level of consciousness. Gait and coordination are normal. 5/5 strength in all extremities. PSYCH Normal mood and affect. Judgement/competence is appropriate Results & Data Results & Data Vital Signs (Past 12 Hours) Vital Signs Temp Pulse Resp BP Pulse Ox O2 Del Method 07/10/24 15:00 72 16 128/83 Room Air 07/10/24 14:04 Room Air 07/10/24 11:17 36.5 C 64 17 106/74 97 Room Air 07/10/24 07:27 36.5 C 68 17 98/65 L 98 Room Air PG Care Time/CCT Total # of Minutes Spent Total Time Spent with Patient: Total time spent is greater than 50% in coordination of care (as documented) at patient's floor/unit and/or counseling patient: Coding Level of Care Code 80948 SUB INP/OBS CARE 2/35MIN Diagnoses Chest pain R07.9 Atrial fibrillation with RVR I48.91 Seizure disorder, grand mal G40.409 CHF (congestive heart failure) I50.9 Dyslipidemia E78.5
--- NOTE | 2024-07-10 17:18 | Cardiology Consultation ---
Date of Consultation July 10, 2024 Assessment & Plan (1) HOCM (hypertrophic obstructive cardiomyopathy): (2) CAD (coronary artery disease): (3) Chest pain: (4) Hypertension: (5) Heart failure with preserved ejection fraction: (6) Mitral regurgitation: (7) Persistent atrial fibrillation: (8) Left ventricular outflow obstruction: Plan ASSESSMENT/PLAN: 1. Hypertrophic cardiomyopathy with obstruction: Alcohol ablation of first septal mutuel cashier is pending with [facility]. Requested cardiology office staff to contact [facility] to confirm date of procedure. Date is still pending but was informed that they are trying to arrange for July 2024. Requested for mary wilburn date given his rehospitalization. Continue metoprolol succinate. Can continue verapamil. Had been on disopyramide, which was held in favor of verapamil to improve rate control with A-fib by other providers. 2. Atrial fibrillation: Persistent. Asymptomatic. On metoprolol succinate and verapamil for rate control. Heart rate is adequately controlled. Continue anticoagulation for stroke risk reduction. Monitor CBC. 3. CAD: Nonobstructive. Risk factor modification. Continue high intensity statin therapy. 4. Chest pain: May be related to hypertrophic cardiomyopathy. Plan as above. 5. Dyspnea on exertion: He appears euvolemic. He appears compensated. May be related to hypertrophic cardiomyopathy with obstruction. Plan as above. 6. Heart failure with preserved EF: Chronic. He appears euvolemic. NYHA class II/III. Low-sodium diet. Can continue low-dose diuretic. If no contraindication, consider SGLT2 inhibitor. 7. Mitral regurgitation: Nonsevere. 8. Hypertension: Blood pressure mostly normotensive. Continue current regimen. 9. Disposition: No further inpatient testing from a cardiology perspective. Trying to expedite alcohol ablation of first septal mutuel cashier through [facility]. Patient care communicated with primary hospitalist, Dr. Hsieh. Dr. Lorenzo will be covering this weekend. Please call with any further questions or concerns. Thank you for allowing me to participate in the care of your patient. Please call for any other questions or concerns. Sincerely, Lowell Reilly M.D. History of Present Illness Reason for Consultation: "cp r/o" Requesting Physician: Dr. Steiner Attending Physician: Ashu Hsieh MD History of Present Illness Mr. Carreon is a pleasant 53-year-old gentleman with history significant for hypertrophic cardiomyopathy with obstruction, nonobstructive CAD, hypertension, seizure disorder, dyslipidemia, and COPD. He follows in the cardiology office with Mr. Emory LISA. He has had the following studies/procedures: 1. Cardiac cath 10/10/2023: LAD luminal irregularities. Dominant circumflex with several large OM branches. The ongoing AV groove vessel (distal circumflex) 50 to 60%. Nondominant RCA. Dynamic outflow tract obstruction maximum 50 to 60 mmHg. 2. Echo 11/28/2023: Normal LV size, wall motion, systolic function. EF 60-65%. Severe asymmetric hypertrophy involving the anteroseptum (3.1 cm) with otherwise moderate LVH. Severe left atrial dilation. Moderate to severe MR. SHARA with severe LVOT obstruction (PG 94). RVSP 29. Very small pericardial effusion without echo evidence of tamponade. 3. RUBI 05/12/2024: Normal LV size, wall motion, systolic function. EF 55-3%. Severe asymmetric hypertrophy of the basilar septum, and otherwise moderate concentric LVH. Severe left atrial dilation. SHARA. Mild MR. Peak LVOT velocity 2 m/s. He was hospitalized on 07/09/2024 with chest pain and shortness of breath. He has been experiencing increased dyspnea on exertion over time. He denies shortness of breath at rest, orthopnea, syncope, near syncope, palpitations, or edema. He also has tightness across his chest with exertion which is chronic and stable. Symptoms can last 15 to 20 minutes at a time before resolving. Symptoms have been chronic in general. He was chest pain-free when seen earlier this afternoon. He has been evaluated by Dr. Alfonso on 04/15/2024 of [facility] who is planning to pursue ablation of the first septal mutuel cashier. Review of systems: As above. Review of systems otherwise negative/unremarkable. Family history: Father at 54 with presumed OR. He has siblings but is unsure if they have any cardiac condition. He does not recall any other sudden cardiac at young age. Social history: He quit smoking in 2019. Had smoked up to 2 packs/day. Quit alcohol in 2007 once he was incarcerated. He quit drugs in 2007. He had used IV cocaine. He is not . Has 1 daughter. He is from [place]. Currently resides at [facility]. He was accompanied by 1 aquatics lifeguard. Allergies Allergy/AdvReac Type Severity Reaction Status Date / Time No Known Allergies Allergy Verified 07/09/24 23:20 Home Medications Medication Instructions Recorded Confirmed Type aspirin 81 mg tablet,delayed 81 mg PO DAILY 04/05/24 07/09/24 History release calcium polycarbophil 625 mg 625 mg PO DAILY 04/05/24 07/09/24 History tablet (Fiber-Lax) carbamazepine 200 mg tablet 600 mg PO BID 04/05/24 07/09/24 History ciclesonide 80 mcg/actuation 1 puff inhalation BID 04/05/24 07/09/24 History aerosol inhaler (Alvesco) divalproex 125 mg tablet,delayed 125 mg PO BID 04/05/24 07/09/24 History release divalproex 500 mg tablet,delayed 500 mg PO BID 04/05/24 07/09/24 History release magnesium oxide 400 mg PO QAM 04/05/24 07/09/24 History metoprolol succinate 200 mg 200 mg PO QAM 04/05/24 07/09/24 History tablet,extended release 24 hr (Toprol XL) rosuvastatin 20 mg tablet 20 mg PO HS 04/05/24 07/09/24 History apixaban 5 mg tablet (Eliquis) 5 mg PO BID #60 tabs 04/08/24 07/09/24 Rx naproxen 500 mg tablet 500 mg PO BID PRN Pain 05/04/24 07/09/24 History phenytoin sodium extended 100 mg 300 mg PO BID 05/04/24 07/09/24 History capsule potassium chloride 10 mEq 10 meq PO QAM 05/04/24 07/09/24 History tablet,extended release verapamil 360 mg 24 hr 360 mg PO QPM 05/04/24 07/09/24 History capsule,extended release albuterol sulfate 90 mcg/actuation 2 puff inhalation QID PRN 07/09/24 07/09/24 History aerosol inhaler Shortness Of Breath amiodarone 200 mg tablet 200 mg PO DAILY 07/09/24 07/09/24 History furosemide 20 mg tablet 20 mg PO BID 07/09/24 07/09/24 History Problem List (Updated 07/10/24 @ 23:02 by James Reilly MD) Persistent atrial fibrillation Chest pain Left ventricular outflow obstruction PAF (paroxysmal atrial fibrillation) Acute appendicitis (Acute) 04/10/24 Constipation (Acute) Abdominal pain (Acute) 04/10/24 Seizure disorder, grand mal Atrial fibrillation with RVR (Acute) Elevated brain natriuretic peptide (BNP) level (Acute) 11/29/23 Elevated troponin (Acute) 11/29/23 Mitral regurgitation Heart failure with preserved ejection fraction CHF (congestive heart failure) COPD (chronic obstructive pulmonary disease) (Acute) CAD (coronary artery disease) (Acute) Dyspnea (Acute) History of coronary artery disease (Acute) Elevated troponin (Acute) 04/29/22 Chest pain (Acute) 04/29/22 Coronary artery disease, non-occlusive HOCM (hypertrophic obstructive cardiomyopathy) (Acute) Hypertension Family history of premature coronary artery disease Dyslipidemia Seizure disorder Unstable angina pectoris (Acute) 01/07/20 Chest pain (Acute) 01/07/20 Non-ST elevation myocardial infarction (NSTEMI) (Acute) Patient History Medical History (Updated 07/10/24 @ 23:02 by James Reilly MD) Acquired left ventricular outflow tract obstruction Appendicitis was hospitalized and treated with antibiotics 03/2024 HOCM (hypertrophic obstructive cardiomyopathy) COPD (chronic obstructive pulmonary disease) CHF (congestive heart failure) 03/2024 Mitral regurgitation PAF (paroxysmal atrial fibrillation) Non-ST elevated myocardial infarction 10/12 [place] Dyslipidemia Seizure disorder Grandmal CAD (coronary artery disease) HTN (hypertension) Pulmonary nodule Surgical History Hx of cardiac cath 09/2023 [place] Family History Father Coronary heart disease Seizure disorder Social History Smoking Status: Former smoker Tobacco Type: Cigarettes Cigarettes Per Day: [facility] [place]; Second Hand Exposure: No; Do You Dip or Chew Tobacco: No; Tobacco Cessation Education Requested by Patient: No Hx Alcohol Use: No Hx Substance Use: Yes Last Used Substance: Unknown Last Used Substance Other:: 16+ years ago Preferred Language: Ivorian Communication Ability: Effective Survey Data Technician Required: No Beliefs That Will Affect Care: None Current Living Situation: Other Current Living Situation Comment: [place] Other Information That Helps Us Care for You: No Feels Safe at Home: Yes Safety Concerns: Feels Safe At This Time Assistive Devices: Glasses Physical Exam Physical Exam: Gen.: No acute distress. Alert. HEENT: Anicteric sclera. Neck: Thick neck. Cardiac: Regular. Normal S1-S2. 1/6 systolic murmur. Pulmonary: Clear to auscultation bilaterally without wheezes, rales, or rhonchi. Abdomen: Soft, nontender, nondistended, with normoactive bowel sounds. No bruits noted. Extremities: 2+ radial pulses bilaterally. 2+ posterior tibialis pulses bilaterally. No edema or cyanosis. Results & Data Vital Signs (Past 12 Hours) Vital Signs Temp Pulse Resp BP Pulse Ox O2 Del Method 07/10/24 15:00 72 16 128/83 Room Air 07/10/24 14:04 Room Air 07/10/24 11:17 36.5 C 64 17 106/74 97 Room Air 07/10/24 07:27 36.5 C 68 17 98/65 L 98 Room Air Laboratory Results Laboratory Results - last 24 hr 07/09/24 07/09/24 07/09/24 18:53 21:14 21:22 WBC 4.56 L RBC 4.82 Hgb 15.0 Hct 44.0 MCV 91.3 MCH 31.1 MCHC 34.1 RDW Std Deviation 41.9 RDW Coeff of Telly 12.6 Plt Count 225 MPV 10.1 Immature Gran % (Auto) 0.2 Neut % (Auto) 53.7 Lymph % (Auto) 32.9 [place] % (Auto) 11.0 Eos % (Auto) 1.3 Baso % (Auto) 0.9 Neut # (Auto) 2.45 Lymph # (Auto) 1.50 [place] # (Auto) 0.50 Eos # (Auto) 0.06 Baso # (Auto) 0.04 Immature Gran # (Auto) 0.01 Sodium 138 Potassium 4.9 Chloride 103 Carbon Dioxide 29 Anion Gap 6 BUN 22 Creatinine 1.15 Est Cr Clr Drug Dosing 84.8 eGFR 75.63 BUN/Creatinine Ratio 19.1 Glucose 173 H Calcium 8.8 Magnesium Total Bilirubin 0.2 AST 37 ALT 38 Alkaline Phosphatase 48 Troponin I High Sens 24.7 H 28.6 H B-Natriuretic Peptide 248 H Total Protein 7.3 Albumin 4.3 Globulin 3.0 Albumin/Globulin Ratio 1.4 Lipase 22 Nasal Screen MRSA (PCR) 07/10/24 07/10/24 07/10/24 02:01 07:46 14:13 WBC 4.93 RBC 4.81 Hgb 15.1 Hct 44.3 MCV 92.1 MCH 31.4 MCHC 34.1 RDW Std Deviation 43.1 RDW Coeff of Telly 12.6 Plt Count 229 MPV 10.1 Immature Gran % (Auto) 0.2 Neut % (Auto) 45.9 Lymph % (Auto) 42.6 [place] % (Auto) 9.7 Eos % (Auto) 1.0 Baso % (Auto) 0.6 Neut # (Auto) 2.26 Lymph # (Auto) 2.10 [place] # (Auto) 0.48 Eos # (Auto) 0.05 Baso # (Auto) 0.03 Immature Gran # (Auto) 0.01 Sodium 141 Potassium 5.1 Chloride 105 Carbon Dioxide 32 Anion Gap 4 BUN 22 Creatinine 1.13 Est Cr Clr Drug Dosing 87.6 eGFR 77.24 BUN/Creatinine Ratio 19.5 Glucose 134 H Calcium 9.1 Magnesium 2.0 Total Bilirubin 0.2 AST 26 ALT 36 Alkaline Phosphatase 44 Troponin I High Sens 25.9 H 36.2 H D 29.6 H B-Natriuretic Peptide Total Protein 7.5 Albumin 4.0 Globulin 3.5 Albumin/Globulin Ratio 1.1 Lipase Nasal Screen MRSA (PCR) 07/10/24 Unknown WBC RBC Hgb Hct MCV MCH MCHC RDW Std Deviation RDW Coeff of Telly Plt Count MPV Immature Gran % (Auto) Neut % (Auto) Lymph % (Auto) [place] % (Auto) Eos % (Auto) Baso % (Auto) Neut # (Auto) Lymph # (Auto) [place] # (Auto) Eos # (Auto) Baso # (Auto) Immature Gran # (Auto) Sodium Potassium Chloride Carbon Dioxide Anion Gap BUN Creatinine Est Cr Clr Drug Dosing eGFR BUN/Creatinine Ratio Glucose Calcium Magnesium Total Bilirubin AST ALT Alkaline Phosphatase Troponin I High Sens B-Natriuretic Peptide Total Protein Albumin Globulin Albumin/Globulin Ratio Lipase Nasal Screen MRSA (PCR) Negative Diagnostic Findings Telemetry personally reviewed: Atrial fibrillation in the 60s when reviewed this morning. ECG personally reviewed 07/09/2024: Atrial fibrillation 86 bpm. Cannot rule out anterior infarct. Lateral ST/T wave abnormality. Transesophageal echo report reviewed as noted above in HPI. History and physical report reviewed. Labs reviewed and notable for minimally elevated high-sensitivity troponin (chronic and stable), mildly of elevated BNP (improved from prior evals), normal potassium, stable renal function, normal blood counts, normal transaminase levels, normal magnesium. Chest x-ray 07/09/2024: No acute findings per radiology. [facility] cardiology note reviewed. Medications Administered Current Inpatient Medications Acetaminophen (Acetaminophen 325 Mg Tab) 650 mg PO Q4H PRN PRN Reason: Pain or Fever Stop: 08/09/24 01:52 Albuterol (Albuterol Hfa 8 Gm Inhaler) 2 puffs INH QID PRN PRN Reason: Shortness Of Breath Stop: 08/09/24 01:52 Apixaban (Apixaban 5 Mg Tablet) 5 mg PO BID [facility] Stop: 08/09/24 08:59 Last Admin: 07/10/24 20:06 Dose: 5 mg Aspirin (Aspirin 81 Mg Ectab) 81 mg PO DAILY [facility] Stop: 08/09/24 08:59 Last Admin: 07/10/24 09:44 Dose: 81 mg Calcium Polycarbophil (Calcium Polycarbophil 625mg Tab) 625 mg PO DAILY [facility] Stop: 08/09/24 08:59 Last Admin: 07/10/24 09:43 Dose: 625 mg Carbamazepine (Carbamazepine 200 Mg Tablet) 600 mg PO BID [facility] Stop: 08/09/24 08:59 Last Admin: 07/10/24 20:07 Dose: 600 mg Divalproex Sodium (Divalproex Delay Release 500 Mg Tab) 500 mg PO BID [facility] Stop: 08/09/24 08:59 Last Admin: 07/10/24 20:07 Dose: 500 mg Divalproex Sodium (Divalproex Delay Release 125 Mg Tabec) 125 mg PO BID [facility] Stop: 08/09/24 08:59 Last Admin: 07/10/24 20:07 Dose: 125 mg Fluticasone Furoate (Fluticasone Furoate 100mcg 14 Puffs/Inhaler) 1 puffs INH DAILY [facility] Stop: 08/09/24 08:59 Last Admin: 07/10/24 09:47 Dose: 1 puffs Furosemide (Furosemide 20 Mg Tab) 20 mg PO DAILY [facility] Stop: 08/09/24 08:59 Last Admin: 07/10/24 09:45 Dose: 20 mg Magnesium Oxide (Magnesium Oxide 400 Mg Tab) 400 mg PO QAM [facility] Stop: 08/09/24 08:59 Last Admin: 07/10/24 09:45 Dose: 400 mg Metoprolol Succinate (Metoprolol Succ 50mg Ext Rel Tab) 200 mg PO QAM [facility] Stop: 08/09/24 08:59 Last Admin: 07/10/24 09:45 Dose: 200 mg Ondansetron HCl (Ondansetron Inj 2 Mg/Ml 2 Ml Vial) 4 mg IV Q6H PRN PRN Reason: Nausea Stop: 08/09/24 01:52 Phenytoin Sodium (Phenytoin Sodium Er 100 Mg Cap) 300 mg PO BID [facility] Stop: 08/09/24 08:59 Last Admin: 07/10/24 20:07 Dose: 300 mg Polyethylene Glycol (Polyethylene (Miralax) 17 Gm Pack) 17 gm PO DAILY PRN PRN Reason: Constipation Stop: 08/09/24 01:52 Potassium Chloride (Potassium Chloride 10 Meq Tabcr) [facility] Stop: 08/09/24 08:59 Last Admin: 07/10/24 09:46 Dose: 10 meq Rosuvastatin Calcium (Rosuvastatin Calcium 20 Mg Tab) 20 mg PO HS [facility] Stop: 08/09/24 20:59 Last Admin: 07/10/24 20:08 Dose: 20 mg Verapamil HCl (Verapamil Hcl 180 Mg Tabcr) 360 mg PO QPM [facility] Stop: 08/09/24 20:59 Last Admin: 07/10/24 20:07 Dose: 360 mg PG Care Time/CCT Total # of Minutes Spent Total Time Spent with Patient: Total time spent is greater than 50% in coordination of care (as documented) at patient's floor/unit and/or counseling patient: Coding Level of Care Code 09255 INT INP/OBS CARE 3/75MIN Diagnoses HOCM (hypertrophic obstructive cardiomyopathy) I42.1 CAD (coronary artery disease) I25.10 Chest pain R07.9 Chest pain type: unspecified Primary hypertension I10 Hypertension type: primary hypertension Heart failure with preserved ejection fraction, unspecified HF chronicity I50.30 Heart failure chronicity: unspecified Nonrheumatic mitral valve regurgitation I34.0 Cardiac valve disease etiology: nonrheumatic Persistent atrial fibrillation I48.19 Left ventricular outflow obstruction Q24.8 (3) Chest pain Chest pain type: unspecified Qualified Code(s): R07.9 - Chest pain, unspecified (4) Hypertension Hypertension type: primary hypertension Qualified Code(s): I10 - Essential (primary) hypertension (5) Heart failure with preserved ejection fraction Heart failure chronicity: unspecified Qualified Code(s): I50.30 - Unspecified diastolic (congestive) heart failure (6) Mitral regurgitation Cardiac valve disease etiology: nonrheumatic Qualified Code(s): I34.0 - Nonrheumatic mitral (valve) insufficiency
[2024-07-10] MEDS: VERAPAMIL HCL 180 MG TABCR PO SCH (20:07)
[2024-07-10] MEDS: ROSUVASTATIN CALCIUM 20 MG TAB PO SCH (20:08)
--- NOTE | 2024-07-10 21:34 | Electrocardiogram Report ---
Test Reason : Blood Pressure : */* mmHG Vent. Rate : 86 BPM Atrial Rate : * BPM P-R Int : * ms QRS Dur : 106 ms QT Int : 386 ms P-R-T Axes : * 3 128 degrees QTcB Int : 461 ms Poor data quality, interpretation may be adversely affected Atrial fibrillation Cannot rule out Anterior infarct , age undetermined Abnormal ECG When compared with ECG of 10-Apr-2024 16:12, No significant change was found Confirmed by James Reilly ([id number]) on 07/10/2024 9:33:52 PM Referred By: Confirmed By: James Reilly
--- NOTE | 2024-07-11 09:28 | Discharge Summary ---
Discharge Summary Date of Service July 11, 2024 Principal Dx & Hospital Course #1 = Principal Diagnosis (1) Chest pain: (2) Atrial fibrillation with RVR: (3) Seizure disorder, grand mal: (4) CHF (congestive heart failure): (5) Dyslipidemia: Plan Chest pain - cardiology consulted -no further inpatient testing require -Follow up with cardiology in Jul 2024 for alcohol ablation of first septal instruction assistant principal pending with [facility]. -troponin slightly elevated at 24 then 28 -low suspicion for cardiac intervention at this time Afib -rate controlled with metoprolol and verapamil -eliquis Seizure disorder -on phenytoin, depakote, and tegretol -ativan given today for possible seizure onset as per patient CHF -con't lasix daily Dyslipidemia -con't crestor Admission HPI Per Admitting Provider Patient is a 53-year-old male prisoner with past medical history of paroxysmal A-fib on Eliquis, COPD, CAD, hypertrophic obstructive cardiomyopathy, hypertension, dyslipidemia, seizure disorder, and history of NSTEMI. Who presents to the hospital with worsening chest pain and shortness of breath on exertion. Patient states that he has had tightness across his chest for over the past year. Getting a little worse though has been pretty consistent over the past year. States though that recently he has been getting shortness of breath on exertion which is new. Also had some nausea earlier today with walking. Denies any cough, fever, chills, abdominal pain. Denies any radiating pain. Denies any significant changes to his medical history or medications. Patient also notes some lightheadedness with ambulation. Of note patient was seen 2 months ago in [place] by cardiology. States that they did not do any surgery at that time but did discuss that he will probably need surgery in the near future. Reached out to ED staff about obtaining records from [place]. Discharge Exam GENERAL APPEARANCE NAD, activity normal for age, well developed/ well nourished, no cyanosis, pallor, or diaphoresis. EYES lids/conjunctiva normal. EARS/NOSE/THROAT Mucous membranes moist, nares normal, lips/teeth normal uvula midline without oral pharyngeal erythema, exudate or swelling TMs normal bilaterally. No lymphangitis/lymphedema. HEAD/NECK normocephalic atraumatic, no facial trauma, neck is supple. RESPIRATORY respiratory effort normal, speaks in full sentences, no tripod pos ition, no accessory muscle use. Lungs clear to auscultation without rhonchi, wheezes, rales CARDIAC Regular rate and rhythm, no edema. ABDOMINAL Soft, ND/NT. No evidence of fluid wave. No pulsatile masses on exam, rebound tenderness, Pelletier sign or pain over Mcburney's point. MUSCLES/EXTREMITIES No abnormal range of motion, no swelling. SKIN Warm, pink and dry. No rashes, dermatoses, petechiae or lesions. NEUROLOGICAL Speech is clear and appropriate. Normal level of consciousness. Gait and coordination are normal. 5/5 strength in all extremities. PSYCH Normal mood and affect. Judgement/competence is appropriate Discharge Plan Discharge Items [facility] Reason For Visit: CP R/O Discharge Diagnosis: Chest pain Activity: Resume your previous activity Non-emergency contact: Primary Care Provider Call non-emergency contact if: you have any medication questions Follow-up/Referrals: Robert LUNDY [Primary Care Provider] - Diet: Heart Healthy Addtl Attending Provider Instructions: Follow up with cardiology in Jul 2024 for alcohol ablation of first septal instruction assistant principal pending with [facility]. Pending Studies at Discharge: No Skilled Items Patient informed of condition?: Yes DNR: No Discharge Level of Care: Other Communicable Disease: No Discharge Prognosis: Stable Lines: None Urinary Catheter: No Medications and DC Order Prescriptions: Continued metoprolol succinate [Toprol XL] 200 mg Tablet Extended Release 24 Hr 200 mg PO QAM divalproex 500 mg Tablet,Delayed Release (Dr/Ec) 500 mg PO BID Rx Instructions: Take with 125 mg dose to equal 625 mg aspirin 81 mg Tablet,Delayed Release (Dr/Ec) 81 mg PO DAILY carbamazepine 200 mg Tablet 600 mg PO BID Rx Instructions: 200 mg x3 tablets divalproex 125 mg Tablet,Delayed Release (Dr/Ec) 125 mg PO BID Rx Instructions: Take with 500 mg dose to equal 625 mg calcium polycarbophil [Fiber-Lax] 625 mg Tablet 625 mg PO DAILY rosuvastatin 20 mg Tablet 20 mg PO HS Alvesco 80 mcg/actuation Hfa Aerosol Inhaler 1 puff INHALATION BID magnesium oxide 400 mg magnesium Tablet 400 mg PO QAM Rx Instructions: 1 tablet po daily; give with PRN Lasix Eliquis 5 mg Tablet 5 mg PO BID Qty: 60 0RF verapamil 360 mg Capsule,Ext Rel. Pellets 24 Hr 360 mg PO QPM phenytoin sodium extended 100 mg Capsule 300 mg PO BID naproxen 500 mg Tablet 500 mg PO BID PRN (Reason: Pain) potassium chloride 10 mEq tablet extended release 10 meq PO QAM amiodarone 200 mg Tablet 200 mg PO DAILY furosemide 20 mg tablet 20 mg PO BID albuterol sulfate 90 mcg/actuation Hfa Aerosol Inhaler 2 puff INHALATION QID PRN (Reason: Shortness Of Breath) Admission Data Admit Date/Time: 07/09/24 21:56 Attending Provider: Ashu Hsieh Admit Provider: Chandler Steiner [facility] Other Providers: Rangel Gilliland; Ghanshyam Cat; Paul Nicole; Louis Lorenzo; Polo Johnson; Amado Hurst; Chidi Simental Jr; James Reilly; Cindy Barr; Noemy Haynes; Nigel Mendoza; Nigel Nogueira; Zachary Larios; Jen Stinson; Rafael Qiu; Isabel Winkler; Shashank Saeed; Rafael Fuentes; Merlin Bejarano; Bal Rodriguez Hospital Stay Data Consultations 07/09/24 21:27 ED Decision to Admit Stat 07/10/24 01:53 Consult Cardiology Routine Pending Results Patient Have Any Pending Studies at Discharge: No Discharge Instructions Given to Patient (Per Discharging Provider) Follow up with cardiology in Jul 2024 for alcohol ablation of first septal instruction assistant principal pending with [facility]. Total Time Total Time Spent Total Time Spent (In Minutes): 50 Coding Level of Care Code 64474 INP/OBS DISCH >30 MIN Diagnoses Chest pain R07.9 Atrial fibrillation with RVR I48.91 Seizure disorder, grand mal G40.409 CHF (congestive heart failure) I50.9 Dyslipidemia E78.5
[2024-07-11 11:58] VITALS: BP 133/85; PULSE 77; RESP 20; TEMP 97.9; O2SAT 95
--- NOTE | 2024-07-11 21:52 | Billing Data ---
Date of Service July 11, 2024 Coding Level of Care Code 55247 INT INP/OBS CARE
== END 2024-07-11 14:22 ==
LOC: ED 18:43 → 2S 18:43 → SUATTDRO 21:56 → 2S 07-10 00:46